=== PATIENT | female | born 1960 | race Caucasian/White ===

== ENCOUNTER 2023-06-02 21:02 | Emergency (ER) | payer MEDICARE, SELFPAY ==
[2023-06-02 21:44] VITALS: BP 144/84; PULSE 87; RESP 18; TEMP 36.6; O2SAT 96; BMI 34.8
--- NOTE | 2023-06-02 22:00 | ED_ITS ---
HPI - Extremity Injury (Upper) General Stated Complaint: Laceration Time Seen by Provider: 06/02/23 21:10 Source: patient Mode of arrival: walk-in History of Present Illness HPI narrative: patient was washing dishes by hand when she accidentally broke a glass and cut the right thumb and right index finger. This occurred about 2 hours ago. She applied pressure to the areas. The index finger has a superficial scratch but the thumb injury is deeper and her family member, who is a nurse, told her to come to the ED for treatment - it might need stitches . She is right handed. tetanus UTD. She does not take any blood thinners. Related Data Allergies Allergy/AdvReac Type Severity Reaction Status Date / Time No Known Drug Allergies Allergy Verified 06/02/23 21:51 PFSH PFS Social History Smoking status: Never smoker Exam Narrative Exam Narrative: Nurses note and vital signs reviewed and patient is not hypoxic. afebrile General: The patient appears well and in no apparent distress. Patient is resting comfortably on cart. GCS = 15. Skin: Warm, dry, no pallor noted. Cardiovascular: normal peripheral perfusion Respiratory: Patient is in no distress, no accessory muscle use Musculoskeletal: right hand: no sign of long bone fracture. the index finger has a superficial abrasion that is irregular and shape approximately 1 cm in size. The right thumb has a 1 cm laceration which is extending just slightly into the subcutaneous space but no vascular compromise is noted. no foreign material visualized within the wound. Bleeding is controlled this time. Moves all fingers of the right hand in all modalities with 5/5 strength. Neurological: A&O x4, normal equal [employer] strength, normal finger to nose, normal speech, normal coordination, normal motor, normal sensory. Psychiatric: Cooperative Constitutional Vital Signs, click to edit/add: Last Vital Signs Temp 97.9 F 06/02/23 21:44 Pulse 87 06/02/23 21:44 Resp 18 06/02/23 21:44 BP 144/84 H 06/02/23 21:44 Pulse Ox 96 06/02/23 21:44 O2 Del Method Room Air 06/02/23 21:44 Course Vital Signs Vital signs: Vital Signs Temperature 97.9 F 06/02/23 21:44 Pulse Rate 87 06/02/23 21:44 Respiratory Rate 18 06/02/23 21:44 Blood Pressure 144/84 H 06/02/23 21:44 Pulse Oximetry 96 06/02/23 21:44 Oxygen Delivery Method Room Air 06/02/23 21:44 Temperature 97.9 F 06/02/23 21:44 Pulse Rate 87 06/02/23 21:44 Respiratory Rate 18 06/02/23 21:44 Blood Pressure 144/84 H 06/02/23 21:44 Pulse Oximetry 96 06/02/23 21:44 Oxygen Delivery Method Room Air 06/02/23 21:44 MDM - Extremity Injury (Upper) MDM Narrative Medical decision making narrative: this laceration will not require sutures at this time. patient is able to move the right thumb through full range of motion without any gaping of the laceration. I applied wound adhesive to the laceration of the right thumb in order to help secure wound closure. The right index finger does not require any wound adhesive and I applied a bandage to the right index finger. I also applied a bandaid to the right thumb once the glue was dry. Discharge Plan Discharge Clinical Impression: Abrasion, Laceration of right thumb Patient Disposition: Home, Self-Care Time of Disposition Decision: 22:06 Instructions: Finger Laceration (ED), Abrasion (ED) Stand Alone Forms: Portal Instructions Referrals: [facility] [Primary Care Provider] - 1 week
== END 2023-06-02 22:15 | disposition home or self-care (01) ==
PROVIDERS: Emergency Provider Emergency Medicine
DX: S61.011A Laceration without foreign body of right thumb without damage to nail, initial encounter (principal); S60.410A Abrasion of right index finger, initial encounter; W25.XXXA Contact with sharp glass, initial encounter
CPT/HCPCS: 12001; 99282

== ENCOUNTER 2023-10-28 16:12 | Emergency (ER) | payer MEDICARE, SELFPAY ==
[2023-10-28 16:17] VITALS: BP 170/98; PULSE 87; RESP 20; TEMP 36.9; O2SAT 98; BMI 34.8
--- NOTE | 2023-10-28 16:23 | XR_ITS ---
The [address] [address] Patient Name: MARINE MARR MRN: [id number] date: 1960 Sex: F Assigned Patient Location: ER Current Patient Location: ER Accession/Order Number: [id number] Exam Date: 10/28/2023 16:30 Report Date: 10/28/2023 16:53 At the request of: NASIM HERNANDEZ Procedure: XR foot RT min 3V EXAM: XR foot RT min 3V HISTORY: Atraumatic pain, on dorsum COMPARISON: None. TECHNIQUE: 3 views of the right foot FINDINGS: There is no acute fracture or dislocation. No aggressive bone lesion. There is no cortical erosion. There is mild hallux valgus. 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 There is soft tissue swelling of the foot. XR/XR foot RT min 3V IMPRESSION: No acute fracture. Electronically authenticated by: APOLONIA DAVID Date: 10/28/2023 16:53
--- NOTE | 2023-10-28 16:23 | ED.EXTPRO1 ---
HPI - Extremity Problem General Chief complaint: Extremity Problem, Nontraumatic Stated complaint: rt foot swollen and painfull Time Seen by Provider: 10/28/23 16:18 Source: patient Mode of arrival: walk-in Limitations: no limitations History of Present Illness HPI Narrative: 63-year-old female presents for pain on the dorsum of her right foot. No injury. She saw her family doctor a few days ago and she says he could not find anything wrong. No radiographs were taken. She has not had any unusual activity recently and has had no injury. Contralateral foot does not hurt and neither does her right ankle. It is mild to moderate. Related Data Home Medications Medication Instructions Recorded Confirmed atorvastatin 40 mg tablet 40 mg PO DAILY 10/28/23 10/28/23 celecoxib 200 mg capsule 200 mg PO Q24H 10/28/23 10/28/23 esomeprazole magnesium 40 mg 40 mg PO Q24H 10/28/23 10/28/23 capsule,delayed release fluticasone propionate 44 2 inh inhalation Q12H PRN wheeze 10/28/23 10/28/23 mcg/actuation HFA aerosol inhaler losartan 25 mg tablet 25 mg PO DAILY 10/28/23 10/28/23 triamterene 37.5 1 tab PO DAILY 10/28/23 10/28/23 mg-hydrochlorothiazide 25 mg tablet Previous Rx's Medication Instructions Recorded ibuprofen 800 mg tablet 800 mg PO Q8H PRN pain #20 tabs 10/28/23 Allergies Allergy/AdvReac Type Severity Reaction Status Date / Time No Known Drug Allergies Allergy Verified 06/02/23 21:51 Review of Systems ROS Narrative A ten point review of systems is negative except as noted above. PFSH PFSH Social History Smoking status: Former smoker Exam Narrative Exam Narrative: Nurses note and vital signs reviewed and patient is not hypoxic. General: The patient appears well and in no apparent distress. Patient is resting comfortably on cart. Skin: Warm, dry, no pallor noted. There is no rash noted. Head: Normocephalic, atraumatic Eye: Normal conjunctiva, no drainage Ears, Nose, Mouth, and Throat: oral mucosa is moist. Nares patent. Cardiovascular: Regular Rate and Rhythm Respiratory: Patient is in no distress, no accessory muscle use, lungs are clear to auscultation, no wheezing, rales or rhonchi Back: non-tender GI: Soft and nontender Musculoskeletal: No visible swelling present on the right foot. There is no erythema or bruising or rash. She does have a tattoo of a jose on the dorsum of that foot. Dorsalis pedis pulse 2+. No tenderness to the plantar aspect of the foot and her toes have good range of motion which does not cause discomfort. The ankle is nontender and nonswollen. Neurological: A&O, normal speech Psychiatric: Cooperative Constitutional Vital Signs, click to edit/add: Last Vital Signs Temp 98.5 F 10/28/23 16:17 Pulse 87 10/28/23 16:17 Resp 20 10/28/23 16:17 BP 170/98 H 10/28/23 16:17 Pulse Ox 98 10/28/23 16:17 O2 Del Method Room Air 10/28/23 16:17 Course Vital Signs Vital signs: Vital Signs Temperature 98.5 F 10/28/23 16:17 Pulse Rate 87 10/28/23 16:17 Respiratory Rate 20 10/28/23 16:17 Blood Pressure 170/98 H 10/28/23 16:17 Pulse Oximetry 98 10/28/23 16:17 Oxygen Delivery Method Room Air 10/28/23 16:17 Temperature 98.5 F 10/28/23 16:17 Pulse Rate 87 10/28/23 16:17 Respiratory Rate 20 10/28/23 16:17 Blood Pressure 170/98 H 10/28/23 16:17 Pulse Oximetry 98 10/28/23 16:17 Oxygen Delivery Method Room Air 10/28/23 16:17 MDM - Extremity (Nontraumatic) MDM Narrative Medical decision making narrative: X-ray is negative. Cause of her discomfort is uncertain but she is prescribed anti-inflammatory and referred to podiatry. Treatment diagnosis and follow-up were discussed with the patient. Differential Diagnosis Differential diagnosis: Likely other (Fracture, strain, stress fracture) Imaging Data Foot x-ray: Radiologist's impression: ITS Impressions Foot X-Ray 10/28/23 16:23 IMPRESSION: No acute fracture. Electronically authenticated by: APOLONIA DAVID Date: 10/28/2023 16:53 Discharge Plan Discharge Stand Alone Forms: Portal Instructions Chief Complaint: Extremity Problem, Nontraumatic Clinical Impression: Acute pain of right foot Patient Disposition: Home, Self-Care Time of Disposition Decision: 17:00 Condition: Good Mode of Transportation: Private Vehicle Prescriptions / Home Meds: New ibuprofen 800 mg tablet 800 mg PO Q8H PRN (Reason: pain) Qty: 20 0RF No Action atorvastatin 40 mg tablet 40 mg PO DAILY esomeprazole magnesium 40 mg capsule,delayed release(DR/EC) 40 mg PO Q24H fluticasone propionate 44 mcg/actuation HFA aerosol inhaler 2 inh inhalation Q12H PRN (Reason: wheeze) Rx Instructions: administer with spacer losartan 25 mg tablet 25 mg PO DAILY triamterene-hydrochlorothiazid 37.5-25 mg tablet 1 tab PO DAILY celecoxib 200 mg capsule 200 mg PO Q24H Instructions: Metatarsalgia (DC) Additional Instructions: Follow-up with Dr. Dela Cruz Referrals: [facility] [Primary Care Provider] - 1 week
--- OUTSIDE RECORDS SUMMARY | 2023-10-28 16:24 | XMS_ITS | CCD ---
Author Name Unknown Address [address] [place] [address] Organization [facility] Care Team Providers Care Liner Worker Name Role Phone Joel Anand Unavailable [facility] Primary Care Unavaila DR AVERY Ellis Consulting Unavailable DR AVERY BONILLA Admitting Unavailable DR AVERY BONILLA Attending Unavailable [facility], Services Primary Care Provider DO Jayden Quevedo Attending Provider DO Josiah aFrmer Referring Provider [facility], Services Primary Care Provider DO Pablo Crowley Attending Provider [phone] MD Orly Fontaine Other Provider [phone] MD Orly Fontaine Other Provider [phone] DO Jayden Quevedo Attending Provider DO Harrison Sánchez Referring Provider [phone] Apolinar Zarate Unavailable [facility], Services Primary Care Provider DO Jayden Quevedo Attending Provider [phone] DO Harrison Sánchez Referring Provider [phone] MD Apolinar Zarate Attending Provider [phone] [facility], Services Primary Care Provider Apolinar Zarate Admitting Unavailable Apolinar Zarate Attending Unavailable [facility], Services Primary Care Unavaila ble Harrison Sánchez Admitting Unavailable Harrison Sánchez Attending Unavailable [facility], Services Primary Care Unavaila ble [facility], Pablo Attending Unavailable [facility] Services Primary Care Unavaila ble Orly Fontaine Consulting Unavailable [facility] Pablo Admitting Unavailable Apolinar Zarate Admitting Unavailable Apolinar Zarate Attending Unavailable [facility], Services Primary Care Unavaila ble Apolinar Zarate Attending Unavailable Apolinar Zarate Admitting Unavailable [facility], Services Primary Care Unavaila Harrison Bullock Referring Unavailable [facility], Services Primary Care Unavaila Jayden Pradhan Admitting Unavailable Jayden Quevedo Attending Unavailable Jayden Quevedo Attending Unavailable Harrison Sánchez Referring Unavailable [facility], Services Primary Care UnavailJayden Salguero Admitting Unavailable Apolinar Zarate Admitting Unavailable Apolinar Zarate Attending Unavailable [facility] Primary Care Unavaila [facility] Medications Current Medications Medication Drug Class(es) Dates Sig (Normalized) Sig (Original) atorvastatin 40 mg oral tablet (13 sources) HMG-CoA Reductase Inhibitor Start: 07-16-2017 take 40 mg by mouth once daily in the morning Atorvastatin Active 40 MG PO Every morning July 16, 2017 12:00am celecoxib 200 mg oral capsule (4 sources) Nonsteroidal Anti-inflammatory Drug Start: 10-05-2023 take 1 capsule by mouth once daily at mealtime Celecoxib Active 200 MG PO Daily October 05, 2023 12:00am [employer] capsule with food Orally Once a day; Note: Source Status: Taking; Provider: Tessa Jiang ( ) esomeprazole 40 mg delayed release oral capsule (10 sources) Proton Pump Inhibitor Start: 07-16-2017 take 40 mg by mouth twice daily Esomeprazole Magnesium Active 40 MG PO Twice daily July 16, 2017 12:00am hydroCHLOROthiazide 25 mg / triamterene 37.5 mg oral capsule (20 sources) Potassium-sparing Diuretic, Thiazide Diuretic Start: 07-16-2017 End: 12-29-2018 take 1 tablet by mouth once daily in the morning Triamterene-[place] chlorothiazid Active 1 TAB PO Every morning December 28, 2018 11:00pm Lisinopril (3 sources) Angiotensin Converting Enzyme Inhibitor Lisinopril Active losartan potassium 25 mg oral tablet (13 sources) Angiotensin 2 Receptor Donnell Start: 07-16-2017 take 25 mg by mouth once daily in the morning Losartan Active 25 MG PO Every morning July 16, 2017 12:00am Completed/Discontinued Medications Medication Drug Class(es) Dates Sig (Normalized) Sig (Original) acetaminophen 325 mg / HYDROcodone bitartrate 5 mg oral tablet (8 sources) Opioid Agonist Start: 01-13-2019 End: 08-24-2019 take 1 tablet by mouth every six hours Hydrocodone-Acetam inophen ([place]) 5-325 mg tablet Discontinued 1 TAB PO Q6H 20 January 13, 2019 August 24, 2019 6:25pm albuterol 0.83 mg/ml inhalation solution (20 sources) beta2-Adrenergic Agonist Start: 10-30-2017 End: 12-29-2018 take 2.5 mg by inhalation every four hours Albuterol Sulfate Discontinued 2.5 MG INHALATION Q4H 90 October 29, 2017 11:00pm November 02, 2017 11:04am Start: 07-16-2017 End: 10-30-2017 take 1 puff(s) by inhalation every four hours Albuterol Sulfate (Ventolin Hfa) 108 HFA aerosol inhaler Discontinued 2 PUFF INHALATION Q4H July 16, 2017 12:00am October 30, 2017 11:28am Start: 07-16-2017 End: 10-30-2017 Albuterol Sulfate Discontinu ed 2 INH INHALATION Every 4 hours 18 July 16, 2017 12:00am October 30, 2017 11:29am administer with spacer azithromycin 250 mg oral tablet (8 sources) Macrolide Antimicrobial Start: 07-16-2017 End: 10-30-2017 take 1 tablet by mouth once daily Azithromycin (Zithromax) 250 mg tablet Discontinued 250 MG PO Daily July 16, 2017 12:00am October 30, 2017 11:28am Take 500mg on day one, 250mg daily for four more days. cephalexin 500 mg oral capsule (8 sources) Cephalosporin Antibacterial Start: 08-24-2019 End: 10-14-2021 take 1 capsule by mouth three times daily Cephalexin (Keflex) 500 mg Capsule Discontinued 500 MG PO Three times daily August 24, 2019 12:00am October 14, 2021 7:28am codeine phosphate 2 mg/ml / promethazine hydrochloride 1.25 mg/ml oral solution (8 sources) Opioid Agonist, Phenothiazine Start: 07-16-2017 End: 11-02-2017 take 1 mL by mouth every six hours Promethazine-Code ine Discontinued 5 ML PO Q6H 60 July 16, 2017 12:00am November 02, 2017 11:06am fluticasone propionate 0.05 mg/actuat metered dose nasal spray (8 sources) Corticosteroid Start: 07-16-2017 End: 12-29-2018 Fluticasone Propionate Discontinued 2 SPRAY INTRANASAL Daily July 16, 2017 12:00am December 29, 2018 9:41am ibuprofen 600 mg oral tablet (8 sources) Nonsteroidal Anti-inflammatory Drug Start: 01-13-2019 End: 08-24-2019 Ibuprofen Discontinued 600 MG PO Every 6 hours January 12, 2019 11:00pm August 24, 2019 6:25pm do not exceed 4 doses in a 24 hour period ipratropium bromide 0.2 mg/ml inhalation solution (20 sources) Anticholinergic Start: 10-30-2017 End: 12-29-2018 take 0.5 mg by inhalation every eight hours Ipratropium [place] Discontinued 0.5 MG INHALATION Q8H October 29, 2017 11:00pm December 29, 2018 9:42am levoFLOXacin 750 mg oral tablet (8 sources) Quinolone Antimicrobial Start: 10-30-2017 End: 11-09-2017 take 1 tablet by mouth every twenty-four hours Levofloxacin (Levaquin) 750 mg tablet Discontinued 750 MG PO Q24H 10 October 29, 2017 11:00pm November 08, 2017 11:03pm meloxicam 7.5 mg oral tablet (18 sources) Nonsteroidal Anti-inflammatory Drug Start: 12-29-2018 End: 01-13-2019 take 7.5 mg by mouth once daily in the morning Meloxicam Discontinued 7.5 MG PO Every morning December 28, 2018 11:00pm January 13, 2019 6:54am Start: 07-16-2017 End: 12-29-2018 take 15 mg by mouth once daily Meloxicam Discontinued 15 MG PO Daily July 16, 2017 12:00am December 29, 2018 9:38am metroNIDAZOLE 500 mg oral tablet (8 sources) Nitroimidazole Antimicrobial Start: 04-04-2018 End: 12-29-2018 take 1 tablet by mouth twice daily Metronidazole (Flagyl) 500 mg tablet Discontinued 500 MG PO Twice daily 14 April 03, 2018 11:00pm December 29, 2018 9:42am nitrofurantoin, macrocrystals 25 mg / nitrofurantoin, monohydrate 75 mg oral capsule (16 sources) Nitrofuran Antibacterial Start: 12-29-2018 End: 08-24-2019 take 1 capsule by mouth once daily at mealtime Nitrofurantoin Monohyd/M-Cryst (Macrobid) 100 mg capsule Discontinued 1 CAP PO Daily 5 January 12, 2019 11:00pm August 24, 2019 6:25pm administer with a meal/food; swallow whole; do not open, crush, dissolve , or chew potassium chloride 20 meq powder for oral solution (8 sources) Start: 08-24-2019 End: 10-14-2021 take 20 mEq by mouth once daily Potassium Chloride Discontinued 20 MEQ PO Daily August 24, 2019 12:00am October 14, 2021 7:44am predniSONE 20 mg oral tablet (16 sources) Start: 10-30-2017 End: 11-04-2017 take 40 mg by mouth once daily at mealtime Prednisone Discontinued 40 MG PO Daily 10 October 29, 2017 11:00pm November 03, 2017 11:04pm administer with food or milk Start: 07-16-2017 End: 10-30-2017 take 20 mg by mouth once daily at mealtime Prednisone Discontinued 20 MG PO Daily July 16, 2017 12:00am October 30, 2017 11:29am administer with food or milk promethazine hydrochloride 25 mg oral tablet (8 sources) Phenothiazine Start: 08-24-2019 End: 10-14-2021 take 25 mg by mouth every six hours Promethazine Discontinued 25 MG PO Q6H August 24, 2019 12:00am October 14, 2021 7:45am sulfamethoxazole 800 mg / trimethoprim 160 mg oral tablet (8 sources) Dihydrofolate Reductase Inhibitor Antibacterial, Sulfonamide Antimicrobial Start: 08-24-2019 End: 10-14-2021 take 1 tablet by mouth twice daily Sulfamethoxazole- Trimethoprim Discontinued 1 TAB PO Twice daily August 24, 2019 12:00am October 14, 2021 7:45am Problems Active Problems Problem Classification Problem Date Documented Date Episodic/Chronic Acute bronchitis (8 sources) Acute bronchitis; Translations: [Acute bronchitis, unspecified] 10-30-2017 Episodic Anal and rectal conditions (5 sources) Anal and rectal polyp; Translations: [Rectal polyp] Episodic Chronic obstructive pulmonary disease and bronchiectasis (8 sources) Bronchitis; Translations: [Bronchitis, not specified as acute or chronic] 11-02-2017 Episodic Diverticulosis and diverticulitis (6 sources) Diverticular disease; Translations: [Diverticulosis of intestine, part unspecified, without perforation or abscess without bleeding] Onset: 11-27-2021 Resolved: 11-27-2021 Chronic Esophageal disorders (5 sources) Gastroesophageal reflux disease; Translations: [Gastro-esophageal reflux disease without esophagitis] Chronic Essential hypertension (1 source) Essential (primary) hypertension; Translations: [Essential (primary) hypertension] Onset: 02-04-2023 Chronic Fever of unknown origin (1 source) Fever, unspecified; Translations: [FEVER UNSPECIFIED] Onset: 07-19-2022 Episodic Fluid and electrolyte disorders (8 sources) Acute hypokalemia; Translations: [Hypokalemia] 08-24-2019 Episodic Genitourinary symptoms and ill-defined conditions (13 sources) Incontinence; Translations: [Stress incontinence (female) (male)] 01-13-2019 Chronic Headache; including migraine (8 sources) Headache; Translations: [Headache] 08-24-2019 Episodic Hemorrhoids (6 sources) Hemorrhoids; Translations: [Unspecified hemorrhoids] Onset: 11-27-2021 Resolved: 11-27-2021 Episodic Influenza (1 source) Influenza due to other identified influenza virus with other respiratory manifestations; Translations: [FLU D/T OTH ID FLU VIR OTH RSP MANF] Onset: 07-19-2022 Episodic Nausea and vomiting (8 sources) Vomiting; Translations: [Vomiting, unspecified] 08-24-2019 Episodic Other aftercare (1 source) Other assisted (current) drug therapy; Translations: [OTH INTERMEDIATE CURRENT DRUG THERAPY] Onset: 07-19-2022 Episodic Other and unspecified benign neoplasm (13 sources) History of polyp of colon; Translations: [Personal history of colonic polyps] 10-14-2021 Episodic Other and unspecified benign neoplasm (5 sources) Benign neoplasm of sigmoid colon; Translations: [Benign neoplasm of sigmoid colon] Episodic Other nervous system disorders (3 sources) Chronic pain; Translations: [Other chronic pain] Chronic Other nervous system disorders (1 source) Other chronic pain Chronic Other nervous system disorders (1 source) Other chronic pain; Translations: [Other chronic pain] Onset: 09-14-2023 Chronic Other upper respiratory disease (8 sources) Bleeding from nose; Translations: [Epistaxis] 11-02-2017 Episodic Prolapse of female genital organs (13 sources) Cystocele and rectocele co-occurrent with complete uterovaginal prolapse; Translations: [Complete uterovaginal prolapse] 01-13-2019 Chronic Regional enteritis and ulcerative colitis (6 sources) Pseudopolyposis of colon; Translations: [Inflammatory polyps of colon without complications] Onset: 11-27-2021 Resolved: 11-27-2021 Chronic Screening and history of mental health and substance abuse codes (1 source) Personal history of nicotine dependence; Translations: [PERSONAL HISTORY OF NICOTINE DEPEND] Onset: 07-19-2022 Episodic Spondylosis; intervertebral disc disorders; other back problems (4 sources) Lumbosacral spondylosis without myelopathy; Translations: [Spondylosis without myelopathy or radiculopathy, lumbosacral region] Chronic Thyroid disorders (1 source) Non-toxic multinodular goiter; Translations: [Nontoxic multinodular goiter] Onset: 10-22-2023 Chronic Unclassified (3 sources) COUGH, UNSPECIFIED; Translations: [COUGH, UNSPECIFIED] Onset: 07-19-2022 Unclassified (1 source) CONTACT W/AND (SUSP) EXPOS COVID-19; Translations: [CONTACT W/AND (SUSP) EXPOS COVID-19] Onset: 07-19-2022 Unclassified (1 source) Low back pain, unspecified; Translations: [Low back pain, unspecified] Onset: 08-05-2023 Unclassified (1 source) Other low back pain; Translations: [Other low back pain] Onset: 07-14-2023 Unclassified (1 source) Otalgia, right ear; Translations: [Otalgia, right ear] Onset: 06-30-2023 Unclassified (1 source) Encounter for screening mammogram for malignant neoplasm of breast; Translations: [Encounter for screening mammogram for malignant neoplasm of breast] Onset: 04-08-2023 Urinary tract infections (8 sources) Acute urinary tract infection; Translations: [Urinary tract infection, site not specified] 08-24-2019 Episodic Viral infection (1 source) Viral infection, unspecified; Translations: [VIRAL INFECTION UNSPECIFIED] Onset: 07-19-2022 Episodic Past or Other Problems Problem Classification Problem Date Documented Da te Episodic/Chronic Other and unspecified benign neoplasm (1 source) Personal history of colonic polyps Onset: 11-27-2021 Resolved: 11-27-2021 Episodic Spondylosis; intervertebral disc disorders; other back problems (1 source) Cervicalgia; Translations: [Cervicalgia] Onset: 06-30-2023 Episodic Unclassified (1 source) COUGH, UNSPECIFIED; Translations: [COUGH, UNSPECIFIED] Onset: 07-17-2022 Unclassified (2 sources) Other low back pain M54.59 Results Test Name Value Interpretation Reference Range Facility Thyroid Stim Hormone w/Rflxo n 10-22-2023 Thyroid Stim Hormone w/Rflx 1.77 u[iU]/mL Normal 0.45-5.33 [facility] Comment on above: Order Comment: Reaso n for Exam Multiple thyroid nodules Result Comment: PERF ORMED BY: [place] [address] PATHOLOGIST POWER BUILDER DEVELOPER ARACELI CHAPA M.D. Performed By: #### T SH3 wRFLX #### [address] XR lumbar spine AP/LAT/FLX/E XTon 07-14-2023 XR lumbar spine AP/LAT/FLX/EXT [facility] [place] [address] [place] [address] XRay Report Signed Patient: Aura Hassan MR#: [id number] : 1960 Acct:[id number] Age/Sex: 62 / F ADM Date: 07/14/23 Loc: XD Room: Type: [facility] Attending Dr: Apolinar Zarate MD Copies to: Apolinar Zarate MD Ordering Provider: Apolinar Zarate MD Date of Service: 07/14/23 XR/XR lumbar spine AP/LAT/FLX/EXT: Other low back pain AP with lateral neutral, flexion and extension views of the Lumbar Spine HISTORY: Low back pain for several years. COMPARISON: 12/09/2016 POSTSURGICAL CHANGES: None BONY ALIGNMENT: Adequate HYPERMOBILITY:No hypermobility. LISTHESIS:Mild degenerative listhesis. FRACTURE: None DEGENERATIVE CHANGES: Extensive multilevel facet degeneration. Mild multilevel spondylosis. SOFT TISSUES: Unremarkable BONY MINERALIZATION:[place] te XR/XR lumbar spine AP/LAT/FLX/EXT IMPRESSION: No hypermobility. Degenerative change. Impression dictated by: Rainer Sofia M.D.07/14/2023 2:59 PM Dictation Location: RADIO-PC-14 Transcribed By: SHAMAR 07/14/231458 Dictated By: Rainer Sofia DO 07/14/231455 Signed By: 07/14/231458 Normal [facility] CT soft tissue neck w danny 06-30-2023 CT soft tissue neck w [facility] [place] [address] CT Scan Report Signed Patient: Aura Hassan MR#: [id number] : 1960 Acct:[id number] Age/Sex: 62 / F ADM Date: 06/30/23 Loc: CT Room: Type: [facility] Attending Dr: Jayden Quevedo DO Copies to: Harrison Sánchez DO, CORDELIA Quevedo DO Ordering Provider: Harrison Sánchez DO, RES Date of Service: 06/30/23 CT/CT soft tissue neck w con: Neck pain on right side;Right ear pain CT SOFT TISSUE NECK WITH CONTRAST CLINICAL DATA: Right neck swelling and pain. Right earache. Small lung. COMPARISON: None Spiral images were obtained through the neck following 90 mL Isovue-300. This CT exam was performed using one or more following dose reduction techniques: Automated exposure control, adjustment of the mA and/or kV according to patient size, or use of iterative reconstruction technique. No dominant thyroid nodules are noted. The submandibular and parotid glands appear symmetric. There is no enlargement of the adenoids or tonsils. The epiglottis and vocal cords are within normal limits. The airway is patent throughout its course with normal appearance of the mucosal surfaces. There is no prevertebral soft tissue swelling. There are small shotty cervical lymph nodes, with none being pathologically enlarged or necrotic. No soft tissue masses are seen including in the area of concern on the right which is marked on the skin. Patient is edentulous. The imaged paranasal sinuses are clear. There is a right-sided renetta bullosa. The mastoid air cells are also clear and there is no evidence of middle ear effusion. There is cervicothoracic scoliotic curvature and mild degenerative changes at the spine, greatest at the facets. Limited imaging of the upper lungs shows minimal apical scarring. CT/CT soft tissue neck w con IMPRESSION: NO SIGNIFICANT CT ABNORMALITIES INVOLVING THE NECK. Impression dictated by: Millie Zhang M.D.06/30/2023 4:22 PM Dictation Location: [place] [address] Transcribed By: [facility] 06/30/23 1622 Dictated By: Millie Zhang MD 06/30/23 1617 Signed By: 06/30/23 1622 [facility] US thyroidon 06-30-[address] [facility] [place] [address] Ultrasound Report Signed Patient: Aura Hassan MR#: [id number] : 1960 Acct:[id number] Age/Sex: 62 / F ADM Date: 06/30/23 Loc: CT Room: Type: [facility] Attending Dr: Jayden Quevedo DO Ordering Provider: Harrison Sánchez DO, RES Date of Service: 06/30/23 US/US thyroid: Neck pain on right side;Right ear pain Copies to: Harrison Sánchez DO, CORDELIA Quevedo DO THYROID ULTRASOUND CLINICAL DATA: Right-sided neck pain and fullness. Right ear pain. COMPARISON: CT 06/30/2023 The right thyroid lobe measures 4.0 x 1.6 x 1.7 cm. The left lobe measures 3.8 x 0.9 x 1.9 cm. The isthmus measures 4 - 5 mm. There is normal echogenicity. At the mid pole on the right, there is a mixed echogenicity cystic and solid nodule measuring 5 x 6 x 6 mm. There are some cystic lesions with mural nodularity compatible with colloid cysts at the mid to lower pole measuring up to 6 x 7 x 4 mm in size. On the left, there is a hypoechoic nodule at the superior pole measuring 6 x 4 x 6 mm. At the mid to lower pole superficially, there is another mixed echogenicity, predominantly solid nodule with some tiny cystic components measuring 18 x 7 x 12 mm. US/US thyroid IMPRESSION: THYROID NODULARITY, DESCRIBED. ULTRASOUND-GUIDED BIOPSY OF THE INFERIOR THYROID NODULE ON THE LEFT COULD BE CONSIDERED (TI-RADS 4) Impression dictated by: Millie Zhang M.D.06/30/2023 4:17 PM Dictation Location: [place] [address] Tech: Ruth Martinez Transcribed By: SHAMAR 06/30/23 1617 Dictated By: Millie Zhang MD 06/30/23 1604 Signed By: 06/30/23 1617 [facility] MM screening mammo BI w/CADo n 04-08-2023 MM screening mammo BI w/CAD [facility] [place] [address] Mammography Report Signed Patient: Aura Hassan MR#: [id number] : 1960 Acct:[id number] Age/Sex: 62 / F ADM Date: 04/08/23 Loc: [place] Room: Type: [facility] Attending Dr: Jayden Quevedo DO Copies to: Harrison Sánchez DO, CORDELIA [facility] Jayden Quevedo DO Ordering Provider: Harrison Sánchez DO, RES Date of Service: 04/08/23 MM/MM screening mammo BI w/CAD: Screening mammogram for breast cancer CLINICAL DATA: Screening for malignancy. SCREENING MAMMOGRAM - FULL FIELD DIGITAL WITH TOMOSYNTHESIS AND CAD COMPARISON:Mammograms dating back to 2017 Tomosynthesis craniocaudal and mediolateral oblique views of both breasts were obtained using low- dose digital technique. This examination was reviewed with the aid of CAD. The breast tissue is composed of scattered fibroglandular densities. There are no dominant masses, typically malignant calcifications or architectural distortion. There has been no significant interval change. MM/MM screening mammo BI w/CAD IMPRESSION: NO MAMMOGRAPHIC EVIDENCE OF MALIGNANCY. ROUTINE FOLLOW-UP IS RECOMMENDED IN ONE YEAR. RESULT CODE: 1 Negative DENSITY CODE: 2 (approximately 25-50% glandular) FOLLOW UP: 1YR The false-negative rate of mammography is approximately 10-percent. Management of a palpable abnormality must be based on clinical grounds. Patient was entered into a reminder system with a target due date for the next mammogram. Impression dictated by: Josiah Holt Jr., D.OJb04/08/2023 2:46 PM Dictation Location: [facility] Transcribed By: SHAMAR 04/08/23 1446 Dictated By: Josiah Holt Jr, DO 04/08/23 1445 Signed By: 04/08/23 1446 Normal [facility] Alanine aminotransferase [En zymatic activity/volume] in Serum or PlasmaOrdered By: Orly Fontaine on 02-04-2023 ALT [Catalytic activity/Vol] 22 U/L 7-52 [facility] Albumin [Mass/volume] in Ser um or Plasma by Bromocresol green (BCG) dye binding methoOrdered By: Orly Fontaine on 02-04-2023 Albumin BCG dye [Mass/Vol] 4.3 g/dL 3.5-5.7 [facility] Alkaline phosphatase [Enzyma tic activity/volume] in Serum or PlasmaOrdered By: Orly Cespedesser on 02-04-2023 ALP [Catalytic activity/Vol] 79 U/L 34-104 [facility] Aspartate aminotransferase [ Enzymatic activity/volume] in Serum or PlasmaOrdered By: Orly Cespedesser on 02-04-2023 AST [Catalytic activity/Vol] 18 U/L 13-39 [facility] Basophils Auto (Bld) [#/Vol] Ordered By: Orly Waverly on 02-04-2023 Basophils (Bld) [#/Vol] 0.0 10*3/uL 0.0-0.2 [facility] Basophils/100 WBC Auto (Bld) Ordered By: Orly Minal on 02-04-2023 Basophils/100 WBC (Bld) 0.4 % . F [facility] Bilirubin.total [Mass/volume ] in Serum or PlasmaOrdered By: Orly Cespedesser on 02-04-2023 Bilirubin [Mass/Vol] 0.7 mg/dL 0.3-1.0 [facility] Calcium [Mass/volume] in Ser um or PlasmaOrdered By: Orly Cespedesser on 02-04-2023 Calcium [Mass/Vol] 9.2 mg/dL 8.6-10.3 [facility] Carbon dioxide, total [Moles /volume] in Serum or PlasmaOrdered By: Orly Cespedesser on 02-04-2023 CO2 [Moles/Vol] 27.2 mmol/L 21.0-31.0 [facility] Chloride [Moles/volume] in S rashawn or PlasmaOrdered By: Orly Fontaine on 02-04-2023 Chloride [Moles/Vol] 107 mmol/L 98-107 [facility] Cholesterol [Mass/volume] in Serum or PlasmaOrdered By: Orly Fontaine on 02-04-2023 Cholesterol [Mass/Vol] 166 mg/dL 140-200 [facility] Comment on above: Chol less than 200 m g/dl low riskChol 201-239 mg/dl borderline riskChol 240 mg/dl and greater high risk Cholesterol in LDL Calc [Mas s/Vol]Ordered By: Orly Fontaine on 02-04-2023 Cholesterol in LDL [Mass/Vol] 55 mg/dL 0-100 [facility] Comment on above: LDL ATP III CLASSIFI CATIONLDL less than 100 mg/dL OptimalLDL 100-129 mg/dL Near or above optimalLDL 130-159 mg/dL Borderline highLDL 160-189 mg/dL HighLDL greater than 189 mg/dL Very high Cholesterol in VLDL Calc [Ma ss/Vol]Ordered By: Orly Fontaine on 02-04-2023 Cholesterol in VLDL [Mass/Vol] 69 mg/dL [facility] Complete Blood Count Auto Di ffon 02-04-2023 Basophils (Bld) [#/Vol] 0.0 10*3/uL Normal 0.0-0.2 [facility] Comment on above: Result Comment: PERF ORMED BY: [place] [address] PATHOLOGIST POWER BUILDER DEVELOPER ARACELI CHAPA M.D. Performed By: #### C BC, CMP, LIPID #### [facility] [address] [place] [address] [place] Basophils/100 WBC (Bld) 0.4 % Normal . [facility] Comment on above: Performed By: #### C BC, CMP, LIPID #### [facility] [address] [place] [address] [place] Eosinophils (Bld) [#/Vol] 0.1 10*3/uL Normal 0.0-0.45 [facility] Comment on above: Performed By: #### C BC, CMP, LIPID #### [facility] [address] [place] [address] [place] Eosinophils/100 WBC (Bld) 2.4 % Normal . [facility] Comment on above: Performed By: #### C BC, CMP, LIPID #### [facility] [address] Erythrocyte distribution width (RBC) [Ratio] 13.7 % Normal 11.9-15.3 [facility] Comment on above: Performed By: #### C BC, CMP, LIPID #### [facility] [address] Hematocrit (Bld) [Volume fraction] 38.9 % Normal 34.0-46.4 [facility] Comment on above: Performed By: #### C BC, CMP, LIPID #### [facility] [address] Hemoglobin (Bld) [Mass/Vol] 13.6 g/dL Normal 11.8-15.4 [facility] Comment on above: Performed By: #### C BC, CMP, LIPID #### [facility] [address] Lymphocytes (Bld) [#/Vol] 1.9 10*3/uL Normal 1.00-4.8 [facility] Comment on above: Performed By: #### C BC, CMP, LIPID #### [facility] [address] [place] [address] [place] Lymphocytes/100 WBC (Bld) 35.1 % Normal . [facility] Comment on above: Performed By: #### C BC, CMP, LIPID #### [facility] [address] MCH (RBC) [Entitic mass] 30.0 pg Normal 24.7-34.3 [facility] Comment on above: Performed By: #### C BC, CMP, LIPID #### [facility] [address] MCV (RBC) [Entitic vol] 85.9 fL Normal 80-100 [facility] Comment on above: Performed By: #### C BC, CMP, LIPID #### [facility] [address] Mean Corpuscular HGB Conc 35.0 g/dL Normal 32.0-35.0 [facility] Comment on above: Performed By: #### C BC, CMP, LIPID #### [facility] [address] Monocytes (Bld) [#/Vol] 0.3 10*3/uL Normal 0.0-0.8 [facility] Comment on above: Performed By: #### C BC, CMP, LIPID #### [facility] [address] [place] [address] [place] Monocytes/100 WBC (Bld) 6.3 % Normal . [facility] Comment on above: Performed By: #### C BC, CMP, LIPID #### [facility] [address] [place] [address] [place] Neutrophils (Bld) [#/Vol] 3.0 10*3/uL Normal 1.8-7.7 [facility] Comment on above: Performed By: #### C BC, CMP, LIPID #### [facility] [address] [place] [address] [place] Neutrophils/100 WBC (Bld) 55.8 % Normal . [facility] Comment on above: Performed By: #### C BC, CMP, LIPID #### [facility] [address] [place] [address] [place] NRBC% 0.1 /100{WBC} Normal 0-0.5 [facility] Comment on above: Performed By: #### C BC, CMP, LIPID #### [facility] [address] [place] [address] [place] Platelet mean volume (Bld) [Entitic vol] 7.4 fL Normal 6.3-10.7 [facility] Comment on above: Performed By: #### C BC, CMP, LIPID #### [facility] [address] [place] [address] [place] Platelets (Bld) [#/Vol] 208 10*3/uL Normal 150-450 [facility] Comment on above: Performed By: #### C BC, CMP, LIPID #### [facility] [address] RBC (Bld) [#/Vol] 4.54 10*6/uL Normal 3.60-5.00 [facility] Comment on above: Performed By: #### C BC, CMP, LIPID #### [facility] [address] WBC (Bld) [#/Vol] 5.4 10*3/uL Normal 3.8-11.6 [facility] Comment on above: Performed By: #### C BC, CMP, LIPID #### [address] Comprehensive Metabolic Pane baudilio 02-04-2023 Albumin [Mass/Vol] 4.3 g/dL Normal 3.5-5.7 [facility] Comment on above: Performed By: #### C BC, CMP, LIPID #### [address] Albumin/Globulin [Mass ratio] 2.3 {ratio} Normal [facility] Comment on above: Performed By: #### C BC, CMP, LIPID #### [address] ALP [Catalytic activity/Vol] 79 U/L Normal 34-104 [facility] Comment on above: Performed By: #### C BC, CMP, LIPID #### [address] ALT [Catalytic activity/Vol] 22 U/L Normal 7-52 [facility] Comment on above: Performed By: #### C BC, CMP, LIPID #### [address] Anion gap [Moles/Vol] 12.0 mmol/L Normal 6.0-15.0 [facility] Comment on above: Performed By: #### C BC, CMP, LIPID #### [address] AST [Catalytic activity/Vol] 18 U/L Normal 13-39 [facility] Comment on above: Performed By: #### C BC, CMP, LIPID #### [facility] [address] Bilirubin [Mass/Vol] 0.7 mg/dL Normal 0.3-1.0 [facility] Comment on above: Performed By: #### C BC, CMP, LIPID #### [facility] [address] Calcium [Mass/Vol] 9.2 mg/dL Normal 8.6-10.3 [facility] Comment on above: Performed By: #### C BC, CMP, LIPID #### [facility] [address] Chloride [Moles/Vol] 107 mmol/L Normal 98-107 [facility] Comment on above: Performed By: #### C BC, CMP, LIPID #### [facility] [address] CO2 [Moles/Vol] 27.2 mmol/L Normal 21.0-31.0 [facility] Comment on above: Performed By: #### C BC, CMP, LIPID #### [facility] [address] Creatinine [Mass/Vol] 0.86 mg/dL Normal 0.60-1.20 [facility] Comment on above: Performed By: #### C BC, CMP, LIPID #### [facility] [address] GFR/1.73 sq M.predicted MDRD (S/P/Bld) [Vol rate/Area] mL/min/{1.73_m2} Normal [facility] Comment on above: Performed By: #### C BC, CMP, LIPID #### [facility] [address] Globulin (S) [Mass/Vol] 1.9 g/dL Normal [facility] Comment on above: Performed By: #### C BC, CMP, LIPID #### [facility] [address] Glucose [Mass/Vol] 111 mg/dL High 70-100 [facility] Comment on above: Result Comment: [facility] Glucose Reference Range is dependent on time and content of last meal. Glucose of more than 200 mg/dL in a nonstressed, ambulatory subject supports the diagnosis of Diabetes Mellitus. ADA recommended reference range Performed By: #### C BC, CMP, LIPID #### [facility] [address] [place] [address] [place] Potassium [Moles/Vol] 4.2 mmol/L Normal 3.5-5.1 [facility] Comment on above: Performed By: #### C BC, CMP, LIPID #### [facility] [address] Protein [Mass/Vol] 6.2 g/dL Low 6.4-8.9 [facility] Comment on above: Performed By: #### C BC, CMP, LIPID #### [facility] [address] Sodium [Moles/Vol] 142 mmol/L Normal 136-145 [facility] Comment on above: Performed By: #### C BC, CMP, LIPID #### [facility] [address] [place] [address] [place] Urea nitrogen [Mass/Vol] 10 mg/dL Normal 7-25 [facility] Comment on above: Performed By: #### C BC, CMP, LIPID #### [facility] [address] Creatinine [Mass/volume] in Serum or PlasmaOrdered By: Orly Fontaine on 02-04-2023 Creatinine [Mass/Vol] 0.86 mg/dL 0.60-1.20 [facility] Creatinine [Mass/volume] in UrineOrdered By: Orly Fontaine on 02-04-2023 Creatinine (U) [Mass/Vol] 87.0 mg/dL 11.0-20.0 [facility] Eosinophils Auto (Bld) [#/Vo l]Ordered By: Orly Fontaine on 02-04-2023 Eosinophils (Bld) [#/Vol] 0.1 10*3/uL 0.0-0.45 [facility] Eosinophils/100 WBC Auto (Bl d)Ordered By: Orly Fontaine on 02-04-2023 Eosinophils/100 WBC (Bld) 2.4 % . [facility] Erythrocyte distribution wid th Auto (RBC) [Ratio]Ordered By: Orly Fontaine on 02-04-2023 Erythrocyte distribution width (RBC) [Ratio] 13.7 % 11.9-15.3 [facility] Globulin Calc (S) [Mass/Vol] Ordered By: Orly Fontaine on 02-04-2023 Globulin (S) [Mass/Vol] 1.9 g/dL [facility] Glucose [Mass/volume] in Ser um or PlasmaOrdered By: Orly Fontaine on 02-04-2023 Glucose [Mass/Vol] 111 mg/dL 70-100 [facility] Comment on above: ADA recommended refe rence rangeRandom Glucose Reference Range is dependent on time and content of last meal. Glucose of more than 200 mg/dL in a nonstressed, ambulatory subject supports the diagnosis of Diabetes Mellitus. Hematocrit Auto (Bld) [Volum e fraction]Ordered By: Orly Fontaine on 02-04-2023 Hematocrit (Bld) [Volume fraction] 38.9 % 34.0-46.4 [facility] Hemoglobin [Mass/volume] in BloodOrdered By: Orly Fontaine on 02-04-2023 Hemoglobin (Bld) [Mass/Vol] 13.6 g/dL 11.8-15.4 [facility] Leukocytes [#/volume] correc marina for nucleated erythrocytes in Blood by Automated counOrdered By: Orly Fontaine on 02-04-2023 WBC corrected for nucl RBC Auto (Bld) [#/Vol] 5.4 10*3/uL 3.8-11.6 [facility] Lipid Panelon 02-04-2023 Cholesterol [Mass/Vol] 166 mg/dL Normal 140-200 [facility] Comment on above: Result Comment: Chol less than 200 mg/dl low risk Chol 201-239 mg/dl borderline risk Chol 240 mg/dl and greater high risk Performed By: #### C BC, CMP, LIPID #### [facility] [address] Cholesterol in HDL [Mass/Vol] 42 mg/dL Normal 23-92 [facility] Comment on above: Result Comment: HDL CHOL ATP-III CLASSIFICATION Cardiovascular Risk HDL > or equal to 60 mg/dL LOW HDL < 40 mg/dL HIGH Performed By: #### C BC, CMP, LIPID #### [facility] [address] Cholesterol.total/Choles terol in HDL [Mass ratio] 4.0 {ratio} Normal <5.0 [facility] Comment on above: Result Comment: PERF ORMED BY: [place] [address] PATHOLOGIST POWER BUILDER DEVELOPER ARACELI CHAPA M.D. Performed By: #### C BC, CMP, LIPID #### [address] LDL Cholesterol,Calculated 55 mg/dL Normal 0-100 [facility] Comment on above: Result Comment: LDL ATP III CLASSIFICATION LDL less than 100 mg/dL Optimal LDL 100-129 mg/dL Near or above optimal LDL 130-159 mg/dL Borderline high LDL 160-189 mg/dL High LDL greater than 189 mg/dL Very high Performed By: #### C BC, CMP, LIPID #### [address] Triglyceride w/Reflex 345 mg/dL High 0-149 [facility] Comment on above: Result Comment: TRIG ATP III CLASSIFICATION TRIG less than 150 mg/dL Normal TRIG 150-199 mg/dL Borderline high TRIG 200-500 mg/dL High TRIG greater than 500 mg/dL Very high Standard traceable to the Center for Disease Conrtrol and Prevention (CDC) test method. Performed By: #### C BC, CMP, LIPID #### [facility] [address] VLDL CHOLESTEROL 69 mg/dL Normal [facility] Comment on above: Performed By: #### C BC, CMP, LIPID #### [facility] [address] [place] [address] [place] Lymphocytes Auto (Bld) [#/Vo l]Ordered By: Orly Fontaine on 02-04-2023 Lymphocytes (Bld) [#/Vol] 1.9 10*3/uL 1.00-4.8 [facility] Lymphocytes/100 WBC Auto (Bl d)Ordered By: Orly Fontaine on 02-04-2023 Lymphocytes/100 WBC (Bld) 35.1 % . [facility] MCH Auto (RBC) [Entitic mass ]Ordered By: Orly Fontaine on 02-04-2023 MCH (RBC) [Entitic mass] 30.0 pg 24.7-34.3 [facility] MCHC Auto (RBC) [Mass/Vol]Or dered By: Orly Fontaine on 02-04-2023 MCHC (RBC) [Mass/Vol] 35.0 g/dL 32.0-35.0 [facility] MCV Auto (RBC) [Entitic vol] Ordered By: Orly Fontaine on 02-04-2023 MCV (RBC) [Entitic vol] 85.9 fL 80-100 [facility] MicroAlb Creat Ratio,Uon Albumin DL <= 20 mg/L (U) [Mass/Vol] mg/dL Normal 0.0-1.8 [facility] Comment on above: Performed By: #### U RMACRERAT #### [facility] [address] [place] [address] Creatinine, Urine (Random) 87.0 mg/dL High 11.0-20.0 [facility] Comment on above: Performed By: #### U RMACRERAT #### [facility] [address] [place] [address] [place] Microalbumin/Creatinine Ratio Not performed Normal 0.0-30.0 [facility] Comment on above: Result Comment: PERF ORMED BY: [place] [address] PATHOLOGIST POWER BUILDER DEVELOPER ARACELI CHAPA M.D. Performed By: #### U RMACRERAT #### [facility] [address] [place] [address] [place] Microalbumin [Mass/volume] i n UrineOrdered By: Orly Fontaine on 02-04-2023 Albumin DL <= 20 mg/L (U) [Mass/Vol] mg/dL 0.0-1.8 [facility] Monocytes Auto (Bld) [#/Vol] Ordered By: Orly Cespedesser on 02-04-2023 Monocytes (Bld) [#/Vol] 0.3 10*3/uL 0.0-0.8 [facility] Monocytes/100 WBC Auto (Bld) Ordered By: Orly Cespedesser on 02-04-2023 Monocytes/100 WBC (Bld) 6.3 % . [facility] Neutrophils Auto (Bld) [#/Vo l]Ordered By: Orly Cespedesser on 02-04-2023 Neutrophils (Bld) [#/Vol] 3.0 10*3/uL 1.8-7.7 [facility] Neutrophils/100 WBC Auto (Bl d)Ordered By: Orly Fontaine on 02-04-2023 Neutrophils/100 WBC (Bld) 55.8 % . [facility] No Panel InformationOrdered By: Orly Fontaine on 02-04-2023 Estimated GFR (CKD-EPI) > 60.0 mL/Min [facility] Creatinine Clearance (Chem N/A [facility] Nucleated erythrocytes [Pres ence] in Blood by Automated countOrdered By: Orly Fontaine on 02-04-2023 Nucleated RBC Auto Ql (Bld) 0.1 /100{WBC} 0-0.5 [facility] Platelet mean volume Auto (B ld) [Entitic vol]Ordered By: Orly Cespedesser on 02-04-2023 Platelet mean volume (Bld) [Entitic vol] 7.4 fL 6.3-10.7 [facility] Platelets Auto (Bld) [#/Vol] Ordered By: Orly Cespedesser on 02-04-2023 Platelets (Bld) [#/Vol] 208 10*3/uL 150-450 [facility] Potassium [Moles/volume] in Serum or PlasmaOrdered By: Orly Fontaine on 02-04-2023 Potassium [Moles/Vol] 4.2 mmol/L 3.5-5.1 [facility] Protein [Mass/volume] in Ser um or PlasmaOrdered By: Orly Fontaine on 02-04-2023 Protein [Mass/Vol] 6.2 g/dL 6.4-8.9 [facility] RBC Auto (Bld) [#/Vol]Ordere d By: Orly Fontaine on 02-04-2023 RBC (Bld) [#/Vol] 4.54 10*6/uL 3.60-5.00 [facility] Serum or plasma albumin/glob ulin mass ratioOrdered By: Orly Fontaine on 02-04-2023 Albumin/Globulin [Mass ratio] 2.3 {ratio} [facility] Serum or plasma anion gap de terminationOrdered By: Orly Fontaine on 02-04-2023 Anion gap [Moles/Vol] 12.0 mmol/L 6.0-15.0 [facility] Serum or plasma high density lipoprotein (HDL) cholesterol measurementOrdered By: Orly Fontaine on 02-04-2023 Cholesterol in HDL [Mass/Vol] 42 mg/dL 23-92 [facility] Comment on above: HDL CHOL ATP-III CLA SSIFICATION Cardiovascular RiskHDL > or equal to 60 mg/dL LOWHDL < 40 mg/dL HIGH Serum or plasma total choles terol/high density lipoprotein (HDL) cholesterol mass ratOrdered By: Orly Fontaine on 02-04-2023 Cholesterol.total/Choles terol in HDL [Mass ratio] 4.0 {ratio} <5.0 [facility] Sodium [Moles/volume] in Ser um or PlasmaOrdered By: Orly Fontaine on 02-04-2023 Sodium [Moles/Vol] 142 mmol/L 136-145 [facility] Triglyceride [Mass/volume] i n Serum or PlasmaOrdered By: Orly Fontaine on 02-04-2023 Triglyceride [Mass/Vol] 345 mg/dL 0-149 [facility] Comment on above: TRIG ATP III CLASSIF ICATIONTRIG less than 150 mg/dL NormalTRIG 150-199 mg/dL Borderline highTRIG 200-500 mg/dL High TRIG greater than 500 mg/dL Very highStandard traceable to the Center for Disease Conrtrol and Prevention (CDC) test method. Urea nitrogen [Mass/volume] in Serum or PlasmaOrdered By: Orly Fontaine on 02-04-2023 Urea nitrogen [Mass/Vol] 10 mg/dL 03-09 [facility] Urine microalbumin/creatinin e mass ratioOrdered By: Orly Fontaine on 02-04-2023 Albumin/Creatinine DL <= 20 mg/L (U) [Mass ratio] [facility] Comment on above: Test not performed WBC Auto (Bld) [#/Vol]Ordere d By: Orly Fontaine on 02-04-2023 WBC (Bld) [#/Vol] 5.4 10*3/uL 3.8-11.6 [facility] Covid-19 PCR (CVDTB)on SARS-CoV-2 (COVID-19) RNA [place]TON+probe Ql (Unsp spec) Not detected Normal NOT DETECTED [facility] Comment on above: Result Comment: When diagnostic testing is negative, the possibility of a false negative should be considered in the context of a patient's recent exposures and the presence of clinical signs and symptoms consistent with SARS-CoV-2. This test is not yet approved or cleared by the [place] FDA. When there are no FDA-approved or cleared tests available, and other criteria are met, FDA can make tests available under an emergency access mechanism called an Emergency Use Authorization (EUA). The EUA for this test is supported by the Phone Technician of Health and Human Service's declaration that circumstances exist to justify the emergency use of in vitro diagnostics for the detection and/or diagnosis of the virus that causes COVID-19. This EUA will remain in effect for the duration of the COVID-19 declaration justifying emergency of IVDs, unless it is terminated or revoked by the FDA (after which the test may no longer be used). Performed By: #### C VDTB #### [facility] [address] [place] [address] Dr. Bebo Muniz INFLUENZA A AND B AGon 07-17 INFLUBNEGH SEE BELOW Normal [facility] Comment on above: Result Comment: Nega tive for Flu B protein antigen. Infection due to Flu B cannot be ruled out. Flu B antigen in the sample may be below the detection limit of the test. Performed By: #### I NFLUAB #### [facility] [address] [address] [address] Bebo Muniz INFLUENZA A AG Positive Abnormal NEGATIVE SEE COMMENT [facility] Comment on above: Performed By: #### I NFLUAB #### [facility] [address] [address] [address] Bebo Muniz INFLUENZA B AG Negative Normal NEGATIVE SEE COMMENT [facility] Comment on above: Performed By: #### I NFLUAB #### [facility] [address] [address] [address] Bebo Muniz INFLUPOSH SEE BELOW Normal [facility] Comment on above: Result Comment: NOTE : Live attenuated influenzae vaccine viruses can cause a positive result for a rapid influenza diagnostic test if administered up to 7 days prior to rapid testing. Performed By: #### I NFLUAB #### [facility] [address] [address] [address] Bebo Muniz INTERNAL CONTROLS Within Normal Limits Normal Wi thin Normal Limits [facility] Comment on above: Performed By: #### I NFLUAB #### [facility] [address] [place] [address] Dr. Bebo Muniz SCREENING MAMMOGRAM W/PRATEEK, BILATERAL*on 01-05-2022 SCREENING MAMMOGRAM W/PRATEEK, BILATERAL* CLINICAL HISTORY: Screening Mammogram COMPARISON: [facility] from 2020, 2019, 2018, 2018 TECHNIQUE: 2D and 3D mammogram imaging of both breasts was performed. RESULT: DENSITY: There are scattered areas of fibroglandular density. There is no suspicious mass, asymmetry, architectural distortion, or calcification. No significant change since the prior mammograms. Biopsy clip right breast, unchanged. IMPRESSION: BIRADS 1 : NEGATIVE, NORMAL INTERVAL FOLLOW UP FOLLOW-UP: 12 months DENSITY: Scattered MAMMOGRAPHY IS VERY IMPORTANT TO YOUR HEALTH. THE CURRENT [employer] GUIDELINES RECOMMENDS ANNUAL MAMMOGRAPHY BEGINNING AT AGE 39 THIS FACILITY USES A REMINDER SYSTEM TO ENSURE ALL PATIENTS RECEIVE REMINDER NOTIFICATIONS AT THE APPROPRIATE TIME BASED ON THE RECOMMENDATIONS OF THIS EXAM. 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 Accredited by the ACR and FDA. 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 Vital Signs Date Time Vital Sign Value Performing Clinician Facility 10-05-2023 09:17-0500 Diastolic blood pressure 80 mm[Hg] [facility] Work Phone: [facility] 10-05-2023 09:17-0500 Heart rate 72 /min [facility] Work Phone: [facility] 10-05-2023 09:17-0500 Respiratory rate 18 /min [facility] Work Phone: [facility] 10-05-2023 09:17-0500 SaO2% (BldA) [Mass fraction] 95 % [facility] Work Phone: [facility] 10-05-2023 09:17-0500 Systolic blood pressure 127 mm[Hg] [facility] Work Phone: [facility] 10-05-2023 08:37-0500 Inhaled oxygen flow rate 2 L/min [facility] Work Phone: [facility] 10-05-2023 07:54-0500 Body height 157.48 cm [facility] Work Phone: [facility] 10-05-2023 07:54-0500 Body weight 86.18 kg [facility] Work Phone: [facility] 09-14-2023 10:20-0500 Diastolic blood pressure 74 mm[Hg] [facility] Work Phone: [facility] 09-14-2023 10:20-0500 Heart rate 76 /min [facility] Work Phone: [facility] 09-14-2023 10:20-0500 Respiratory rate 16 /min [facility] Work Phone: [facility] 09-14-2023 10:20-0500 SaO2% (BldA) [Mass fraction] 98 % [facility] Work Phone: [facility] 09-14-2023 10:20-0500 Systolic blood pressure 134 mm[Hg] [facility] Work Phone: [facility] 09-14-2023 09:42-0500 Inhaled oxygen flow rate 3 L/min [facility] Work Phone: [facility] 09-14-2023 08:39-0500 Body height 157.48 cm Services [facility] Work Phone: [facility] 09-14-2023 08:39-0500 Body weight 86.18 kg Services [facility] Work Phone: [facility] 11-27-2021 16:30-0400 Body height 157.48 cm Joel Anand Other [email or web address] Other 11-27-2021 16:30-0400 Body mass index (BMI) [Ratio] 31.09 kg/m2 Joel Anand Other [email or web address] Other 11-27-2021 16:30-0400 Body weight 77.11 kg Joel Anand Other [email or web address] Other Encounters Encounter Date Encounter Type Care Provider Facility Start: 10-22-2023 End: 10-22-2023 ambulatory Harrison Sánchez Facility:[facility] Start: 10-05-2023 (Procedure) Ro Zarate [facility] Start: 10-05-2023 End: 10-05-2023 ambulatory Apolinar Zarate Facility:[facility] Start: 10-05-2023 End: 10-05-2023 Admission to same day surgery [facility] Work Phone: [facility] Work Phone: Start: 10-05-2023 End: 10-05-2023 ambulatory [facility] Work Phone: [facility] Work Phone: Start: 09-14-2023 (Procedure) Ro Zarate [facility] Start: 09-14-2023 End: 09-14-2023 ambulatory Apolinar Zarate Facility:[facility] Start: 09-14-2023 End: 09-14-2023 Admission to same day surgery center [facility] Work Phone: [facility] Work Phone: Start: 09-14-2023 End: 09-14-2023 ambulatory [facility] Work Phone: [facility] Work Phone: Start: 08-30-2023 End: 08-30-2023 ambulatory Apolinar Zarate Other [email or web address] Other Start: 08-30-2023 Office outpatient visit 25 minutes Apolinar Hunterronit [facility] [place] Start: 08-30-2023 End: 08-30-2023 Patient encounter procedure [facility] Work Phone: [facility] Work Phone: Start: 08-05-2023 End: 08-05-2023 ambulatory [facility] Work Phone: [facility] Work Phone: Start: 08-05-2023 End: 08-05-2023 Discharged Recurring [facility] Work Phone: [facility] [place] Work Phone: Start: 07-14-2023 End: 07-14-2023 ambulatory [facility] Work Phone: [facility] Work Phone: Start: 07-14-2023 End: 07-14-2023 Patient encounter procedure [facility] Work Phone: [facility] [place] Work Phone: Start: 07-02-2023 End: 07-02-2023 ambulatory Apolinar Zarate Other [email or web address] Other Start: 07-02-2023 Telephone encounter Apolinar JOHNSON [facility] [place] Start: 06-30-2023 End: 06-30-2023 ambulatory [facility] Work Phone: [facility] Work Phone: Start: 06-30-2023 End: 06-30-2023 Patient encounter procedure [facility] Work Phone: [facility] [place] Work Phone: Start: 04-08-2023 End: 04-08-2023 ambulatory Harrison Sánchez Facility:[facility] Start: 04-08-2023 End: 04-08-2023 ambulatory [facility] Work Phone: [facility] Work Phone: Start: 04-08-2023 End: 04-08-2023 Patient encounter procedure [facility] Work Phone: [facility] Work Phone: Start: 02-04-2023 End: 02-04-2023 ambulatory Pablo Mast - [facility] Facility:[facility] Start: 02-04-2023 End: 02-04-2023 ambulatory [facility] Work Phone: [facility] Work Phone: Start: 02-04-2023 End: 02-04-2023 Patient encounter procedure [facility] Work Phone: [facility] [place] Work Phone: Start: 10-21-2022 End: 10-21-2022 ambulatory [facility] Work Phone: [facility] Work Phone: Start: 10-21-2022 End: 10-21-2022 Patient encounter procedure [facility] Work Phone: [facility] [place] Work Phone: Start: 07-17-2022 End: 07-17-2022 ambulatory [facility] Facility: Start: 11-27-2021 End: 11-27-2021 ambulatory Joel Anand Other [facility] Other Start: 11-27-2021 Office outpatient visit 15 minutes Joel Anand [facility] Gastroenterology Procedures Date Procedure Procedure Detail Performing Clinician Start: 10-05-2023 Local anesthetic lum bar facet joint nerve block [facility] [employer] Phone: Start: 09-14-2023 Local anesthetic lum bar facet joint nerve block [facility] [employer] [facility] Phone: Start: 07-14-2023 X-ray of lumbar spin e, four views [facility] [employer] [facility] Phone: Start: 06-30-2023 CT of soft tissues o f neck with contrast [facility] [employer] [facility] Phone: Start: 06-30-2023 US scan of thyroid Serv ices [employer] Phone: Start: 04-08-2023 Screening mammograph y of bilateral breasts [facility] [employer] Phone: Start: 10-21-2022 Plain chest X-ray Servi candy [employer] Phone: Plan of Treatment Date Care Activity Detail Author Start: 10-05-2023 [facility] Start: 09-14-2023 [facility] Patient Education Felter Diagnostic Block [facility] Work Phone: Patient referral [facility] Work Phone: Payers Date Payer Category Payer Unknown [id number] 2023 Unknown [id number] 2023 Private Health Insurance [id number] 2023 Self-pay [id number] 1960 Unknown [id number] 1960 Medicare [id number] Medicaid Medicaid [id number] Medicare [id number] Medicare [id number] Medicare [id number] Medicare [employer] Dual Adv [id number] Unknown [id number] Unknown [id number] 31 Unknown [id number] 31 Unknown [id number] 31 Unknown [id number] 31 Unknown [id number] 31 Unknown [id number] 31 Unknown [id number] 31 Unknown [id number] 31 Social History Date Type Detail Facility Unknown if ever smoked [email or web address] Other Sex Assigned At Sex Assigned At Bir th [email or web address] Other Start: 10-14-2021 End: 10-14-2021 Tobacco smoking status NHIS Ex-smoker (finding) [facility] Start: 1960 Sex Assigned At Female F [facility] Start: 08-30-2023 Tobacco smoking status MTIS Never smoked tobacco (finding) [facility] Medical Equipment Procedure Code Equipment Code Equipment Origin al Text Equipment Identifier Dates Colporrhaphy, anteroposterior, for repair of cystocele, rectocele or enterocele ADVANTAGE FIT TRANSVAGINAL FDA Start: 01-12-2019 Colporrhaphy, anteroposterior, for repair of cystocele, rectocele or enterocele ADVANTAGE FIT TRANSVAGINAL FDA Start: 01-12-2019 Colporrhaphy, anteroposterior, for repair of cystocele, rectocele or enterocele ADVANTAGE FIT TRANSVAGINAL FDA Start: 01-12-2019 Colporrhaphy, anteroposterior, for repair of cystocele, rectocele or enterocele ADVANTAGE FIT TRANSVAGINAL FDA Start: 01-12-2019 Colporrhaphy, anteroposterior, for repair of cystocele, rectocele or enterocele ADVANTAGE FIT TRANSVAGINAL FDA Start: 01-12-2019 Colporrhaphy, anteroposterior, for repair of cystocele, rectocele or enterocele ADVANTAGE FIT TRANSVAGINAL FDA Start: 01-12-2019 Colporrhaphy, anteroposterior, for repair of cystocele, rectocele or enterocele ADVANTAGE FIT TRANSVAGINAL FDA Start: 01-12-2019 Colporrhaphy, anteroposterior, for repair of cystocele, rectocele or enterocele ADVANTAGE FIT TRANSVAGINAL FDA Start: 01-12-2019 Goals Date Patient Goal Desired Activity /State Procedure note 09-14-2023 Note Date & Type Note Facility 09-14-2023 Procedure note [facility] Evaluation note 08-30-2023 Note Date & Type Note Facility 08-30-2023 Evaluation note Encounter Date Diagnosis Assessment Notes Aug, Osteoarthritis of lumbosacral 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 She shows notable pain consistent with degenerative changes of the lumbar spine. We discussed the possible benefit of treatment of the facet region for axial back pain. Based on location of pain and exam findings, patient is a candidate for bilateral lumbar facet medial branch blocks which we will proceed with. Risks and benefits of procedure explained to patient; patient verbalizes understanding. It was further explained should this provide significant short term relief we will proceed with a repeat block and radiofrequency ablation. Anatomy of spine discussed in detail with patient in regards to patients condition. Aug, Other low back pain (ICD-10 - M54.59) Aug, Other chronic pain (ICD-10 - G89.29) Aug, Other Above note written by Shane Ferguson MA, [employer] Operations Specialist. Edited and approved by Dr. Apolinar Zarate MD. [email or web address] Other Evaluation note 07-02-2023 Note Date & Type Note Facility 07-02-2023 Evaluation note Encounter Date Diagnosis Assessment Notes Jun, Other low back pain (ICD-10 - M54.59) [email or web address] Other Evaluation note 11-27-2021 Note Date & Type Note Facility 11-27-2021 Evaluation note Encounter Date Diagnosis Assessment Notes 14 Nov, 2021 History of colon polyps (ICD-10 - Z86.010) 14 Nov, 2021 Inflammatory polyps of colon (ICD-10 - K51.40) PATIENT ADVISED WE WILL REPEAT THIS IN 10 YEARS 14 Nov, 2021 Diverticulosis (ICD-10 - K57.90) 14 Nov, 2021 Hemorrhoids (ICD-10 - K64.9) [email or web address] Other History general Narrative - Reported 12-13-2015 Note Date & Type Note Facility 12-13-2015 History general N arrative - Reported Type Medical History 12/13/15 Colonsocopy- hyperplastic polyps sigmoid and rectum repeat in 5 years Medical History High Cholesterol Medical History arthritis in spine Surgical History gallbladder Surgical History appendix Surgical History tubes tied Surgical History hysterectomey 1999 Surgical History tonsil Surgical History RT SHOULDER ROTOR CUFF Surgical History BLADDER LIFT Hospitalization History see above [email or web address] Other Evaluation note Note Date & Type Note Facility Evaluation note No assessment information availa [facility] Work Phone: Evaluation note Note Date & Type Note Facility Evaluation note No Information [employer] Other Summary Purpose Family History No Family History Records Found Relationship Condition Age at Onset Recorded Date/T leno father Diabetes mellitus Unknown Myocardial infarction Unknown Not Specified Malignant neoplasm of ovary Unknown brother Hypertension Unknown sister Hypertension Unknown Diabetes mellitus Unknown Arthritis Unknown Osteoporosis Unknown sister Malignant neoplasm of skin Unknown Hypertension Unknown brother Diabetes mellitus Unknown Coronary artery disease Unknown History of heart shilpi ve replacement with porcine valve Unknown brother Myocardial infarction Unknown Relationship Condition Age at Onset Recorded Date/T leno father Diabetes mellitus Unknown Myocardial infarction Unknown Not Specified Malignant neoplasm of ovary Unknown brother Hypertension Unknown sister Hypertension Unknown Diabetes mellitus Unknown Arthritis Unknown Osteoporosis Unknown sister Malignant neoplasm of skin Unknown Hypertension Unknown brother Diabetes mellitus Unknown Coronary artery disease Unknown History of heart shilpi ve replacement with porcine valve Unknown brother Myocardial infarction Unknown Heart disease Unknown Unknown Not Specified Unknown Malignant neoplasm Unknown sister Diabetes mellitus Unknown Advance Directives No Advanced Directives Records Found Advance Directive Response Recorded Date/ Time Advance Directives No July 16, 2017 2:08pm Advance Directive Response Recorded Date/ Time Advance Directives No July 16, 2017 3:08pm Chief Complaint and Reason for Visit Chief Complaint R05.2 Chief Complaint I10 E78.5 Chief Complaint I10 E78.5 Z12.31 Chief Complaint M54.2 Chief Complaint M54.2 M54.59 Chief Complaint M54.2 M54.59 LBP Chief Complaint M54.2 M54.59 LBP 6 Weeks Back Pain Chief Complaint M54.59 LBP 6 Weeks Back Pain Back Pain Additional Source Comments INFORMATION SOURCE (unrecogn ized section and content) DATE CREATED AUTHOR 01/08/2022 [facility] dical Specialist DATE CREATED AUTHOR AUTHOR'S ORGANIZ ATION 07/19/2022 [facility] DATE CREATED AUTHOR AUTHOR'S ORGANIZ ATION 10/27/2023 [facility] REASON FOR VISIT (unrecogniz ed section and content) PATIENT HERE FOR FOLLOW UP T O COLONOSCOPY ON 10/14/2021 FOR HISTORY OF COLON POLYPS.No Information6 WEEKSJEEVAN LUMBAR FACET MBB L3 L4 /VWJEEVAN LUMB MBB L3 L4/CJ Care Teams (unrecognized sec tion and content) Team Status: Active Member Role Status Dates Services [facility] Primary Care Provider Active Team Status: Inactive Member Role Status Dates Services [facility] Primary Care Provider Active Jayden Quevedo DO Attending Provider Active Josiah Farmer DO RES Referring Provider Active Team Status: Inactive Member Role Status Dates Services [facility] Primary Care Provider Active Pablo Crowley DO Attending Provider Active Orly Fontaine MD RES Other Provider Active Team Status: Inactive Member Role Status Dates Services [facility] Primary Care Provider Active Pablo Keo , DO Attending Provider Active Orly Fontaine MD Other Provider Active Team Status: Inactive Member Role Status Dates Services [facility] Primary Care Provider Active Jayden Quevedo DO Attending Provider Active Harrison Sánchez DO RES Referring Provider Active Team Status: Inactive Member Role Status Dates [facility] Primary Care Provider Active Apolinar Zarate MD Attending Provider Active Team Status: Inactive Member Role Status Dates [facility] Primary Care Provider Active Start: June 30, 2023 End: June 30, 2023 Jayden Quevedo DO Attending Provider Active Start : June 30, 2023 End: June 30, 2023 Harrison Sánchez DO RES Referring Provider Active Start: June 30, 2023 End: June 30, 2023 Team Status: Inactive Member Role Status Dates [facility] Primary Care Provider Active Start: July 14, 2023 End: July 14, 2023 Apolinar Zarate MD Attending Provider Active Sta rt: July 14, 2023 End: July 14, 2023 Team Status: Inactive Member Role Status Dates [facility] Primary Care Provider Active Start: August 05, 2023 End: August 05, 2023 Apolinar Zarate MD Attending Provider Active Sta rt: August 05, 2023 End: August 05, 2023 Team Status: Inactive Member Role Status Dates Apolinar Zarate MD Attending Provider Active Sta rt: August 30, 2023 End: August 30, 2023 Team Status: Inactive Member Role Status Dates [facility] Primary Care Provider Active Start: September 14, 2023 End: September 14, 2023 Apolinar Zarate MD Attending Provider Active Sta rt: September 14, 2023 End: September 14, 2023 Team Status: Inactive Member Role Status Dates [facility] Primary Care Provider Active Start: October 05, 2023 End: October 05, 2023 Apolinar Zarate MD Attending Provider Active Sta rt: October 05, 2023 End: October 05, 2023 Goals (unrecognized section and content) Goals may be documented in a n alternate section FOR RECORDS PERTAINING TO PATIENTS WHO ARE OR HAVE BEEN ENROLLED IN A CHEMICAL DEPENDENCY/SUBSTANCEABUSE PROGRAM, SOME INFORMATION MAY BE OMITTED. This clinical summary was aggregated from multiple sources. Caution should be exercised in using it in the provision of clinical care. This summary normalizes information from multiple sources, and as a consequence, information in this document may materially change the coding, format and clinical context of patient data. In addition, data may be omitted in some cases. CLINICAL DECISIONS SHOULD BE BASED ON THE PRIMARY CLINICAL RECORDS. [facility] [employer] [facility]. provides no warranty or guarantee of the accuracy or completeness of information in this document.
--- NOTE | 2023-10-28 17:04 | PC.NURSE ---
Patient reports pain to top of right foot and at base of toes. Denies injury, no redness, bruising or swelling present, skin pink and warm and pulses present.
== END 2023-10-28 17:25 | disposition home or self-care (01) ==
PROVIDERS: Emergency Provider Emergency Medicine
DX: M79.671 Pain in right foot (principal); Z79.899 Other long term (current) drug therapy; Z87.891 Personal history of nicotine dependence
CPT/HCPCS: 73630; 99283

== ENCOUNTER 2024-01-18 20:59 | Emergency (ER) | payer MEDICARE, SELFPAY ==
[2024-01-18 21:02] VITALS: BP 145/91; PULSE 83; TEMP 36.8; O2SAT 95; BMI 34.7
--- OUTSIDE RECORDS SUMMARY | 2024-01-18 21:13 | XMS_ITS | CCD ---
Author Organization [facility] Care Team Providers Care Lead Project Engineer Name Role Phone Joel Anand Unavailable [phone] [facility] Primary Care Unavaila DR AVERY Ellis Consulting Unavailable DR AVERY BONILLA Admitting Unavailable DR AVERY BONILLA Attending Unavailable [facility] Primary Care Provider DO Jayden Quevedo Attending Provider [phone] DO Josiah Farmer Referring Provider [facility] Primary Care Provider [phone] DO Suleiman Crowleyic Attending Provider [phone] MD Orly Fontaine Other Provider [phone] MD Orly Fontaine Other Provider DO Jayden Quevedo Attending Provider [phone] DO Harrison Sánchez Referring Provider Apolinar Zarate Unavailable [facility] Primary Care Provider [phone] DO Jayden Quevedo Attending Provider [phone] DO Harrison Sánchez Referring Provider MD Apolinar Zarate Attending Provider [phone] [facility] Primary Care Provider [facility] Primary Care Provider MD Apolinar Zarate Attending Provider DO Harrison Sánchez Attending Provider DO Ivan Edmonds Attending Provider IVAN EDMONDS Attending Unavailable IVAN EDMONDS Attending Unavailable MAST, ZACHARIAH E Referring Unavailable IVAN EDMONDS Attending Unavailable MAST, ZACHARIAH E Referring Unavailable [facility] Primary Care Provider MD Apolinar Zarate Attending Provider [phone] MD Vito Ferguson Emergency Provider Harrison Sánchez Referring [facility]available [facility] Primary Care Unavaila ble Jayden Quevedo Admitting Unavailable Jayden Quevedo Attending Unavailable Apolinar Zarate Admitting Unavailable [facility] Primary Care Unavaila kristofer Zarate, Apolinar Attending Unavailable Tessa, Apolinar Admitting Unavailable [facility] Primary Care Unavaila kristofer Zarate, Apolinar Attending Unavailable [facility] Primary Care Unavaila Apolinar Barron Attending Unavailable Tessa, Apolinar Admitting Unavailable Vito Ferguson Attending Unavailable [facility] Primary Care Unavaila Vito Appiah Admitting Unavailable Murcek, Ivan Admitting Unavailable Murdarrick, Ivan Attending Unavailable Harrison Sánchez Referring Unavailable [facility] Primary Care Unavaila ble Emy, Jayden Admitting Unavailable Emy, Jayden Attending Unavailable [facility] Primary Care Unavaila Apolinar Barron Admitting Unavailable Tessa, Apolinar Attending Unavailable [facility] Primary Care Unavaila ble Apolinar Zarate Admitting Unavailable Tessa, Apolinar Attending Unavailable [facility] Primary Care Unavaila ble Harrison Sánchez Admitting Unavailable Gonzalo, Harrison Attending Unavailable [facility] Primary Care Unavaila ble Orly Fontaine Consulting Unavailable [facility] - [facility], Zachariah Admitting Unavailable Mast - [facility], Zachariah Attending Unavailable Medications Current Medications Medication Drug Class(es) Dates Sig (Normalized) Sig (Original) atorvastatin 40 mg oral tablet (17 sources) HMG-CoA Reductase Inhibitor Start: 07-16-2017 take 40 mg by mouth once daily in the morning Atorvastatin Active 40 MG PO Every morning July 16, 2017 1:00am celecoxib 200 mg oral capsule (8 sources) Nonsteroidal Anti-inflammatory Drug Start: 10-05-2023 take 1 capsule by mouth once daily at mealtime Celecoxib Active 200 MG PO Daily October 05, 2023 1:00am Free[employer] capsule with food Orally Once a day; Note: Source Status: Taking; Provider: Tessa Jiang ( ) cetirizine hydrochloride 10 mg oral tablet (1 source) Histamine-1 Receptor Antagonist Start: 01-11-2024 take 1 tablet by mouth once daily Cetirizine (24hour Allergy) 10 mg tablet Active 10 MG PO Daily January 11, 2024 12:00am esomeprazole 40 mg delayed release oral capsule (14 sources) Proton Pump Inhibitor Start: 07-16-2017 take 40 mg by mouth twice daily Esomeprazole Magnesium Active 40 MG PO Twice daily July 16, 2017 1:00am fluticasone propionate 0.05 mg/actuat metered dose nasal spray (13 sources) Corticosteroid Start: 01-11-2024 Fluticasone Propionate Active 1 SPRAY INTRANASAL Daily January 11, 2024 12:00am Start: 07-16-2017 End: 12-29-2018 Fluticasone Propionate Disco ntinued 2 SPRAY INTRANASAL Daily July 16, 2017 1:00am December 29, 2018 10:41am hydroCHLOROthiazide 25 mg / triamterene 37.5 mg oral capsule (20 sources) Potassium-sparing Diuretic, Thiazide Diuretic Start: 07-16-2017 End: 12-29-2018 take 1 tablet by mouth once daily in the morning Triamterene-Hydrochlorothiazid Active 1 TAB PO Every morning December 29, 2018 12:00am Lisinopril (3 sources) Angiotensin Converting Enzyme Inhibitor Lisinopril Active losartan potassium 25 mg oral tablet (17 sources) Angiotensin 2 Receptor Donnell Start: 07-16-2017 take 25 mg by mouth once daily in the morning Losartan Active 25 MG PO Every morning July 16, 2017 1:00am Completed/Discontinued Medications Medication Drug Class(es) Dates Sig (Normalized) Sig (Original) acetaminophen 325 mg / HYDROcodone bitartrate 5 mg oral tablet (12 sources) Opioid Agonist Start: 01-13-2019 End: 08-24-2019 take 1 tablet by mouth every six hours Hydrocodone-Acetam inophen ([place]) 5-325 mg tablet Discontinued 1 TAB PO Q6H 20 January 13, 2019 August 24, 2019 7:25pm albuterol 0.83 mg/ml inhalation solution (20 sources) beta2-Adrenergic Agonist Start: 10-30-2017 End: 12-29-2018 take 2.5 mg by inhalation every four hours Albuterol Sulfate Discontinued 2.5 MG INHALATION Q4H 90 October 30, 2017 12:00am November 02, 2017 12:04pm Start: 07-16-2017 End: 10-30-2017 take 1 puff(s) by inhalation every four hours Albuterol Sulfate (Ventolin Hfa) 108 HFA aerosol inhaler Discontinued 2 PUFF INHALATION Q4H July 16, 2017 1:00am October 30, 2017 12:28pm Start: 07-16-2017 End: 10-30-2017 Albuterol Sulfate Discontinu ed 2 INH INHALATION Every 4 hours 18 July 16, 2017 1:00am October 30, 2017 12:29pm administer with spacer azithromycin 250 mg oral tablet (12 sources) Macrolide Antimicrobial Start: 07-16-2017 End: 10-30-2017 take 1 tablet by mouth once daily Azithromycin (Zithromax) 250 mg tablet Discontinued 250 MG PO Daily July 16, 2017 1:00am October 30, 2017 12:28pm Take 500mg on day one, 250mg daily for four more days. cephalexin 500 mg oral capsule (12 sources) Cephalosporin Antibacterial Start: 08-24-2019 End: 10-14-2021 take 1 capsule by mouth three times daily Cephalexin (Keflex) 500 mg Capsule Discontinued 500 MG PO Three times daily August 24, 2019 1:00am October 14, 2021 8:28am codeine phosphate 2 mg/ml / promethazine hydrochloride 1.25 mg/ml oral solution (12 sources) Opioid Agonist, Phenothiazine Start: 07-16-2017 End: 11-02-2017 take 1 mL by mouth every six hours Promethazine-Code ine Discontinued 5 ML PO Q6H 60 July 16, 2017 1:00am November 02, 2017 12:06pm ibuprofen 600 mg oral tablet (12 sources) Nonsteroidal Anti-inflammatory Drug Start: 01-13-2019 End: 08-24-2019 Ibuprofen Discontinued 600 MG PO Every 6 hours January 13, 2019 12:00am August 24, 2019 7:25pm do not exceed 4 doses in a 24 hour period ipratropium bromide 0.2 mg/ml inhalation solution (20 sources) Anticholinergic Start: 10-30-2017 End: 12-29-2018 take 0.5 mg by inhalation every eight hours Ipratropium [place] Discontinued 0.5 MG INHALATION Q8H 75 October 30, 2017 12:00am December 29, 2018 10:42am levoFLOXacin 750 mg oral tablet (12 sources) Quinolone Antimicrobial Start: 10-30-2017 End: 11-09-2017 take 1 tablet by mouth every twenty-four hours Levofloxacin (Levaquin) 750 mg tablet Discontinued 750 MG PO Q24H 10 October 30, 2017 12:00am November 09, 2017 12:03am meloxicam 7.5 mg oral tablet (20 sources) Nonsteroidal Anti-inflammatory Drug Start: 12-29-2018 End: 01-13-2019 take 7.5 mg by mouth once daily in the morning Meloxicam Discontinued 7.5 MG PO Every morning December 29, 2018 12:00January 13, 2019 7:54am Start: 07-16-2017 End: 12-29-2018 take 15 mg by mouth once daily Meloxicam Discontinued 15 MG PO Daily July 16, 2017 1:00am December 29, 2018 10:38am metroNIDAZOLE 500 mg oral tablet (12 sources) Nitroimidazole Antimicrobial Start: 04-04-2018 End: 12-29-2018 take 1 tablet by mouth twice daily Metronidazole (Flagyl) 500 mg tablet Discontinued 500 MG PO Twice daily 14 April 04, 2018 12:00am December 29, 2018 10:42am nitrofurantoin, macrocrystals 25 mg / nitrofurantoin, monohydrate 75 mg oral capsule (20 sources) Nitrofuran Antibacterial Start: 12-29-2018 End: 08-24-2019 take 1 capsule by mouth once daily at mealtime Nitrofurantoin Monohyd/M-Cryst (Macrobid) 100 mg capsule Discontinued 1 CAP PO Daily 12 18January 13, 2019 12:00am August 24, 2019 7:25pm administer with a meal/food; swallow whole; do not open, crush, dissolve , or chew potassium chloride 20 meq powder for oral solution (12 sources) Start: 08-24-2019 End: 10-14-2021 take 20 mEq by mouth once daily Potassium Chloride Discontinued 20 MEQ PO Daily August 24, 2019 1:00am October 14, 2021 8:44am predniSONE 20 mg oral tablet (20 sources) Start: 10-30-2017 End: 11-04-2017 take 40 mg by mouth once daily at mealtime Prednisone Discontinued 40 MG PO Daily 10 October 30, 2017 12:00am November 04, 2017 12:04am administer with food or milk Start: 07-16-2017 End: 10-30-2017 take 20 mg by mouth once daily at mealtime Prednisone Discontinued 20 MG PO Daily July 16, 2017 1:00am October 30, 2017 12:29pm administer with food or milk promethazine hydrochloride 25 mg oral tablet (12 sources) Phenothiazine Start: 08-24-2019 End: 10-14-2021 take 25 mg by mouth every six hours Promethazine Discontinued 25 MG PO Q6H 10 August 24, 2019 1:00am October 14, 2021 8:45am sulfamethoxazole 800 mg / trimethoprim 160 mg oral tablet (12 sources) Dihydrofolate Reductase Inhibitor Antibacterial, Sulfonamide Antimicrobial Start: 08-24-2019 End: 10-14-2021 take 1 tablet by mouth twice daily Sulfamethoxazole- Trimethoprim Discontinued 1 TAB PO Twice daily August 24, 2019 1:00am October 14, 2021 8:45am Problems Active Problems Problem Classification Problem Date Documented Date Episodic/Chronic Acute bronchitis (12 sources) Acute bronchitis; Translations: [Acute bronchitis, unspecified] 10-30-2017 Episodic Anal and rectal conditions (5 sources) Anal and rectal polyp; Translations: [Rectal polyp] Episodic Chronic obstructive pulmonary disease and bronchiectasis (12 sources) Bronchitis; Translations: [Bronchitis, not specified as [...] Onset: 07-19-2022 Episodic Fluid and electrolyte disorders (12 sources) Acute hypokalemia; Translations: [Hypokalemia] 08-24-2019 Episodic Genitourinary symptoms and ill-defined conditions (17 sources) Incontinence; Translations: [Stress incontinence (female) (male)] 01-13-2019 Chronic Headache; including migraine (12 sources) Headache; Translations: [Headache] 08-24-2019 Episodic Hemorrhoids (6 sources) Hemorrhoids; Translations: [Unspecified hemorrhoids] Onset: 11-27-2021 Resolved: 04-14-2022 Episodic Influenza (1 source) Influenza due to other identified influenza virus with other respiratory manifestations; Translations: [FLU D/T OTH ID FLU VIR OTH RSP MANF] Onset: 07-19-2022 Episodic Nausea and vomiting (12 sources) Vomiting; Translations: [Vomiting, unspecified] 08-24-2019 Episodic Other aftercare (1 source) Other superintendent container terminal (current) drug therapy; Translations: [OTH USP CURRENT DRUG THERAPY] Onset: 07-19-2022 Episodic Other and unspecified benign neoplasm (17 sources) History of polyp of colon; Translations: [Personal history of colonic polyps] 10-14-2021 Episodic Other and unspecified benign neoplasm (5 sources) Benign neoplasm of sigmoid colon; Translations: [Benign neoplasm of sigmoid colon] Episodic Other nervous system disorders (7 sources) Chronic pain; Translations: [Other chronic pain] 10-15-2023 Chronic Other nervous system disorders (9 sources) Other chronic pain; Translations: [Other chronic pain] Onset: 11-02-2023 Chronic Other nervous system disorders (1 source) Other chronic pain; Translations: [Other chronic pain] Onset: 09-14-2023 Chronic Other upper respiratory disease (12 sources) Bleeding from nose; Translations: [Epistaxis] 11-02-2017 Episodic Prolapse of female genital organs (17 sources) Cystocele and rectocele co-occurrent with complete uterovaginal prolapse; Translations: [Complete uterovaginal prolapse] 01-13-2019 Chronic Regional enteritis and ulcerative colitis (6 sources) Pseudopolyposis of colon; Translations: [Inflammatory polyps of colon without complications] Onset: 11-27-2021 Resolved: 11-27-2021 Chronic Residual codes; unclassified (1 source) Edema; Translations: [Edema, unspecified] 01-11-2024 Episodic Screening and history of mental health and substance abuse codes (1 source) Personal history of nicotine dependence; Translations: [PERSONAL HISTORY OF NICOTINE DEPEND] Onset: 07-19-2022 Episodic Spondylosis; intervertebral disc disorders; other back problems (15 sources) Lumbosacral spondylosis without myelopathy; Translations: [Spondylosis without myelopathy or radiculopathy, lumbosacral region] Chronic Thyroid disorders (2 sources) Nontoxic single thyroid nodule; Translations: [Non-toxic multinodular goiter] Onset: 10-22-2023 Chronic Unclassified (3 [...] of breast] Onset: 04-08-2023 Urinary tract infections (12 sources) Acute urinary tract infection; Translations: [Urinary [...] Spondylosis; intervertebral disc disorders; other back problems (12 sources) Low back pain; Translations: [Other low back pain] Onset: 06-30-2023 10-15-2023 Episodic Unclassified (1 source) COUGH, UNSPECIFIED; Translations: [COUGH, UNSPECIFIED] Onset: 07-17-2022 Unclassified (2 sources) Other low back pain M54.59 Results Test Name Value Interpretation Reference Range Facility Alanine aminotransferase [En zymatic activity/volume] in Serum or PlasmaOrdered By: Vito Ferguson on 01-11-2024 ALT [Catalytic activity/Vol] 29 U/L 7 [facility] Albumin [Mass/volume] in Ser um or Plasma by Bromocresol green (BCG) dye binding methoOrdered By: Vito Ferguson on 01-11-2024 Albumin BCG dye [Mass/Vol] 4.1 g/dL 3.5-5.7 [facility] Alkaline phosphatase [Enzyma tic activity/volume] in Serum or PlasmaOrdered By: Vito Ferguson on 01-11-2024 ALP [Catalytic activity/Vol] 82 U/L 34-104 [facility] Aspartate aminotransferase [ Enzymatic activity/volume] in Serum or PlasmaOrdered By: Vito Ferguson on 01-11-2024 AST [Catalytic activity/Vol] 23 U/L 13-39 [facility] B-Type Natriuretic Peptideon 01-11-2024 Natriuretic peptide B (Bld) [Mass/Vol] 43.0 pg/mL Normal 5-100 [facility] Comment on above: Result Comment: PERF ORMED BY: [place] [address] PATHOLOGIST STAMPER BLOCKER ARACELI CHAPA M.D. Performed By: #### C K, CMP, BNP, HS TROP, CBC #### [address] Basophils Auto (Bld) [#/Vol] Ordered By: Vito Ferguson on 01-11-2024 Basophils (Bld) [#/Vol] 0.1 10*3/uL 0.0-0.2 [facility] Basophils/100 WBC Auto (Bld) Ordered By: Vito Ferguson on 01-11-2024 Basophils/100 WBC (Bld) 0.8 % . F [facility] Bilirubin.total [Mass/volume ] in Serum or PlasmaOrdered By: Vito Ferguson on 01-11-2024 Bilirubin [Mass/Vol] 0.6 mg/dL 0.3-1.0 [facility] Calcium [Mass/volume] in Ser um or PlasmaOrdered By: Vito Ferguson on 01-11-2024 Calcium [Mass/Vol] 9.2 mg/dL 8.6-10.3 [facility] Carbon dioxide, total [Moles /volume] in Serum or PlasmaOrdered By: Vito Ferguson on 01-11-2024 CO2 [Moles/Vol] 26.6 mmol/L 21.0-31.0 [facility] Chloride [Moles/volume] in S rashawn or PlasmaOrdered By: Vito Ferguson on 01-11-2024 Chloride [Moles/Vol] 107 mmol/L 98-107 [facility] Complete Blood Count Auto Di ffon 01-11-2024 Basophils (Bld) [#/Vol] 0.1 10*3/uL Normal 0.0-0.2 [facility] Comment on above: Result Comment: PERF ORMED BY: [place] [address] PATHOLOGIST STAMPER BLOCKER ARACELI CHAPA M.D. Performed By: #### C K, CMP, BNP, HS TROP, CBC #### [address] Basophils/100 WBC (Bld) 0.8 % Normal . T [facility] Comment on above: Performed By: #### C K, CMP, BNP, HS TROP, CBC #### [address] Eosinophils (Bld) [#/Vol] 0.1 10*3/uL Normal 0.0-0.45 [facility] Comment on above: Performed By: #### C K, CMP, BNP, HS TROP, CBC #### [address] Eosinophils/100 WBC (Bld) 2.0 % Normal . [facility] Comment on above: Performed By: #### C K, CMP, BNP, HS TROP, CBC #### [address] Erythrocyte distribution width (RBC) [Ratio] 13.9 % Normal 11.9-15.3 [facility] Comment on above: Performed By: #### C K, CMP, BNP, HS TROP, CBC #### [address] Hematocrit (Bld) [Volume fraction] 39.3 % Normal 34.0-46.4 [facility] Comment on above: Performed By: #### C K, CMP, BNP, HS TROP, CBC #### [place] [address] [place] Hemoglobin (Bld) [Mass/Vol] 13.2 g/dL Normal 11.8-15.4 [facility] Comment on above: Performed By: #### C K, CMP, BNP, HS TROP, CBC #### [address] Lymphocytes (Bld) [#/Vol] 2.3 10*3/uL Normal 1.00-4.8 [facility] Comment on above: Performed By: #### C K, CMP, BNP, HS TROP, CBC #### [address] Lymphocytes/100 WBC (Bld) 33.7 % Normal . [facility] Comment on above: Performed By: #### C K, CMP, BNP, HS TROP, CBC #### [address] MCH (RBC) [Entitic mass] 29.6 pg Normal 24.7-34.3 [facility] Comment on above: Performed By: #### C K, CMP, BNP, HS TROP, CBC #### [address] MCV (RBC) [Entitic vol] 88.1 fL Normal 80-100 T [facility] Comment on above: Performed By: #### C K, CMP, BNP, HS TROP, CBC #### [address] Mean Corpuscular HGB Conc 33.6 g/dL Normal 32.0-35.0 [facility] Comment on above: Performed By: #### C K, CMP, BNP, HS TROP, CBC #### [address] Monocytes (Bld) [#/Vol] 0.4 10*3/uL Normal 0.0-0.8 [facility] Comment on above: Performed By: #### C K, CMP, BNP, HS TROP, CBC #### [address] Monocytes/100 WBC (Bld) 18.28 % Normal 0.00-20.00 T he [facility] Comment on above: Performed By: #### C K, CMP, BNP, HS TROP, CBC #### [address] Monocytes/100 WBC (Bld) 6.3 % Normal . T [facility] Comment on above: Performed By: #### C K, CMP, BNP, HS TROP, CBC #### [address] Neutrophils (Bld) [#/Vol] 3.9 10*3/uL Normal 1.8-7.7 [facility] Comment on above: Performed By: #### C K, CMP, BNP, HS TROP, CBC #### [address] Neutrophils/100 WBC (Bld) 57.2 % Normal . [facility] Comment on above: Performed By: #### C K, CMP, BNP, HS TROP, CBC #### [address] NRBC% 0.0 /100{WBC} Normal 0-0.5 [facility] Comment on above: Performed By: #### C K, CMP, BNP, HS TROP, CBC #### [address] Platelet mean volume (Bld) [Entitic vol] 7.3 fL Normal 6.3-10.7 [facility] Comment on above: Performed By: #### C K, CMP, BNP, HS TROP, CBC #### [place] [address] [place] Platelets (Bld) [#/Vol] 234 10*3/uL Normal 150-450 [facility] Comment on above: Performed By: #### C K, CMP, BNP, HS TROP, CBC #### [address] RBC (Bld) [#/Vol] 4.46 10*6/uL Normal 3.60-5.00 [facility] Comment on above: Performed By: #### C K, CMP, BNP, HS TROP, CBC #### [address] WBC (Bld) [#/Vol] 6.9 10*3/uL Normal 3.8-11.6 [facility] Comment on above: Performed By: #### C K, CMP, BNP, HS TROP, CBC #### [address] Comprehensive Metabolic Pane trav 01-11-2024 Albumin [Mass/Vol] 4.1 g/dL Normal 3.5-5.7 [facility] Comment on above: Performed By: #### C K, CMP, BNP, HS TROP, CBC #### [address] Albumin/Globulin [Mass ratio] 1.6 {ratio} Normal [facility] Comment on above: Performed By: #### C K, CMP, BNP, HS TROP, CBC #### [address] ALP [Catalytic activity/Vol] 82 U/L Normal 34-104 [facility] Comment on above: Performed By: #### C K, CMP, BNP, HS TROP, CBC #### [address] ALT [Catalytic activity/Vol] 29 U/L Normal 7-52 [facility] Comment on above: Performed By: #### C K, CMP, BNP, HS TROP, CBC #### [address] Anion gap [Moles/Vol] 11.7 mmol/L Normal 6.0-15.0 Th e [facility] Comment on above: Performed By: #### C K, CMP, BNP, HS TROP, CBC #### [address] AST [Catalytic activity/Vol] 23 U/L Normal 13-39 [facility] Comment on above: Performed By: #### C K, CMP, BNP, HS TROP, CBC #### [address] [place] [address] [place] Bilirubin [Mass/Vol] 0.6 mg/dL Normal 0.3-1.0 [facility] Comment on above: Performed By: #### C K, CMP, BNP, HS TROP, CBC #### [address] Calcium [Mass/Vol] 9.2 mg/dL Normal 8.6-10.3 [facility] Comment on above: Performed By: #### C K, CMP, BNP, HS TROP, CBC #### [address] Chloride [Moles/Vol] 107 mmol/L Normal 98-107 [facility] Comment on above: Performed By: #### C K, CMP, BNP, HS TROP, CBC #### [address] CO2 [Moles/Vol] 26.6 mmol/L Normal 21.0-31.0 [facility] Comment on above: Performed By: #### C K, CMP, BNP, HS TROP, CBC #### [address] Creatinine [Mass/Vol] 0.90 mg/dL Normal 0.60-1.20 [facility] Comment on above: Performed By: #### C K, CMP, BNP, HS TROP, CBC #### [place] [address] [place] Creatinine Clr Calc Pharmacy 65.20 Normal [facility] Comment on above: Result Comment: PERF ORMED BY: [place] [address] PATHOLOGIST STAMPER BLOCKER ARACELI CHAPA M.D. Performed By: #### C K, CMP, BNP, HS TROP, CBC #### [place] [address] [place] GFR/1.73 sq M.predicted MDRD (S/P/Bld) [Vol rate/Area] mL/min/{1.73_m2} Normal [facility] Comment on above: Performed By: #### C K, CMP, BNP, HS TROP, CBC #### [facility] [address] [place] [address] [place] Globulin (S) [Mass/Vol] 2.6 g/dL Normal T he [facility] Comment on above: Performed By: #### C K, CMP, BNP, HS TROP, CBC #### [facility] [address] [place] [address] [place] Glucose [Mass/Vol] 95 mg/dL Normal 70-100 [facility] Comment on above: Result Comment: [facility] [place] Glucose Reference Range is dependent on time and content of last meal. Glucose of more than 200 mg/dL in a nonstressed, ambulatory subject supports the diagnosis of Diabetes Mellitus. ADA recommended reference range Performed By: #### C K, CMP, BNP, HS TROP, CBC #### [facility] [address] Potassium [Moles/Vol] 3.3 mmol/L Low 3.5-5.1 [facility] Comment on above: Performed By: #### C K, CMP, BNP, HS TROP, CBC #### [facility] [address] [place] [id number] [place] Protein [Mass/Vol] 6.7 g/dL Normal 6.4-8.9 [facility] Comment on above: Performed By: #### C K, CMP, BNP, HS TROP, CBC #### [facility] [address] [place] [address] [place] Sodium [Moles/Vol] 142 mmol/L Normal 136-145 The [facility] [facility] Comment on above: Performed By: #### C K, CMP, BNP, HS TROP, CBC #### [facility] [address] [id number] [place] Urea nitrogen [Mass/Vol] 9 mg/dL Normal 7-25 [facility] Comment on above: Performed By: #### C K, CMP, BNP, HS TROP, CBC #### [facility] [address] [id number] [place] Creatine Kinaseon 01-11-2024 CK [Catalytic activity/Vol] 227 U/L High 30-223 [facility] Comment on above: Performed By: #### C K, CMP, BNP, HS TROP, CBC #### [facility] [address] [id number] [facility] Creatine kinase [Enzymatic a ctivity/volume] in Serum or PlasmaOrdered By: Vito Ferguson on 01-11-2024 CK [Catalytic activity/Vol] 227 U/L [facility] Creatinine [Mass/volume] in Serum or PlasmaOrdered By: Vito Ferguson on 01-11-2024 Creatinine [Mass/Vol] 0.90 mg/dL 0.60-1.20 [facility] ECG 12 lead ECGon 01-11-2024 ECG 12 lead ECG [facility] [address] [place] [address] [place] [address] Electrocardiograph Report Signed Patient: Aura Hassan MR#: [id number] 883 : 1960 Acct:[id number] Age/Sex: 63 / F ADM Date: 01/11/24 Loc: ER Room: Type: [facility] ER Attending Dr: Ordering Provider: Vito Ferguson MD Date of Service: 01/11/24 ECG/ECG 12 lead ECG: Extremity Injury, Lower Copies to: Test Reason : Blood Pressure : 172/082 mmHG Vent. Rate : 076 BPM Atrial Rate : 076 BPM P-R Int : 142 ms QRS Dur : 090 ms QT Int : 412 ms P-R-T Axes : 044 002 -04 degrees QTc Int : 463 ms Normal sinus rhythm Lateral infarct , age undetermined Abnormal ECG When compared with ECG of 29-DEC-2018 10:12, Lateral infarct is now present Inverted T waves have replaced nonspecific T wave abnormality in Inferior leads Confirmed by VITO FERGUSON MD ([id number]) on 01/11/2024 7:17:02 PM Referred By: Electronically Signed By:VITO FERGUSON MD Transcribed By: MUS Signed By Vito Ferguson MD 01/11/241916 Normal [facility] Eosinophils Auto (Bld) [#/Vo l]Ordered By: Vito Ferguson on 01-11-2024 Eosinophils (Bld) [#/Vol] 0.1 10*3/uL 0.0-0.45 [facility] Eosinophils/100 WBC Auto (Bl d)Ordered By: Vito Ferguson on 01-11-2024 Eosinophils/100 WBC (Bld) 2.0 % . [facility] Erythrocyte distribution wid th Auto (RBC) [Ratio]Ordered By: Vito Ferguson on 01-11-2024 Erythrocyte distribution width (RBC) [Ratio] 13.9 % 11.9-15.3 [facility] Globulin Calc (S) [Mass/Vol] Ordered By: Vito Ferguson on 01-11-2024 Globulin (S) [Mass/Vol] 2.6 g/dL F [facility] Glucose [Mass/volume] in Ser um or PlasmaOrdered By: Vito Ferguson on 01-11-2024 Glucose [Mass/Vol] 95 mg/dL 70-100 [facility] Comment on above: ADA recommended refe rence rangeRandom Glucose Reference Range is dependent on time and content of last meal. Glucose of more than 200 mg/dL in a nonstressed, ambulatory subject supports the diagnosis of Diabetes Mellitus. Hematocrit Auto (Bld) [Volum e fraction]Ordered By: Vito Ferguson on 01-11-2024 Hematocrit (Bld) [Volume fraction] 39.3 % 34.0-46.4 [facility] Hemoglobin [Mass/volume] in BloodOrdered By: Vito Ferguson on 01-11-2024 Hemoglobin (Bld) [Mass/Vol] 13.2 g/dL 11.8-15.4 [facility] Leukocytes [#/volume] correc marina for nucleated erythrocytes in Blood by Automated counOrdered By: Vito Ferguson on 01-11-2024 WBC corrected for nucl RBC Auto (Bld) [#/Vol] 6.9 10*3/uL 3.8-11.6 [facility] Lymphocytes Auto (Bld) [#/Vo l]Ordered By: Vtio Ferguson on 01-11-2024 Lymphocytes (Bld) [#/Vol] 2.3 10*3/uL 1.00-4.8 [facility] Lymphocytes/100 WBC Auto (Bl d)Ordered By: Vito Ferguson on 01-11-2024 Lymphocytes/100 WBC (Bld) 33.7 % . [facility] MCH Auto (RBC) [Entitic mass ]Ordered By: Vito Ferguson on 01-11-2024 MCH (RBC) [Entitic mass] 29.6 pg 24.7-34.3 [facility] MCHC Auto (RBC) [Mass/Vol]Or dered By: Vito Ferguson on 01-11-2024 MCHC (RBC) [Mass/Vol] 33.6 g/dL 32.0-35.0 [facility] MCV Auto (RBC) [Entitic vol] Ordered By: Vito Ferguson on 01-11-2024 MCV (RBC) [Entitic vol] 88.1 fL 80-100 F [facility] Monocyte distribution width [Entitic volume] in Blood by AutomatedOrdered By: Vito Ferguson on 01-11-2024 Monocyte distribution width Auto (Bld) [Entitic vol] 18.28 % 0.00-20.00 [facility] Monocytes Auto (Bld) [#/Vol] Ordered By: Vito Ferguson on 01-11-2024 Monocytes (Bld) [#/Vol] 0.4 10*3/uL 0.0-0.8 [facility] Monocytes/100 WBC Auto (Bld) Ordered By: Vito Ferguson on 01-11-2024 Monocytes/100 WBC (Bld) 6.3 % . [facility] Natriuretic peptide B [Mass/ Vol]Ordered By: Vito Ferguson on 01-11-2024 Natriuretic peptide B (Bld) [Mass/Vol] 43.0 pg/mL 5-100 [facility] Neutrophils Auto (Bld) [#/Vo l]Ordered By: Vito Ferguson on 01-11-2024 Neutrophils (Bld) [#/Vol] 3.9 10*3/uL 1.8-7.7 [facility] Neutrophils/100 WBC Auto (Bl d)Ordered By: Vito Ferguson on 01-11-2024 Neutrophils/100 WBC (Bld) 57.2 % . [facility] No Panel InformationOrdered By: Vito Ferguson on 01-11-2024 Estimated GFR (CKD-EPI) > 60.0 mL/Min [facility] Creatinine Clearance (Chem 65.20 [facility] Nucleated erythrocytes [Pres ence] in Blood by Automated countOrdered By: Vito Ferguson on 01-11-2024 Nucleated RBC Auto Ql (Bld) 0.0 /100{WBC} 0-0.5 [facility] Platelet mean volume Auto (B ld) [Entitic vol]Ordered By: Vito Ferguson on 01-11-2024 Platelet mean volume (Bld) [Entitic vol] 7.3 fL 6.3-10.7 [facility] Platelets Auto (Bld) [#/Vol] Ordered By: Vito Ferguson on 01-11-2024 Platelets (Bld) [#/Vol] 234 10*3/uL 150-450 [facility] Potassium [Moles/volume] in Serum or PlasmaOrdered By: Vito Ferguson on 01-11-2024 Potassium [Moles/Vol] 3.3 mmol/L 3.5-5.1 [facility] Protein [Mass/volume] in Ser um or PlasmaOrdered By: Vito Ferguson on 01-11-2024 Protein [Mass/Vol] 6.7 g/dL 6.4-8.9 [facility] RBC Auto (Bld) [#/Vol]Ordere d By: Vito Ferguson on 01-11-2024 RBC (Bld) [#/Vol] 4.46 10*6/uL 3.60-5.00 [facility] Serum or plasma albumin/glob ulin mass ratioOrdered By: Vito Ferguson on 01-11-2024 Albumin/Globulin [Mass ratio] 1.6 {ratio} [facility] Serum or plasma anion gap de terminationOrdered By: Vito Ferguson on 01-11-2024 Anion gap [Moles/Vol] 11.7 mmol/L 6.0-15.0 [facility] Sodium [Moles/volume] in Ser um or PlasmaOrdered By: Vito Ferguson on 01-11-2024 Sodium [Moles/Vol] 142 mmol/L 136-145 [facility] Troponin I High Sensitivityo n 01-11-2024 Troponin I High Sensitivity 6.4 pg/mL Normal 0.0-15.0 [facility] Comment on above: Result Comment: PERF ORMED BY: [facility] [address] [place] [address] PATHOLOGIST [employer] ARACELI CHAPA M.D. Performed By: #### C K, CMP, BNP, HS TROP, CBC #### [facility] [address] [id number] [facility] Troponin I.cardiac [Mass/vol ume] in Serum or Plasma by Detection limit <= 0.01 ng/Ordered By: Vito Ferguson on 01-11-2024 Troponin I.cardiac DL <= 0.01 ng/mL [Mass/Vol] 6.4 pg/mL 0.0-15.0 [facility] Urea nitrogen [Mass/volume] in Serum or PlasmaOrdered By: Vito Ferguson on 01-11-2024 Urea nitrogen [Mass/Vol] 9 mg/dL 03-09 [facility] WBC Auto (Bld) [#/Vol]Ordere d By: Vito Ferguson on 01-11-2024 WBC (Bld) [#/Vol] 6.9 10*3/uL 3.8-11.6 [facility] XR chest 1V portableon 01-10 XR chest 1V portable [facility] Main [place] [address] [place] [address] XRay Report Signed Patient: Aura Hassan MR#: [id number] 883 : 1960 Acct:[id number] Age/Sex: 63 / F ADM Date: 01/11/24 Loc: ER Room: Type: [facility] ER Attending Dr: Copies to: Vito Ferguson MD Ordering Provider: Vito Ferguson MD Date of Service: 01/11/24 XR/XR chest 1V portable: Extremity Injury, Lower PORTABLE AP ERECT CHEST 1021 hours CLINICAL HISTORY: Right lower extremity swelling for the past few days. COMPARISON: 10/21/2022 The heart is top normal in size. There is no vascular congestion. The lungs, as visualized, are clear. There is no effusion or pneumothorax. The osseous structures are intact. There are small endplate spurs. XR/XR chest 1V portable IMPRESSION: NO ACUTE FINDINGS Impression dictated by: Millie Zhang M.D.01/11/2024 7:02 PM Dictation Location: [place] [address] Transcribed By: [facility] 01/11/241901 Dictated By: Millie Zhang MD 01/11/241900 Signed By: 01/11/241901 Normal [facility] Trav 11-23-2023 L Specimen: [id number] Received: 11/23/23 Status: AQUILINO Jimenez Num: [id number] Spec Type: Cytology Subm Dr: Ivan Edmonds DO Tissues: A FNA SLIDES NOPATH (LT THYROID) Procedures: Cyto Int and Re, PAPSTN/15 Age/ Patient Sex Location Account Attending Physician SonyaAura Roberto Carlos 63/F [place] [id number] Ivan Edmonds DO SPEC NUM: [id number] RECD: 11/23/23 STATUS: AQUILINO JIMENEZ NUM: [id number] SHEELA: 11/23/[address]: Ivan Edmonds DO ENTERED: 11/23/23 [facility] DR: SPEC TYPE: Cytology DEPT: CNG ENTERED BY: [id number] RECV BY: [id number] ORDERED: Cyto Int and Re, PAPSTN/15 ORDERED: Cyto Int and Re, PAPSTN/15 Pathological Diagnosis Left thyroid nodule, FNA cytology: -Appropriate for assessment -Benign: The [place] system is category 2 -Adequate number of follicular cells in small loosely or slightly disrupted groups are present in both ThinPrep smear and a few aspirate smears -The cytomorphology of the follicular cells are bland looking -Quite a few histiocytes are also present in several smears Clinical Information Thyroid Nodule Gross Description Received in Cytolyt labeled with the patient's name, date of and left thyroid per requisition is <1 ml red hazy fixed fluid. 1 Thin Prep slides are prepared. 14 slides and a Veracyte vial stored at 20- are additionally received.(AL/la) CPT Codes 69965 -------- -------- Specimen: [id number] Received: 11/23/23 Status: AQUILINO Jimenez Num: [id number] Spec Type: Cytology Subm Dr: Ivan Edmonds DO Tissues: A FNA SLIDES NOPATH (LT THYROID) Procedures: Cyto Int and Re, PAPSTN/15 -------- Patient: Aura Hassan [id number] (Continued) -------- Signed (signature on file) Mayra Muniz MD 11/25/23 1157 Normal [facility] Thyroid Stim Hormone w/Rflxo n 10-22-2023 Thyroid Stim Hormone w/Rflx 1.77 u[iU]/mL Normal 0.45-5.33 [facility] Comment on above: Order Comment: Reaso n for Exam Multiple thyroid nodules Result Comment: PERF ORMED BY: [facility] [address] [place] [place] [address] PATHOLOGIST [employer] ARACELI CHAPA M.D. Performed By: #### T SH3 wRFLX ####[facility] [address] [place] [address] Thyrotropin [Units/volume] i n Serum or PlasmaOrdered By: Harrison Sánchez on 10-22-2023 TSH Qn 1.77 m[IU]/L 0.45-5.33 [facility] XR lumbar spine AP/LAT/FLX/E XTon 07-14-2023 XR lumbar spine AP/LAT/FLX/EXT [facility] Main [place] [id number] XRay Report Signed Patient: Aura Hassan MR#: [id number] 883 : 1960 Acct:[id number] Age/Sex: 62 / F ADM Date: 07/14/23 Loc: XD Room: Type: [facility] Attending Dr: Apolinar Zarate MD Copies to: [...] Rainer Sofia M.D.07/14/2023 2:59 PM Dictation Location: [place] [address] Transcribed By: [facility] 07/14/23 1459 Dictated By: Rainer Sofia DO 07/14/23 1456 Signed By: 07/14/23 1459 Normal [facility] CT soft tissue neck w conon 06-30-2023 CT soft tissue neck w con [facility] Main [address] [address] [address] Scan Report Signed Patient: Aura Hassan MR#: [id number] 883 : 1960 Acct:[id number] Age/Sex: 62 / F ADM Date: 06/30/23 Loc: CT Room: Type: [facility] Attending Dr: Jayden Quevedo DO Copies to: [...] Millie Zhang M.D.06/30/2023 4:22 PM Dictation Location: [place] [address] Transcribed By: [facility] 06/30/231621 Dictated By: Millie Zhang MD 06/30/231616 Signed By: 06/30/23 162 Normal [facility] US thyroidon 06-30-2023 thyroid [facility] [place] [address] Ultrasound Report Signed Patient: Aura Hassan MR#: [id number] 883 : 1960 Acct:[id number] Age/Sex: 62 / F ADM Date: 06/30/23 Loc: CT Room: Type: [facility] Attending Dr: Jayden Quevedo DO Ordering Provider: Harrison Sánchez DO, RES Date of Service: 06/30/23 US/US thyroid: Neck pain on right side;Right ear pain Copies to: Harrison Sánchez DO, RES Jayden Quevedo DO THYROID ULTRASOUND CLINICAL DATA: Right-sided [...] Millie Zhang M.D.06/30/2023 4:17 PM Dictation Location: [place] [address] Tech: Ruth Martinez Transcribed By: SHAMAR 06/30/23 161 Dictated By: Millie Zhang MD 06/30/23 1604 Signed By: 06/30/23 161 Normal [facility] MM screening mammo BI w/CADo n 04-08-2023 MM screening mammo BI w/CAD [facility] [place] [address] Mammography Report Signed Patient: Aura Hassan MR#: [id number] 883 : 1960 Acct:[id number] Age/Sex: 62 / F ADM Date: 04/08/23 Loc: [place] Room: Type: [facility] Attending Dr: Jayden Quevedo DO Copies to: Harrison Sánchez DO, [facility] Jayden Quevedo DO Ordering Provider: Harrison Sánchez DO, RES Date of Service: 04/08/23 MM/MM screening mammo BI w/CAD: Screening mammogram for breast cancer CLINICAL DATA: Screening for malignancy. SCREENING MAMMOGRAM - FULL FIELD DIGITAL WITH TOMOSYNTHESIS AND CAD COMPARISON:Mammograms dating back to 2016 Tomosynthesis craniocaudal and mediolateral oblique views of [...] mammogram. Impression dictated by: Josiah Holt Jr., D.O.04/08/2023 2:46 PM Dictation Location: [facility] Transcribed By: SHAMAR 04/08/23 1446 Dictated By: Josiah Holt Jr, DO 04/08/23 1445 Signed By: 04/08/23 1446 Normal [facility] Alanine aminotransferase [En zymatic activity/volume] in Serum or PlasmaOrdered By: Orly Fontaine on 02-04-2023 ALT [Catalytic activity/Vol] 22 U/L 7-52 [facility] Albumin [Mass/volume] in Ser um or Plasma by Bromocresol green (BCG) dye binding methoOrdered By: Orly Fontaine on 02-04-2023 Albumin BCG dye [Mass/Vol] 4.3 g/dL 3.5-5.7 [facility] Alkaline phosphatase [Enzyma tic activity/volume] in Serum or PlasmaOrdered By: Orly Cespedesser on 02-04-2023 ALP [Catalytic activity/Vol] 79 U/L 34-104 [facility] Aspartate aminotransferase [ Enzymatic activity/volume] in Serum or PlasmaOrdered By: Orly Minal on 02-04-2023 AST [Catalytic activity/Vol] 18 U/L 13-39 [facility] Basophils Auto (Bld) [#/Vol] Ordered By: Orly Minal on 02-04-2023 Basophils (Bld) [#/Vol] 0.0 10*3/uL 0.0-0.2 [facility] Basophils/100 WBC Auto (Bld) Ordered By: Orly Minal on 02-04-2023 Basophils/100 WBC (Bld) 0.4 % . F [facility] Bilirubin.total [Mass/volume ] in Serum or PlasmaOrdered By: Orly Cespedesser on 02-04-2023 Bilirubin [Mass/Vol] 0.7 mg/dL 0.3-1.0 [facility] Calcium [Mass/volume] in Ser um or PlasmaOrdered By: Orly [place] on 02-04-2023 Calcium [Mass/Vol] 9.2 mg/dL 8.6-10.3 [facility] Carbon dioxide, total [Moles /volume] in Serum or PlasmaOrdered By: Orly [place] on 02-04-2023 CO2 [Moles/Vol] 27.2 mmol/L 21.0-31.0 [facility] Chloride [Moles/volume] in S rashawn or PlasmaOrdered By: Orly Minal on 02-04-2023 Chloride [Moles/Vol] 107 mmol/L 98-107 [facility] Cholesterol [Mass/volume] in Serum or PlasmaOrdered By: Orly Minal on 02-04-2023 Cholesterol [Mass/Vol] 166 mg/dL 140-200 [facility] Comment on above: Chol less than 200 m g/dl low riskChol 201-239 mg/dl borderline riskChol 240 mg/dl and greater high risk Cholesterol in LDL Calc [Mas s/Vol]Ordered By: Orly Fontaine on 02-04-2023 Cholesterol in LDL [Mass/Vol] 55 mg/dL 0-100 [facility] Comment on above: LDL ATP III CLASSIFI CATIONLDL less than 100 mg/dL OptimalLDL 100-129 mg/dL Near or above optimalLDL 130-159 mg/dL Borderline highLDL 160-189 mg/dL HighLDL greater than 189 mg/dL Very high Cholesterol in VLDL Calc [Ma ss/Vol]Ordered By: Orly Fontaine on 02-04-2023 Cholesterol in VLDL [Mass/Vol] 69 mg/dL [facility] Complete Blood Count Auto Di ffon 02-04-2023 Basophils (Bld) [#/Vol] 0.0 10*3/uL Normal 0.0-0.2 [facility] Comment on above: Result Comment: PERF ORMED BY: [facility] [address] [facility] [address] PATHOLOGIST [employer] ARACELI CHAPA M.D. Performed By: #### C BC, CMP, LIPID ####[address] Basophils/100 WBC (Bld) 0.4 % Normal . T yeyo [facility] Comment on above: Performed By: #### C BC, CMP, LIPID ####[address] Eosinophils (Bld) [#/Vol] 0.1 10*3/uL Normal 0.0-0.45 [facility] Comment on above: Performed By: #### C BC, CMP, LIPID ####[address] Eosinophils/100 WBC (Bld) 2.4 % Normal . [facility] Comment on above: Performed By: #### C BC, CMP, LIPID ####[address] Erythrocyte distribution width (RBC) [Ratio] 13.7 % Normal 11.9-15.3 [facility] Comment on above: Performed By: #### C BC, CMP, LIPID ####[address] Hematocrit (Bld) [Volume fraction] 38.9 % Normal 34.0-46.4 [facility] Comment on above: Performed By: #### C BC, CMP, LIPID ####[address] Hemoglobin (Bld) [Mass/Vol] 13.6 g/dL Normal 11.8-15.4 [facility] Comment on above: Performed By: #### C BC, CMP, LIPID ####[address] Lymphocytes (Bld) [#/Vol] 1.9 10*3/uL Normal 1.00-4.8 [facility] Comment on above: Performed By: #### C BC, CMP, LIPID ####[address] Lymphocytes/100 WBC (Bld) 35.1 % Normal . [facility] Comment on above: Performed By: #### C BC, CMP, LIPID ####[address] MCH (RBC) [Entitic mass] 30.0 pg Normal 24.7-34.3 [facility] Comment on above: Performed By: #### C BC, CMP, LIPID ####[address] MCV (RBC) [Entitic vol] 85.9 fL Normal 80-100 T he [facility] Comment on above: Performed By: #### C BC, CMP, LIPID ####[address] Mean Corpuscular HGB Conc 35.0 g/dL Normal 32.0-35.0 [facility] Comment on above: Performed By: #### C BC, CMP, LIPID ####[address] Monocytes (Bld) [#/Vol] 0.3 10*3/uL Normal 0.0-0.8 [facility] Comment on above: Performed By: #### C BC, CMP, LIPID ####[address] [address] [facility] Monocytes/100 WBC (Bld) 6.3 % Normal . T [facility] Comment on above: Performed By: #### C BC, CMP, LIPID ####[address] [address] [facility] Neutrophils (Bld) [#/Vol] 3.0 10*3/uL Normal 1.8-7.7 [facility] Comment on above: Performed By: #### C BC, CMP, LIPID ####[address] [address] [facility] Neutrophils/100 WBC (Bld) 55.8 % Normal . [facility] Comment on above: Performed By: #### C BC, CMP, LIPID ####[place] [id number] [facility] NRBC% 0.1 /100{WBC} Normal 0-0.5 [facility] Comment on above: Performed By: #### C BC, CMP, LIPID ####[address] [address] [facility] Platelet mean volume (Bld) [Entitic vol] 7.4 fL Normal 6.3-10.7 [facility] Comment on above: Performed By: #### C BC, CMP, LIPID ####[address] [address] [place] Platelets (Bld) [#/Vol] 208 10*3/uL Normal 150-450 [facility] Comment on above: Performed By: #### C BC, CMP, LIPID ####[address] [address] [place] RBC (Bld) [#/Vol] 4.54 10*6/uL Normal 3.60-5.00 The [facility] Comment on above: Performed By: #### C BC, CMP, LIPID ####[address] [address] [place] WBC (Bld) [#/Vol] 5.4 10*3/uL Normal 3.8-11.6 [facility] Comment on above: Performed By: #### C BC, CMP, LIPID ####[address] Comprehensive Metabolic Pane trav 02-04-2023 Albumin [Mass/Vol] 4.3 g/dL Normal 3.5-5.7 [facility] Comment on above: Performed By: #### C BC, CMP, LIPID ####[address] Albumin/Globulin [Mass ratio] 2.3 {ratio} Normal [facility] Comment on above: Performed By: #### C BC, CMP, LIPID ####[address] ALP [Catalytic activity/Vol] 79 U/L Normal 34-104 [facility] Comment on above: Performed By: #### C BC, CMP, LIPID ####[address] ALT [Catalytic activity/Vol] 22 U/L Normal 7-52 [facility] Comment on above: Performed By: #### C BC, CMP, LIPID ####[address] Anion gap [Moles/Vol] 12.0 mmol/L Normal 6.0-15.0 Th [facility] Comment on above: Performed By: #### C BC, CMP, LIPID ####[address] AST [Catalytic activity/Vol] 18 U/L Normal 13-39 [facility] Comment on above: Performed By: #### C BC, CMP, LIPID ####[address] Bilirubin [Mass/Vol] 0.7 mg/dL Normal 0.3-1.0 [facility] Comment on above: Performed By: #### C BC, CMP, LIPID ####[address] Calcium [Mass/Vol] 9.2 mg/dL Normal 8.6-10.3 [facility] Comment on above: Performed By: #### C BC, CMP, LIPID ####[address] Chloride [Moles/Vol] 107 mmol/L Normal 98-107 [facility] Comment on above: Performed By: #### C BC, CMP, LIPID ####[address] CO2 [Moles/Vol] 27.2 mmol/L Normal 21.0-31.0 The [facility] Comment on above: Performed By: #### C BC, CMP, LIPID ####[address] Creatinine [Mass/Vol] 0.86 mg/dL Normal 0.60-1.20 [facility] Comment on above: Performed By: #### C BC, CMP, LIPID ####[address] GFR/1.73 sq M.predicted MDRD (S/P/Bld) [Vol rate/Area] mL/min/{1.73_m2} Normal [facility] Comment on above: Performed By: #### C BC, CMP, LIPID ####[address] Globulin (S) [Mass/Vol] 1.9 g/dL Normal T he [facility] Comment on above: Performed By: #### C BC, CMP, LIPID ####[address] Glucose [Mass/Vol] 111 mg/dL High 70-100 [facility] Comment on above: Result Comment: [place] Glucose Reference Range is dependent on time and content of last meal. Glucose of more than 200 mg/dL in a nonstressed, ambulatory subject supports the diagnosis of Diabetes Mellitus. ADA recommended reference range Performed By: #### C BC, CMP, LIPID ####[address] Potassium [Moles/Vol] 4.2 mmol/L Normal 3.5-5.1 [facility] Comment on above: Performed By: #### C BC, CMP, LIPID ####[facility] Protein [Mass/Vol] 6.2 g/dL Low 6.4-8.9 [facility] Comment on above: Performed By: #### C BC, CMP, LIPID ####[place] [id number] [address] Sodium [Moles/Vol] 142 mmol/L Normal 136-145 [facility] Comment on above: Performed By: #### C BC, CMP, LIPID ####[place] [place] [id number] [address] Urea nitrogen [Mass/Vol] 10 mg/dL Normal 7-25 [facility] Comment on above: Performed By: #### C BC, CMP, LIPID ####[place] [id number] Creatinine [Mass/volume] in Serum or PlasmaOrdered By: Orly Fontaine on 02-04-2023 Creatinine [Mass/Vol] 0.86 mg/dL 0.60-1.20 [facility] Creatinine [Mass/volume] in UrineOrdered By: Orly Fontaine on 02-04-2023 Creatinine (U) [Mass/Vol] 87.0 mg/dL 11.0-20.0 [facility] Eosinophils Auto (Bld) [#/Vo l]Ordered By: Orly Fontaine on 02-04-2023 Eosinophils (Bld) [#/Vol] 0.1 10*3/uL 0.0-0.45 [facility] Eosinophils/100 WBC Auto (Bl d)Ordered By: Orly Fontaine on 02-04-2023 Eosinophils/100 WBC (Bld) 2.4 % . [facility] Erythrocyte distribution wid th Auto (RBC) [Ratio]Ordered By: Orly Fontaine on 02-04-2023 Erythrocyte distribution width (RBC) [Ratio] 13.7 % 11.9-15.3 [facility] Globulin Calc (S) [Mass/Vol] Ordered By: Orly Fontaine on 02-04-2023 Globulin (S) [Mass/Vol] 1.9 g/dL F [facility] Glucose [Mass/volume] in Ser um or PlasmaOrdered By: Orly Fontaine on 02-04-2023 Glucose [Mass/Vol] 111 mg/dL 70-100 [facility] Comment on above: ADA recommended refe rence rangeRandom Glucose Reference Range is dependent on time and content of last meal. Glucose of more than 200 mg/dL in a nonstressed, ambulatory subject supports the diagnosis of Diabetes Mellitus. Hematocrit Auto (Bld) [Volum e fraction]Ordered By: Orly Fontaine on 02-04-2023 Hematocrit (Bld) [Volume fraction] 38.9 % 34.0-46.4 [facility] Hemoglobin [Mass/volume] in BloodOrdered By: Orly Fontaine on 02-04-2023 Hemoglobin (Bld) [Mass/Vol] 13.6 g/dL 11.8-15.4 [facility] Leukocytes [#/volume] correc marina for nucleated erythrocytes in Blood by Automated counOrdered By: Orly Fontaine on 02-04-2023 WBC corrected for nucl RBC Auto (Bld) [#/Vol] 5.4 10*3/uL 3.8-11.6 [facility] Lipid Panelon 02-04-2023 Cholesterol [Mass/Vol] 166 mg/dL Normal 140-200 Th [facility] Comment on above: Result Comment: Chol less than 200 mg/dl low risk Chol 201-239 mg/dl borderline risk Chol 240 mg/dl and greater high risk Performed By: #### C BC, CMP, LIPID ####[facility] [id number] Cholesterol in HDL [Mass/Vol] 42 mg/dL Normal 23-92 [facility] Comment on above: Result Comment: HDL CHOL ATP-III CLASSIFICATION Cardiovascular Risk HDL > or equal to 60 mg/dL LOW HDL < 40 mg/dL HIGH Performed By: #### C BC, CMP, LIPID ####[facility] [id number] [place] [id number] [facility] Cholesterol.total/Choles terol in HDL [Mass ratio] 4.0 {ratio} Normal <5.0 [facility] Comment on above: Result Comment: PERF ORMED BY: [facility] [address] [place] [address] PATHOLOGIST STAMPER BLOCKER ARACELI CHAPA M.D. Performed By: #### C BC, CMP, LIPID ####[place] [id number] [address] LDL Cholesterol,Calculated 55 mg/dL Normal 0-100 [facility] Comment on above: Result Comment: LDL ATP III CLASSIFICATION LDL less than 100 mg/dL Optimal LDL 100-129 mg/dL Near or above optimal LDL 130-159 mg/dL Borderline high LDL 160-189 mg/dL High LDL greater than 189 mg/dL Very high Performed By: #### C BC, CMP, LIPID ####[place] [id number] [address] Triglyceride w/Reflex 345 mg/dL High 0-149 [facility] Comment on above: Result Comment: TRIG ATP III CLASSIFICATION TRIG less than 150 mg/dL Normal TRIG 150-199 mg/dL Borderline high TRIG 200-500 mg/dL High TRIG greater than 500 mg/dL Very high Standard traceable to the Center for Disease Conrtrol and Prevention (CDC) test method. Performed By: #### C BC, CMP, LIPID ####[place] [id number] VLDL CHOLESTEROL 69 mg/dL Normal [facility] Comment on above: Performed By: #### C BC, CMP, LIPID ####[place] [id number] [address] Lymphocytes Auto (Bld) [#/Vo l]Ordered By: Orly Fontaine on 02-04-2023 Lymphocytes (Bld) [#/Vol] 1.9 10*3/uL 1.00-4.8 [facility] Lymphocytes/100 WBC Auto (Bl d)Ordered By: Orly Fontaine on 02-04-2023 Lymphocytes/100 WBC (Bld) 35.1 % . [facility] MCH Auto (RBC) [Entitic mass ]Ordered By: Orly Cespedesser on 02-04-2023 MCH (RBC) [Entitic mass] 30.0 pg 24.7-34.3 [facility] MCHC Auto (RBC) [Mass/Vol]Or dered By: Orly Minal on 02-04-2023 MCHC (RBC) [Mass/Vol] 35.0 g/dL 32.0-35.0 [facility] MCV Auto (RBC) [Entitic vol] Ordered By: Orly Minal on 02-04-2023 MCV (RBC) [Entitic vol] 85.9 fL 80-100 [facility] MicroAlb Creat Ratio,Uon Albumin DL <= 20 mg/L (U) [Mass/Vol] mg/dL Normal 0.0-1.8 [facility] Comment on above: Performed By: #### U RMACRERAT #### [facility] [address] Creatinine, Urine (Random) 87.0 mg/dL High 11.0-20.0 [facility] Comment on above: Performed By: #### U RMACRERAT #### [facility] [address] Microalbumin/Creatinine Ratio Not performed Normal 0.0-30.0 [facility] Comment on above: Result Comment: PERF ORMED BY: [place] [address] PATHOLOGIST STAMPER BLOCKER ARACELI CHAPA M.D. Performed By: #### U RMACRERAT #### [facility] [address] Microalbumin [Mass/volume] i n UrineOrdered By: Orly Fontaine on 02-04-2023 Albumin DL <= 20 mg/L (U) [Mass/Vol] mg/dL 0.0-1.8 [facility] Monocytes Auto (Bld) [#/Vol] Ordered By: Orly Cespedesser on 02-04-2023 Monocytes (Bld) [#/Vol] 0.3 10*3/uL 0.0-0.8 [facility] Monocytes/100 WBC Auto (Bld) Ordered By: Orly Cespedesser on 02-04-2023 Monocytes/100 WBC (Bld) 6.3 % . [facility] Neutrophils Auto (Bld) [#/Vo l]Ordered By: Orly [place] on 02-04-2023 Neutrophils (Bld) [#/Vol] 3.0 10*3/uL 1.8-7.7 [facility] Neutrophils/100 WBC Auto (Bl d)Ordered By: Orly Minal on 02-04-2023 Neutrophils/100 WBC (Bld) 55.8 % . [facility] No Panel InformationOrdered By: Orly Fontaine on 02-04-2023 Estimated GFR (CKD-EPI) > 60.0 mL/Min [facility] Creatinine Clearance (Chem N/A [facility] Nucleated erythrocytes [Pres ence] in Blood by Automated countOrdered By: Orly Fontaine on 02-04-2023 Nucleated RBC Auto Ql (Bld) 0.1 /100{WBC} 0-0.5 [facility] Platelet mean volume Auto (B ld) [Entitic vol]Ordered By: Orly Cespedesser on 02-04-2023 Platelet mean volume (Bld) [Entitic vol] 7.4 fL 6.3-10.7 [facility] Platelets Auto (Bld) [#/Vol] Ordered By: Orly Cespedesser on 02-04-2023 Platelets (Bld) [#/Vol] 208 10*3/uL 150-450 [facility] Potassium [Moles/volume] in Serum or PlasmaOrdered By: Orly Portland on 02-04-2023 Potassium [Moles/Vol] 4.2 mmol/L 3.5-5.1 [facility] Protein [Mass/volume] in Ser um or PlasmaOrdered By: Orly [place] on 02-04-2023 Protein [Mass/Vol] 6.2 g/dL 6.4-8.9 [facility] RBC Auto (Bld) [#/Vol]Ordere d By: Orly [place] on 02-04-2023 RBC (Bld) [#/Vol] 4.54 10*6/uL 3.60-5.00 [facility] Serum or plasma albumin/glob ulin mass ratioOrdered By: Orly Fontaine on 02-04-2023 Albumin/Globulin [Mass ratio] 2.3 {ratio} [facility] Serum or plasma anion gap de terminationOrdered By: Orly Fontaine on 02-04-2023 Anion gap [Moles/Vol] 12.0 mmol/L 6.0-15.0 [facility] Serum or plasma high density lipoprotein (HDL) cholesterol measurementOrdered By: Orly Fontaine on 02-04-2023 Cholesterol in HDL [Mass/Vol] 42 mg/dL [facility] Comment on above: HDL CHOL ATP-III CLA SSIFICATION Cardiovascular RiskHDL > or equal to 60 mg/dL LOWHDL < 40 mg/dL HIGH Serum or plasma total choles terol/high density lipoprotein (HDL) cholesterol mass ratOrdered By: Orly Fontaine on 02-04-2023 Cholesterol.total/Choles terol in HDL [Mass ratio] 4.0 {ratio} <5.0 [facility] Sodium [Moles/volume] in Ser um or PlasmaOrdered By: Orly Fontaine on 02-04-2023 Sodium [Moles/Vol] 142 mmol/L 136-145 [facility] Triglyceride [Mass/volume] i n Serum or PlasmaOrdered By: Orly Fontaine on 02-04-2023 Triglyceride [Mass/Vol] 345 mg/dL 0-149 [facility] Comment on above: TRIG ATP III CLASSIF ICATIONTRIG less than 150 mg/dL NormalTRIG 150-199 mg/dL Borderline highTRIG 200-500 mg/dL High TRIG greater than 500 mg/dL Very highStandard traceable to the Center for Disease Conrtrol and Prevention (CDC) test method. Urea nitrogen [Mass/volume] in Serum or PlasmaOrdered By: Orly Fontaine on 02-04-2023 Urea nitrogen [Mass/Vol] 10 mg/dL 03-09 [facility] Urine microalbumin/creatinin e mass ratioOrdered By: Orly Fontaine on 02-04-2023 Albumin/Creatinine DL <= 20 mg/L (U) [Mass ratio] [facility] Comment on above: Test not performed WBC Auto (Bld) [#/Vol]Ordere d By: Orly Fontaine on 02-04-2023 WBC (Bld) [#/Vol] 5.4 10*3/uL 3.8-11.6 [facility] SARS-CoV-2 (COVID-19) RNA [place]+probe Ql (Unsp spec) Not detected Normal NOT DETECTED [facility] Comment on above: Result Comment: When diagnostic [...] for this test is supported by the Store Keeper of Health and Human Service's declaration that [...] longer be used). Performed By: #### C VDTBH #### [facility] [address] [place] [address] Dr. Bebo Muniz INFLUENZA A AND B AGon 07-17 INFLUBNEG SEE BELOW Normal [facility] Comment on above: Result Comment: Nega tive for Flu B protein antigen. Infection due to Flu B cannot be ruled out. Flu B antigen in the sample may be below the detection limit of the test. Performed By: #### I NFLUAB #### [facility] [address] [place] [address] Dr. Bebo Muniz INFLUENZA A AG Positive Abnormal NEGATIVE SEE COMMENT [facility] Comment on above: Performed By: #### I NFLUAB #### [facility] [address] [place], [place] [address] Dr. Bebo Muniz INFLUENZA B AG Negative Normal NEGATIVE SEE COMMENT The [facility] Comment on above: Performed By: #### I NFLUAB #### [facility] [address] [place], [place] [address] Dr. Bebo Muniz INFLUPOSH SEE BELOW Normal [facility] Comment on above: Result Comment: NOTE : Live attenuated influenzae vaccine viruses can cause a positive result for a rapid influenza diagnostic test if administered up to 7 days prior to rapid testing. Performed By: #### I NFLUAB #### [facility] [address] [place], [place] [address] Dr. Bebo Muniz INTERNAL CONTROLS Within Normal Limits Normal Wi thin Normal Limits The [facility] Comment on above: Performed By: #### I NFLUAB #### [facility] [address] [place] [address] [address] Bebo Muniz SCREENING MAMMOGRAM W/PRATEEK, BILATERAL*on 01-05-2022 SCREENING MAMMOGRAM W/PRATEEK, BILATERAL* CLINICAL HISTORY: Screening Mammogram COMPARISON: Priors from 2020, 2019, 2018, 2017 TECHNIQUE: 2D and 3D mammogram imaging of [...] VERY IMPORTANT TO YOUR HEALTH. THE CURRENT [employer] GUIDELINES RECOMMENDS ANNUAL MAMMOGRAPHY BEGINNING AT AGE 40 THIS FACILITY USES A REMINDER SYSTEM TO ENSURE ALL PATIENTS RECEIVE REMINDER NOTIFICATIONS AT THE APPROPRIATE TIME BASED ON THE RECOMMENDATIONS OF THIS EXAM. 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 Accredited by the ACR and FDA. Report reported and signed by Darryl Milner on 01/07/2022 0959 Normal [facility] Call Center Recruiter Vital Signs Date Time Vital Sign Value Performing Clinician Facility 01-11-2024 18:36-0400 Heart rate 83 /min Services [facility] Work Phone: [facility] 01-11-2024 18:36-0400 Respiratory rate 18 /min Services [facility] Work Phone: [facility] 01-11-2024 18:36-0400 SaO2% (BldA) [Mass fraction] 97 % [facility] Work Phone: [facility] 01-11-2024 18:35-0400 Diastolic blood pressure 84 mm[Hg] [facility] Work Phone: [facility] 01-11-2024 18:35-0400 Systolic blood pressure 176 mm[Hg] [facility] Work Phone: [facility] 01-11-2024 16:36-0400 Body height 157.48 cm [facility] Work Phone: [facility] 01-11-2024 16:36-0400 Body temperature 98.3 [degF] [facility] Work Phone: [facility] 01-11-2024 16:36-0400 Body weight 88.35 kg [facility] Work Phone: [facility] 11-02-2023 09:25-0400 Diastolic blood pressure 91 mm[Hg] [facility] Work Phone: [facility] 11-02-2023 09:25-0400 Heart rate 74 /min [facility] Work Phone: [facility] 11-02-2023 09:25-0400 Respiratory rate 16 /min [facility] Work Phone: [facility] 11-02-2023 09:25-0400 SaO2% (BldA) [Mass fraction] 92 % [facility] Work Phone: [facility] 11-02-2023 09:25-0400 Systolic blood pressure 152 mm[Hg] [facility] Work Phone: [facility] 11-02-2023 08:38-0400 Inhaled oxygen flow rate 3 L/min [facility] Work Phone: [facility] 11-02-2023 07:40-0400 Body height 157.48 cm [facility] Work Phone: [facility] 11-02-2023 07:40-0400 Body temperature 98.3 [degF] [facility] Work Phone: [facility] 11-02-2023 07:40-0400 Body weight 86.18 kg [facility] Work Phone: [facility] 10-05-2023 09:17-0500 Diastolic blood pressure 80 mm[Hg] [facility] Work Phone: [facility] 10-05-2023 09:17-0500 Heart rate 72 /min [facility] Work Phone: [facility] 10-05-2023 09:17-0500 Respiratory rate 18 /min [facility] Work Phone: [facility] 10-05-2023 09:17-0500 SaO2% (BldA) [Mass fraction] 95 % [facility] Work Phone: [facility] 10-05-2023 09:17-0500 Systolic blood pressure 127 mm[Hg] [facility] Work Phone: [facility] 10-05-2023 08:37-0500 Inhaled oxygen flow rate 2 L/min [facility] Work Phone: [facility] 10-05-2023 07:54-0500 Body height 157.48 cm [facility] Work Phone: [facility] 10-05-2023 07:54-0500 Body weight 86.18 kg [facility] Work Phone: [facility] 09-14-2023 10:20-0500 Diastolic blood pressure 74 mm[Hg] [facility] Work Phone: [facility] 09-14-2023 10:20-0500 Heart rate 76 /min [facility] Work Phone: [facility] 09-14-2023 10:20-0500 Respiratory rate 16 /min [facility] Work Phone: [facility] 09-14-2023 10:20-0500 SaO2% (BldA) [Mass fraction] 98 % [facility] Work Phone: [facility] 09-14-2023 10:20-0500 Systolic blood pressure 134 mm[Hg] [facility] Work Phone: [facility] 09-14-2023 09:42-0500 Inhaled oxygen flow rate 3 L/min [facility] Work Phone: [facility] 09-14-2023 08:39-0500 Body height 157.48 cm Services [facility] Work Phone: [facility] 09-14-2023 08:39-0500 Body weight 86.18 kg Services [employer] Work Phone: [facility] 11-27-2021 16:30-0400 Body height 157.48 cm Joel Anand Other [employer] Other 11-27-2021 16:30-0400 Body mass index (BMI) [Ratio] 31.09 kg/m2 Joel Anand Other [employer] Other 11-27-2021 16:30-0400 Body weight 77.11 kg Joel Anand Other [employer] Other Encounters Encounter Date Encounter Type Care Provider Facility Start: 01-11-2024 End: 01-11-2024 Emergency department patient visit Vito Ferguson Facility:[facility] Start: 01-11-2024 End: 01-11-2024 Emergency department patient visit [facility] Work Phone: [facility] Work Phone: Start: 12-08-2023 End: 12-08-2023 ambulatory IVAN EDMONDS Not Available Start: 11-23-2023 End: 11-23-2023 ambulatory [facility] Work Phone: [facility] Work Phone: Start: 11-23-2023 End: 11-23-2023 Patient encounter procedure [facility] Work Phone: [facility] Work Phone: Start: 11-23-2023 End: 11-23-2023 ambulatory IVAN TAYMary Ann Not Available Start: 11-23-2023 End: 11-23-2023 ambulatory [facility] Work Phone: [facility] Work Phone: Start: 11-23-2023 End: 11-23-2023 Departed Referred Services [facility] Work Phone: [facility] [place] Work Phone: Start: 11-23-2023 Registered Referred Services [facility] Work Phone: [facility] [place] Work Phone: Start: 11-10-2023 End: 11-10-2023 ambulatory IVAN TAYMary Ann Not Available Start: 11-02-2023 End: 11-02-2023 ambulatory Services [facility] Facility:[facility] Start: 11-02-2023 Non-patient / Non-visit [facility] Work Phone: [facility] Work Phone: Start: 11-02-2023 End: 11-02-2023 Admission to same day surgery center Services [facility] Work Phone: [facility] Work Phone: Start: 11-02-2023 End: 11-02-2023 ambulatory [facility] Work Phone: [facility] Work Phone: Start: 10-22-2023 End: 10-22-2023 ambulatory Services [facility] Facility:[facility] Start: 10-22-2023 End: 10-22-2023 Patient encounter procedure [facility] Work Phone: [facility] [place] Work Phone: Start: 10-18-2023 End: 10-18-2023 Patient encounter procedure [facility] Work Phone: [facility] Work Phone: Start: 10-05-2023 (Procedure) Ro Zarate [facility] Start: 10-05-2023 End: 10-05-2023 ambulatory Apolinar Zarate Facility:[facility] Start: 10-05-2023 Non-patient / Non-visit [facility] Work Phone: [facility] Work Phone: Start: 10-05-2023 End: 10-05-2023 Admission to same day surgery center [facility] Work Phone: [facility] Work Phone: Start: 10-05-2023 End: 10-05-2023 ambulatory [facility] Work Phone: [facility] Work Phone: Start: 09-14-2023 (Procedure) Ro Zarate [facility] Start: 09-14-2023 End: 09-14-2023 ambulatory Apolinar Zarate Facility:[facility] Start: 09-14-2023 End: 09-14-2023 Admission to same day surgery center [facility] Work Phone: [facility] Work Phone: Start: 09-14-2023 End: 09-14-2023 ambulatory [facility] Work Phone: [facility] Work Phone: Start: 08-30-2023 End: 08-30-2023 ambulatory Apolinar Zarate Other [employer] Other Start: 08-30-2023 Office outpatient visit 25 minutes Apolinar Zarate [facility] [place] Start: 08-30-2023 End: 08-30-2023 Patient encounter procedure [facility] Work Phone: [facility] Work Phone: Start: 08-05-2023 End: 08-05-2023 ambulatory [facility] Work Phone: [facility] Work Phone: Start: 08-05-2023 End: 08-05-2023 Discharged Recurring Services [facility] Work Phone: [facility] [place] Work Phone: Start: 07-14-2023 End: 07-14-2023 ambulatory [facility] Work Phone: [facility] Work Phone: Start: 07-14-2023 End: 07-14-2023 Patient encounter procedure [facility] Work Phone: [facility] [place] Work Phone: Start: 07-02-2023 End: 07-02-2023 ambulatory Apolinar Zarate Other [employer] Other Start: 07-02-2023 Telephone encounter Apolinar Zarate [facility] [place] Start: 06-30-2023 End: 06-30-2023 ambulatory [facility] Work Phone: [facility] Work Phone: Start: 06-30-2023 End: 06-30-2023 Patient encounter procedure [facility] Work Phone: [facility] [place] Work Phone: Start: 04-08-2023 End: 04-08-2023 ambulatory Harrison Sánchez Facility:[facility] Start: 04-08-2023 End: 04-08-2023 ambulatory [facility] Work Phone: [facility] Work Phone: Start: 04-08-2023 End: 04-08-2023 Patient encounter procedure Services [facility] Work Phone: [facility] Work Phone: Start: 02-04-2023 End: 02-04-2023 ambulatory Services [facility] Facility:[facility] Start: 02-04-2023 End: 02-04-2023 ambulatory [facility] Work Phone: [facility] Work Phone: Start: 02-04-2023 End: 02-04-2023 Patient encounter procedure Services [facility] Work Phone: [facility] [place] Work Phone: Start: 10-21-2022 End: 10-21-2022 ambulatory Services [facility] Work Phone: [facility] Work Phone: Start: 10-21-2022 End: 10-21-2022 Patient encounter procedure Services [facility] Work Phone: [facility] [place] Work Phone: Start: 07-17-2022 End: 07-17-2022 ambulatory [facility] Facility: Start: 11-27-2021 End: 11-27-2021 ambulatory Joel Anand Other [employer] Other Start: 11-27-2021 Office outpatient visit 15 minutes Joel Anand [facility] Gastroenterology Procedures Date Procedure Procedure Detail Performing Clinician Start: 11-02-2023 DH Nerve Radio Frequ ency (Bilateral) Services [employer] Work Phone: Start: 10-05-2023 Local anesthetic lum bar facet joint nerve block Services [employer] Work Phone: Start: 09-14-2023 Local anesthetic lum bar facet joint nerve block Services [employer] Work Phone: Start: 07-14-2023 X-ray of lumbar spin e, four views Services [employer] Work Phone: Start: 06-30-2023 CT of soft tissues o f neck with contrast Services [employer] Work Phone: Start: 06-30-2023 US scan of thyroid Serv ices [employer] Work Phone: Start: 04-08-2023 Screening mammograph y of bilateral breasts Services [employer] Work Phone: Start: 10-21-2022 Plain chest X-ray Servi candy [employer] Work Phone: Plan of Treatment Date Care Activity Detail Author Start: 01-11-2024 Plain chest X-ray XR chest 1V portab le [facility] Start: 01-11-2024 XR Chest Single view [facility] Start: 11-02-2023 [facility] Start: 10-05-2023 [facility] Start: 09-14-2023 [facility] Patient Education [facility] Work Phone: Patient referral [facility] Work Phone: Payers Date Payer Category Payer Unknown [id number] 2023 Unknown [id number] 2023 Self-pay [id number] 2022 Private Health Insurance [id number] 1959 Unknown [id number] 1959 Unknown [id number] 1959 Unknown [id number] 1959 Unknown [id number] 259 1960 Medicare [id number] Medicaid Medicaid [id number] Medicare [id number] Medicare [id number] Medicare [id number] Medicare [place] [employer] Dual Adv [id number] Unknown [id number] Unknown [id number] 31 Unknown [id number] 2.16.840.1.565775.3.579.2.5 31 Unknown [id number] 2.16.840.1.665995.3.579.2.5 31 Unknown [id number] 2.16.840.1.169753.3.579.2.5 31 Unknown [id number] 2.16.840.1.017410.3.579.2.5 31 Unknown [id number] 2.16.840.1.937093.3.579.2.5 31 Unknown [id number] 2.16.840.1.698238.3.579.2.5 31 Unknown [id number] 2.16.840.1.152317.3.579.2.5 31 Unknown [id number] 2.16.840.1.727973.3.579.2.5 31 Unknown [id number] 2.16.840.1.216058.3.579.2.5 31 Unknown [id number] 2.16.840.1.315826.3.579.2.5 31 Social History Date Type Detail Facility Unknown if ever smoked [facility] Other Sex Assigned At Sex Assigned At Bir th [facility] Other Start: 10-14-2021 End: 01-11-2024 Tobacco smoking status NHIS Ex-smoker (finding) [facility] Start: 1960 Sex Assigned At Female F [facility] Start: 08-30-2023 End: 08-30-2023 Tobacco smoking status NHIS Never smoked tobacco (finding) [facility] Medical Equipment Procedure Code Equipment Code Equipment [...] Goals Date Patient Goal Desired Activity /State Clinical Notes 12-13-2015 to 11-02-2023 Note Date & Type Note Facility 11-02-2023 Procedure note [facility] 09-14-2023 Procedure note [facility] 08-30-2023 Evaluation note Encounter Date Diagnosis Assessment [...] Above note written by Shane Ferguson MA, Balance Sheet Analyst. Edited and approved by Dr. Apolinar Zarate MD. [facility] Other 11-17-2023 Evaluation note* Encounter Date Diagnosis Assessment Notes Treatment Notes Treatment Clinical Notes Jun, Other low back pain (ICD-10 - M54.59) [facility] Other 04-14-2022 Evaluation note* Encounter Date Diagnosis Assessment Notes Treatment Notes Treatment Clinical Notes Nov, History of colon polyps (ICD-10 - Z86.010) Nov, Inflammatory polyps of colon (ICD-10 - K51.40) PATIENT ADVISED WE WILL REPEAT THIS IN 10 YEARS Nov, Diverticulosis (ICD-10 - K57.90) Nov, Hemorrhoids (ICD-10 - K64.9) [facility] Other 04-29-2016 History general Narrative - Reported* Type Description Date Medical History 12/13/15 Colonsocopy- hyperplastic polyps sigmoid and rectum repeat in 5 years Medical History High Cholesterol Medical History arthritis in spine Surgical History gallbladder Surgical History appendix Surgical History tubes tied Surgical History hysterectomey 1999 Surgical History tonsil Surgical History RT SHOULDER ROTOR CUFF Surgical History BLADDER LIFT Hospitalization History see above [facility] Other Evaluation noteNo assessment information available [facility] Work Phone: [facility] Other [facility]* Diagnosis Onset Date Resolution Status Lumbosacral spondylosis without myelopathy acute Other chronic pain acute Other low back pain acute [facility] Work Phone: Evaluation note* Diagnosis Onset Date Resolution Status Lumbosacral spondylosis without myelopathy acute Other chronic pain acute Other low back pain acute Lumbosacral spondylosis without myelopathy acute Other chronic pain acute Other low back pain acute [facility] Work Phone: Hospital Discharge instructions Additional Instructions Continue current meds Follow-up [facility] Work Phone: Summary Purpose Family History No Family History [...] Malignant neoplasm Unknown sister Diabetes mellitus Unknown Relationship Condition Age at Onset Recorded Date/T leno father Diabetes mellitus Unknown Myocardial infarction Unknown Heart disease Unknown Not Specified Malignant neoplasm of ovary Unknown brother Hypertension Unknown History of heart shilpi ve replacement with porcine valve Unknown sister Diabetes mellitus Unknown Osteoporosis Unknown Arthritis Unknown Hypertension Unknown sister Malignant neoplasm of skin Unknown brother Diabetes mellitus Unknown Coronary artery disease Unknown brother Myocardial infarction Unknown Unknown Not Specified Unknown Advance Directives No Advanced Directives Records [...] LBP 6 Weeks Back Pain Back Pain Chief Complaint 6 Weeks Back Pain Back Pain Back Pain FOLLOW UP AFTER 2ND MBB E04.2 LUMBAR PAIN LUMBAR PAIN Reason for Visit Lumbosacral spondylo sis without myelopathy Other chronic pain Other low back pain Chief Complaint 6 Weeks Back Pain Back Pain Back Pain FOLLOW UP AFTER 2ND MBB E04.2 LUMBAR PAIN LUMBAR PAIN F/U JEEVAN LUMBAR FACET RFA Reason for Visit Lumbosacral spondylo sis without myelopathy Other chronic pain Other low back pain Lumbosacral spondylosis without myelopathy Other chronic pain Other low back pain Chief Complaint 6 Weeks Back Pain Back Pain Back Pain FOLLOW UP AFTER 2ND MBB E04.2 LUMBAR PAIN LUMBAR PAIN e04.1 F/U JEEVAN LUMBAR FACET RFA Reason for Visit Lumbosacral spondylo sis without myelopathy Other chronic pain Other low back pain Lumbosacral spondylosis without myelopathy Other chronic pain Other low back pain Chief Complaint FOLLOW UP AFTER 2ND MBB E04.2 LUMBAR PAIN LUMBAR PAIN e04.1 F/U JEEVAN LUMBAR FACET RFA feet and leg swelling Reason for Visit Lumbosacral spondylo sis without myelopathy Other chronic pain Other low back pain Lumbosacral spondylosis without myelopathy Other chronic pain Other low back pain Additional Source Comments INFORMATION SOURCE (unrecogn ized section and content) DATE CREATED AUTHOR 01/08/2022 [facility] dical Specialist DATE CREATED AUTHOR AUTHOR'S ORGANIZ ATION 07/19/2022 [facility] DATE CREATED AUTHOR AUTHOR'S ORGANIZ ATION 12/10/2023 [facility] dical Specialists EPIC DATE CREATED AUTHOR AUTHOR'S ORGANIZ ATION 01/12/2024 [facility] REASON FOR VISIT (unrecogniz ed section and [...] Inactive Member Role Status Dates Services [facility] Primary Care Provider Active Jayden Quevedo DO Attending Provider Active Josiah Farmer DO RES Referring Provider Active Team Status: Inactive Member Role Status Dates Services [facility] Primary Care Provider Active Zachariah Mast , DO Attending Provider Active Orly Fontaine MD RES Other Provider Active Team Status: Inactive Member Role Status Dates Services [facility] Primary Care Provider Active Zachariah Mast , Attending Provider Active Orly Fontaine MD Other Provider Active Team Status: Inactive Member Role Status Dates Services [facility] Primary Care Provider Active Jayden Quevedo DO Attending Provider Active Harrison Sánchez DO RES Referring Provider Active Team Status: Inactive Member Role Status Dates Services [facility] Primary Care Provider Active Apolinar Zarate MD Attending Provider Active Team Status: Inactive Member Role Status Dates Services [facility] Primary Care Provider Active Start: June 30, 2023 End: June 30, 2023 Jayden Quevedo DO Attending Provider Active Start : June 30, 2023 End: June 30, 2023 Harrison Sánchez DO RES Referring Provider Active Start: June 30, 2023 End: June 30, 2023 Team Status: Inactive Member Role Status Dates Services [facility] Primary Care Provider Active Start: July 14, 2023 End: July 14, 2023 Apolinar Zarate MD Attending Provider Active Sta rt: July 14, 2023 End: July 14, 2023 Team Status: Inactive Member Role Status Dates Services [facility] Primary Care Provider Active Start: August 05, 2023 End: August 05, 2023 Apolinar Zaraet MD Attending Provider Active Sta rt: August 05, 2023 End: August 05, 2023 Team Status: Inactive Member Role Status Dates Apolinar Zarate MD Attending Provider Active Sta rt: August 30, 2023 End: August 30, 2023 Team Status: Inactive Member Role Status Dates Services [facility] Primary Care Provider Active Start: September 14, 2023 End: September 14, 2023 Apolinar Zarate MD Attending Provider Active Sta rt: September 14, 2023 End: September 14, 2023 Team Status: Inactive Member Role Status Dates Services [facility] Primary Care Provider Active Start: October 05, 2023 End: October 05, 2023 Apolinar Zarate MD Attending Provider Active Sta rt: October 05, 2023 End: October 05, 2023 Team Status: Active Member Role Status Dates Services [facility] Primary Care Provider Active Start: October 05, 2023 Apolinar Zarate MD Attending Provider, Other Provider Active Start: October 05, 2023 Team Status: Inactive Member Role Status Dates Services [facility] Primary Care Provider Active Start: October 18, 2023 End: October 18, 2023 Apolinar Zarate MD Attending Provider Active Sta rt: October 18, 2023 End: October 18, 2023 Team Status: Inactive Member Role Status Dates Services [facility] Primary Care Provider Active Start: October 22, 2023 End: October 22, 2023 Harrison Sánchez DO RES Attending Provider Active Start: October 22, 2023 End: October 22, 2023 Team Status: Inactive Member Role Status Dates Services [facility] Primary Care Provider Active Start: November 02, 2023 End: November 02, 2023 Apolinar Zarate MD Attending Provider Active Sta rt: November 02, 2023 End: November 02, 2023 Team Status: Active Member Role Status Dates Services [facility] Primary Care Provider Active Start: November 02, 2023 Apolinar Zarate MD Attending Provider, Other Provider Active Start: November 02, 2023 Team Status: Active Member Role Status Dates Ivan Edmonds DO Attending Provider Active S tart: November 23, 2023 Team Status: Inactive Member Role Status Dates Apolinar Zarate MD Attending Provider Active Sta rt: November 23, 2023 End: November 23, 2023 Services [facility] Primary Care Provider Active Start: November 23, 2023 End: November 23, 2023 Team Status: Inactive Member Role Status Dates Ivan Edmonds DO Attending Provider Active S tart: November 23, 2023 End: November 23, 2023 Team Status: Inactive Member Role Status Dates Services [facility] Primary Care Provider Active Start: January 11, 2024 End: January 11, 2024 Vito Ferguson MD Emergency Provider Active Star t: January 11, 2024 End: January 11, 2024 Goals (unrecognized section and content) Goals may [...] BE BASED ON THE PRIMARY CLINICAL RECORDS. [facility] [employer] [facility]. provides no warranty or guarantee of the accuracy or completeness of information in this document.
--- NOTE | 2024-01-18 21:32 | ED_ITS ---
HPI - Eye Problem General Chief complaint: Eye Problems Stated complaint: Eye Pain Time Seen by Provider: 01/18/24 21:17 Source: patient Mode of arrival: walk-in History of Present Illness HPI Narrative: 63-year-old female presented to the emergency department for left eye redness. It was matted shut when she woke up today. No symptoms in the right eye. No trauma or foreign body. No known ill contacts. Related Data Home Medications ?Medication ?Instructions ?Recorded ?Confirmed atorvastatin 40 mg tablet 40 mg PO DAILY 10/28/23 10/28/23 celecoxib 200 mg capsule 200 mg PO Q24H 10/28/23 10/28/23 esomeprazole magnesium 40 mg 40 mg PO Q24H 10/28/23 10/28/23 capsule,delayed release fluticasone propionate 44 2 inh inhalation Q12H PRN wheeze 10/28/23 10/28/23 mcg/actuation HFA aerosol inhaler losartan 25 mg tablet 25 mg PO DAILY 10/28/23 10/28/23 triamterene 37.5 1 tab PO DAILY 10/28/23 10/28/23 mg-hydrochlorothiazide 25 mg tablet Previous Rx's ?Medication ?Instructions ?Recorded ibuprofen 800 mg tablet 800 mg PO Q8H PRN pain #20 tabs 10/28/23 Allergies Allergy/AdvReac Type Severity Reaction Status Date / Time No Known Drug Allergies Allergy Verified 06/02/23 21:51 Review of Systems ROS Narrative A ten point review of systems is negative except as noted above. PFSH PFSH Social History Smoking status: Former smoker Exam Narrative Exam Narrative: Nurses note and vital signs reviewed and patient is not hypoxic. General: The patient appears well and in no apparent distress. Patient is resting comfortably on cart. Skin: Warm, dry, no pallor noted. There is no rash noted. Head: Normocephalic, atraumatic Eye: Right conjunctiva is normal. Left conjunctiva is injected. No foreign bodies are noted. She has a small amount of drainage on her eyelashes. Ears, Nose, Mouth, and Throat: oral mucosa is moist. Nares patent. Cardiovascular: Regular Rate and Rhythm Respiratory: Patient is in no distress, no accessory muscle use Back: non-tender GI: Soft and nontender Musculoskeletal: No joint Neurological: Awake and alert Psychiatric: Cooperative Constitutional Vital Signs, click to edit/add: Last Vital Signs Temp 98.3 F 01/18/24 21:02 Pulse 83 01/18/24 21:02 Resp 16 01/18/24 21:02 BP 145/91 H 01/18/24 21:02 Pulse Ox 95 01/18/24 21:02 O2 Del Method Room Air 01/18/24 21:02 Course Vital Signs Vital signs: Vital Signs Temperature 98.3 F 01/18/24 21:02 Pulse Rate 83 01/18/24 21:02 Respiratory Rate 16 01/18/24 21:02 Blood Pressure 145/91 H 01/18/24 21:02 Pulse Oximetry 95 01/18/24 21:02 Oxygen Delivery Method Room Air 01/18/24 21:02 Temperature 98.3 F 01/18/24 21:02 Pulse Rate 83 01/18/24 21:02 Respiratory Rate 16 01/18/24 21:02 Blood Pressure 145/91 H 01/18/24 21:02 Pulse Oximetry 95 01/18/24 21:02 Oxygen Delivery Method Room Air 01/18/24 21:02 MDM - Eye Problem MDM Narrative Medical decision making narrative: My clinical impression is that she has conjunctivitis. She was dispensed Bleph- 10. Treatment diagnosis and follow-up were discussed with the patient. Differential Diagnosis Differential diagnosis: Likely corneal abrasion, conjunctivitis and subconjunctival hemorrhage Discharge Plan Discharge Stand Alone Forms: Portal Instructions Chief Complaint: Eye Problems Clinical Impression: Bacterial conjunctivitis Patient Disposition: Home, Self-Care Time of Disposition Decision: 21:31 Condition: Good Mode of Transportation: Private Vehicle Prescriptions / Home Meds: No Action atorvastatin 40 mg tablet 40 mg PO DAILY esomeprazole magnesium 40 mg capsule,delayed release(DR/EC) 40 mg PO Q24H fluticasone propionate 44 mcg/actuation HFA aerosol inhaler 2 inh inhalation Q12H PRN (Reason: wheeze) Rx Instructions: administer with spacer losartan 25 mg tablet 25 mg PO DAILY triamterene-hydrochlorothiazid 37.5-25 mg tablet 1 tab PO DAILY celecoxib 200 mg capsule 200 mg PO Q24H ibuprofen 800 mg tablet 800 mg PO Q8H PRN (Reason: pain) Qty: 20 0RF Print Language: Citizen Of [place] Instructions: Conjunctivitis (ED) Referrals: [facility] [Primary Care Provider] - 1 week
[2024-01-18] MEDS: SULFACETAMIDE SODIUM 10% OP 300 DROP/15 ML BOTTLE OP (21:42)
[2024-01-18 21:45] VITALS: PULSE 67; O2SAT 98
== END 2024-01-18 21:45 | disposition home or self-care (01) ==
PROVIDERS: Emergency Provider Emergency Medicine
DX: H10.9 Unspecified conjunctivitis (principal); Z87.891 Personal history of nicotine dependence
CPT/HCPCS: 99284

== ENCOUNTER 2024-02-03 21:13 | Emergency (ER) | payer MEDICARE, SELFPAY ==
[2024-02-03 21:16] VITALS: BP 167/99; PULSE 88; TEMP 36.6; O2SAT 96; BMI 33.7
--- OUTSIDE RECORDS SUMMARY | 2024-02-03 21:26 | XMS_ITS ---
Patient Summarization (C-CDA 2.1 CCD) Created on: February 03, 2024 Aura Hassan : 1960 Sex: Female Author Organization Sample organization Care Team Providers Care Reinspector Name Role Phone Joel Anand Unavailable [facility] SERVICES Primary Care Unavaila ble DR AVERY BONILLA Consulting Unavailable IRENE, DR VARELA Admitting Unavailable DR AVERY BONILLA Attending Unavailable [facility], Services Primary Care Provider DO Jayden Quevedo Attending Provider [phone] DO Josiah Farmer Referring Provider [facility] Primary Care Provider DO Suleiman Crowleyic Attending Provider [phone] MD Orly Fontaine Other Provider [phone] MD Orly Fontaine Other Provider DO Jayden Quevedo Attending Provider DO Harrison Sánchez Referring Provider [phone] Apolinar Zarate Unavailable [facility] Services Primary Care Provider DO Jayden Quevedo Attending Provider DO Harrison Sánchez Referring Provider [phone] MD Apolinar Zarate Attending Provider [facility], Services Primary Care Provider [facility] Services Primary Care Provider [phone] MD Apolinar Zarate Attending Provider [phone] DO Harrison Sánchez Attending Provider DO Ivan Edmonds Attending Provider IVAN EDMONDS Attending Unavailable IVAN EDMONDS Attending Unavailable MAST, ZACHARIAH E Referring Unavailable IVAN EDMONDS Attending Unavailable MAST, ZACHARIAH E Referring Unavailable [facility] Services Primary Care Provider [phone] MD Apolinar Zarate Attending Provider MD Vito Ferguson Emergency Provider Jayedn Quevedo Admitting Unavailable [facility] Primary Care Unavaila ble Jayden Quevedo Attending Unavailable Harrison Sánchez Referring Unavailable Tessa, Apolinar Attending Unavailable Tessa, Apolinar Admitting Unavailable [facility] Primary Care Unavaila kristofer Zarate, Apolinar Attending Unavailable Tessa, Apolinar Admitting Unavailable [facility] Primary Care Unavaila ble Tessa, Apolinar Attending Unavailable Tessa, Apolinar Admitting Unavailable [facility] Primary Care Unavaila Vito Appiah Admitting Unavailable [facility] Primary Care Unavaila ble Marty, Vito Akins Attending Unavailable Kendal, Ivan Attending Unavailable Kendal, Ivan Admitting Unavailable Emy, Jayden Attending Unavailable Emy, Jayden Admitting Unavailable Harrison Sánchez Referring Unavailable [facility] Primary Care Unavaila ble Tessa, Apolinar Attending Unavailable Tessa, Apolinar Admitting Unavailable [facility] Primary Care Unavaila ble Tessa, Apolinar Attending Unavailable Tessa, Apolinar Admitting Unavailable [facility] Primary Care Unavaila ble Harrison Sánchez Admitting Unavailable Harrison Sánchez Attending Unavailable [facility] Primary Care Unavaila ble Mast - [facility], Zachariah Attending Unavailable [facility] Primary Care Unavaila ble Mast - [facility], Zachariah Admitting Unavailable Orly Fontaine Consulting Unavailable Encounters Encounter Date Encounter Type Care Provider Facility Start: 01-11-2024 End: 01-11-2024 Emergency department patient visit Services [facility] Work Phone: [facility]Emer[facility] Work Phone: Start: 12-08-2023 End: 12-08-2023 ambulatory IVAN W PRUDENCIOCEK Not Available Start: 11-23-2023 End: 11-23-2023 ambulatory Services [facility] Work Phone: [facility] Work Phone: Start: 11-23-2023 End: 11-23-2023 Patient encounter procedure Services [facility] Work Phone: [facility] Work Phone: Start: 11-23-2023 End: 11-23-2023 ambulatory IVAN W MURCEK Not Available Start: 11-23-2023 End: 11-23-2023 ambulatory Services [facility] Work Phone: [facility] Work Phone: Start: 11-23-2023 End: 11-23-2023 Departed Referred Services [facility] Work Phone: [facility] [place] Work Phone: Start: 11-23-2023 Registered Referred Services [facility] Work Phone: [facility] [place] Work Phone: Start: 11-10-2023 End: 11-10-2023 ambulatory IVAN EDMONDS Not Available Start: 11-02-2023 Non-patient / Non-visit Services [facility] Work Phone: [facility] Work Phone: Start: 11-02-2023 End: 11-02-2023 Admission to same day surgery center Services [facility] Work Phone: [facility] Work Phone: Start: 11-02-2023 End: 11-02-2023 ambulatory Services [facility] Work Phone: [facility] Work Phone: Start: 10-22-2023 End: 10-22-2023 Patient encounter procedure Services [facility] Work Phone: [facility] [place] Work Phone: Start: 10-22-2023 End: 10-22-2023 ambulatory Harrison Arizakins Facility:[facility] Start: 10-18-2023 End: 10-18-2023 Patient encounter procedure Services [facility] Work Phone: [facility] Work Phone: Start: 10-05-2023 (Procedure) Ro Zarate [facility] Start: 10-05-2023 Non-patient / Non-visit Services [facility] Work Phone: [facility] Work Phone: Start: 10-05-2023 End: 10-05-2023 Admission to same day surgery center Services [facility] Work Phone: [facility] Work Phone: Start: 10-05-2023 End: 10-05-2023 ambulatory Services [facility] Work Phone: [facility] Work Phone: Start: 09-14-2023 (Procedure) Short Apolinar Huntersuleiman [facility] Start: 09-14-2023 End: 09-14-2023 Admission to same day surgery center Services [facility] Work Phone: [facility] Work Phone: Start: 09-14-2023 End: 09-14-2023 ambulatory Services [facility] Work Phone: [facility] Work Phone: Start: 08-30-2023 End: 08-30-2023 ambulatory Apolinar Zarate Other [employer] Other Start: 08-30-2023 Office outpatient visit 25 minutes Apolinar Huntersuleiman [facility] [place] Start: 08-30-2023 End: 08-30-2023 Patient encounter procedure Services [facility] Work Phone: [facility] Work Phone: Start: 08-05-2023 End: 08-05-2023 ambulatory Services [facility] Work Phone: [facility] Work Phone: Start: 08-05-2023 End: 08-05-2023 Discharged Recurring Services [facility] Work Phone: [facility] [place] Work Phone: Start: 07-14-2023 End: 07-14-2023 Patient encounter procedure Services [facility] Work Phone: [facility] [place] Work Phone: Start: 07-14-2023 End: 07-14-2023 ambulatory Services [facility] Work Phone: [facility] Work Phone: Start: 07-02-2023 End: 07-02-2023 ambulatory Apolinar Zarate Other [facility] [employer] Other Start: 07-02-2023 Telephone encounter Apolinar Zarate [facility] [place] Start: 06-30-2023 End: 06-30-2023 Patient encounter procedure Services [facility] Work Phone: [facility]CT Scan [facility] [place] Work Phone: Start: 06-30-2023 End: 06-30-2023 ambulatory Services [facility] Work Phone: [facility] Work Phone: Start: 04-08-2023 End: 04-08-2023 Patient encounter procedure Services [facility] Work Phone: [facility] Work Phone: Start: 04-08-2023 End: 04-08-2023 ambulatory Services [facility] Work Phone: [facility] Work Phone: Start: 02-04-2023 End: 02-04-2023 Patient encounter procedure Services [facility] Work Phone: [facility] [place] Work Phone: Start: 02-04-2023 End: 02-04-2023 ambulatory Services [facility] Work Phone: [facility] Work Phone: Start: 10-21-2022 End: 10-21-2022 ambulatory Services [facility] Work Phone: [facility] Work Phone: Start: 10-21-2022 End: 10-21-2022 Patient encounter procedure Services [facility] Work Phone: [facility] [place] Work Phone: Start: 07-17-2022 End: 07-17-2022 ambulatory [facility] Facility: Start: 11-27-2021 End: 11-27-2021 ambulatory Joel Anand Other [place] [employer] Other Start: 11-27-2021 Office outpatient visit 15 minutes Joel Anand [facility] Gastroenterology Medical Equipment Procedure Code Equipment Code Equipment [...] Goals Date Patient Goal Desired Activity /State Medications Current Medications Medication Drug Class(es) Dates [...] by mouth every six hours Hydrocodone-Acetam inophen ([place]) 5-325 mg tablet Discontinued 1 TAB PO Q6H 02 01January 13, 2019 August 24, 2019 7:25pm albuterol [...] ed 2 INH INHALATION Every 4 hours July 16, 2017 1:00am October 30, 2017 [...] mg by inhalation every eight hours Ipratropium [place] Discontinued 0.5 MG INHALATION Q8H 75 October [...] MG PO Every morning December 29, 2018 12:00am January 13, 2019 7:54am Start: 07-16-2017 End: 12-29-2018 [...] Discontinued 1 CAP PO Daily 5 January 13, 2019 12:00am August 24, 2019 [...] 25 MG PO Q6H August 24, 2019 1:00am October 14, 2021 8:45am sulfamethoxazole 800 mg / trimethoprim 160 mg oral tablet (12 sources) Dihydrofolate Reductase Inhibitor Antibacterial, Sulfonamide Antimicrobial Start: 08-24-2019 End: 10-14-2021 take 1 tablet by mouth twice daily Sulfamethoxazole- Trimethoprim Discontinued 1 TAB PO Twice daily August 24, 2019 1:00am October 14, 2021 8:45am Payers Date Payer Category Payer Unknown [id number] 2023 Unknown [id number] 2023 Self-pay [id number] 2022 Private Health Insurance [id number] 1960 Unknown [id number] 93 1960 Unknown [id number] 259 1960 Unknown [id number] 259 1960 Unknown [id number] 259 1960 Medicare [id number] Medicaid Medicaid [id number] Medicare [id number] Medicare [id number] Medicare [id number] Medicare [place] [employer] Dual Adv [id number] Unknown [id number] Unknown [id number] 31 Unknown [id number] [id number] 31 Unknown [id number] 31 Unknown [id number] [id number] 31 Unknown [id number] [id number] 31 Unknown [id number] 31 Unknown [id number] 31 Unknown [id number] [id number] 31 Unknown [id number] [id number] 31 Unknown [id number] [id number] 31 Unknown [id number] 31 Plan of Treatment Date Care Activity Detail Author Start: 01-11-2024 Plain chest X-ray XR chest 1V portab le [facility] Start: 01-11-2024 XR Chest Single view [facility] Start: 11-02-2023 [facility] Start: 10-05-2023 [facility] Start: 09-14-2023 [facility] Patient Education [facility] Work Phone: Patient referral [facility] Work Phone: Problems Active Problems Problem Classification Problem Date [...] 08-24-2019 Episodic Other aftercare (1 source) Other long term care phlebotomist (current) drug therapy; Translations: [OTH [facility] CURRENT DRUG THERAPY] Onset: 07-19-2022 Episodic Other and unspecified benign neoplasm (17 sources) History of polyp of colon; Translations: [Personal history of colonic polyps] 10-14-2021 Episodic Other and unspecified benign neoplasm (5 sources) Benign neoplasm of sigmoid colon; Translations: [Benign neoplasm of sigmoid colon] Episodic Other connective tissue disease (1 source) Other specified soft tissue disorders; Translations: [Other specified soft tissue disorders] Onset: 01-11-2024 Episodic Other nervous system disorders (7 sources) [...] (2 sources) Other low back pain M54.59 Procedures Date Procedure Procedure Detail Performing Clinician Start: 11-02-2023 DH Nerve Radio Frequ ency (Bilateral) Services [facility] Phone: Start: 10-05-2023 Local anesthetic lum bar facet joint nerve block [facility] Phone: Start: 09-14-2023 Local anesthetic lum bar facet joint nerve block [facility] Phone: Start: 07-14-2023 X-ray of lumbar spin e, four views [facility] Phone: Start: 06-30-2023 CT of soft tissues o f neck with contrast [facility] Phone: Start: 06-30-2023 US scan of thyroid Serv ices [facility] Phone: Start: 04-08-2023 Screening mammograph y of bilateral breasts [facility] Phone: Start: 10-21-2022 Plain chest X-ray Servi candy [facility] Phone: Results Test Name Value Interpretation Reference Range Facility Alanine aminotransferase [En zymatic activity/volume] in Serum or PlasmaOrdered By: Vito Ferguson on 01-11-2024 ALT [Catalytic activity/Vol] 29 U/L Normal 7-52 [facility] Comment on above: Performed By: #### C K, CMP, BNP, HS TROP, CBC #### [facility] [address] Albumin [Mass/volume] in Ser um or Plasma by Bromocresol green (BCG) dye binding methoOrdered By: Vito Ferguson on 01-11-2024 Albumin BCG dye [Mass/Vol] 4.1 g/dL 3.5-5.7 [facility] Alkaline phosphatase [Enzyma tic activity/volume] in Serum or PlasmaOrdered By: Vito Ferguson on 01-11-2024 ALP [Catalytic activity/Vol] 82 U/L Normal 34-104 [facility] Comment on above: Performed By: #### C K, CMP, BNP, HS TROP, CBC #### [address] Aspartate aminotransferase [ Enzymatic activity/volume] in Serum or PlasmaOrdered By: Vito Ferguson on 01-11-2024 AST [Catalytic activity/Vol] 23 U/L Normal 13-39 [facility] Comment on above: Performed By: #### C K, CMP, BNP, HS TROP, CBC #### [address] Automated basophil %Ordered By: Vito Ferguson on 01-11-2024 Basophils/100 WBC (Bld) 0.8 % Normal . [facility] Comment on above: Performed By: #### C K, CMP, BNP, HS TROP, CBC #### [address] Automated basophil countOrde red By: Vito Ferguson on 01-11-2024 Basophils (Bld) [#/Vol] 0.1 10*3/uL Normal 0.0-0.2 [facility] Comment on above: Result Comment: PERF ORMED BY: [place] [address] PATHOLOGIST MEDIA TECHNICIAN ARACELI CHAPA M.D. Performed By: #### C K, CMP, BNP, HS TROP, CBC #### [address] Automated blood monocyte cou ntOrdered By: Vito Ferguson on 01-11-2024 Monocytes (Bld) [#/Vol] 0.4 10*3/uL Normal 0.0-0.8 [facility] Comment on above: Performed By: #### C K, CMP, BNP, HS TROP, CBC #### [address] Automated eosinophil %Ordere d By: Vito Ferguson on 01-11-2024 Eosinophils/100 WBC (Bld) 2.0 % Normal . [facility] Comment on above: Performed By: #### C K, CMP, BNP, HS TROP, CBC #### [address] Automated eosinophil countOr dered By: Vito Ferguson on 01-11-2024 Eosinophils (Bld) [#/Vol] 0.1 10*3/uL Normal 0.0-0.45 [facility] Comment on above: Performed By: #### C K, CMP, BNP, HS TROP, CBC #### [address] Automated monocyte %Ordered By: Vito Ferguson on 01-11-2024 Monocytes/100 WBC (Bld) 6.3 % Normal . [facility] Comment on above: Performed By: #### C K, CMP, BNP, HS TROP, CBC #### [address] Automated neutrophil %Ordere d By: Vito Ferguson on 01-11-2024 Neutrophils/100 WBC (Bld) 57.2 % Normal . [facility] Comment on above: Performed By: #### C K, CMP, BNP, HS TROP, CBC #### [address] BNP ser/plasOrdered By: Vito Ferguson on 01-11-2024 Natriuretic peptide B (Bld) [Mass/Vol] 43.0 pg/mL Normal 5-100 [facility] Comment on above: Result Comment: PERF ORMED BY: [place] [address] PATHOLOGIST MEDIA TECHNICIAN ARACELI CHAPA M.D. Performed By: #### C K, CMP, BNP, HS TROP, CBC #### [address] Bilirubin.total [Mass/volume ] in Serum or PlasmaOrdered By: Vito Ferguson on 01-11-2024 Bilirubin [Mass/Vol] 0.6 mg/dL Normal 0.3-1.0 [facility] Comment on above: Performed By: #### C K, CMP, BNP, HS TROP, CBC #### [address] Calcium [Mass/volume] in Ser um or PlasmaOrdered By: Vito Ferguson on 05-28-2024 Calcium [Mass/Vol] 9.2 mg/dL Normal 8.6-10.3 [facility] Comment on above: Performed By: #### C K, CMP, BNP, HS TROP, CBC #### [address] Carbon dioxide, total [Moles /volume] in Serum or PlasmaOrdered By: Vito Ferguson on 01-11-2024 CO2 [Moles/Vol] 26.6 mmol/L Normal 21.0-31.0 [facility] Comment on above: Performed By: #### C K, CMP, BNP, HS TROP, CBC #### [address] Chloride [Moles/volume] in S rashawn or PlasmaOrdered By: Vito Ferguson on 01-11-2024 Chloride [Moles/Vol] 107 mmol/L Normal 98-107 [facility] Comment on above: Performed By: #### C K, CMP, BNP, HS TROP, CBC #### [address] Complete Blood Count Auto Di ffon 01-11-2024 Mean Corpuscular HGB Conc 33.6 g/dL Normal 32.0-35.0 [facility] Comment on above: Performed By: #### C K, CMP, BNP, HS TROP, CBC #### [address] Monocytes/100 WBC (Bld) 18.28 % Normal 0.00-20.00 [facility] Comment on above: Performed By: #### C K, CMP, BNP, HS TROP, CBC #### [address] NRBC% 0.0 /100{WBC} Normal 0-0.5 [facility] Comment on above: Performed By: #### C K, CMP, BNP, HS TROP, CBC #### [address] Comprehensive Metabolic Pane trav 01-11-2024 Albumin [Mass/Vol] 4.1 g/dL Normal 3.5-5.7 [facility] Comment on above: Performed By: #### C K, CMP, BNP, HS TROP, CBC #### [place] [address] [place] Creatinine Clr Calc Pharmacy 65.20 Normal [facility] Comment on above: Result Comment: PERF ORMED BY: [place] [address] PATHOLOGIST MEDIA TECHNICIAN ARACELI CHAPA M.D. Performed By: #### C K, CMP, BNP, HS TROP, CBC #### [place] [address] [place] GFR/1.73 sq M.predicted MDRD (S/P/Bld) [Vol rate/Area] mL/min/{1.73_m2} Normal [facility] Comment on above: Performed By: #### C K, CMP, BNP, HS TROP, CBC #### [place] [address] [place] Creatine kinase [Enzymatic a ctivity/volume] in Serum or PlasmaOrdered By: Vito Ferguson on 01-11-2024 CK [Catalytic activity/Vol] 227 U/L High 30-223 [facility] Comment on above: Performed By: #### C K, CMP, BNP, HS TROP, CBC #### [place] [address] [place] Creatinine [Mass/volume] in Serum or PlasmaOrdered By: Vito Ferguson on 01-11-2024 Creatinine [Mass/Vol] 0.90 mg/dL Normal 0.60-1.20 [facility] Comment on above: Performed By: #### C K, CMP, BNP, HS TROP, CBC #### [place] [address] [place] ECG 12 lead ECGon 01-11-2024 ECG 12 lead ECG [facility] [place] [address] [place] [address] Electrocardiograph Report Signed Patient: Aura Hassan MR#: [id number] : 1960 Acct:[id number] Age/Sex: 63 / F ADM Date: 01/11/24 Loc: ER Room: Type: [facility] ER Attending Dr: Ordering Provider: Vito Ferguson [...] By: MUS Signed By Vito Ferguson MD 01/11/24 191 Normal [facility] Erythrocyte distribution wid th [Ratio] by Automated countOrdered By: Vito Ferguson on 01-11-2024 Erythrocyte distribution width (RBC) [Ratio] 13.9 % Normal 11.9-15.3 [facility] Comment on above: Performed By: #### C K, CMP, BNP, HS TROP, CBC #### [facility] [address] Erythrocytes [#/volume] in B lood by Automated countOrdered By: Vito Ferguson on 01-11-2024 RBC (Bld) [#/Vol] 4.46 10*6/uL Normal 3.60-5.00 [facility] Comment on above: Performed By: #### C K, CMP, BNP, HS TROP, CBC #### [facility] [address] [place] [address] [place] Glucose [Mass/volume] in Ser um or PlasmaOrdered By: Vito Ferguson on 01-11-2024 Glucose [Mass/Vol] 95 mg/dL Normal 70-100 [facility] Comment on above: ADA recommended refe rence rangeRandom Glucose Reference Range is dependent on time and content of last meal. Glucose of more than 200 mg/dL in a nonstressed, ambulatory subject supports the diagnosis of Diabetes Mellitus. Result Comment: [place] Glucose Reference Range is dependent on time and content of last meal. Glucose of more than 200 mg/dL in a nonstressed, ambulatory subject supports the diagnosis of Diabetes Mellitus. ADA recommended reference range Performed By: #### C K, CMP, BNP, HS TROP, CBC #### [address] Hematocrit [Volume Fraction] of Blood by Automated countOrdered By: Vito Ferguson on 01-11-2024 Hematocrit (Bld) [Volume fraction] 39.3 % Normal 34.0-46.4 [facility] Comment on above: Performed By: #### C K, CMP, BNP, HS TROP, CBC #### [address] Hemoglobin [Mass/volume] in BloodOrdered By: Vito Ferguson on 01-11-2024 Hemoglobin (Bld) [Mass/Vol] 13.2 g/dL Normal 11.8-15.4 [facility] Comment on above: Performed By: #### C K, CMP, BNP, HS TROP, CBC #### [address] Leukocytes [#/volume] correc marina for nucleated erythrocytes in Blood by Automated counOrdered By: Vito Ferguson on 01-11-2024 WBC corrected for nucl RBC Auto (Bld) [#/Vol] 6.9 10*3/uL 3.8-11.6 [facility] Leukocytes [#/volume] in Blo od by Automated countOrdered By: Vito Ferguson on 01-11-2024 WBC (Bld) [#/Vol] 6.9 10*3/uL Normal 3.8-11.6 [facility] Comment on above: Performed By: #### C K, CMP, BNP, HS TROP, CBC #### [place] [address] [place] Lymphocytes [#/volume] in Bl ood by Automated countOrdered By: Vito Ferguson on 01-11-2024 Lymphocytes (Bld) [#/Vol] 2.3 10*3/uL Normal 1.00-4.8 [facility] Comment on above: Performed By: #### C K, CMP, BNP, HS TROP, CBC #### [address] Lymphocytes/100 leukocytes i n Blood by Automated countOrdered By: Vito Ferguson on 01-11-2024 Lymphocytes/100 WBC (Bld) 33.7 % Normal . [facility] Comment on above: Performed By: #### C K, CMP, BNP, HS TROP, CBC #### [address] MCH [Entitic mass] by Automa marina countOrdered By: Vito Ferguson on 01-11-2024 MCH (RBC) [Entitic mass] 29.6 pg Normal 24.7-34.3 [facility] Comment on above: Performed By: #### C K, CMP, BNP, HS TROP, CBC #### [address] MCHC Auto (RBC) [Mass/Vol]Or dered By: Vito Ferguson on 01-11-2024 MCHC (RBC) [Mass/Vol] 33.6 g/dL 32.0-35.0 [facility] MCV [Entitic volume] by Auto mated countOrdered By: Vito Ferguson on 01-11-2024 MCV (RBC) [Entitic vol] 88.1 fL Normal 80-100 [facility] Comment on above: Performed By: #### C K, CMP, BNP, HS TROP, CBC #### [address] Monocyte distribution width [Entitic volume] in Blood by AutomatedOrdered By: Vito Ferguson on 01-11-2024 Monocyte distribution width Auto (Bld) [Entitic vol] 18.28 % 0.00-20.00 [facility] Neutrophils [#/volume] in Bl ood by Automated countOrdered By: Vito Ferguson on 01-11-2024 Neutrophils (Bld) [#/Vol] 3.9 10*3/uL Normal 1.8-7.7 [facility] Comment on above: Performed By: #### C K, CMP, BNP, HS TROP, CBC #### [facility] [address] No Panel InformationOrdered By: Vito Ferguson on 01-11-2024 Estimated GFR (CKD-EPI) > 60.0 mL/Min [facility] Creatinine Clearance (Chem 65.20 [facility] Nucleated erythrocytes [Pres ence] in Blood by Automated countOrdered By: Vito Ferguson on 01-11-2024 Nucleated RBC Auto Ql (Bld) 0.0 /100{WBC} 0-0.5 [facility] Platelet mean volume [Entiti c volume] in Blood by Automated countOrdered By: Vito Ferguson on 01-11-2024 Platelet mean volume (Bld) [Entitic vol] 7.3 fL Normal 6.3-10.7 [facility] Comment on above: Performed By: #### C K, CMP, BNP, HS TROP, CBC #### [address] Platelets [#/volume] in Bloo d by Automated countOrdered By: Vito Ferguson on 01-11-2024 Platelets (Bld) [#/Vol] 234 10*3/uL Normal 150-450 [facility] Comment on above: Performed By: #### C K, CMP, BNP, HS TROP, CBC #### [address] Potassium [Moles/volume] in Serum or PlasmaOrdered By: Vito Ferguson on 01-11-2024 Potassium [Moles/Vol] 3.3 mmol/L Low 3.5-5.1 [facility] Comment on above: Performed By: #### C K, CMP, BNP, HS TROP, CBC #### [address] Protein [Mass/volume] in Ser um or PlasmaOrdered By: Vito Ferguson on 01-11-2024 Protein [Mass/Vol] 6.7 g/dL Normal 6.4-8.9 [facility] Comment on above: Performed By: #### C K, CMP, BNP, HS TROP, CBC #### [address] Serum globulin measurement b y calculation (mass/volume)Ordered By: Vito Ferguson on 01-11-2024 Globulin (S) [Mass/Vol] 2.6 g/dL Normal [facility] Comment on above: Performed By: #### C K, CMP, BNP, HS TROP, CBC #### [address] Serum or plasma albumin/glob ulin mass ratioOrdered By: Vito Ferguson on 01-11-2024 Albumin/Globulin [Mass ratio] 1.6 {ratio} Normal [facility] Comment on above: Performed By: #### C K, CMP, BNP, HS TROP, CBC #### [address] Serum or plasma anion gap de terminationOrdered By: Vito Ferguson on 01-11-2024 Anion gap [Moles/Vol] 11.7 mmol/L Normal 6.0-15.0 [facility] Comment on above: Performed By: #### C K, CMP, BNP, HS TROP, CBC #### [address] Sodium [Moles/volume] in Ser um or PlasmaOrdered By: Vito Ferguson on 01-11-2024 Sodium [Moles/Vol] 142 mmol/L Normal 136-145 [facility] Comment on above: Performed By: #### C K, CMP, BNP, HS TROP, CBC #### [address] Troponin I High Sensitivityo n 01-11-2024 Troponin I High Sensitivity 6.4 pg/mL Normal 0.0-15.0 [facility] Comment on above: Result Comment: PERF ORMED BY: [place] [address] PATHOLOGIST MEDIA TECHNICIAN ARACELI CHAPA M.D. Performed By: #### C K, CMP, BNP, HS TROP, CBC #### [address] Troponin I.cardiac [Mass/vol ume] in Serum or Plasma by Detection limit <= 0.01 ng/Ordered By: Vito Ferguson on 01-11-2024 Troponin I.cardiac DL <= 0.01 ng/mL [Mass/Vol] 6.4 pg/mL 0.0-15.0 [facility] Urea nitrogen [Mass/volume] in Serum or PlasmaOrdered By: Vito Ferguson on 01-11-2024 Urea nitrogen [Mass/Vol] 9 mg/dL Normal 7-25 [facility] Comment on above: Performed By: #### C K, CMP, BNP, HS TROP, CBC #### [facility] [address] XR chest 1V portableon 01-10 XR chest 1V portable [facility] Main [place] [address] [place] [address] XRay Report Signed Patient: Aura Hassan MR#: [id number] 883 : 1960 Acct:[id number] Age/Sex: 63 / F ADM Date: 01/11/24 Loc: ER Room: Type: [facility] ER Attending Dr: Copies to: Vito Ferguson [...] Millie Zhang M.D.01/11/2024 7:02 PM Dictation Location: [place] [address] Transcribed By: [facility] 01/11/241901 Dictated By: Millie Zhang MD 01/11/241900 Signed By: 01/11/241901 Normal [facility] Trav 11-23-2023 L Specimen: [id number] Received: 11/23/23 Status: SOUT Req Num: [id number] Spec Type: Cytology Subm Dr: Ivan Edmonds DO Tissues: A FNA SLIDES NOPATH (LT THYROID) Procedures: Cyto Int and Re, PAPSTN/15 Age/ Patient Sex Location Account Attending Physician HassanAura cottrell 63/F TERESA [id number] Ivan Edmonds DO SPEC NUM: [id number] RECD: 11/23/23 STATUS: AQUILINO JIMENEZ NUM: [id number] SHEELA: 11/23/[address]: Ivan Edmonds DO ENTERED: 11/23/[address]: SPEC TYPE: Cytology DEPT: CNG ENTERED BY: [id number] RECV BY: [id number] ORDERED: Cyto Int and Re, PAPSTN/15 ORDERED: Cyto Int and Re, PAPSTN/15 Pathological Diagnosis Left thyroid nodule, FNA cytology: -Appropriate for assessment -Benign: The [place] system is category 2 -Adequate number of [...] Veracyte vial stored at 20- are additionally received.(WI/ny) CPT Codes 74091 -------- -------- Specimen: [id number] Received: 11/23/23 Status: AQUILINO Jimenez Num: [id number] Spec Type: Cytology Subm Dr: Ivan Edmonds DO Tissues: A FNA SLIDES NOPATH (LT THYROID) Procedures: Cyto Int and Re, PAPSTN/15 -------- Patient: Aura Hassan [id number] (Continued) -------- Signed (signature on file) Mayra Muniz MD 11/25/23 1157 Normal [facility] Thyroid Stim Hormone w/Rflxo n 10-22-2023 Thyroid Stim Hormone w/Rflx 1.77 u[iU]/mL Normal 0.45-5.33 [facility] Comment on above: Order Comment: Reaso n for Exam Multiple thyroid nodules Result Comment: PERF ORMED BY: [facility] [address] [place] [address] PATHOLOGIST MEDIA TECHNICIAN ARACELI CHAPA M.D. Performed By: #### T SH3 wRFLX ####[facility] [id number] [place] [id number] [facility] Thyrotropin [Units/volume] i n Serum or PlasmaOrdered By: Harrison Sánchez on 10-22-2023 TSH Qn 1.77 m[IU]/L 0.45-5.33 [facility] XR lumbar spine AP/LAT/FLX/E XTon 07-14-2023 XR lumbar spine AP/LAT/FLX/EXT [facility] [place] [address] XRay Report Signed Patient: Aura Hassan MR#: [id number] 883 : 1960 Acct:[id number] Age/Sex: 62 / F ADM Date: 07/14/23 Loc: XD Room: Type: REG CLI Attending Dr: Apolinar Zarate MD Copies to: [...] Rainer Sofia M.D.07/14/2023 2:59 PM Dictation Location: [place] [address] Transcribed By: [facility] 07/14/23 1459 Dictated By: Rainer Sofia DO 07/14/23 1456 Signed By: 07/14/23 1459 Normal [facility] CT soft tissue neck w [facility] 06-30-2023 CT soft tissue neck w [facility] Main [place] [id number] CT Scan Report Signed Patient: Aura Hassan MR#: [id number] 883 : 1960 Acct:[id number] Age/Sex: 62 / F ADM Date: 06/30/23 Loc: CT Room: Type: [facility] CLI Attending Dr: Jayden Quevedo DO Copies to: [...] Millie Zhang M.D.06/30/2023 4:22 PM Dictation Location: [place] [address] Transcribed By: [facility] 06/30/23 1622 Dictated By: Millie Zhang MD 06/30/23 1617 Signed By: 06/30/23 1622 Normal [facility] thyroidon 06-30-2023 thyroid [facility] [place] [address] Ultrasound Report Signed Patient: Aura Hassan MR#: [id number] 883 : 1960 Acct:[id number] Age/Sex: 62 / F ADM Date: 06/30/23 Loc: CT Room: Type: [facility] Attending Dr: Jayden Quevedo DO Ordering [...] Millie Zhang M.D.06/30/2023 4:17 PM Dictation Location: [place] [address] Tech: Ruth Martinez Transcribed By: SHAMAR 06/30/23 1617 Dictated By: Millie Zhang MD 06/30/23 1604 Signed By: 06/30/23 1617 Normal [facility] MM screening mammo BI w/CADo n 04-08-2023 MM screening mammo BI w/CAD [facility] [place] [address] Mammography Report Signed Patient: Aura Hassan MR#: [id number] 883 : 1960 Acct:[id number] Age/Sex: 62 / F ADM Date: 04/08/23 Loc: [place] Room: Type: [facility] Attending Dr: Jayden Quevedo DO Copies to: Harrison Sánchez DO, [facility] Jayden Quevedo DO Ordering Provider: Harrison Sánchez [...] mammogram. Impression dictated by: Josiah Holt Jr., Rowena04/08/2023 2:46 PM Dictation Location: [facility] Transcribed By: SHAMAR 04/08/23 1446 Dictated By: Josiah Holt Jr, DO 04/08/23 1445 Signed By: 04/08/23 1446 Normal [facility] Alanine aminotransferase [En zymatic activity/volume] in Serum or PlasmaOrdered By: Orly Fontaine on 02-04-2023 ALT [Catalytic activity/Vol] 22 U/L Normal 7-52 [facility] Comment on above: Performed By: #### C BC, CMP, LIPID ####[facility] [id number] [place] [id number] [facility] Albumin [Mass/volume] in Ser um or Plasma by Bromocresol green (BCG) dye binding methoOrdered By: Orly Fontaine on 02-04-2023 Albumin BCG dye [Mass/Vol] 4.3 g/dL 3.5-5.7 [facility] Alkaline phosphatase [Enzyma tic activity/volume] in Serum or PlasmaOrdered By: Orly Fontaine on 02-04-2023 ALP [Catalytic activity/Vol] 79 U/L Normal 34-104 [facility] Comment on above: Performed By: #### C BC, CMP, LIPID ####[place] [id number] [address] Aspartate aminotransferase [ Enzymatic activity/volume] in Serum or PlasmaOrdered By: Orly Shelburne on 02-04-2023 AST [Catalytic activity/Vol] 18 U/L Normal 13-39 [facility] Comment on above: Performed By: #### C BC, CMP, LIPID ####[address] Automated basophil %Ordered By: Orly Shelburne on 02-04-2023 Basophils/100 WBC (Bld) 0.4 % Normal . [facility] Comment on above: Performed By: #### C BC, CMP, LIPID ####[address] Automated basophil countOrde red By: Orly Shelburne on 02-04-2023 Basophils (Bld) [#/Vol] 0.0 10*3/uL Normal 0.0-0.2 [facility] Comment on above: Result Comment: PERF ORMED BY: [facility] [address] [place] [address] PATHOLOGIST MEDIA TECHNICIAN ARACELI CHAPA M.D. Performed By: #### C BC, CMP, LIPID ####[address] Automated blood monocyte cou ntOrdered By: Orly Minal on 02-04-2023 Monocytes (Bld) [#/Vol] 0.3 10*3/uL Normal 0.0-0.8 [facility] Comment on above: Performed By: #### C BC, CMP, LIPID ####[address] Automated eosinophil %Ordere d By: Orly Shelburne on 02-04-2023 Eosinophils/100 WBC (Bld) 2.4 % Normal . [facility] Comment on above: Performed By: #### C BC, CMP, LIPID ####[address] Automated eosinophil countOr dered By: Orly Shelburne on 02-04-2023 Eosinophils (Bld) [#/Vol] 0.1 10*3/uL Normal 0.0-0.45 [facility] Comment on above: Performed By: #### C BC, CMP, LIPID ####[address] Automated monocyte %Ordered By: Orly Shelburne on 02-04-2023 Monocytes/100 WBC (Bld) 6.3 % Normal . [facility] Comment on above: Performed By: #### C BC, CMP, LIPID ####[address] Automated neutrophil %Ordere d By: Orly Shelburne on 02-04-2023 Neutrophils/100 WBC (Bld) 55.8 % Normal . [facility] Comment on above: Performed By: #### C BC, CMP, LIPID ####[address] Bilirubin.total [Mass/volume ] in Serum or PlasmaOrdered By: Orly Shelburne on 02-04-2023 Bilirubin [Mass/Vol] 0.7 mg/dL Normal 0.3-1.0 [facility] Comment on above: Performed By: #### C BC, CMP, LIPID ####[address] Calcium [Mass/volume] in Ser um or PlasmaOrdered By: Orly Shelburne on 02-04-2023 Calcium [Mass/Vol] 9.2 mg/dL Normal 8.6-10.3 [facility] Comment on above: Performed By: #### C BC, CMP, LIPID ####[place] [id number] [facility] Carbon dioxide, total [Moles /volume] in Serum or PlasmaOrdered By: Orly Shelburne on 02-04-2023 CO2 [Moles/Vol] 27.2 mmol/L Normal 21.0-31.0 [facility] Comment on above: Performed By: #### C BC, CMP, LIPID ####[facility] [id number] [place] [id number] [facility] Chloride [Moles/volume] in S rashawn or PlasmaOrdered By: Orly Fontaine on 02-04-2023 Chloride [Moles/Vol] 107 mmol/L Normal 98-107 [facility] Comment on above: Performed By: #### C BC, CMP, LIPID ####[facility] [id number] [place] [id number] [facility] Cholesterol [Mass/volume] in Serum or PlasmaOrdered By: Orly Fontaine on 02-04-2023 Cholesterol [Mass/Vol] 166 mg/dL Normal 140-200 [facility] Comment on above: Chol less than 200 m g/dl low riskChol 201-239 mg/dl borderline riskChol 240 mg/dl and greater high risk Result Comment: Chol less than 200 mg/dl low risk Chol 201-239 mg/dl borderline risk Chol 240 mg/dl and greater high risk Performed By: #### C BC, CMP, LIPID ####[facility] [address] [place] [id number] [facility] Cholesterol in LDL Calc [Mas s/Vol]Ordered By: Orly Fontaine on 02-04-2023 Cholesterol in LDL [Mass/Vol] 55 mg/dL 0-100 [facility] Comment on above: LDL ATP III CLASSIFI CATIONLDL less than 100 mg/dL OptimalLDL 100-129 mg/dL Near or above optimalLDL 130-159 mg/dL Borderline highLDL 160-189 mg/dL HighLDL greater than 189 mg/dL Very high Cholesterol in VLDL Calc [Ma ss/Vol]Ordered By: Orly Fontaine on 02-04-2023 Cholesterol in VLDL [Mass/Vol] 69 mg/dL [facility] Complete Blood Count Auto Di ffon 02-04-2023 Mean Corpuscular HGB Conc 35.0 g/dL Normal 32.0-35.0 [facility] Comment on above: Performed By: #### C BC, CMP, LIPID ####[place] [id number] [place] [id number] [facility] NRBC% 0.1 /100{WBC} Normal 0-0.5 [facility] Comment on above: Performed By: #### C BC, CMP, LIPID ####[place] [id number] [place] [address] [facility] Comprehensive Metabolic Pane trav 02-04-2023 Albumin [Mass/Vol] 4.3 g/dL Normal 3.5-5.7 [facility] Comment on above: Performed By: #### C BC, CMP, LIPID ####[place] [id number] [facility] GFR/1.73 sq M.predicted MDRD (S/P/Bld) [Vol rate/Area] mL/min/{1.73_m2} Normal [facility] Comment on above: Performed By: #### C BC, CMP, LIPID ####[address] Creatinine [Mass/volume] in Serum or PlasmaOrdered By: Orly Shelburne on 02-04-2023 Creatinine [Mass/Vol] 0.86 mg/dL Normal 0.60-1.20 [facility] Comment on above: Performed By: #### C BC, CMP, LIPID ####[place] [id number] [facility] Creatinine [Mass/volume] in UrineOrdered By: Orly Shelburne on 02-04-2023 Creatinine (U) [Mass/Vol] 87.0 mg/dL 11.0-20.0 [facility] Erythrocyte distribution wid th [Ratio] by Automated countOrdered By: Orly Minal on 02-04-2023 Erythrocyte distribution width (RBC) [Ratio] 13.7 % Normal 11.9-15.3 [facility] Comment on above: Performed By: #### C BC, CMP, LIPID ####[place] [id number] [facility] Erythrocytes [#/volume] in B lood by Automated countOrdered By: Orly Shelburne on 02-04-2023 RBC (Bld) [#/Vol] 4.54 10*6/uL Normal 3.60-5.00 [facility] Comment on above: Performed By: #### C PILAR CORREA, LIPID ####[place] [id number] [address] Glucose [Mass/volume] in Ser um or PlasmaOrdered By: Orly Fontaine on 02-04-2023 Glucose [Mass/Vol] 111 mg/dL High 70-100 [facility] Comment on above: ADA recommended refe rence rangeRandom Glucose Reference Range is dependent on time and content of last meal. Glucose of more than 200 mg/dL in a nonstressed, ambulatory subject supports the diagnosis of Diabetes Mellitus. Result Comment: [place] om Glucose Reference Range is dependent on time and content of last meal. Glucose of more than 200 mg/dL in a nonstressed, ambulatory subject supports the diagnosis of Diabetes Mellitus. ADA recommended reference range Performed By: #### C PILAR CORREA, LIPID ####[address] Hematocrit [Volume Fraction] of Blood by Automated countOrdered By: Orly Fontaine on 02-04-2023 Hematocrit (Bld) [Volume fraction] 38.9 % Normal 34.0-46.4 [facility] Comment on above: Performed By: #### C PILAR CORREA, LIPID ####[place] [id number] [facility] Hemoglobin [Mass/volume] in BloodOrdered By: Orly Fontaine on 02-04-2023 Hemoglobin (Bld) [Mass/Vol] 13.6 g/dL Normal 11.8-15.4 [facility] Comment on above: Performed By: #### C PILAR CORREA, LIPID ####[place] [phone] [facility] Leukocytes [#/volume] correc marina for nucleated erythrocytes in Blood by Automated counOrdered By: Orly Fontaine on 02-04-2023 WBC corrected for nucl RBC Auto (Bld) [#/Vol] 5.4 10*3/uL 3.8-11.6 [facility] Leukocytes [#/volume] in Blo od by Automated countOrdered By: Orly Fontaine on 02-04-2023 WBC (Bld) [#/Vol] 5.4 10*3/uL Normal 3.8-11.6 [facility] Comment on above: Performed By: #### C BC, CMP, LIPID ####[place] [id number] [place] [phone] [facility] Lipid Panelon 02-04-2023 LDL Cholesterol,Calculated 55 mg/dL Normal 0-100 [facility] Comment on above: Result Comment: LDL ATP III CLASSIFICATION LDL less than 100 mg/dL Optimal LDL 100-129 mg/dL Near or above optimal LDL 130-159 mg/dL Borderline high LDL 160-189 mg/dL High LDL greater than 189 mg/dL Very high Performed By: #### C BC, CMP, LIPID ####[place] [id number] [place] [phone] [facility] Triglyceride w/Reflex 345 mg/dL High 0-149 [facility] Comment on above: Result Comment: TRIG ATP III CLASSIFICATION TRIG less than 150 mg/dL Normal TRIG 150-199 mg/dL Borderline high TRIG 200-500 mg/dL High TRIG greater than 500 mg/dL Very high Standard traceable to the Center for Disease Conrtrol and Prevention (CDC) test method. Performed By: #### C BC, CMP, LIPID ####[place] [id number] [facility] VLDL CHOLESTEROL 69 mg/dL Normal [facility] Comment on above: Performed By: #### C BC, CMP, LIPID ####[place] [id number] [facility] Lymphocytes [#/volume] in Bl ood by Automated countOrdered By: Orly Fontaine on 02-04-2023 Lymphocytes (Bld) [#/Vol] 1.9 10*3/uL Normal 1.00-4.8 [facility] Comment on above: Performed By: #### C BC, CMP, LIPID ####[place] [id number] [facility] Lymphocytes/100 leukocytes i n Blood by Automated countOrdered By: Orly Fontaine on 02-04-2023 Lymphocytes/100 WBC (Bld) 35.1 % Normal . [facility] Comment on above: Performed By: #### C BC, CMP, LIPID ####[address] MCH [Entitic mass] by Automa marina countOrdered By: Orly Fontaine on 02-04-2023 MCH (RBC) [Entitic mass] 30.0 pg Normal 24.7-34.3 [facility] Comment on above: Performed By: #### C BC, CMP, LIPID ####[address] MCHC Auto (RBC) [Mass/Vol]Or dered By: Orly Fontaine on 02-04-2023 MCHC (RBC) [Mass/Vol] 35.0 g/dL 32.0-35.[address] [facility] MCV [Entitic volume] by Auto mated countOrdered By: Orly Fontaine on 02-04-2023 MCV (RBC) [Entitic vol] 85.9 fL Normal 80-100 [facility] Comment on above: Performed By: #### C BC, CMP, LIPID ####[address] MicroAlb Creat Ratio,Uon Creatinine, Urine (Random) 87.0 mg/dL High 11.0-20.0 [facility] Comment on above: Performed By: #### U RMACRERAT #### [address] Microalbumin/Creatinine Ratio Not performed Normal 0.0-30.0 [facility] Comment on above: Result Comment: PERF ORMED BY: [place] [address] PATHOLOGIST MEDIA TECHNICIAN ARACELI CHAPA M.D. Performed By: #### U RMACRERAT #### [address] Microalbumin [Mass/volume] i n UrineOrdered By: Orly Fontaine on 02-04-2023 Albumin DL <= 20 mg/L (U) [Mass/Vol] mg/dL Normal 0.0-1.8 [facility] Comment on above: Performed By: #### U RMACRERAT #### [facility] [address] Neutrophils [#/volume] in Bl ood by Automated countOrdered By: Orly Fontaine on 02-04-2023 Neutrophils (Bld) [#/Vol] 3.0 10*3/uL Normal 1.8-7.7 [facility] Comment on above: Performed By: #### C BC, CMP, LIPID ####[facility] No Panel InformationOrdered By: Orly Fontaine on 02-04-2023 Estimated GFR (CKD-EPI) > 60.0 mL/Min [facility] Creatinine Clearance (Chem N/A [facility] Nucleated erythrocytes [Pres ence] in Blood by Automated countOrdered By: Orly Fontaine on 02-04-2023 Nucleated RBC Auto Ql (Bld) 0.1 /100{WBC} 0-0.5 [facility] Platelet mean volume [Entiti c volume] in Blood by Automated countOrdered By: Orly Fontanie on 02-04-2023 Platelet mean volume (Bld) [Entitic vol] 7.4 fL Normal 6.3-10.7 [facility] Comment on above: Performed By: #### C BC, CMP, LIPID ####[facility] [address] Platelets [#/volume] in Bloo d by Automated countOrdered By: Orly Fontaine on 02-04-2023 Platelets (Bld) [#/Vol] 208 10*3/uL Normal 150-450 [facility] Comment on above: Performed By: #### C BC, CMP, LIPID ####[facility] Potassium [Moles/volume] in Serum or PlasmaOrdered By: Orly Fontaine on 02-04-2023 Potassium [Moles/Vol] 4.2 mmol/L Normal 3.5-5.1 [facility] Comment on above: Performed By: #### C BC, CMP, LIPID ####[place] [id number] [address] Protein [Mass/volume] in Ser um or PlasmaOrdered By: Orly Fontaine on 02-04-2023 Protein [Mass/Vol] 6.2 g/dL Low 6.4-8.9 [facility] Comment on above: Performed By: #### C BC, CMP, LIPID ####[place] [id number] [address] Serum globulin measurement b y calculation (mass/volume)Ordered By: Orly Fontaine on 02-04-2023 Globulin (S) [Mass/Vol] 1.9 g/dL Normal [facility] Comment on above: Performed By: #### C BC, CMP, LIPID ####[place] [id number] [address] Serum or plasma albumin/glob ulin mass ratioOrdered By: Orly Fontaine on 02-04-2023 Albumin/Globulin [Mass ratio] 2.3 {ratio} Normal [facility] Comment on above: Performed By: #### C BC, CMP, LIPID ####[address] Serum or plasma anion gap de terminationOrdered By: Orly Fontaine on 02-04-2023 Anion gap [Moles/Vol] 12.0 mmol/L Normal 6.0-15.0 [facility] Comment on above: Performed By: #### C BC, CMP, LIPID ####[address] Serum or plasma high density lipoprotein (HDL) cholesterol measurementOrdered By: Orly Fontaine on 02-04-2023 Cholesterol in HDL [Mass/Vol] 42 mg/dL Normal 23-92 [facility] Comment on above: HDL CHOL ATP-III CLA SSIFICATION Cardiovascular RiskHDL > or equal to 60 mg/dL LOWHDL < 40 mg/dL HIGH Result Comment: HDL CHOL ATP-III CLASSIFICATION Cardiovascular Risk HDL > or equal to 60 mg/dL LOW HDL < 40 mg/dL HIGH Performed By: #### C BC, CMP, LIPID ####[place] [id number] [address] Serum or plasma total choles terol/high density lipoprotein (HDL) cholesterol mass ratOrdered By: Orly Fontaine on 02-04-2023 Cholesterol.total/Choles terol in HDL [Mass ratio] 4.0 {ratio} Normal <5.0 [facility] Comment on above: Result Comment: PERF ORMED BY: [facility] [address] [place] [address] PATHOLOGIST MEDIA TECHNICIAN ARACELI CHAPA M.D. Performed By: #### C BC, CMP, LIPID ####[address] Sodium [Moles/volume] in Ser um or PlasmaOrdered By: Orly Fontaine on 02-04-2023 Sodium [Moles/Vol] 142 mmol/L Normal 136-145 [facility] Comment on above: Performed By: #### C BC, CMP, LIPID ####[address] Triglyceride [Mass/volume] i n Serum or PlasmaOrdered By: Orly Fontaine on 02-04-2023 Triglyceride [Mass/Vol] 345 mg/dL 0-149 [facility] Comment on above: TRIG ATP III CLASSIF ICATIONTRIG less than 150 mg/dL NormalTRIG 150-199 mg/dL Borderline highTRIG 200-500 mg/dL High TRIG greater than 500 mg/dL Very highStandard traceable to the Center for Disease Conrtrol and Prevention (CDC) test method. Urea nitrogen [Mass/volume] in Serum or PlasmaOrdered By: Orly Fontaine on 02-04-2023 Urea nitrogen [Mass/Vol] 10 mg/dL Normal 7-25 [facility] Comment on above: Performed By: #### C BC, CMP, LIPID ####[address] Urine microalbumin/creatinin e mass ratioOrdered By: Orly Shelburne on 02-04-2023 Albumin/Creatinine DL <= 20 mg/L (U) [Mass ratio] [facility] Comment on above: Test not performed Covid-19 PCR ([facility])on SARS-CoV-2 (COVID-19) RNA [place]+probe Ql (Unsp spec) Not detected Normal NOT DETECTED The Comment on above: Result Comment: When diagnostic [...] for this test is supported by the Director Of Special Events of Health and Human Service's declaration that [...] used). Performed By: #### C VDTB #### Laboratory [address] [place] [address] Dr. Bebo Muniz INFLUENZA A AND B AGon 07-17 [facility] SEE BELOW Normal [facility] Comment on above: Result Comment: N[place] tive for Flu B protein antigen. Infection due to Flu B cannot be ruled out. Flu B antigen in the sample may be below the detection limit of the test. Performed By: #### I NFLUAB #### Laboratory [address] [place] [address] Dr. Bebo Muniz INFLUENZA A AG Positive Abnormal NEGATIVE SEE COMMENT The Comment on above: Performed By: #### I NFLUAB #### Laboratory [address] [place] [address] Dr. Bebo Muniz INFLUENZA B AG Negative Normal NEGATIVE SEE COMMENT The Comment on above: Performed By: #### I NFLUAB #### Laboratory [address] [address] [address] Bebo Muniz INFLUPOSH SEE BELOW Normal The Comment on above: Result Comment: NOTE : Live attenuated influenzae vaccine viruses can cause a positive result for a rapid influenza diagnostic test if administered up to 7 days prior to rapid testing. Performed By: #### I NFLUAB #### Laboratory [address] [address] [address] Bebo Muniz INTERNAL CONTROLS Within Normal Limits Normal Wi thin Normal Limits The Comment on above: Performed By: #### I NFLUAB #### Laboratory [address] [address] [address] Bebo Muniz SCREENING MAMMOGRAM W/PRATEEK, BILATERAL*on [...] VERY IMPORTANT TO YOUR HEALTH. THE CURRENT [employer] GUIDELINES RECOMMENDS ANNUAL MAMMOGRAPHY BEGINNING AT AGE 39 THIS FACILITY USES A REMINDER SYSTEM TO ENSURE ALL PATIENTS RECEIVE REMINDER NOTIFICATIONS AT THE APPROPRIATE TIME BASED ON THE RECOMMENDATIONS OF THIS EXAM. 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 Accredited by the ACR and FDA. 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 Social History Date Type Detail Facility Start: 08-30-2023 End: 08-30-2023 Tobacco smoking status UTIS Never smoked tobacco (finding) [facility] Start: 10-14-2021 End: 01-11-2024 Tobacco smoking status UTIS Ex-smoker (finding) [facility] Start: 1960 Sex Assigned At Female F [facility] Unknown if ever smoked [employer] Other Sex Assigned At Sex Assigned At Bir th [facility] Other Vital Signs Date Time Vital Sign Value Performing Clinician Facility 01-11-2024 18:36-0400 Heart rate 83 /min [facility] Work Phone: [facility] 01-11-2024 18:36-0400 Respiratory rate 18 /min [facility] Work Phone: [facility] 01-11-2024 18:36-0400 SaO2% (BldA) [Mass fraction] 97 % [facility] Work Phone: [facility] 01-11-2024 18:35-0400 Diastolic blood pressure 84 mm[Hg] [facility] Work Phone: [facility] 01-11-2024 18:35-0400 Systolic blood pressure 176 mm[Hg] [facility] Work Phone: [facility] 01-11-2024 16:36-0400 Body height 157.48 cm [facility] Work Phone: [facility] 01-11-2024 16:36-0400 Body temperature 98.3 [degF] [facility] Work Phone: [facility] 01-11-2024 16:36-0400 Body weight 88.35 kg [facility] Work Phone: [facility] 11-02-2023 09:25-0400 Diastolic blood pressure 91 mm[Hg] [facility] Work Phone: [facility] 11-02-2023 09:25-0400 Heart rate 74 /min [facility] Work Phone: [facility] 11-02-2023 09:25-0400 Respiratory rate 16 /min [facility] Work Phone: [facility] 11-02-2023 09:25-0400 SaO2% (BldA) [Mass fraction] 92 % [facility] Work Phone: [facility] 11-02-2023 09:25-0400 Systolic blood pressure 152 mm[Hg] [facility] Work Phone: [facility] 11-02-2023 08:38-0400 Inhaled oxygen flow rate 3 L/min [facility] Work Phone: [facility] 11-02-2023 07:40-0400 Body height 157.48 cm [facility] Work Phone: [facility] 11-02-2023 07:40-0400 Body temperature 98.3 [degF] [facility] Work Phone: [facility] 11-02-2023 07:40-0400 Body weight 86.18 kg [facility] Work Phone: [facility] 10-05-2023 09:17-0500 Diastolic blood pressure 80 mm[Hg] [facility] Work Phone: [facility] 10-05-2023 09:17-0500 Heart rate 72 /min [facility] Work Phone: [facility] 10-05-2023 09:17-0500 Respiratory rate 18 /min [facility] Work Phone: [facility] 10-05-2023 09:17-0500 SaO2% (BldA) [Mass fraction] 95 % [facility] Work Phone: [facility] 10-05-2023 09:17-0500 Systolic blood pressure 127 mm[Hg] [facility] Work Phone: [facility] 10-05-2023 08:37-0500 Inhaled oxygen flow rate 2 L/min [facility] Work Phone: [facility] 10-05-2023 07:54-0500 Body height 157.48 cm [facility] Work Phone: [facility] 10-05-2023 07:54-0500 Body weight 86.18 kg [facility] Work Phone: [facility] 09-14-2023 10:20-0500 Diastolic blood pressure 74 mm[Hg] [facility] [employer] [facility] Work Phone: [facility] 09-14-2023 10:20-0500 Heart rate 76 /min Services [employer] Work Phone: [facility] 09-14-2023 10:20-0500 Respiratory rate 16 /min Services [employer] Work Phone: [facility] 09-14-2023 10:20-0500 SaO2% (BldA) [Mass fraction] 98 % Services [employer] Work Phone: [facility] 09-14-2023 10:20-0500 Systolic blood pressure 134 mm[Hg] Services [employer] Work Phone: [facility] 09-14-2023 09:42-0500 Inhaled oxygen flow rate 3 L/min Services [employer] Work Phone: [facility] 09-14-2023 08:39-0500 Body height 157.48 cm Services [employer] Work Phone: [facility] 09-14-2023 08:39-0500 Body weight 86.18 kg Services [employer] Work Phone: [facility] 11-27-2021 16:30-0400 Body height 157.48 cm Joel Anand Other [employer] Other 11-27-2021 16:30-0400 Body mass index (BMI) [Ratio] 31.09 kg/m2 Joel Anand Other [employer] Other 11-27-2021 16:30-0400 Body weight 77.11 kg Joel Anand Other [employer] [facility] Other Clinical Notes 12-13-2015 to 11-02-2023 Note Date & Type Note Facility 11-02-2023 Procedure note [facility] 09-14-2023 Procedure note [facility] 08-30-2023 Evaluation note Encounter Date Diagnosis Assessment [...] Above note written by Shane Ferguson MA, [place]. Edited and approved by Dr. Apolinar Zarate MD. [employer] Other 11-17-2023 Evaluation note* Encounter Date Diagnosis Assessment Notes Treatment Notes Treatment Clinical Notes Jun, Other low back pain (ICD-10 - M54.59) [facility] Other 04-14-2022 Evaluation note* Encounter Date Diagnosis Assessment Notes Treatment Notes Treatment Clinical Notes Nov, History of colon polyps (ICD-10 - Z86.010) Nov, Inflammatory polyps of colon (ICD-10 - K51.40) PATIENT ADVISED WE WILL REPEAT THIS IN 10 YEARS Nov, Diverticulosis (ICD-10 - K57.90) Nov, Hemorrhoids (ICD-10 - K64.9) [facility] Other 04-29-2016 History general Narrative - Reported* Type Description Date Medical History 12/13/15 Colonsocopy- hyperplastic polyps sigmoid and rectum repeat in 5 years Medical History High Cholesterol Medical History arthritis in spine Surgical History gallbladder Surgical History appendix Surgical History tubes tied Surgical History hysterectomey 1999 Surgical History tonsil Surgical History RT SHOULDER ROTOR CUFF Surgical History BLADDER LIFT Hospitalization History see above [employer] Other Evaluation noteNo assessment information available [facility] Work Phone: [facility] Other Evaluation note* Diagnosis Onset Date Resolution Status Lumbosacral spondylosis without myelopathy acute Other chronic pain acute Other low back pain acute [facility] Work Phone: Evaluation note* Diagnosis Onset Date Resolution Status Lumbosacral spondylosis without myelopathy acute Other chronic pain acute Other low back pain acute Lumbosacral spondylosis without myelopathy acute Other chronic pain acute Other low back pain acute [facility] Work Phone: Hospital Discharge instructions Additional Instructions Continue current meds [facility] Summary Purpose Family [...] section and content) DATE CREATED AUTHOR 01/08/[address] [facility] dical Specialist DATE CREATED AUTHOR AUTHOR'S ORGANIZ ATION 07/19/2022 [facility] pital DATE CREATED AUTHOR AUTHOR'S ORGANIZ ATION 12/10/[address] [facility] dical Specialists EPIC DATE CREATED AUTHOR AUTHOR'S ORGANIZ ATION 01/25/2024 [facility] REASON FOR VISIT (unrecogniz ed [...] [facility] Primary Care Provider Active Apolinar Zarate MD Attending Provider Active Team Status: Inactive Member Role Status Dates [facility] Primary Care Provider Active Start: June 30, 2023 End: June 30, 2023 Jayden Quevedo DO Attending Provider Active Start : June 30, 2023 End: June 30, 2023 Harrison Sánchez DO RES Referring Provider Active Start: June 30, 2023 End: June 30, 2023 Team Status: Inactive Member Role Status Dates [facility] Primary Care Provider Active Start: July 14, 2023 End: July 14, 2023 Apolinar Zarate MD Attending Provider Active Sta rt: July 14, 2023 End: July 14, 2023 Team Status: Inactive Member Role Status Dates [facility] Primary Care Provider Active Start: August 05, [...] [facility] Primary Care Provider Active Start: September 14, [...] Status: Active Member Role Status Dates Services [facility] Primary Care Provider Active Start: October 05, 2023 Apolinar Zarate MD Attending Provider, Other Provider Active Start: October 05, 2023 Team Status: Inactive Member Role Status Dates [facility] Primary Care Provider Active Start: October 18, 2023 End: October 18, 2023 Apolinar Zarate MD Attending Provider Active Sta rt: October 18, 2023 End: October 18, 2023 Team Status: Inactive Member Role Status Dates Services [facility] Primary Care Provider Active Start: October 22, 2023 End: October 22, 2023 Harrison Sánchez DO RES Attending Provider Active Start: October 22, 2023 End: October 22, 2023 Team Status: Inactive Member Role Status Dates [facility] Primary Care Provider Active Start: November 02, 2023 End: November 02, 2023 Apolinar Zarate MD Attending Provider Active Sta rt: November 02, 2023 End: November 02, 2023 Team Status: Active Member Role Status Dates [facility] Primary Care Provider Active Start: November 02, 2023 Apolinar Zarate MD Attending Provider, Other Provider Active Start: November 02, 2023 Team Status: Active Member Role Status Dates Ivan Edmonds DO Attending Provider Active S tart: November 23, 2023 Team Status: Inactive Member Role Status Dates Apolinar Zarate MD Attending Provider Active Sta rt: November 23, 2023 End: November 23, 2023 [facility] Primary Care Provider Active Start: November 23, 2023 End: November 23, 2023 Team Status: Inactive Member Role Status Mekhi Edmonds DO Attending Provider Active S tart: November 23, 2023 End: November 23, 2023 Team Status: Inactive Member Role Status Dates [facility] Primary Care Provider Active Start: [...] BE BASED ON THE PRIMARY CLINICAL RECORDS. [facility]. provides no warranty or guarantee of the accuracy or completeness of information in this document.
--- NOTE | 2024-02-03 21:27 | PC.NURSE ---
Pain to left shoulder, denies injury, able to move left arm.
--- NOTE | 2024-02-03 21:31 | XR_ITS ---
The [address] [address] Patient Name: MARINE MARR MRN: [id number] date: 1960 Sex: F Assigned Patient Location: ER Current Patient Location: ED.MAIN Accession/Order Number: [id number] Exam Date: 02/03/2024 21:38 Report Date: 02/03/2024 22:08 At the request of: MALATHI CARRANZA Procedure: XR shoulder LT min 2V EXAM: XR shoulder LT min 2V HISTORY: Left shoulder pain COMPARISON: None. TECHNIQUE: 3 views of the left shoulder are performed. FINDINGS: There is no acute fracture or dislocation. Degenerative changes are seen at the acromioclavicular joint. Unremarkable soft tissues. The visualized left lung is clear. XR/XR shoulder LT min 2V IMPRESSION: Degenerative changes within the acromioclavicular joint. No acute bony abnormality. Electronically authenticated by: LOUISA RICARDO Date: 02/03/2024 22:08
--- NOTE | 2024-02-03 21:36 | XR_ITS ---
The [address] [address] Patient Name: MARINE MARR MRN: [id number] date: 1960 Sex: F Assigned Patient Location: ER Current Patient Location: ER Accession/Order Number: [id number] Exam Date: 02/03/2024 21:38 Report Date: 02/03/2024 22:19 At the request of: MALATHI CARRANZA Procedure: XR cervical spine 2-3V EXAM TYPE: XR cervical spine 2-3V INDICATION: Neck pain COMPARISON: None. TECHNIQUE: 4 views of the cervical spine. FINDINGS: Cervical vertebral bodies demonstrate normal alignment. The C7/T1 level is obscured due to overlap from the patient's shoulders. There is moderate degenerative disc disease throughout the lumbar spine. Prevertebral soft tissues are within normal limits. There is severe multilevel facet arthropathy, right greater than left. Lateral masses of C1-C2 are symmetric. The visualized lung apices are clear. XR/XR cervical spine 2-3V IMPRESSION: Moderate multilevel degenerative disc disease. Severe multilevel facet arthropathy, right greater than left. Electronically authenticated by: MEGHNA RUVALCABA Date: 02/03/2024 22:19
--- NOTE | 2024-02-03 21:37 | ED_ITS ---
HPI HPI - General Adult General Chief complaint: Extremity Injury, Upper Stated complaint: l shoulder pain, into neck Time Seen by Provider: 02/03/24 21:31 Source: patient Mode of arrival: walk-in Limitations: no limitations History of Present Illness HPI narrative: Patient is a 63-year-old female who presents to the emergency department for left-sided neck pain into the left posterior shoulder that began last night. She denies any mechanism of injury or trauma. Her pain is significantly worse with lifting the left arm at the shoulder. She has no pain radiation into the low back. She reports occasional pain going into the left arm. She has not had any fevers, chills, upper respiratory symptoms. She denies any significant pain into the glenohumeral joint of the left shoulder. Related Data Home Medications ?Medication ?Instructions ?Recorded ?Confirmed atorvastatin 40 mg tablet 40 mg PO DAILY 10/28/23 02/03/24 celecoxib 200 mg capsule 200 mg PO Q24H 10/28/23 02/03/24 esomeprazole magnesium 40 mg 40 mg PO Q24H 10/28/23 02/03/24 capsule,delayed release fluticasone propionate 44 2 inh inhalation Q12H PRN wheeze 10/28/23 10/28/23 mcg/actuation HFA aerosol inhaler losartan 25 mg tablet 25 mg PO DAILY 10/28/23 02/03/24 Previous Rx's ?Medication ?Instructions ?Recorded ibuprofen 800 mg tablet 800 mg PO Q8H PRN pain #20 tabs 10/28/23 hydrocodone 5 mg-acetaminophen 325 1 tab PO Q6H PRN pain 2 days #6 02/03/24 mg tablet tabs methocarbamol 750 mg tablet 750 mg PO TID PRN pain #20 tabs 02/03/24 methylprednisolone 4 mg tablets in See Rx Instructions .Route 02/03/24 a dose pack (Medrol (Jonathan)) .COMPLEX #21 ea Allergies Allergy/AdvReac Type Severity Reaction Status Date / Time No Known Drug Allergies Allergy Verified 02/03/24 21:21 Opioid HPI Opioid Management Most Recent Opioid Data: Last Pain Scale 10 02/03/24 21:59 Review of Systems ROS Constitutional Denies: fever or chills Ears, nose, mouth, and throat Denies: throat pain or nasal congestion Respiratory Denies: shortness of breath Gastrointestinal Denies: nausea or vomiting Musculoskeletal Denies: back pain Neurological Denies: headache Hematologic/Lymphatic Denies: easy bruising or easy bleeding PFSH PFSH Social History Smoking status: Former smoker Exam Narrative Exam Narrative: Gen.: Awake, alert, in no distress Head: Normocephalic, atraumatic ENT: Moist mucous membranes Respiratory: No respiratory distress Extremities: Significant pain with abduction of the left arm at the shoulder. Diffusely tender to palpation of the left side of the neck, left trapezius. No bony point tenderness of the glenohumeral joint. No obvious deformity or sulcus sign. No bony point tenderness of the T-spine or L-spine Psych: Normal mood and affect Neuro: No focal neuro deficit Skin: Warm, dry, intact Constitutional Vital Signs, click to edit/add: Last Vital Signs Temp 97.9 F 02/03/24 21:16 Pulse 88 02/03/24 21:16 Resp 18 02/03/24 21:16 BP 167/99 H 02/03/24 21:16 Pulse Ox 96 02/03/24 21:16 Course Vital Signs Vital signs: Vital Signs Temperature 97.9 F 02/03/24 21:16 Pulse Rate 88 02/03/24 21:16 Respiratory Rate 18 02/03/24 21:16 Blood Pressure 167/99 H 02/03/24 21:16 Pulse Oximetry 96 02/03/24 21:16 Temperature 97.9 F 02/03/24 21:16 Pulse Rate 88 02/03/24 21:16 Respiratory Rate 18 02/03/24 21:16 Blood Pressure 167/99 H 02/03/24 21:16 Pulse Oximetry 96 02/03/24 21:16 Medical Decision Making MDM Narrative Medical decision making narrative: X-rays of the cervical spine show significant degenerative changes with no acute fracture or dislocation. No evidence of acute process on the left shoulder x- rays. Patient treated for symptoms in the ER and will be discharged home with a short course of analgesics, muscle relaxants and steroid taper. Follow-up PCP and return to the ER if symptoms change or worsen. Medical Records Medical records reviewed: Yes I reviewed the patient's medical records Imaging Data XR cervical spine: Attestation: I have reviewed the pertinent imaging results. Radiologist's impression: ITS Impressions Shoulder X-Ray 02/03/24 21:31 IMPRESSION: Degenerative changes within the acromioclavicular joint. No acute bony abnormality. Electronically authenticated by: LOUISA RICARDO Date: 02/03/2024 22:08 Cervical Spine X-Ray 02/03/24 21:36 IMPRESSION: Moderate multilevel degenerative disc disease. Severe multilevel facet arthropathy, right greater than left. Electronically authenticated by: MEGHNA RUVALCABA Date: 02/03/2024 22:19 XR shoulder : Attestation: I have reviewed the pertinent imaging results. Radiologist's impression: ITS Impressions Shoulder X-Ray 02/03/24 21:31 IMPRESSION: Degenerative changes within the acromioclavicular joint. No acute bony abnormality. Electronically authenticated by: LOUISA RICARDO Date: 02/03/2024 22:08 Cervical Spine X-Ray 02/03/24 21:36 IMPRESSION: Moderate multilevel degenerative disc disease. Severe multilevel facet arthropathy, right greater than left. Electronically authenticated by: MEGHNA RUVALCABA Date: 02/03/2024 22:19 Discharge Plan Discharge Stand Alone Forms: Portal Instructions Chief Complaint: Extremity Injury, Upper Clinical Impression: Neck pain on left side, Acute pain of left shoulder Patient Disposition: Home, Self-Care Time of Disposition Decision: 22:02 Condition: Good Prescriptions / Home Meds: New hydrocodone-acetaminophen 5-325 mg tablet 1 tab PO Q6H PRN (Reason: pain) 2 Days Qty: 6 0RF Rx Instructions: DX: M54.2 methocarbamol 750 mg tablet 750 mg PO TID PRN (Reason: pain) Qty: 20 0RF methylprednisolone [Medrol (Jonathan)] 4 mg tablets,dose pack See Rx Instructions .ROUTE .COMPLEX Qty: 21 0RF Rx Instructions: Taper as directed No Action atorvastatin 40 mg tablet 40 mg PO DAILY esomeprazole magnesium 40 mg capsule,delayed release(DR/EC) 40 mg PO Q24H fluticasone propionate 44 mcg/actuation HFA aerosol inhaler 2 inh inhalation Q12H PRN (Reason: wheeze) Rx Instructions: administer with spacer losartan 25 mg tablet 25 mg PO DAILY celecoxib 200 mg capsule 200 mg PO Q24H ibuprofen 800 mg tablet 800 mg PO Q8H PRN (Reason: pain) Qty: 20 0RF Print Language: Guatemalan Instructions: Shoulder Pain (ED), Neck Pain (ED) Additional Instructions: Rest, ice and gentle stretching. Follow up with your doctor Referrals: [facility] [Primary Care Provider] - 1 week
[2024-02-03] MEDS: HYDROCODONE/ACET 5-325 MG TABLET 1 TAB PO (21:59)
[2024-02-03] MEDS: METHYLPREDNISOLONE SOD SUCC PF 125 MG/2 ML VIAL IM (21:59)
[2024-02-03] MEDS: ORPHENADRINE 60 MG/ 2 ML VIAL IM (21:59)
== END 2024-02-03 22:45 | disposition home or self-care (01) ==
PROVIDERS: Emergency Provider Emergency Medicine
DX: M54.2 Cervicalgia (principal); M25.512 Pain in left shoulder; Z87.891 Personal history of nicotine dependence
CPT/HCPCS: 72040; 73030; 96372; 99285; J2360; J2919

== ENCOUNTER 2024-05-02 19:09 | Emergency (ER) | payer MEDICARE, SELFPAY ==
[2024-05-02 19:16] VITALS: BP 161/72; PULSE 88; TEMP 36.8; O2SAT 98; BMI 34.8
--- OUTSIDE RECORDS SUMMARY | 2024-05-02 19:18 | XMS_ITS | CCD ---
Author Organization [facility] Care Team Providers Care Preboarder Name Role Phone Joel Anand Unavailable [facility] Primary Care Unavaila DR AVERY Ellis Consulting Unavailable IRENE, DR VARELA Admitting Unavailable DR AVERY BONILLA Attending Unavailable [facility], [facility] Primary Care Provider [phone] DO Jayden Quevedo Attending Provider DO Josiah Farmer Referring Provider [facility] Primary Care Provider [phone] DO Zachariah Crowley Attending Provider [phone] MD Orly Fontaine Other Provider [phone] MD Orly Fontaine Other Provider [phone] DO Jayden Quevedo Attending Provider DO Harrison Sánchez Referring Provider Apolinar Zarate Unavailable [facility] Primary Care Provider DO Jayden Quevedo Attending Provider DO Harrison Sánchez Referring Provider MD Apolinar Zarate Attending Provider [facility] Primary Care Provider [facility] Primary Care Provider [phone] MD Apolinar Zarate Attending Provider [phone] DO Harrison Sánchez Attending Provider DO Ivan Edmonds Attending Provider [facility] Primary Care Provider [phone] MD Apolinar Zarate Attending Provider MD Vito Ferguson Emergency Provider [facility] Primary Care Provider [phone] MD Nehal West Attending Provider MD Rico Choi Other Provider IVAN EDMONDS Attending Unavailable IVAN EDMONDS Attending Unavailable MAST, ZACHARIAH E Referring Unavailable MURCEIVAN Reese Attending Unavailable MAST, ZACHARIAH E Referring Unavailable VISCI, DAVIDSON Akins Attending Unavailable Self, Referral Attending Provider Unavailable DO Davidson Martinez Referring Provider [phone] [facility] Primary Care Unavaila ble Nehal West Admitting Unavailable Nehal West Attending Unavailable Rioc Choi Consulting Unavailable Apolinar Zarate Admitting Unavailable [facility] Primary Care Unavaila ble Tessa, Apolinar Attending Unavailable Tessa, Apolinar Admitting Unavailable [facility] Primary Care Unavaila ble Tessa, Apolinar Attending Unavailable Tessa, Apolinar Admitting Unavailable [facility] Primary Care Unavaila ble Apolinar Zarate Attending Unavailable Marty, Vito Akins Admitting Unavailable Vito Ferguson Attending Unavailable [facility] Primary Care Unavaila ble Visci, Davidson Referring Unavailable [facility] Primary Care Unavaila ble Self, Referral Attending Unavailable Self, Referral Admitting Unavailable Sánchez, Harrison Referring Unavailable [facility] Primary Care Unavaila ble Jayden Quevedo Admitting Unavailable Emy, Jayden Attending Unavailable [facility] Primary Care Unavaila ble Apolinar Zarate Admitting Unavailable Felter, Apolinar Attending Unavailable Daleer, Apolinar Admitting Unavailable [facility] Primary Care Unavaila ble Tessa, Apolinar Attending Unavailable Harrison Sánchez Admitting Unavailable Gonzalo, Harrison Attending Unavailable [facility] Primary Care Unavaila ble Ivan Edmonds Admitting Unavailable Ivan Edmonds Attending Unavailable Medications Current Medications Medication Drug Class(es) Dates Sig (Normalized) Sig (Original) atorvastatin 40 mg oral tablet (19 sources) HMG-CoA Reductase Inhibitor Start: 07-16-2017 take 40 mg by mouth once daily in the morning Atorvastatin Active 40 MG PO Every morning July 16, 2017 1:00am celecoxib 200 mg oral capsule (10 sources) Nonsteroidal Anti-inflammatory Drug Start: 10-05-2023 take 1 capsule by mouth once daily at mealtime Celecoxib Active 200 MG PO Daily October 05, 2023 1:00am FreeTextSi capsule with food Orally Once a day; Note: Source Status: Taking; Provider: Tessa Jiang ( ) cetirizine hydrochloride 10 mg oral tablet (3 sources) Histamine-1 Receptor Antagonist Start: 01-11-2024 take 1 tablet by mouth once daily Cetirizine (24hour Allergy) 10 mg tablet Active 10 MG PO Daily January 11, 2024 12:00am esomeprazole 40 mg delayed release oral capsule (16 sources) Proton Pump Inhibitor Start: 07-16-2017 take 40 mg by mouth twice daily Esomeprazole Magnesium Active 40 MG PO Twice daily July 16, 2017 1:00am fluticasone propionate 0.05 mg/actuat metered dose nasal spray (17 sources) Corticosteroid Start: 01-11-2024 Fluticasone Propionate Active [...] Active losartan potassium 25 mg oral tablet (19 sources) Angiotensin 2 Receptor Donnell Start: 07-16-2017 take 25 mg by mouth once daily in the morning Losartan Active 25 MG PO Every morning July 16, 2017 1:00am Completed/Discontinued Medications Medication Drug Class(es) Dates Sig (Normalized) Sig (Original) acetaminophen 325 mg / HYDROcodone bitartrate 5 mg oral tablet (14 sources) Opioid Agonist Start: 01-13-2019 End: 08-24-2019 take 1 tablet by mouth every six hours Hydrocodone-Acetam inophen (Delancey) 5-325 mg tablet Discontinued 1 TAB PO Q6H 20 5 January 13, 2019 August 24, 2019 7:25pm [...] with spacer azithromycin 250 mg oral tablet (14 sources) Macrolide Antimicrobial Start: 07-16-2017 End: 10-30-2017 take 1 tablet by mouth once daily Azithromycin (Zithromax) 250 mg tablet Discontinued 250 MG PO Daily July 16, 2017 1:00am October 30, 2017 12:28pm Take 500mg on day one, 250mg daily for four more days. cephalexin 500 mg oral capsule (14 sources) Cephalosporin Antibacterial Start: 08-24-2019 End: 10-14-2021 take 1 capsule by mouth three times daily Cephalexin (Keflex) 500 mg Capsule Discontinued 500 MG PO Three times daily August 24, 2019 1:00am October 14, 2021 8:28am codeine phosphate 2 mg/ml / promethazine hydrochloride 1.25 mg/ml oral solution (14 sources) Opioid Agonist, Phenothiazine Start: 07-16-2017 End: 11-02-2017 take 1 mL by mouth every six hours Promethazine-Code ine Discontinued 5 ML PO Q6H 60 July 16, 2017 1:00am November 02, 2017 12:06pm ibuprofen 600 mg oral tablet (14 sources) Nonsteroidal Anti-inflammatory Drug Start: 01-13-2019 End: 08-24-2019 Ibuprofen Discontinued 600 MG PO Every 6 hours January 13, 2019 12:00am August 24, 2019 7:25pm do not exceed 4 doses in a 24 hour period ipratropium bromide 0.2 mg/ml inhalation solution (20 sources) Anticholinergic Start: 10-30-2017 End: 12-29-2018 take 0.5 mg by inhalation every eight hours Ipratropium [place] Discontinued 0.5 MG INHALATION Q8H 75 October 30, 2017 12:00am December 29, 2018 10:42am levoFLOXacin 750 mg oral tablet (14 sources) Quinolone Antimicrobial Start: 10-30-2017 End: 11-09-2017 [...] 2018 10:38am metroNIDAZOLE 500 mg oral tablet (14 sources) Nitroimidazole Antimicrobial Start: 04-04-2018 End: 12-29-2018 [...] chloride 20 meq powder for oral solution (14 sources) Start: 08-24-2019 End: 10-14-2021 take 20 [...] milk promethazine hydrochloride 25 mg oral tablet (14 sources) Phenothiazine Start: 08-24-2019 End: 10-14-2021 take 25 mg by mouth every six hours Promethazine Discontinued 25 MG PO Q6H August 24, 2019 1:00am October 14, 2021 8:45am sulfamethoxazole 800 mg / trimethoprim 160 mg oral tablet (14 sources) Dihydrofolate Reductase Inhibitor Antibacterial, Sulfonamide Antimicrobial Start: 08-24-2019 End: 10-14-2021 take 1 tablet by mouth twice daily Sulfamethoxazole- Trimethoprim Discontinued 1 TAB PO Twice daily August 24, 2019 1:00am October 14, 2021 8:45am Problems Active Problems Problem Classification Problem Date Documented Date Episodic/Chronic Acute bronchitis (14 sources) Acute bronchitis; Translations: [Acute bronchitis, unspecified] 10-30-2017 Episodic Anal and rectal conditions (5 sources) Anal and rectal polyp; Translations: [Rectal polyp] Episodic Chronic obstructive pulmonary disease and bronchiectasis (14 sources) Bronchitis; Translations: [Bronchitis, not specified as acute or chronic] 11-02-2017 Episodic Disorders of lipid metabolism (1 source) Hyperlipidemia, unspecified; Translations: [Hyperlipidemia, unspecified] Onset: 02-08-2024 Chronic Diverticulosis and diverticulitis (6 sources) Diverticular disease; Translations: [Diverticulosis of intestine, part unspecified, without perforation or abscess without bleeding] Onset: 11-27-2021 Resolved: 11-27-2021 Chronic Esophageal disorders (5 sources) Gastroesophageal reflux disease; Translations: [Gastro-esophageal reflux disease without esophagitis] Chronic Fever of unknown origin (1 source) Fever, unspecified; Translations: [FEVER UNSPECIFIED] Onset: 07-19-2022 Episodic Fluid and electrolyte disorders (14 sources) Acute hypokalemia; Translations: [Hypokalemia] 08-24-2019 Episodic Genitourinary symptoms and ill-defined conditions (19 sources) Incontinence; Translations: [Stress incontinence (female) (male)] 01-13-2019 Chronic Headache; including migraine (14 sources) Headache; Translations: [Headache] 08-24-2019 Episodic Hemorrhoids (6 sources) Hemorrhoids; Translations: [Unspecified hemorrhoids] Onset: 11-27-2021 Resolved: 11-27-2021 Episodic Influenza (1 source) Influenza due to other identified influenza virus with other respiratory manifestations; Translations: [FLU D/T OTH ID FLU VIR OTH RSP MANF] Onset: 07-19-2022 Episodic Nausea and vomiting (14 sources) Vomiting; Translations: [Vomiting, unspecified] 08-24-2019 Episodic Other aftercare (1 source) Other halfway (current) drug therapy; Translations: [OTH RETIREMENT CURRENT DRUG THERAPY] Onset: 07-19-2022 Episodic Other and unspecified benign neoplasm (19 sources) History of polyp of colon; Translations: [Personal history of colonic polyps] 10-14-2021 Episodic Other and unspecified benign neoplasm (5 sources) Benign neoplasm of sigmoid colon; Translations: [Benign neoplasm of sigmoid colon] Episodic Other connective tissue disease (1 source) Other specified soft tissue disorders; Translations: [Other specified soft tissue disorders] Onset: 01-11-2024 Episodic Other nervous system disorders (9 sources) Chronic pain; Translations: [Other chronic pain] 10-15-2023 Chronic Other nervous system disorders (10 sources) Other chronic pain; Translations: [Other chronic pain] Onset: 09-14-2023 Chronic Other screening for suspected conditions (not mental disorders or infectious disease) (1 source) Encounter for screening mammogram for malignant neoplasm of breast; Translations: [Encounter for screening mammogram for malignant neoplasm of breast] Onset: 04-06-2024 Episodic Other upper respiratory disease (14 sources) Bleeding from nose; Translations: [Epistaxis] 11-02-2017 Episodic Prolapse of female genital organs (19 sources) Cystocele and rectocele co-occurrent with complete uterovaginal prolapse; Translations: [Complete uterovaginal prolapse] 01-13-2019 Chronic Regional enteritis and ulcerative colitis (6 sources) Pseudopolyposis of colon; Translations: [Inflammatory polyps of colon without complications] Onset: 11-27-2021 Resolved: 11-27-2021 Chronic Residual codes; unclassified (3 sources) Edema; Translations: [Edema, unspecified] 01-11-2024 Episodic Screening and history of mental health and substance abuse codes (1 source) Personal history of nicotine dependence; Translations: [PERSONAL HISTORY OF NICOTINE DEPEND] Onset: 07-19-2022 Episodic Spondylosis; intervertebral disc disorders; other back problems (18 sources) Lumbosacral spondylosis without myelopathy; Translations: [Spondylosis [...] ear; Translations: [Otalgia, right ear] Onset: 06-30-2023 Urinary tract infections (14 sources) Acute urinary tract infection; Translations: [Urinary [...] disc disorders; other back problems (15 sources) Low back pain; Translations: [Other low back pain] Onset: 06-30-2023 10-15-2023 Episodic Unclassified (1 source) COUGH, UNSPECIFIED; Translations: [COUGH, UNSPECIFIED] Onset: 07-17-2022 Unclassified (2 sources) Other low back pain M54.59 Results Test Name Value Interpretation Reference Range Facility MM screening mammo BI w/CADo n 04-06-2024 MM screening mammo BI w/CAD [facility] [place] [address] [place] [address] Mammography Report Signed Patient: Aura Hassan MR#: [id number] : 1960 Acct:[id number] Age/Sex: 63 / F ADM Date: 04/06/24 Loc: [place] Room: Type: REG CLI Attending Dr: Referral Self Copies to: [facility] Davidson Martinez, SELF,REFERRAL Ordering Provider: SELF,REFERRAL Date of Service: 04/06/24 MM/MM screening mammo BI w/CAD: SCREENING CLINICAL DATA: Screening for malignancy. BILATERAL SCREENING MAMMOGRAMS - FULL FIELD DIGITAL WITH TOMOSYNTHESIS AND CAD Tomosynthesis craniocaudal and mediolateral oblique views of both breasts were obtained using low- dose digital technique. Comparison is made to prior studies from 04/08/2023, 01/05/2022, and 12/30/2020. This examination was reviewed with the aid of CAD. There are scattered fibroglandular densities. Benign-appearing lymph nodes are noted along the chest wall. Benign-appearing calcifications are present. A biopsy clip is redemonstrated on the right. Similar focal asymmetries are noted. There are no dominant masses, typically malignant calcifications or architectural distortion. There has been no significant interval change. MM/MM screening mammo BI w/CAD IMPRESSION: NO MAMMOGRAPHIC EVIDENCE OF MALIGNANCY. ROUTINE FOLLOW-UP IS RECOMMENDED IN ONE YEAR. RESULT CODE: 2 Benign Findings(s) DENSITY CODE: 2 (approximately 25-50% glandular) FOLLOW UP: 1YR The false-negative rate of mammography is approximately 10-percent. Management of a palpable abnormality must be based on clinical grounds. Patient was entered into a reminder system with a target due date for the next mammogram. Impression dictated by: Gt Aguilar M.D.04/06/2024 3:02 PM Dictation Location: [facility] Transcribed By: [facility] 04/06/24 1500 Dictated By: Gt Aguilar II, MD 04/06/24 1450 Signed By: 04/06/24 1502 Normal [facility] A1C with Estimated Average G luon 02-08-2024 Glucose [Mass/Vol] 140 mg/dL Normal [facility] Comment on above: Order Comment: Reaso n for Exam Hyperlipidemia Result Comment: PERF ORMED BY: [facility] [address] [place] [id number] PATHOLOGIST INVISIBLE BRACES ORTHODONTIST ARACELI CHAPA M.D. Performed By: #### C MP, A1C WT eA, LIPID, CBC ####[place] [address] [place] [id number] [place] Alanine aminotransferase [En zymatic activity/volume] in Serum or PlasmaOrdered By: Rico Choi on 02-08-2024 ALT [Catalytic activity/Vol] 22 U/L Normal 7-52 [facility] Comment on above: Order Comment: Reaso n for Exam Hyperlipidemia Performed By: #### C MP, A1C WT eA, LIPID, CBC ####[place] [address] [place] [id number] [place] Albumin [Mass/volume] in Ser um or Plasma by Bromocresol green (BCG) dye binding methoOrdered By: Rico Choi on 02-08-2024 Albumin BCG dye [Mass/Vol] 3.8 g/dL 3.5-5.7 [facility] Alkaline phosphatase [Enzyma tic activity/volume] in Serum or PlasmaOrdered By: Rico Choi on 02-08-2024 ALP [Catalytic activity/Vol] 81 U/L Normal 34-104 [facility] Comment on above: Order Comment: Reaso n for Exam Hyperlipidemia Performed By: #### C MP, A1C WTH eA, LIPID, CBC ####[place] [address] [place] [address] [place] Aspartate aminotransferase [ Enzymatic activity/volume] in Serum or PlasmaOrdered By: Rico Choi on 02-08-2024 AST [Catalytic activity/Vol] 13 U/L Normal 13-39 [facility] Comment on above: Order Comment: Reaso n for Exam Hyperlipidemia Performed By: #### C MP, A1C WTH eA, LIPID, CBC ####[place] [address] [place] [address] [place] Automated basophil %Ordered By: Rico Choi on 02-08-2024 Basophils/100 WBC (Bld) 1.0 % Normal . [facility] Comment on above: Order Comment: Reaso n for Exam Hyperlipidemia Performed By: #### C MP, A1C WTH eA, LIPID, CBC ####[facility] Automated basophil countOrde red By: Rico Choi on 02-08-2024 Basophils (Bld) [#/Vol] 0.1 10*3/uL Normal 0.0-0.2 [facility] Comment on above: Order Comment: Reaso n for Exam Hyperlipidemia Result Comment: PERF ORMED BY: [facility] [address] [place] [address] PATHOLOGIST INVISIBLE BRACES ORTHODONTIST ARACELI CHAPA M.D. Performed By: #### C MP, A1C WTH eA, LIPID, CBC ####[place] [address] Automated blood monocyte cou ntOrdered By: Rico Choi on 02-08-2024 Monocytes (Bld) [#/Vol] 0.5 10*3/uL Normal 0.0-0.8 [facility] Comment on above: Order Comment: Reaso n for Exam Hyperlipidemia Performed By: #### C MP, A1C WT eA, LIPID, CBC ####[facility] Automated eosinophil %Ordere d By: Rico Choi on 02-08-2024 Eosinophils/100 WBC (Bld) 1.2 % Normal . [facility] Comment on above: Order Comment: Reaso n for Exam Hyperlipidemia Performed By: #### C MP, A1C WTH eA, LIPID, CBC ####[facility] Automated eosinophil countOr dered By: Rico Choi on 02-08-2024 Eosinophils (Bld) [#/Vol] 0.1 10*3/uL Normal 0.0-0.45 [facility] Comment on above: Order Comment: Reaso n for Exam Hyperlipidemia Performed By: #### C MP, A1C WTH eA, LIPID, CBC ####[facility] [id number] [place] [id number] [facility] Automated monocyte %Ordered By: Rico Choi on 02-08-2024 Monocytes/100 WBC (Bld) 5.2 % Normal . [facility] Comment on above: Order Comment: Reaso n for Exam Hyperlipidemia Performed By: #### C MP, A1C WTH eA, LIPID, CBC ####[place] [id number] [facility] Automated neutrophil %Ordere d By: Rico Choi on 02-08-2024 Neutrophils/100 WBC (Bld) 52.8 % Normal . [facility] Comment on above: Order Comment: Reaso n for Exam Hyperlipidemia Performed By: #### C MP, A1C WTH eA, LIPID, CBC ####[place] [address] [place] [id number] [facility] Bilirubin.total [Mass/volume ] in Serum or PlasmaOrdered By: Rico Choi on 02-08-2024 Bilirubin [Mass/Vol] 0.5 mg/dL Normal 0.3-1.0 [facility] Comment on above: Order Comment: Reaso n for Exam Hyperlipidemia Performed By: #### C MP, A1C WTH eA, LIPID, CBC ####[place] [id number] [facility] Calcium [Mass/volume] in Ser um or PlasmaOrdered By: Rico Choi on 02-08-2024 Calcium [Mass/Vol] 8.8 mg/dL Normal 8.6-10.3 [facility] Comment on above: Order Comment: Reaso n for Exam Hyperlipidemia Performed By: #### C MP, A1C WTH eA, LIPID, CBC ####[address] [address] [place] Carbon dioxide, total [Moles /volume] in Serum or PlasmaOrdered By: Rico Choi on 02-08-2024 CO2 [Moles/Vol] 26.2 mmol/L Normal 21.0-31.0 [facility] Comment on above: Order Comment: Reaso n for Exam Hyperlipidemia Performed By: #### C MP, A1C WTH eA, LIPID, CBC ####[facility] [address] [place] [address] [place] Chloride [Moles/volume] in S rashawn or PlasmaOrdered By: Rico Choi on 02-08-2024 Chloride [Moles/Vol] 108 mmol/L High 98-107 [facility] Comment on above: Order Comment: Reaso n for Exam Hyperlipidemia Performed By: #### C MP, A1C WT eA, LIPID, CBC ####[facility] [place] [id number] [place] Cholesterol [Mass/volume] in Serum or PlasmaOrdered By: Rico Choi on 02-08-2024 Cholesterol [Mass/Vol] 171 mg/dL Normal 140-200 [facility] Comment on above: Chol less than 200 m g/dl low riskChol 201-239 mg/dl borderline riskChol 240 mg/dl and greater high risk Order Comment: Reaso n for Exam Hyperlipidemia Result Comment: Chol less than 200 mg/dl low risk Chol 201-239 mg/dl borderline risk Chol 240 mg/dl and greater high risk Performed By: #### C MP, A1C WT eA, LIPID, CBC ####[facility] [id number] [place] [id number] [facility] Cholesterol in LDL Calc [Mas s/Vol]Ordered By: Rico Choi on 02-08-2024 Cholesterol in LDL [Mass/Vol] 59 mg/dL 0-100 [facility] Comment on above: LDL ATP III CLASSIFI CATIONLDL less than 100 mg/dL OptimalLDL 100-129 mg/dL Near or above optimalLDL 130-159 mg/dL Borderline highLDL 160-189 mg/dL HighLDL greater than 189 mg/dL Very high Cholesterol in VLDL Calc [Ma ss/Vol]Ordered By: Rico Choi on 02-08-2024 Cholesterol in VLDL [Mass/Vol] 57 mg/dL [facility] Complete Blood Count Auto Di ffon 02-08-2024 Mean Corpuscular HGB Conc 34.0 g/dL Normal 32.0-35.0 [facility] Comment on above: Order Comment: Reaso n for Exam Hyperlipidemia Performed By: #### C MP, A1C WT eA, LIPID, CBC ####[place] [address] NRBC% 0.1 /100{WBC} Normal 0-0.5 [facility] Comment on above: Order Comment: Reaso n for Exam Hyperlipidemia Performed By: #### C MP, A1C WTH eA, LIPID, CBC ####[address] Comprehensive Metabolic Pane trav 02-08-2024 Albumin [Mass/Vol] 3.8 g/dL Normal 3.5-5.7 [facility] Comment on above: Order Comment: Reaso n for Exam Hyperlipidemia Performed By: #### C MP, A1C WTH eA, LIPID, CBC ####[address] GFR/1.73 sq M.predicted MDRD (S/P/Bld) [Vol rate/Area] mL/min/{1.73_m2} Normal [facility] Comment on above: Order Comment: Reaso n for Exam Hyperlipidemia Performed By: #### C MP, A1C WTH eA, LIPID, CBC ####[address] Creatinine [Mass/volume] in Serum or PlasmaOrdered By: Rico Choi on 02-08-2024 Creatinine [Mass/Vol] 0.89 mg/dL Normal 0.60-1.20 [facility] Comment on above: Order Comment: Reaso n for Exam Hyperlipidemia Performed By: #### C MP, A1C WTH eA, LIPID, CBC ####[address] Erythrocyte distribution wid th [Ratio] by Automated countOrdered By: Rico Choi on 02-08-2024 Erythrocyte distribution width (RBC) [Ratio] 13.7 % Normal 11.9-15.3 [facility] Comment on above: Order Comment: Reaso n for Exam Hyperlipidemia Performed By: #### C MP, A1C WTH eA, LIPID, CBC ####[address] Erythrocytes [#/volume] in B lood by Automated countOrdered By: Rico Chio on 02-08-2024 RBC (Bld) [#/Vol] 4.43 10*6/uL Normal 3.60-5.00 [facility] Comment on above: Order Comment: Reaso n for Exam Hyperlipidemia Performed By: #### C MP, A1C WTH eA, LIPID, CBC ####[facility] [address] [place] [address] [facility] Glucose [Mass/volume] in Ser um or PlasmaOrdered By: Rico Choi on 02-08-2024 Glucose [Mass/Vol] 100 mg/dL Normal 70-100 [facility] Comment on above: ADA recommended refe rence rangeRandom Glucose Reference Range is dependent on time and content of last meal. Glucose of more than 200 mg/dL in a nonstressed, ambulatory subject supports the diagnosis of Diabetes Mellitus. Order Comment: Reaso n for Exam Hyperlipidemia Result Comment: [place] om Glucose Reference Range is dependent on time and content of last meal. Glucose of more than 200 mg/dL in a nonstressed, ambulatory subject supports the diagnosis of Diabetes Mellitus. ADA recommended reference range Performed By: #### C MP, A1C WTH eA, LIPID, CBC ####[facility] [place] [id number] [facility] Glucose mean value [Mass/vol ume] in Blood Estimated from glycated hemoglobinOrdered By: Rico Choi on 02-08-2024 Average glucose Estimated from glycated hemoglobin (Bld) [Mass/Vol] 140 mg/dL [facility] Hematocrit [Volume Fraction] of Blood by Automated countOrdered By: Rico Choi on 02-08-2024 Hematocrit (Bld) [Volume fraction] 38.9 % Normal 34.0-46.4 [facility] Comment on above: Order Comment: Reaso n for Exam Hyperlipidemia Performed By: #### C MP, A1C WTH eA, LIPID, CBC ####[facility] [id number] [place] [id number] [facility] Hemoglobin A1c percentageOrd ered By: Rico Choi on 02-08-2024 HbA1c (Bld) [Mass fraction] 6.5 % High 4.3-5.6 [facility] Comment on above: Increased risk for d iabetes: 5.7 - 6.4diabetes: >6.4glycemic control for adults with diabetes: <7.0 Order Comment: Sherrio n for Exam Hyperlipidemia Result Comment: Incr eased risk for diabetes: 5.7 - 6.4 diabetes: >6.4 glycemic control for adults with diabetes: <7.0 Performed By: #### C MP, A1C WTH eA, LIPID, CBC ####[facility] [place] [id number] [facility] Hemoglobin [Mass/volume] in BloodOrdered By: Rico Choi on 02-08-2024 Hemoglobin (Bld) [Mass/Vol] 13.2 g/dL Normal 11.8-15.4 [facility] Comment on above: Order Comment: Reaso n for Exam Hyperlipidemia Performed By: #### C MP, A1C WTH eA, LIPID, CBC ####[place] [address] [place] [address] [facility] Leukocytes [#/volume] correc mraina for nucleated erythrocytes in Blood by Automated counOrdered By: Rico Choi on 02-08-2024 WBC corrected for nucl RBC Auto (Bld) [#/Vol] 9.5 10*3/uL 3.8-11.6 [facility] Leukocytes [#/volume] in Blo od by Automated countOrdered By: Rico Choi on 02-08-2024 WBC (Bld) [#/Vol] 9.5 10*3/uL Normal 3.8-11.6 [facility] Comment on above: Order Comment: Sherrio n for Exam Hyperlipidemia Performed By: #### C MP, A1C WTH eA, LIPID, CBC ####[facility] [place] [address] [facility] Lipid Panelon 02-08-2024 LDL Cholesterol,Calculated 59 mg/dL Normal 0-100 [facility] Comment on above: Order Comment: Sherrio n for Exam Hyperlipidemia Result Comment: LDL ATP III CLASSIFICATION LDL less than 100 mg/dL Optimal LDL 100-129 mg/dL Near or above optimal LDL 130-159 mg/dL Borderline high LDL 160-189 mg/dL High LDL greater than 189 mg/dL Very high Performed By: #### C MP, A1C WTH eA, LIPID, CBC ####[address] [address] [place] [address] [facility] Triglyceride w/Reflex 287 mg/dL High 0-149 [facility] Comment on above: Order Comment: Reaso n for Exam Hyperlipidemia Result Comment: TRIG ATP III CLASSIFICATION TRIG less than 150 mg/dL Normal TRIG 150-199 mg/dL Borderline high TRIG 200-500 mg/dL High TRIG greater than 500 mg/dL Very high Standard traceable to the Center for Disease Conrtrol and Prevention (CDC) test method. Performed By: #### C MP, A1C WTH eA, LIPID, CBC ####[place] [id number] [facility] VLDL CHOLESTEROL 57 mg/dL Normal [facility] Comment on above: Order Comment: Reaso n for Exam Hyperlipidemia Performed By: #### C MP, A1C WTH eA, LIPID, CBC ####[address] Lymphocytes [#/volume] in Bl ood by Automated countOrdered By: Rico Choi on 02-08-2024 Lymphocytes (Bld) [#/Vol] 3.8 10*3/uL Normal 1.00-4.8 [facility] Comment on above: Order Comment: Reaso n for Exam Hyperlipidemia Performed By: #### C MP, A1C WTH eA, LIPID, CBC ####[place] [id number] [facility] Lymphocytes/100 leukocytes i n Blood by Automated countOrdered By: Rico Choi on 02-08-2024 Lymphocytes/100 WBC (Bld) 39.8 % Normal . [facility] Comment on above: Order Comment: Reaso n for Exam Hyperlipidemia Performed By: #### C MP, A1C WTH eA, LIPID, CBC ####[place] [id number] [place] MCH [Entitic mass] by Automa marina countOrdered By: Rico Choi on 02-08-2024 MCH (RBC) [Entitic mass] 29.9 pg Normal 24.7-34.3 [facility] Comment on above: Order Comment: Reaso n for Exam Hyperlipidemia Performed By: #### C MP, A1C WTH eA, LIPID, CBC ####[facility] [id number] MCHC Auto (RBC) [Mass/Vol]Or dered By: Rico Choi on 02-08-2024 MCHC (RBC) [Mass/Vol] 34.0 g/dL 32.0-35.0 [facility] MCV [Entitic volume] by Auto mated countOrdered By: Rico Choi on 02-08-2024 MCV (RBC) [Entitic vol] 87.8 fL Normal 80-100 [facility] Comment on above: Order Comment: Reaso n for Exam Hyperlipidemia Performed By: #### C MP, A1C WTH eA, LIPID, CBC ####[facility] [id number] Neutrophils [#/volume] in Bl ood by Automated countOrdered By: Rico Choi on 02-08-2024 Neutrophils (Bld) [#/Vol] 5.0 10*3/uL Normal 1.8-7.7 [facility] Comment on above: Order Comment: Reaso n for Exam Hyperlipidemia Performed By: #### C MP, A1C WTH eA, LIPID, CBC ####[facility] [id number] [place] [address] No Panel InformationOrdered By: Rico Choi on 02-08-2024 Estimated GFR (CKD-EPI) > 60.0 mL/Min [facility] Creatinine Clearance (Chem N/A [facility] Nucleated erythrocytes [Pres ence] in Blood by Automated countOrdered By: Rico Choi on 02-08-2024 Nucleated RBC Auto Ql (Bld) 0.1 /100{WBC} 0-0.5 [facility] Platelet mean volume [Entiti c volume] in Blood by Automated countOrdered By: Rico Choi on 02-08-2024 Platelet mean volume (Bld) [Entitic vol] 7.6 fL Normal 6.3-10.7 [facility] Comment on above: Order Comment: Reaso n for Exam Hyperlipidemia Performed By: #### C MP, A1C WTH eA, LIPID, CBC ####[address] [place] [address] [facility] Platelets [#/volume] in Bloo d by Automated countOrdered By: Rico Choi on 02-08-2024 Platelets (Bld) [#/Vol] 277 10*3/uL Normal 150-450 [facility] Comment on above: Order Comment: Reaso n for Exam Hyperlipidemia Performed By: #### C MP, A1C [facility] eA, LIPID, CBC ####[place] [id number] [facility] Potassium [Moles/volume] in Serum or PlasmaOrdered By: Rico Choi on 02-08-2024 Potassium [Moles/Vol] 4.1 mmol/L Normal 3.5-5.1 [facility] Comment on above: Order Comment: Reaso n for Exam Hyperlipidemia Performed By: #### C MP, A1C [facility] eA, LIPID, CBC ####[place] [id number] [facility] Protein [Mass/volume] in Ser um or PlasmaOrdered By: Rico Choi on 02-08-2024 Protein [Mass/Vol] 6.2 g/dL Low 6.4-8.9 [facility] Comment on above: Order Comment: Reaso n for Exam Hyperlipidemia Performed By: #### C MP, A1C [facility] eA, LIPID, CBC ####[address] [address] [facility] Serum globulin measurement b y calculation (mass/volume)Ordered By: Rico Choi on 02-08-2024 Globulin (S) [Mass/Vol] 2.4 g/dL Normal F [facility] Comment on above: Order Comment: Reaso n for Exam Hyperlipidemia Performed By: #### C MP, A1C [facility] eA, LIPID, CBC ####[place] [id number] [facility] Serum or plasma albumin/glob ulin mass ratioOrdered By: Rico Choi on 02-08-2024 Albumin/Globulin [Mass ratio] 1.6 {ratio} Normal [facility] Comment on above: Order Comment: Reaso n for Exam Hyperlipidemia Performed By: #### C SOURAV, A1C WT eA, LIPID, CBC ####[facility] [id number] [place] [address] [facility] Serum or plasma anion gap de terminationOrdered By: Rico Choi on 02-08-2024 Anion gap [Moles/Vol] 11.9 mmol/L Normal 6.0-15.0 [facility] Comment on above: Order Comment: Reaso n for Exam Hyperlipidemia Performed By: #### C MP, A1C WT eA, LIPID, CBC ####[facility] [id number] [place] [id number] [facility] Serum or plasma high density lipoprotein (HDL) cholesterol measurementOrdered By: Rico Choi on 02-08-2024 Cholesterol in HDL [Mass/Vol] 55 mg/dL Normal 23-92 [facility] Comment on above: HDL CHOL ATP-III CLA SSIFICATION Cardiovascular RiskHDL > or equal to 60 mg/dL LOWHDL < 40 mg/dL HIGH Order Comment: Reaso n for Exam Hyperlipidemia Result Comment: HDL CHOL ATP-III CLASSIFICATION Cardiovascular Risk HDL > or equal to 60 mg/dL LOW HDL < 40 mg/dL HIGH Performed By: #### C SOURAV, A1C [facility] eA, LIPID, CBC ####[place] [address] [place] [id number] [facility] Serum or plasma total choles terol/high density lipoprotein (HDL) cholesterol mass ratOrdered By: Rico Choi on 02-08-2024 Cholesterol.total/Choles terol in HDL [Mass ratio] 3.1 {ratio} Normal <5.0 [facility] Comment on above: Order Comment: Reaso n for Exam Hyperlipidemia Result Comment: PERF ORMED BY: [facility] [address] [place] [id number] PATHOLOGIST INVISIBLE [employer]ACES ORTHODONTIST ARACELI CHAPA M.D. Performed By: #### C SOURAV, A1C WT eA, LIPID, CBC ####[facility] [id number] [place] [id number] [facility] Sodium [Moles/volume] in Ser um or PlasmaOrdered By: Rico Choi on 02-08-2024 Sodium [Moles/Vol] 142 mmol/L Normal 136-145 [facility] Comment on above: Order Comment: Reaso n for Exam Hyperlipidemia Performed By: #### C MP, A1C [facility] eA, LIPID, CBC ####[facility] Triglyceride [Mass/volume] i n Serum or PlasmaOrdered By: Rico Choi on 02-08-2024 Triglyceride [Mass/Vol] 287 mg/dL High 0-149 [facility] Comment on above: TRIG ATP III CLASSIF ICATIONTRIG less than 150 mg/dL NormalTRIG 150-199 mg/dL Borderline highTRIG 200-500 mg/dL High TRIG greater than 500 mg/dL Very highStandard traceable to the Center for Disease Conrtrol and Prevention (CDC) test method. Urea nitrogen [Mass/volume] in Serum or PlasmaOrdered By: Rico Choi on 02-08-2024 Urea nitrogen [Mass/Vol] 20 mg/dL Normal 7-25 [facility] Comment on above: Order Comment: Reaso n for Exam Hyperlipidemia Performed By: #### C MP, A1C [facility] eA, LIPID, CBC ####[facility] Alanine aminotransferase [En zymatic activity/volume] in Serum or PlasmaOrdered By: Vito Ferguson on 01-11-2024 ALT [Catalytic activity/Vol] 29 U/L Normal 7-52 [facility] Comment on above: Performed By: #### B MONOGRAM OPERATOR, HS TROP, CBC, CK, CMP #### [facility] [address] [place] [address] [place] Albumin [Mass/volume] in Ser um or Plasma by Bromocresol green (BCG) dye binding methoOrdered By: Vito Ferguson on 01-11-2024 Albumin BCG dye [Mass/Vol] 4.1 g/dL 3.5-5.7 [facility] Alkaline phosphatase [Enzyma tic activity/volume] in Serum or PlasmaOrdered By: Vito Ferguson on 01-11-2024 ALP [Catalytic activity/Vol] 82 U/L Normal 34-104 [facility] Comment on above: Performed By: #### B MONOGRAM OPERATOR, HS TROP, CBC, CK, CMP #### [address] Aspartate aminotransferase [ Enzymatic activity/volume] in Serum or PlasmaOrdered By: Vito Ferguson on 01-11-2024 AST [Catalytic activity/Vol] 23 U/L Normal 13-39 [facility] Comment on above: Performed By: #### B MONOGRAM OPERATOR, HS TROP, CBC, CK, CMP #### [address] Automated basophil %Ordered By: Vito Ferguson on 01-11-2024 Basophils/100 WBC (Bld) 0.8 % Normal . [facility] Comment on above: Performed By: #### B MONOGRAM OPERATOR, HS TROP, CBC, CK, CMP #### [address] Automated basophil countOrde red By: Vito Ferguson on 01-11-2024 Basophils (Bld) [#/Vol] 0.1 10*3/uL Normal 0.0-0.2 [facility] Comment on above: Result Comment: PERF ORMED BY: [place] [address] PATHOLOGIST INVISIBLE BRACES ORTHODONTIST ARACELI CHAPA M.D. Performed By: #### B MONOGRAM OPERATOR, HS TROP, CBC, CK, CMP #### [address] Automated blood monocyte cou ntOrdered By: Vito Ferguson on 01-11-2024 Monocytes (Bld) [#/Vol] 0.4 10*3/uL Normal 0.0-0.8 [facility] Comment on above: Performed By: #### B MONOGRAM OPERATOR, HS TROP, CBC, CK, CMP #### [address] Automated eosinophil %Ordere d By: Vito Ferguson on 01-11-2024 Eosinophils/100 WBC (Bld) 2.0 % Normal . [facility] Comment on above: Performed By: #### B MONOGRAM OPERATOR, HS TROP, CBC, CK, CMP #### [address] Automated eosinophil countOr dered By: Vito Ferguson on 01-11-2024 Eosinophils (Bld) [#/Vol] 0.1 10*3/uL Normal 0.0-0.45 [facility] Comment on above: Performed By: #### B MONOGRAM OPERATOR, HS TROP, CBC, CK, CMP #### [address] Automated monocyte %Ordered By: Vito Ferguson on 01-11-2024 Monocytes/100 WBC (Bld) 6.3 % Normal . [facility] Comment on above: Performed By: #### B MONOGRAM OPERATOR, HS TROP, CBC, CK, CMP #### [address] Automated neutrophil %Ordere d By: Vito Ferguson on 01-11-2024 Neutrophils/100 WBC (Bld) 57.2 % Normal . [facility] Comment on above: Performed By: #### B MONOGRAM OPERATOR, HS TROP, CBC, CK, CMP #### [address] BNP ser/plasOrdered By: Vito Ferguson on 01-11-2024 Natriuretic peptide B (Bld) [Mass/Vol] 43.0 pg/mL Normal 5-100 [facility] Comment on above: Result Comment: PERF ORMED BY: [place] [address] PATHOLOGIST INVISIBLE BRACES ORTHODONTIST ARACELI CHAPA M.D. Performed By: #### B MONOGRAM OPERATOR, HS TROP, CBC, CK, CMP #### [address] Bilirubin.total [Mass/volume ] in Serum or PlasmaOrdered By: Vito Ferguson on 01-11-2024 Bilirubin [Mass/Vol] 0.6 mg/dL Normal 0.3-1.0 [facility] Comment on above: Performed By: #### B MONOGRAM OPERATOR, HS TROP, CBC, CK, CMP #### [address] Calcium [Mass/volume] in Ser um or PlasmaOrdered By: Vito Ferguson on 01-11-2024 Calcium [Mass/Vol] 9.2 mg/dL Normal 8.6-10.3 [facility] Comment on above: Performed By: #### B MONOGRAM OPERATOR, HS TROP, CBC, CK, CMP #### [address] Carbon dioxide, total [Moles /volume] in Serum or PlasmaOrdered By: Vito Ferguson on 01-11-2024 CO2 [Moles/Vol] 26.6 mmol/L Normal 21.0-31.0 [facility] Comment on above: Performed By: #### B MONOGRAM OPERATOR, HS TROP, CBC, CK, CMP #### [address] Chloride [Moles/volume] in S rashawn or PlasmaOrdered By: Vito Ferguson on 01-11-2024 Chloride [Moles/Vol] 107 mmol/L Normal 98-107 [facility] Comment on above: Performed By: #### B MONOGRAM OPERATOR, HS TROP, CBC, CK, CMP #### [address] Complete Blood Count Auto Di ffon 01-11-2024 Mean Corpuscular HGB Conc 33.6 g/dL Normal 32.0-35.0 [facility] Comment on above: Performed By: #### B MONOGRAM OPERATOR, HS TROP, CBC, CK, CMP #### [address] Monocytes/100 WBC (Bld) 18.28 % Normal 0.00-20.00 [facility] Comment on above: Performed By: #### B MONOGRAM OPERATOR, HS TROP, CBC, CK, CMP #### [address] NRBC% 0.0 /100{WBC} Normal 0-0.5 [facility] Comment on above: Performed By: #### B MONOGRAM OPERATOR, HS TROP, CBC, CK, CMP #### [address] Comprehensive Metabolic Pane trav 01-11-2024 Albumin [Mass/Vol] 4.1 g/dL Normal 3.5-5.7 [facility] Comment on above: Performed By: #### B MONOGRAM OPERATOR, HS TROP, CBC, CK, CMP #### [place] [address] [place] Creatinine Clr Calc Pharmacy 65.20 Normal [facility] Comment on above: Result Comment: PERF ORMED BY: [place] [address] PATHOLOGIST INVISIBLE BRACES ORTHODONTIST ARACELI CHAPA M.D. Performed By: #### B MONOGRAM OPERATOR, HS TROP, CBC, CK, CMP #### [place] [address] [place] GFR/1.73 sq M.predicted MDRD (S/P/Bld) [Vol rate/Area] mL/min/{1.73_m2} Normal [facility] Comment on above: Performed By: #### B MONOGRAM OPERATOR, HS TROP, CBC, CK, CMP #### [address] Creatine kinase [Enzymatic a ctivity/volume] in Serum or PlasmaOrdered By: Vito Ferguson on 01-11-2024 CK [Catalytic activity/Vol] 227 U/L High 30-223 [facility] Comment on above: Performed By: #### B MONOGRAM OPERATOR, HS TROP, CBC, CK, CMP #### [address] Creatinine [Mass/volume] in Serum or PlasmaOrdered By: Vito Ferguson on 01-11-2024 Creatinine [Mass/Vol] 0.90 mg/dL Normal 0.60-1.20 [facility] Comment on above: Performed By: #### B MONOGRAM OPERATOR, HS TROP, CBC, CK, CMP #### [place] [address] [place] ECG 12 lead ECGon 01-11-2024 ECG 12 lead ECG [facility] [address] [place] [address] Electrocardiograph Report Signed Patient: Aura Hassan MR#: [id number] : 1960 Acct:[id number] Age/Sex: 63 / F ADM Date: 01/11/24 Loc: ER Room: Type: DEP ER Attending Dr: Ordering Provider: Vito Ferguson [...] By Vito Ferguson MD 01/11/241916 Normal [facility] Erythrocyte distribution wid th [Ratio] by Automated countOrdered By: Vito Fergusno on 01-11-2024 Erythrocyte distribution width (RBC) [Ratio] 13.9 % Normal 11.9-15.3 [facility] Comment on above: Performed By: #### B MONOGRAM OPERATOR, HS TROP, CBC, CK, CMP #### [facility] [address] [place] [address] [place] Erythrocytes [#/volume] in B lood by Automated countOrdered By: Vito Ferguson on 01-11-2024 RBC (Bld) [#/Vol] 4.46 10*6/uL Normal 3.60-5.00 [facility] Comment on above: Performed By: #### B MONOGRAM OPERATOR, HS TROP, CBC, CK, CMP #### [facility] [address] [place] [address] [place] Glucose [Mass/volume] in Ser um or PlasmaOrdered By: Vito Ferguson on 01-11-2024 Glucose [Mass/Vol] 95 mg/dL Normal 70-100 [facility] Comment on above: ADA recommended refe rence rangeRandom Glucose Reference Range is dependent on time and content of last meal. Glucose of more than 200 mg/dL in a nonstressed, ambulatory subject supports the diagnosis of Diabetes Mellitus. Result Comment: [place] om Glucose Reference Range is dependent on time and content of last meal. Glucose of more than 200 mg/dL in a nonstressed, ambulatory subject supports the diagnosis of Diabetes Mellitus. ADA recommended reference range Performed By: #### B MONOGRAM OPERATOR, HS TROP, CBC, CK, CMP #### [facility] [address] Hematocrit [Volume Fraction] of Blood by Automated countOrdered By: Vito Ferguson on 01-11-2024 Hematocrit (Bld) [Volume fraction] 39.3 % Normal 34.0-46.4 [facility] Comment on above: Performed By: #### B MONOGRAM OPERATOR, HS TROP, CBC, CK, CMP #### [facility] [address] Hemoglobin [Mass/volume] in BloodOrdered By: Vito Ferguson on 01-11-2024 Hemoglobin (Bld) [Mass/Vol] 13.2 g/dL Normal 11.8-15.4 [facility] Comment on above: Performed By: #### B MONOGRAM OPERATOR, HS TROP, CBC, CK, CMP #### [address] Leukocytes [#/volume] correc marina for nucleated erythrocytes in Blood by Automated counOrdered By: Vito Ferguson on 01-11-2024 WBC corrected for nucl RBC Auto (Bld) [#/Vol] 6.9 10*3/uL 3.8-11.6 [facility] Leukocytes [#/volume] in Blo od by Automated countOrdered By: Vito Ferguson on 01-11-2024 WBC (Bld) [#/Vol] 6.9 10*3/uL Normal 3.8-11.6 [facility] Comment on above: Performed By: #### B MONOGRAM OPERATOR, HS TROP, CBC, CK, CMP #### [place] [address] [place] Lymphocytes [#/volume] in Bl ood by Automated countOrdered By: Vito Ferguson on 01-11-2024 Lymphocytes (Bld) [#/Vol] 2.3 10*3/uL Normal 1.00-4.8 [facility] Comment on above: Performed By: #### B MONOGRAM OPERATOR, HS TROP, CBC, CK, CMP #### [address] Lymphocytes/100 leukocytes i n Blood by Automated countOrdered By: Vito Ferguson on 01-11-2024 Lymphocytes/100 WBC (Bld) 33.7 % Normal . [facility] Comment on above: Performed By: #### B MONOGRAM OPERATOR, HS TROP, CBC, CK, CMP #### [address] MCH [Entitic mass] by Automa marina countOrdered By: Vito Ferguson on 01-11-2024 MCH (RBC) [Entitic mass] 29.6 pg Normal 24.7-34.3 [facility] Comment on above: Performed By: #### B MONOGRAM OPERATOR, HS TROP, CBC, CK, CMP #### [address] MCHC Auto (RBC) [Mass/Vol]Or dered By: Vito Ferguson on 01-11-2024 MCHC (RBC) [Mass/Vol] 33.6 g/dL 32.0-35.0 [facility] MCV [Entitic volume] by Auto mated countOrdered By: Vito Ferguson on 01-11-2024 MCV (RBC) [Entitic vol] 88.1 fL Normal 80-100 [facility] Comment on above: Performed By: #### B MONOGRAM OPERATOR, HS TROP, CBC, CK, CMP #### [address] Monocyte distribution width [Entitic volume] in Blood by AutomatedOrdered By: Vito Ferguson on 01-11-2024 Monocyte distribution width Auto (Bld) [Entitic vol] 18.28 % 0.00-20.00 [facility] Neutrophils [#/volume] in Bl ood by Automated countOrdered By: Vito Ferguson on 01-11-2024 Neutrophils (Bld) [#/Vol] 3.9 10*3/uL Normal 1.8-7.7 [facility] Comment on above: Performed By: #### B MONOGRAM OPERATOR, HS TROP, CBC, CK, CMP #### [place] [id number] [place] No Panel InformationOrdered By: Vito Ferguson on 01-11-2024 Estimated GFR (CKD-EPI) > 60.0 mL/Min [facility] Creatinine Clearance (Chem 65.20 [facility] Nucleated erythrocytes [Pres ence] in Blood by Automated countOrdered By: Vito Ferguson on 01-11-2024 Nucleated RBC Auto Ql (Bld) 0.0 /100{WBC} 0-0.5 [facility] Platelet mean volume [Entiti c volume] in Blood by Automated countOrdered By: Vito Ferguson on 01-11-2024 Platelet mean volume (Bld) [Entitic vol] 7.3 fL Normal 6.3-10.7 [facility] Comment on above: Performed By: #### B MONOGRAM OPERATOR, HS TROP, CBC, CK, CMP #### [address] Platelets [#/volume] in Bloo d by Automated countOrdered By: Vito Ferguson on 01-11-2024 Platelets (Bld) [#/Vol] 234 10*3/uL Normal 150-450 [facility] Comment on above: Performed By: #### B MONOGRAM OPERATOR, HS TROP, CBC, CK, CMP #### [address] Potassium [Moles/volume] in Serum or PlasmaOrdered By: Vito Ferguson on 01-11-2024 Potassium [Moles/Vol] 3.3 mmol/L Low 3.5-5.1 [facility] Comment on above: Performed By: #### B MONOGRAM OPERATOR, HS TROP, CBC, CK, CMP #### [address] Protein [Mass/volume] in Ser um or PlasmaOrdered By: Vito Ferguson on 01-11-2024 Protein [Mass/Vol] 6.7 g/dL Normal 6.4-8.9 [facility] Comment on above: Performed By: #### B MONOGRAM OPERATOR, HS TROP, CBC, CK, CMP #### [address] Serum globulin measurement b y calculation (mass/volume)Ordered By: iVto Ferguson on 01-11-2024 Globulin (S) [Mass/Vol] 2.6 g/dL Normal [facility] Comment on above: Performed By: #### B MONOGRAM OPERATOR, HS TROP, CBC, CK, CMP #### [address] Serum or plasma albumin/glob ulin mass ratioOrdered By: Vito Ferguson on 01-11-2024 Albumin/Globulin [Mass ratio] 1.6 {ratio} Normal [facility] Comment on above: Performed By: #### B MONOGRAM OPERATOR, HS TROP, CBC, CK, CMP #### [address] Serum or plasma anion gap de terminationOrdered By: Vito Ferguson on 01-11-2024 Anion gap [Moles/Vol] 11.7 mmol/L Normal 6.0-15.0 [facility] Comment on above: Performed By: #### B MONOGRAM OPERATOR, HS TROP, CBC, CK, CMP #### [address] Sodium [Moles/volume] in Ser um or PlasmaOrdered By: Vito Ferguson on 01-11-2024 Sodium [Moles/Vol] 142 mmol/L Normal 136-145 [facility] Comment on above: Performed By: #### B MONOGRAM OPERATOR, HS TROP, CBC, CK, CMP #### [address] Troponin I High Sensitivityo n 01-11-2024 Troponin I High Sensitivity 6.4 pg/mL Normal 0.0-15.0 [facility] Comment on above: Result Comment: PERF ORMED BY: [place] [address] PATHOLOGIST INVISIBLE [employer]AC[employer] ORTHODONTIST ARACELI CHAPA M.D. Performed By: #### B MONOGRAM OPERATOR, HS TROP, CBC, CK, CMP #### [address] Troponin I.cardiac [Mass/vol ume] in Serum or Plasma by Detection limit <= 0.01 ng/Ordered By: Vito Ferguson on 01-11-2024 Troponin I.cardiac DL <= 0.01 ng/mL [Mass/Vol] 6.4 pg/mL 0.0-15.0 [facility] Urea nitrogen [Mass/volume] in Serum or PlasmaOrdered By: Vito Ferguson on 01-11-2024 Urea nitrogen [Mass/Vol] 9 mg/dL Normal 7-25 [facility] Comment on above: Performed By: #### B MONOGRAM OPERATOR, HS TROP, CBC, CK, CMP #### [facility] [address] XR chest 1V portableon 01-10 XR chest 1V portable [facility] [address] [place] [address] XRay Report Signed Patient: Aura Hassan MR#: [id number] : 1960 Acct:[id number] Age/Sex: 63 / F ADM Date: 01/11/24 Loc: ER Room: Type: [facility] ER Attending Dr: Copies to: Vito [...] Millie Zhang M.D.01/11/2024 7:02 PM Dictation Location: [place] [address] Transcribed By: PROTESTANT [facility] 01/11/241901 Dictated By: Millie Zhang MD 01/11/241900 Signed By: 01/11/241901 Normal [facility] Trav 11-23-2023 L Specimen: [id number] Received: 11/23/23 Status: SOUT Req Num: [id number] Spec Type: Cytology Subm Dr: Ivan Edmonds DO Tissues: A FNA SLIDES NOPATH (LT THYROID) Procedures: Cyto Int and Re, PAPSTN/15 Age/ Patient Sex Location Account Attending Physician Aura Hassan 63/F [place] [id number] Ivan Edmonds DO SPEC NUM: [id number] RECD: 11/23/23 STATUS: AQUILINO JIMENEZ NUM: [id number] SHEELA: 11/23/[address] [facility] [address]: Ivan Edmonds DO ENTERED: 11/23/[address] [facility] [address]: SPEC TYPE: Cytology DEPT: CNG ENTERED BY: [id number] RECV BY: [id number] ORDERED: Cyto Int and Re, PAPSTN/15 ORDERED: Cyto Int and Re, PAPSTN/15 Pathological Diagnosis Left thyroid nodule, FNA cytology: -Appropriate for assessment -Benign: The [place] system is category 2 -Adequate number of [...] Veracyte vial stored at 20- are additionally received.(DC/or) CPT Codes 13144 -------- -------- Specimen: [id number] Received: 11/23/23 Status: AQUILINO Jimenez Num: [id number] Spec Type: Cytology Subm Dr: Ivan Edmonds DO Tissues: A FNA SLIDES NOPATH (LT THYROID) Procedures: Cyto Int and Re, PAPSTN/15 -------- Patient: Aura Hassan [id number] (Continued) -------- Signed (signature on file) Chin-Sg Muniz MD 11/25/23 1157 Normal [facility] Thyroid Stim Hormone w/Rflxo n 10-22-2023 Thyroid Stim Hormone w/Rflx 1.77 u[iU]/mL Normal 0.45-5.33 [facility] Comment on above: Order Comment: Reaso n for Exam Multiple thyroid nodules Result Comment: PERF ORMED BY: [place] [address] PATHOLOGIST INVIS[employer]ACES ORTHODONTIST ARACELI CHAPA M.D. Performed By: #### T SH3 wRFLX #### [address] Thyrotropin [Units/volume] i n Serum or PlasmaOrdered By: Harrison Sánchez on 10-22-2023 TSH Qn 1.77 m[IU]/L 0.45-5.33 [facility] XR lumbar spine AP/LAT/FLX/E XTon 07-14-2023 XR lumbar spine AP/LAT/FLX/EXT [facility] [address] [place] [id number] XRay Report Signed Patient: Aura Hassan MR#: [id number] : 1960 Acct:[id number] Age/Sex: 62 / F ADM Date: 07/14/23 Loc: XD Room: Type[facility] CLI Attending Dr: Apolinar Zarate MD Copies [...] Rainer Sofia M.D.07/14/2023 2:59 PM Dictation Location: [place] [address] Transcribed By: [facility] 07/14/23 1459 Dictated By: Rainer Sofia DO 07/14/23 1456 Signed By: 07/14/23 1459 Normal [facility] CT soft tissue neck w [facility] 06-30-2023 CT soft tissue neck w [facility] [address] [place] [id number] CT Scan Report Signed Patient: Aura Hassan MR#: [id number] : 1960 Acct:[id number] Age/Sex: 62 / F ADM Date: 06/30/23 Loc: CT Room: Type[facility] CLI Attending Dr: Jayden Quevedo DO Copies to: Harrison Sánchez DO, RES Jayden Quevedo DO Ordering Provider: Harrison Sánchez [...] Millie Zhang M.D.06/30/2023 4:22 PM Dictation Location: [place] [address] Transcribed By: [facility] 06/30/23 1622 Dictated By: Millie Zhang MD 06/30/23 1617 Signed By: 06/30/23 1622 Normal [facility] US thyroidon 06-30-2023 thyroid [facility] [place] [address] Ultrasound Report Signed Patient: Aura Hassan MR#: [id number] : 1960 Acct:[id number] Age/Sex: 62 / F ADM Date: 06/30/23 Loc: CT Room: Type[facility] CLI Attending Dr: Jayden Quevedo DO Ordering Provider: [...] Millie Zhang M.D.06/30/2023 4:17 PM Dictation Location: [place] [address] Tech: Ruth Martinez Transcribed By: SHAMAR 06/30/23 1617 Dictated By: Millie Zhang MD 06/30/23 1604 Signed By: 06/30/23 1617 Normal [facility] Alanine aminotransferase [En zymatic activity/volume] in Serum or PlasmaOrdered By: Orly Fontaine on 02-04-2023 ALT [Catalytic activity/Vol] 22 U/L 7-52 [facility] Albumin [Mass/volume] in Ser um or Plasma by Bromocresol green (BCG) dye binding methoOrdered By: Orly Fontaine on 02-04-2023 Albumin BCG dye [Mass/Vol] 4.3 g/dL 3.5-5.7 [facility] Alkaline phosphatase [Enzyma tic activity/volume] in Serum or PlasmaOrdered By: Orly Fontaine on 02-04-2023 ALP [Catalytic activity/Vol] 79 U/L 34-104 [facility] Aspartate aminotransferase [ Enzymatic activity/volume] in Serum or PlasmaOrdered By: Orly Minal on 02-04-2023 AST [Catalytic activity/Vol] 18 U/L 13-39 [facility] Basophils Auto (Bld) [#/Vol] Ordered By: Orly Minal on 02-04-2023 Basophils (Bld) [#/Vol] 0.0 10*3/uL 0.0-0.2 [facility] Basophils/100 WBC Auto (Bld) Ordered By: Orly Minal on 02-04-2023 Basophils/100 WBC (Bld) 0.4 % . F [facility] Bilirubin.total [Mass/volume ] in Serum or PlasmaOrdered By: Orly Tuthill on 02-04-2023 Bilirubin [Mass/Vol] 0.7 mg/dL 0.3-1.0 [facility] Calcium [Mass/volume] in Ser um or PlasmaOrdered By: Orly Minal on 02-04-2023 Calcium [Mass/Vol] 9.2 mg/dL 8.6-10.3 [facility] Carbon dioxide, total [Moles /volume] in Serum or PlasmaOrdered By: Orly Minal on 02-04-2023 CO2 [Moles/Vol] 27.2 mmol/L 21.0-31.0 [facility] Chloride [Moles/volume] in S rashawn or PlasmaOrdered By: Orly Tuthill on 02-04-2023 Chloride [Moles/Vol] 107 mmol/L 98-107 [facility] Cholesterol [Mass/volume] in Serum or PlasmaOrdered By: Orly Tuthill on 02-04-2023 Cholesterol [Mass/Vol] 166 mg/dL 140-200 [facility] Comment on above: Chol less than 200 m g/dl low riskChol 201-239 mg/dl borderline riskChol 240 mg/dl and greater high risk Cholesterol in LDL Calc [Mas s/Vol]Ordered By: Orly Minal on 02-04-2023 Cholesterol in LDL [Mass/Vol] 55 mg/dL 0-100 [facility] Comment on above: LDL ATP III CLASSIFI CATIONLDL less than 100 mg/dL OptimalLDL 100-129 mg/dL Near or above optimalLDL 130-159 mg/dL Borderline highLDL 160-189 mg/dL HighLDL greater than 189 mg/dL Very high Cholesterol in VLDL Calc [Ma ss/Vol]Ordered By: Orly Fontaine on 02-04-2023 Cholesterol in VLDL [Mass/Vol] 69 mg/dL [facility] Creatinine [Mass/volume] in Serum or PlasmaOrdered By: Orly Fontaine on 02-04-2023 Creatinine [Mass/Vol] 0.86 mg/dL 0.60-1.20 [facility] Creatinine [Mass/volume] in UrineOrdered By: Orly Fontaine on 02-04-2023 Creatinine (U) [Mass/Vol] 87.0 mg/dL 11.0-20.0 [facility] Eosinophils Auto (Bld) [#/Vo l]Ordered By: Orly Fontaine on 02-04-2023 Eosinophils (Bld) [#/Vol] 0.1 10*3/uL 0.0-0.45 [facility] Eosinophils/100 WBC Auto (Bl d)Ordered By: Orly Fontaine on 02-04-2023 Eosinophils/100 WBC (Bld) 2.4 % . [facility] Erythrocyte distribution wid th Auto (RBC) [Ratio]Ordered By: Orly Fontaine on 02-04-2023 Erythrocyte distribution width (RBC) [Ratio] 13.7 % 11.9-15.3 [facility] Globulin Calc (S) [Mass/Vol] Ordered By: Orly Fontaine on 02-04-2023 Globulin (S) [Mass/Vol] 1.9 g/dL F [facility] Glucose [Mass/volume] in Ser um or PlasmaOrdered By: Orly Fontaine on 02-04-2023 Glucose [Mass/Vol] 111 mg/dL 70-100 [facility] Comment on above: ADA recommended refe rence rangeRandom Glucose Reference Range is dependent on time and content of last meal. Glucose of more than 200 mg/dL in a nonstressed, ambulatory subject supports the diagnosis of Diabetes Mellitus. Hematocrit Auto (Bld) [Volum e fraction]Ordered By: Orly Fontaine on 02-04-2023 Hematocrit (Bld) [Volume fraction] 38.9 % 34.0-46.4 [facility] Hemoglobin [Mass/volume] in BloodOrdered By: Orly Fontaine on 02-04-2023 Hemoglobin (Bld) [Mass/Vol] 13.6 g/dL 11.8-15.4 [facility] Leukocytes [#/volume] correc marina for nucleated erythrocytes in Blood by Automated counOrdered By: Orly Fontaine on 02-04-2023 WBC corrected for nucl RBC Auto (Bld) [#/Vol] 5.4 10*3/uL 3.8-11.6 [facility] Lymphocytes Auto (Bld) [#/Vo l]Ordered By: Orly Fontaine on 02-04-2023 Lymphocytes (Bld) [#/Vol] 1.9 10*3/uL 1.00-4.8 [facility] Lymphocytes/100 WBC Auto (Bl d)Ordered By: Orly Fontaine on 02-04-2023 Lymphocytes/100 WBC (Bld) 35.1 % . [facility] MCH Auto (RBC) [Entitic mass ]Ordered By: Orly Fontaine on 02-04-2023 MCH (RBC) [Entitic mass] 30.0 pg 24.7-34.3 [facility] MCHC Auto (RBC) [Mass/Vol]Or dered By: Orly Fontaine on 02-04-2023 MCHC (RBC) [Mass/Vol] 35.0 g/dL 32.0-35.0 [facility] MCV Auto (RBC) [Entitic vol] Ordered By: Orly Fontaine on 02-04-2023 MCV (RBC) [Entitic vol] 85.9 fL 80-100 [facility] Microalbumin [Mass/volume] i n UrineOrdered By: Orly Fontaine on 02-04-2023 Albumin DL <= 20 mg/L (U) [Mass/Vol] mg/dL 0.0-1.8 [facility] Monocytes Auto (Bld) [#/Vol] Ordered By: Orly Fontaine on 02-04-2023 Monocytes (Bld) [#/Vol] 0.3 10*3/uL 0.0-0.8 [facility] Monocytes/100 WBC Auto (Bld) Ordered By: Orly Cespedesser on 02-04-2023 Monocytes/100 WBC (Bld) 6.3 % . [facility] Neutrophils Auto (Bld) [#/Vo l]Ordered By: Orly Cespedesser on 02-04-2023 Neutrophils (Bld) [#/Vol] 3.0 10*3/uL 1.8-7.7 [facility] Neutrophils/100 WBC Auto (Bl d)Ordered By: Orly Cespedesser on 02-04-2023 Neutrophils/100 WBC (Bld) 55.8 % . [facility] No Panel InformationOrdered By: Orly Fontaine on 02-04-2023 Estimated GFR (CKD-EPI) > 60.0 mL/Min [facility] Creatinine Clearance (Chem N/A [facility] Nucleated erythrocytes [Pres ence] in Blood by Automated countOrdered By: Orly Fontaine on 02-04-2023 Nucleated RBC Auto Ql (Bld) 0.1 /100{WBC} 0-0.5 [facility] Platelet mean volume Auto (B ld) [Entitic vol]Ordered By: Orly Cespedesser on 02-04-2023 Platelet mean volume (Bld) [Entitic vol] 7.4 fL 6.3-10.7 [facility] Platelets Auto (Bld) [#/Vol] Ordered By: Orly Cespedesser on 02-04-2023 Platelets (Bld) [#/Vol] 208 10*3/uL 150-450 [facility] Potassium [Moles/volume] in Serum or PlasmaOrdered By: Orly Cespedesser on 02-04-2023 Potassium [Moles/Vol] 4.2 mmol/L 3.5-5.1 [facility] Protein [Mass/volume] in Ser um or PlasmaOrdered By: Orly Cespedesser on 02-04-2023 Protein [Mass/Vol] 6.2 g/dL 6.4-8.9 [facility] RBC Auto (Bld) [#/Vol]Ordere d By: Orly Fontaine on 02-04-2023 RBC (Bld) [#/Vol] 4.54 10*6/uL 3.60-5.00 [facility] Serum or plasma albumin/glob ulin mass ratioOrdered By: Orly Fontaine on 02-04-2023 Albumin/Globulin [Mass ratio] 2.3 {ratio} [facility] Serum or plasma anion gap de terminationOrdered By: Orly Fontaine on 02-04-2023 Anion gap [Moles/Vol] 12.0 mmol/L 6.0-15.0 [facility] Serum or plasma high density lipoprotein (HDL) cholesterol measurementOrdered By: Orly Fontaine on 02-04-2023 Cholesterol in HDL [Mass/Vol] 42 mg/dL [facility] Comment on above: HDL CHOL ATP-III CLA SSIFICATION Cardiovascular RiskHDL > or equal to 60 mg/dL LOWHDL < 40 mg/dL HIGH Serum or plasma total choles terol/high density lipoprotein (HDL) cholesterol mass ratOrdered By: Orly Fontaine on 02-04-2023 Cholesterol.total/Choles terol in HDL [Mass ratio] 4.0 {ratio} <5.0 [facility] Sodium [Moles/volume] in Ser um or PlasmaOrdered By: Orly Fontaine on 02-04-2023 Sodium [Moles/Vol] 142 mmol/L 136-145 [facility] Triglyceride [Mass/volume] i n Serum or PlasmaOrdered By: Orly Fontaine on 02-04-2023 Triglyceride [Mass/Vol] 345 mg/dL 0-149 [facility] Comment on above: TRIG ATP III CLASSIF ICATIONTRIG less than 150 mg/dL NormalTRIG 150-199 mg/dL Borderline highTRIG 200-500 mg/dL High TRIG greater than 500 mg/dL Very highStandard traceable to the Center for Disease Conrtrol and Prevention (CDC) test method. Urea nitrogen [Mass/volume] in Serum or PlasmaOrdered By: Orly Fontaine on 02-04-2023 Urea nitrogen [Mass/Vol] 10 mg/dL 03-09 [facility] Urine microalbumin/creatinin e mass ratioOrdered By: Orly Fontaine on 02-04-2023 Albumin/Creatinine DL <= 20 mg/L (U) [Mass ratio] [facility] Comment on above: Test not performed WBC Auto (Bld) [#/Vol]Ordere d By: Orly Fontaine on 02-04-2023 WBC (Bld) [#/Vol] 5.4 10*3/uL 3.8-11.6 [facility] Covid-19 PCR (CVDTBH)on SARS-CoV-2 (COVID-19) RNA [place]+probe Ql (Unsp spec) Not detected Normal NOT DETECTED [facility] Comment on above: Result Comment: When diagnostic [...] for this test is supported by the [employer] of Health and Human Service's declaration that [...] used). Performed By: #### C VDTBH #### [facility] [address] [place] [address] Dr. Bebo Muniz INFLUENZA A AND B AGon 07-17 INFLUBNEG SEE BELOW Normal [facility] Comment on above: Result Comment: Nega tive for Flu B protein antigen. Infection due to Flu B cannot be ruled out. Flu B antigen in the sample may be below the detection limit of the test. Performed By: #### I NFLUAB #### [facility] [address] [place] [address] [address] Bebo Muniz INFLUENZA A AG Positive Abnormal NEGATIVE SEE COMMENT [facility] Comment on above: Performed By: #### I NFLUAB #### [facility] [address] [place] [address] [address] Bebo Muniz INFLUENZA B AG Negative Normal NEGATIVE SEE COMMENT [facility] Comment on above: Performed By: #### I NFLUAB #### [facility] [address] [place] [address] [address] Bebo Muniz INFLUPOSH SEE BELOW Normal [facility] Comment on above: Result Comment: NOTE : Live attenuated influenzae vaccine viruses can cause a positive result for a rapid influenza diagnostic test if administered up to 7 days prior to rapid testing. Performed By: #### I NFLUAB #### [facility] [address] [place] [address] [address] Bebo Muniz INTERNAL CONTROLS Within Normal Limits Normal Wi thin Normal Limits [facility] Comment on above: Performed By: #### I NFLUAB #### [facility] [address] [place] [address] [address] Bebo Muniz SCREENING MAMMOGRAM W/PRATEEK, BILATERAL*on [...] VERY IMPORTANT TO YOUR HEALTH. THE CURRENT [employer] GUIDELINES RECOMMENDS ANNUAL MAMMOGRAPHY BEGINNING AT AGE 39 THIS FACILITY USES A REMINDER SYSTEM TO ENSURE ALL PATIENTS RECEIVE REMINDER NOTIFICATIONS AT THE APPROPRIATE TIME BASED ON THE RECOMMENDATIONS OF THIS EXAM. 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 Accredited by the ACR and FDA. Report reported and signed by Darryl Milner on 01/07/2022 0959 Normal [facility] [employer] Vital Signs Date Time Vital Sign Value Performing Clinician Facility 01-11-2024 18:36-0400 Heart rate 83 /min Services [employer] Work Phone: [facility] 01-11-2024 18:36-0400 Respiratory rate 18 /min [facility] Work Phone: [facility] 01-11-2024 18:36-0400 SaO2% (BldA) [Mass fraction] 97 % [facility] Work Phone: [facility] 01-11-2024 18:35-0400 Diastolic blood pressure 84 mm[Hg] [facility] Work Phone: [facility] 01-11-2024 18:35-0400 Systolic blood pressure 176 mm[Hg] [facility] Work Phone: [facility] 01-11-2024 16:36-0400 Body height 157.48 cm [facility] Work Phone: [facility] 01-11-2024 16:36-0400 Body temperature 98.3 [degF] [facility] Work Phone: [facility] 01-11-2024 16:36-0400 Body weight 88.35 kg [facility] Work Phone: [facility] 11-02-2023 09:25-0400 Diastolic blood pressure 91 mm[Hg] [facility] Work Phone: [facility] 11-02-2023 09:25-0400 Heart rate 74 /min [facility] Work Phone: [facility] 11-02-2023 09:25-0400 Respiratory rate 16 /min [facility] Work Phone: [facility] 11-02-2023 09:25-0400 SaO2% (BldA) [Mass fraction] 92 % [facility] Work Phone: [facility] 11-02-2023 09:25-0400 Systolic blood pressure 152 mm[Hg] [facility] Work Phone: [facility] 11-02-2023 08:38-0400 Inhaled oxygen flow rate 3 L/min [facility] Work Phone: [facility] 11-02-2023 07:40-0400 Body height 157.48 cm [facility] Work Phone: [facility] 11-02-2023 07:40-0400 Body temperature 98.3 [degF] [facility] Work Phone: [facility] 11-02-2023 07:40-0400 Body weight 86.18 kg [facility] Work Phone: [facility] 10-05-2023 09:17-0500 Diastolic blood pressure 80 mm[Hg] [facility] Work Phone: [facility] 10-05-2023 09:17-0500 Heart rate 72 /min [facility] Work Phone: [facility] 10-05-2023 09:17-0500 Respiratory rate 18 /min [facility] Work Phone: [facility] 10-05-2023 09:17-0500 SaO2% (BldA) [Mass fraction] 95 % [facility] Work Phone: [facility] 10-05-2023 09:17-0500 Systolic blood pressure 127 mm[Hg] [facility] Work Phone: [facility] 10-05-2023 08:37-0500 Inhaled oxygen flow rate 2 L/min [facility] Work Phone: [facility] 10-05-2023 07:54-0500 Body height 157.48 cm [facility] Work Phone: [facility] 10-05-2023 07:54-0500 Body weight 86.18 kg [facility] Work Phone: [facility] 09-14-2023 10:20-0500 Diastolic blood pressure 74 mm[Hg] [facility] Work Phone: [facility] 09-14-2023 10:20-0500 Heart rate 76 /min [facility] Work Phone: [facility] 09-14-2023 10:20-0500 Respiratory rate 16 /min [facility] Work Phone: [facility] 09-14-2023 10:20-0500 SaO2% (BldA) [Mass fraction] 98 % [facility] Work Phone: [facility] 09-14-2023 10:20-0500 Systolic blood pressure 134 mm[Hg] [facility] Work Phone: [facility] 09-14-2023 09:42-0500 Inhaled oxygen flow rate 3 L/min Services [facility] Work Phone: [facility] 09-14-2023 08:39-0500 Body height 157.48 cm Services [facility] Work Phone: [facility] 09-14-2023 08:39-0500 Body weight 86.18 kg Services [facility] [employer] Work Phone: [facility] 11-27-2021 16:30-0400 Body height 157.48 cm Joel Anand Other [employer] [employer] Other 11-27-2021 16:30-0400 Body mass index (BMI) [Ratio] 31.09 kg/m2 Joel Anand Other [facility] Other 11-27-2021 16:30-0400 Body weight 77.11 kg Joel Anand Other [employer] [employer] Other Encounters Encounter Date Encounter Type Care Provider Facility Start: 04-06-2024 End: 04-06-2024 Patient encounter procedure [facility] Work Phone: [facility] Work Phone: Start: 04-06-2024 End: 04-06-2024 ambulatory [facility] Work Phone: [facility] Work Phone: Start: 04-03-2024 End: 04-03-2024 ambulatory DAVIDSON MARTINEZ Not Available Start: 02-08-2024 End: 02-08-2024 Patient encounter procedure [facility] Work Phone: [facility] [place] Work Phone: Start: 02-08-2024 End: 02-08-2024 ambulatory [facility] Work Phone: [facility] Work Phone: Start: 01-11-2024 End: 01-11-2024 Emergency department patient visit [facility] Work Phone: [facility] Work Phone: Start: 12-08-2023 End: 12-08-2023 ambulatory IVAN EDMONDS Not Available Start: 11-23-2023 End: 11-23-2023 ambulatory [facility] Work Phone: [facility] Work Phone: Start: 11-23-2023 End: 11-23-2023 Patient encounter procedure [facility] Work Phone: [facility] Work Phone: Start: 11-23-2023 End: 11-23-2023 Departed Referred Services [facility] Work Phone: [facility] [place] Work Phone: Start: 11-23-2023 Registered Referred Services [facility] Work Phone: [facility] [place] Work Phone: Start: 11-23-2023 End: 11-23-2023 ambulatory [facility] Work Phone: [facility] Work Phone: Start: 11-10-2023 End: 11-10-2023 ambulatory IVAN EDMONDS Not Available Start: 11-02-2023 Non-patient / Non-visit [facility] Work Phone: [facility] Work Phone: Start: 11-02-2023 End: 11-02-2023 Admission to same day surgery center [facility] Work Phone: [facility] Work Phone: Start: 11-02-2023 End: 11-02-2023 ambulatory [facility] Work Phone: [facility] Work Phone: Start: 10-22-2023 End: 10-22-2023 Patient encounter procedure [facility] Work Phone: [facility] [place] Work Phone: Start: 10-22-2023 End: 10-22-2023 ambulatory [facility] Facility:[facility] Start: 10-18-2023 End: 10-18-2023 Patient encounter procedure [facility] Work Phone: [facility] Work Phone: Start: 10-05-2023 (Procedure) Ro Zarate [facility] Start: 10-05-2023 Non-patient / Non-visit [facility] Work Phone: [facility] Work Phone: Start: 10-05-2023 End: 10-05-2023 Admission to same day surgery center [facility] Work Phone: [facility] Work Phone: Start: 10-05-2023 End: 10-05-2023 ambulatory [facility] Work Phone: [facility] Work Phone: Start: 09-14-2023 (Procedure) Ro Zarate [facility] Start: 09-14-2023 End: 09-14-2023 Admission to same day surgery center [facility] Work Phone: [facility] Work Phone: Start: 09-14-2023 End: 09-14-2023 ambulatory [facility] Work Phone: [facility] Work Phone: Start: 08-30-2023 End: 08-30-2023 ambulatory Apolinar Zarate Other [facility] [employer] Other Start: 08-30-2023 Office outpatient visit 25 minutes Apolniar Zarate [facility] Start: 08-30-2023 End: 08-30-2023 Patient encounter procedure [facility] Work Phone: [facility] Work Phone: Start: 08-05-2023 End: 08-05-2023 ambulatory [facility] Work Phone: [facility] Work Phone: Start: 08-05-2023 End: 08-05-2023 Discharged Recurring [facility] Work Phone: [facility] Work Phone: Start: 07-14-2023 End: 07-14-2023 Patient encounter procedure [facility] Work Phone: [facility] [place] Work Phone: Start: 07-14-2023 End: 07-14-2023 ambulatory [facility] Work Phone: [facility] Work Phone: Start: 07-02-2023 End: 07-02-2023 ambulatory Apolinar Zarate Other [facility] [employer] Other Start: 07-02-2023 Telephone encounter Apolinar Zarate [facility] Start: 06-30-2023 End: 06-30-2023 Patient encounter procedure [facility] Work Phone: [facility] [place] Work Phone: Start: 06-30-2023 End: 06-30-2023 ambulatory [facility] Work Phone: [facility] Work Phone: Start: 04-08-2023 End: 04-08-2023 ambulatory [facility] Work Phone: [facility] Work Phone: Start: 04-08-2023 End: 04-08-2023 Patient encounter procedure [facility] Work Phone: [facility] Work Phone: Start: 02-04-2023 End: 02-04-2023 ambulatory Services [facility] Work Phone: [facility] Work Phone: Start: 02-04-2023 End: 02-04-2023 Patient encounter procedure Services [employer] [facility] Work Phone: [facility] [place] Work Phone: Start: 10-21-2022 End: 10-21-2022 ambulatory Services [facility] Work Phone: [facility] Work Phone: Start: 10-21-2022 End: 10-21-2022 Patient encounter procedure Services [facility] Work Phone: [facility] [place] Work Phone: Start: 07-17-2022 End: 07-17-2022 ambulatory HEALTH SERVICES [facility]: Start: 11-27-2021 End: 11-27-2021 ambulatory Joel Anand Other [facility] Other Start: 11-27-2021 Office outpatient visit 15 minutes Joel Anand [facility] Procedures Date Procedure Procedure Detail Performing Clinician Start: 04-06-2024 Screening mammograph y of bilateral breasts Services [employer] [facility] Work Phone: Start: 01-11-2024 Plain chest X-ray [facility] Work Phone: Start: 11-02-2023 DH Nerve Radio Frequ ency (Bilateral) Services [employer] Work Phone: Start: 10-05-2023 Local anesthetic lum bar facet joint nerve block Services [employer] Work Phone: Start: 09-14-2023 Local anesthetic lum bar facet joint nerve block Services [employer] Work Phone: Start: 07-14-2023 X-ray of lumbar spin e, four views Services [employer] Work Phone: Start: 06-30-2023 CT of soft tissues o f neck with contrast Services [employer] Phone: Start: 06-30-2023 US scan of thyroid Serv [facility] [employer] Work Phone: Start: 04-08-2023 Screening mammograph y of bilateral breasts Services [employer] Phone: Start: 10-21-2022 Plain chest X-ray Servi [facility] [employer] Work Phone: Plan of Treatment Date Care Activity Detail Author Start: 01-11-2024 Plain chest X-ray XR chest 1V [place] [facility] Start: 01-11-2024 XR Chest Single view [facility] Start: 11-02-2023 [facility] Start: 10-05-2023 [facility] Start: 09-14-2023 [facility] Patient Education [facility] Work Phone: Patient referral [facility] Work Phone: Payers Date Payer Category Payer Unknown [id number] 2023 Self-pay [id number] 2023 Unknown [id number] 2022 Private Health Insurance [id number] 1959 Unknown [id number] 93 1959 Unknown [id number] 259 1959 Unknown [id number] 2.16.840.1.171959.3.579.2.1 259 1959 Unknown [id number] 2.16.840.1.024479.3.579.2.1 259 1959 Unknown [id number] 2.16.840.1.134055.3.579.2.1 259 1960 Medicare [id number] Medicaid Medicaid [id number] Medicare [id number] Medicare [id number] Medicare [id number] Medicare [employer] Dual Adv [id number] Unknown [id number] Unknown [id number] [id number] 31 Unknown [id number] 2.16.840.1.417461.3.579.2.5 31 Unknown [id number] [id number] 31 Unknown [id number] 2.16.840.1.753917.3.579.2.5 31 Unknown [id number] 2.16.840.1.428203.3.579.2.5 31 Unknown [id number] 2.16.840.1.986736.3.579.2.5 31 Unknown [id number] 2.16.840.1.095630.3.579.2.5 31 Unknown [id number] 2.16.840.1.886517.3.579.2.5 31 Unknown [id number] 2.16.840.1.287604.3.579.2.5 31 Unknown [id number] 2.16.840.1.931188.3.579.2.5 31 Unknown [id number] 2.16.840.1.522278.3.579.2.5 31 Social History Date Type Detail Facility Unknown if ever smoked [facility] Other Sex Assigned At Sex Assigned At Bir th [facility] Other Start: 10-14-2021 End: 01-11-2024 Tobacco smoking status [facility] Ex-smoker (finding) [facility] Start: 1960 Sex Assigned At Female F [facility] Start: 08-30-2023 End: 08-30-2023 Tobacco smoking status [facility] Never smoked tobacco (finding) [facility] Medical Equipment Procedure Code Equipment Code [...] & Type Note Facility 11-02-2023 Procedure note [facility] 09-14-2023 Procedure note [facility] 08-30-2023 Evaluation note Encounter Date Diagnosis [...] Above note written by Shane Ferguson MA, Interactive Marketing Strategist. Edited and approved by Dr. Apolinar Zarate MD. [facility] Other 11-17-2023 Evaluation note* Encounter Date Diagnosis Assessment Notes Treatment Notes Treatment Clinical Notes Jun, Other low back pain (ICD-10 - M54.59) [facility] Other 04-14-2022 Evaluation note* Encounter Date Diagnosis Assessment Notes Treatment Notes Treatment Clinical Notes Nov, History of colon polyps (ICD-10 - Z86.010) Nov, Inflammatory polyps of colon (ICD-10 - K51.40) PATIENT ADVISED WE WILL REPEAT THIS IN 10 YEARS Nov, Diverticulosis (ICD-10 - K57.90) Nov, Hemorrhoids (ICD-10 - K64.9) [facility] Other 04-29-2016 History general Narrative - Reported* Type Description Date Medical History 12/13/15 Colonsocopy- hyperplastic polyps sigmoid and rectum repeat in 5 years Medical History High Cholesterol Medical History arthritis in spine Surgical History gallbladder Surgical History appendix Surgical History tubes tied Surgical History hysterectomey 1999 Surgical History tonsil Surgical History RT SHOULDER ROTOR CUFF Surgical History BLADDER LIFT Hospitalization History see above [facility] Other Evaluation noteNo assessment information available [facility] Work Phone: [facility] [employer] Other Evaluation note* Diagnosis Onset Date Resolution Status Lumbosacral spondylosis without myelopathy acute Other chronic pain acute Other low back pain acute [facility] Work Phone: Evaluation note* Diagnosis Onset Date Resolution Status Lumbosacral spondylosis without myelopathy acute Other chronic pain acute Other low back pain acute Lumbosacral spondylosis without myelopathy acute Other chronic pain acute Other low back pain acute [facility] Work Phone: Hospital Discharge instructions Additional Instructions Continue current meds Follow-up [facility] Work Phone: Summary Purpose [...] Myocardial infarction Unknown Unknown Not Specified Unknown Relationship Condition Age at Onset Recorded Date/T leno father Diabetes mellitus Unknown Myocardial infarction Unknown Heart disease Unknown mother Malignant neoplasm of ovary Unknown brother Hypertension Unknown History of heart shilpi ve replacement with porcine valve Unknown sister Diabetes mellitus Unknown Osteoporosis Unknown Arthritis Unknown Hypertension Unknown sister Malignant neoplasm of skin Unknown brother Diabetes mellitus Unknown Coronary artery disease Unknown brother Myocardial infarction Unknown Unknown mother Unknown Advance Directives No Advanced Directives Records [...] pain Other low back pain Chief Complaint e04.1 F/U JEEVAN LUMBAR FACET RFA feet and leg swelling e78.5 Reason for Visit Lumbosacral spondylo sis without myelopathy Other chronic pain Other low back pain Chief Complaint feet and leg swellin g e78.5 Screening Additional Source Comments INFORMATION SOURCE (unrecogn ized section and content) DATE CREATED AUTHOR 01/08/2022 [facility] dical Specialist DATE CREATED AUTHOR AUTHOR'S ORGANIZ ATION 07/19/2022 [facility] pital DATE CREATED AUTHOR AUTHOR'S ORGANIZ ATION 04/04/2024 [facility] EPIC DATE CREATED AUTHOR AUTHOR'S ORGANIZ ATION 04/10/2024 [facility] REASON FOR VISIT (unrecogniz ed [...] Inactive Member Role Status Dates Services [facility] Primary Care Provider Active Jayden Quevedo DO Attending Provider Active Josiah Farmer DO RES Referring Provider Active Team Status: Inactive Member Role Status Dates Services [facility] Primary Care Provider Active Zachariah Crowley DO Attending Provider Active Orly Fontaine MD RES Other Provider Active Team Status: Inactive Member Role Status Dates Services [facility] Primary Care Provider Active Zachariah Crowley , Attending Provider Active Orly Fontaine MD [...] Inactive Member Role Status Dates Services [facility] Primary Care Provider Active Start: July 14, [...] Status: Inactive Member Role Status Dates Services [facility] Primary Care Provider Active Start: November 02, 2023 End: November 02, 2023 Apolinar Zaarte MD Attending Provider Active Sta rt: November [...] 23, 2023 End: November 23, 2023 Services [facility] Primary Care Provider Active Start: November 23, 2023 End: November 23, 2023 Team Status: Inactive Member Role Status Dates Ivan Edmonds DO Attending Provider Active S tart: November 23, 2023 End: November 23, 2023 Team Status: Inactive Member Role Status Dates Services [facility] Primary Care Provider Active Start: January 11, 2024 End: January 11, 2024 Vito Ferguson MD Emergency Provider Active Star t: January 11, 2024 End: January 11, 2024 Team Status: Inactive Member Role Status Dates Services [facility] Primary Care Provider Active Start: February 08, 2024 End: February 08, 2024 Nehal West MD Attending Provider Active St art: February 08, 2024 End: February 08, 2024 Rico Choi MD RES Other Provider Active Star t: February 08, 2024 End: February 08, 2024 Team Status: Inactive Member Role Status Dates Services [facility] Primary Care Provider Active Start: April 06, 2024 End: April 06, 2024 Referral Self Attending Provider Active Start: Tashi case 2023 End: April 06, 2024 Davidson Martinez DO Referring Provider Active Sta rt: April 06, 2024 End: April 06, 2024 Goals (unrecognized section and content) Goals [...] BE BASED ON THE PRIMARY CLINICAL RECORDS. [email or web address] [facility]. provides no warranty or guarantee of the accuracy or completeness of information in this document.
--- NOTE | 2024-05-02 19:20 | PC.NURSE ---
Has had urinary frequency and burning with urination past 3 days.
--- NOTE | 2024-05-02 19:34 | ED_ITS ---
HPI - Female Genitourinary General Chief complaint: Urogenital-Female Stated complaint: UTI Time Seen by Provider: 05/02/24 19:14 Source: patient Mode of arrival: walk-in Limitations: no limitations History of Present Illness HPI Narrative: This 63-year old female presents for evaluation of urinary frequency urgency and dysuria for the past 3 to 4 days. She states having to urinate every couple of minutes to hours is keeping her up at night. She has not had a fever. She has not noticed any blood in her urine. She denies any nausea vomiting diarrhea. She denies any flank pain. She states she has called her doctor several times but they could not get her in. She states she cannot go through another night like this. She denies any chest pain shortness of breath dizziness or other symptoms. Related Data Home Medications ?Medication ?Instructions ?Recorded ?Confirmed atorvastatin 40 mg tablet 40 mg PO DAILY 10/28/23 02/03/24 celecoxib 200 mg capsule 200 mg PO Q24H 10/28/23 02/03/24 esomeprazole magnesium 40 mg 40 mg PO Q24H 10/28/23 02/03/24 capsule,delayed release fluticasone propionate 44 2 inh inhalation Q12H PRN wheeze 10/28/23 10/28/23 mcg/actuation HFA aerosol inhaler losartan 25 mg tablet 25 mg PO DAILY 10/28/23 02/03/24 Previous Rx's ?Medication ?Instructions ?Recorded ibuprofen 800 mg tablet 800 mg PO Q8H PRN pain #20 tabs 10/28/23 hydrocodone 5 mg-acetaminophen 325 1 tab PO Q6H PRN pain 2 days #6 02/03/24 mg tablet tabs methocarbamol 750 mg tablet 750 mg PO TID PRN pain #20 tabs 02/03/24 methylprednisolone 4 mg tablets in See Rx Instructions .Route 02/03/24 a dose pack (Medrol (Jonathan)) .COMPLEX #21 ea Allergies Allergy/AdvReac Type Severity Reaction Status Date / Time No Known Drug Allergies Allergy Verified 05/02/24 19:16 Review of Systems ROS Status of ROS 10 or more systems reviewed and unremark able except as noted in history and below PFSH PFSH Social History Smoking status: Former smoker Little interest or pleasure in doing things: not at all Feeling down, depressed, or hopeless: not at all Exam Narrative Exam Narrative: Vital signs and Nursing Notes reviewed: Patient is afebrile with a normal pulse, blood pressure is elevated at 161/72, she is not hypoxic with pulse ox of 98% on room air General: Awake, alert, oriented, no acute distress, ambulatory in the room without any distress HEENT: Normocephalic atraumatic, mucous membranes are moist and pink, eyes are clear, normal conjunctiva, vision is grossly intact Chest: Lungs are clear to auscultation with good air entry, there is no wheezing rhonchi or rales appreciated no accessory muscle use, patient is speaking in complete sentences-no chest wall tenderness to palpation CVS: Regular rate and rhythm S1-S2, no murmurs rubs or gallops, pulses are brisk and equal bilaterally ABD: Soft, nondistended, nontender, no rebound guarding or rigidity, bowel sounds are normal, no pulsatile masses appreciated Skin: Normal in appearance without rash,pallor, petechiae or purpura Neuro: No focal deficits Constitutional Vital Signs, click to edit/add: Last Vital Signs Temp 98.3 F 05/02/24 19:16 Pulse 88 05/02/24 19:16 Resp 20 05/02/24 19:16 BP 161/72 H 05/02/24 19:16 Pulse Ox 98 05/02/24 19:16 O2 Del Method Room Air 05/02/24 19:16 Course Vital Signs Vital signs: Vital Signs Temperature 98.3 F 05/02/24 19:16 Pulse Rate 88 05/02/24 19:16 Respiratory Rate 20 05/02/24 19:16 Blood Pressure 161/72 H 05/02/24 19:16 Pulse Oximetry 98 05/02/24 19:16 Oxygen Delivery Method Room Air 05/02/24 19:16 Temperature 98.3 F 05/02/24 19:16 Pulse Rate 88 05/02/24 19:16 Respiratory Rate 20 05/02/24 19:16 Blood Pressure 161/72 H 05/02/24 19:16 Pulse Oximetry 98 05/02/24 19:16 Oxygen Delivery Method Room Air 05/02/24 19:16 MDM - Female Genitourinary MDM Narrative Medical decision making narrative: This 63-year-old female presents for evaluation of 3 to 4 days of urinary frequency urgency and dysuria. She has not had any hematuria. She denies any abdominal pain or flank pain. She has not had a fever. She has had urinary tract infections in the past but cannot recall what antibiotic works best for her. She was medicated emergency department with a dose of Pyridium and Cipro pending urine culture results. She will be discharged home with Pyridium and Cipro. She was encouraged to follow-up closely with her family physician and return to the emergency department for any fever flank pain vomiting, inability to tolerate her medications or any concerns. Discharge Plan Discharge Chief Complaint: Urogenital-Female Clinical Impression: UTI (urinary tract infection) Patient Disposition: Home, Self-Care Time of Disposition Decision: 19:32 Condition: Good Prescriptions / Home Meds: No Action atorvastatin 40 mg tablet 40 mg PO DAILY esomeprazole magnesium 40 mg capsule,delayed release(DR/EC) 40 mg PO Q24H fluticasone propionate 44 mcg/actuation HFA aerosol inhaler 2 inh inhalation Q12H PRN (Reason: wheeze) Rx Instructions: administer with spacer losartan 25 mg tablet 25 mg PO DAILY celecoxib 200 mg capsule 200 mg PO Q24H ibuprofen 800 mg tablet 800 mg PO Q8H PRN (Reason: pain) Qty: 20 0RF hydrocodone-acetaminophen 5-325 mg tablet 1 tab PO Q6H PRN (Reason: pain) 2 Days Qty: 6 0RF Rx Instructions: DX: M54.2 methocarbamol 750 mg tablet 750 mg PO TID PRN (Reason: pain) Qty: 20 0RF methylprednisolone [Medrol (Jonathan)] 4 mg tablets,dose pack See Rx Instructions .ROUTE .COMPLEX Qty: 21 0RF Rx Instructions: Taper as directed Print Language: Chinese Instructions: Urinary Tract Infection in Women (ED) Referrals: FAMILY,HEALTH SER [Primary Care Provider] - 1 week
[2024-05-02 19:35] LABS: Bilirubin Urine NEGATIVE (NEGATIVE); Blood Urine LARGE (NEGATIVE); Clarity Urine CLEAR (CLEAR); Color Urine LT. YELLOW (YELLOW); Glucose Urine UA NEGATIVE (NEGATIVE); Ketones Urine NEGATIVE (NEGATIVE); Leukocyte Esterase Urine LARGE (NEGATIVE); Nitrite Urine POSITIVE (NEGATIVE); Protein Urine 100 mg/dL (NEG/TRACE); Specific Gravity Urine 1.015 (1.005-1.025); Urobilinogen Urine 0.2 EU/dL (0.2-1.0)
[2024-05-02] MEDS: PHENAZOPYRIDINE 100 MG TABLET 200 MG PO (19:47)
[2024-05-02] MEDS: CIPROFLOXACIN HCL 500 MG TABLET PO (19:47)
[2024-05-02 19:59] LABS: Bacteria Urine LARGE #/HPF (NONE SEEN); Cast Seen? NONE SEEN #/LPF (NONE SEEN); Crystals Seen? None Seen #/HPF (None Seen); Mucus Urine NONE SEEN (NONE SEEN); RBC Urine 0-2 #/HPF (0-2); Squamous Epithelial Cell Urine FEW #/LPF (NONE/RARE); Urine Culture Indicated YES; WBC Urine 20-50 #/HPF (NONE SEEN)
== END 2024-05-02 19:48 | disposition home or self-care (01) ==
PROVIDERS: Emergency Provider Emergency Medicine
DX: N39.0 Urinary tract infection, site not specified (principal); Z87.891 Personal history of nicotine dependence
CPT/HCPCS: 81001; 87086; 99283

== ENCOUNTER 2025-03-30 20:14 | Emergency (ER) | payer MEDICARE, MEDICAID, SELFPAY ==
[2025-03-30 20:20] VITALS: BP 140/60; PULSE 80; TEMP 37; O2SAT 94; BMI 34.9
--- OUTSIDE RECORDS SUMMARY | 2025-03-30 20:24 | XMS_ITS | CCD ---
Author Organization [facility] Inform ion Partnership [facility] Care Team Providers Care Third Mate Name Role Phone Joel Anand Unavailable [facility] Primary Care Unavaila DR AVERY Ellis Consulting Unavailable IRENE, DR VARELA Admitting Unavailable DR AVERY BONILLA Attending Unavailable [facility], Services Primary Care Provider [phone] DO Jayden Quevedo Attending Provider DO Josiah Farmer Referring Provider [facility] Primary Care Provider [phone] DO Zachariah Crowley Attending Provider [phone] MD Orly Fontaine Other Provider [phone] MD Orly Fontaine Other Provider DO Jayden Quevedo Attending Provider DO Harrison Sánchez Referring Provider [phone] Un[address] [facility] Primary Care Provider DO Jayden Quevedo Attending Provider DO Harrison Sánchez Referring Provider MD Apolinar Zarate Attending Provider [facility], Services Primary Care Provider [facility] Primary Care Provider MD Apolinar Zarate Attending Provider DO Harrison Sánchez Attending Provider DO Ivan Edmonds Attending Provider [phone] [facility] Primary Care Provider MD Apolinar Zarate Attending Provider [phone] MD Dony Ferguson Emergency Provider [facility] Primary Care Provider [phone] MD Nehal West Attending Provider [phone] MD Rico Choi Other Provider Self, Referral Attending Provider Unavailable Visci, DO Davidson Referring Provider [facility], Services Primary Care Provider [phone] MD Apolinar Zarate Attending Provider EVELIA Lewis Emergency Provider Mast , Zachariah E Primary Care Provider [phone] MurceIvan whitt DO W Unavailable [phone] MURCEK, IVAN W Attending Unavailable MURCEK, IVAN W Attending Unavailable MAST, ZACHARIAH E Referring Unavailable MURCEK, IVAN W Attending Unavailable MAST, ZACHARIAH E Referring Unavailable VISCI, DAVIDSON A Attending Unavailable MURCEK, IVAN W Attending Unavailable MAST, ZACHARIAH E Referring Unavailable [facility], Services Primary Care Provider Self, Referral Attending Provider Unavailable Visci , Davidson Referring Provider [phone] Apolinar Zarate MD Attending Provider Marlys Lewis APRN Emergency Provider [facility], Services Primary Care Provider Tari Thomason APRN Emergency Provider [phone] Jayden Quevedo DO Attending Provider [phone] Rico Choi MD Other Provider Mast [facility] Zachariah ARIAS Attending Provider [phone] [facility], Services Primary Care Provider Apolinar Zarate MD Attending Provider Rico Choi MD Other Provider Apolinar Zarate MD Other Provider Apolinar Zarate Admitting Unavailable Apolinar Zarate Attending Unavailable [facility] Primary Care Unavaila ble Apolinar Zarate Admitting Unavailable Apolinar Zarate Attending Unavailable [facility] Primary Care Unavaila ble Marlys Lewis Admitting Unavailable Marlys Lewis Attending Unavailable [facility] Primary Care Unavaila Tari Ramos Admitting Unavailable Tari Thomason Attending Unavailable [facility], Services Primary Care Unavaila ble Mast - [facility], Zachariah Admitting Unavailable [facility]ast - [facility], Zachariah Attending Unavailable [facility], Services Primary Care Unavaila Rico Fuchs Consulting Unavailable Self, Referral Admitting Unavailable Self, Referral Attending Unavailable Davidson Krishnamurthy Referring Unavailable [facility] Primary Care Unavaila Jayden Pradhan Admitting Unavailable Jayden Quevedo Attending Unavailable [facility] Primary Care Unavaila Rico Fuchs Consulting Unavailable Medications Current Medications Medication Drug Class(es) Dates Sig (Normalized) Sig (Original) atorvastatin 40 mg oral tablet (20 sources) HMG-CoA Reductase Inhibitor Start: 07-16-2017 take 1 tablet by mouth once daily in the morning Atorvastatin 40 tablet Active 40 MG PO Every morning July 16, 2017 1:00am Complies with drug therapy cyclobenzaprine hydrochloride 10 mg oral tablet (3 sources) Muscle Relaxant take 1 tablet by mouth three times daily as needed for muscle spasms cyclobenzaprine (Flexeril) 10 MG tablet Take 10 mg by mouth 3 (three) times a day as needed for muscle spasms Active esomeprazole 40 mg delayed release oral capsule (20 sources) Proton Pump Inhibitor Start: 07-16-2017 take 1 capsule by mouth twice daily Esomeprazole Magnesium 40 capsule,delayed release(DR/EC) Active 40 MG PO Twice daily July 16, 2017 1:00am Complies with drug therapy take 1 capsule by mo uth every twelve hours NexIUM [address] capsule Take 1 capsule b y mouth every 12 (twelve) hours Active estradiol 0.1 mg/ml vaginal cream (3 sources) Estrogen Start: 04-03-2024 End: 04-03-2025 estradiol (Estrace) 0.1 MG/GM vaginal cream Indications: Vulvovaginal Atrophy Insert 1 g into the vagina 2 (two) times a week 42.5 g 1 04/03/2024 04/03/2025 Active fluticasone propionate 0.05 mg/actuat metered dose nasal spray (20 sources) Corticosteroid Start: 01-11-2024 fluticasone (F lonase) 50 MCG/ACT nasal spray Administer 2 sprays into each nostril if needed 01/11/2024 Active Start: 01-11-2024 Fluticasone Pr opionate 50 mcg/actuation spray,suspension Active 1 SPRAY INTRANASAL Daily January 11, 2024 12:00am Complies with drug therapy Start: 07-16-2017 End: 12-29-2018 Fluticasone Propionate 50 sp ray,suspension Discontinued 2 SPRAY INTRANASAL Daily as needed for Cold Symptoms July 16, 2017 1:00am December 29, 2018 10:41am hydroCHLOROthiazide 25 mg / triamterene 37.5 mg oral capsule (20 sources) Potassium-sparing Diuretic, Thiazide Diuretic Start: 07-16-2017 End: 12-29-2018 take 1 tablet by mouth once daily in the morning Triamterene-Hydrochlorothiazid 37.5-25 mg capsule Active 1 TAB PO Every morning December 29, 2018 12:00am Complies with drug therapy take 1 tablet by adolfo th once daily triamterene-hydrochlorothiazide (Maxzide -25) 37.5-25 MG tablet Take 1 tablet by mouth 1 (one) time each day at the same time Active lidocaine 0.05 mg/mg medicated patch (3 sources) Antiarrhythmic, Amide Local Anesthetic Start: 02-08-2024 lidocaine (Lidoderm) 5 % patch Apply topically if needed 02/08/2024 Active Lisinopril (3 sources) Angiotensin Converting Enzyme Inhibitor Lisinopril Active losartan potassium 25 mg oral tablet (20 sources) Angiotensin 2 Receptor Donnell Start: 07-16-2017 take 1 tablet by mouth once daily in the morning Losartan 25 tablet Active 25 MG PO Every morning July 16, 2017 1:00am Complies with drug therapy melatonin 10 mg disintegrating oral tablet (3 sources) take 5 mg by mouth at bedtime Melatonin 10 MG tablet dispersible Take 5 mg by mouth at bedtime Active meloxicam 15 mg oral tablet (20 sources) Nonsteroidal Anti-inflammatory Drug Start: 02-19-2025 take 1 tablet by mouth once daily Meloxicam 15 mg tablet Active 15 MG PO Daily February 19, 2025 12:00am Complies with drug therapy Start: 12-29-2018 End: 01-13-2019 take 1 tablet by mouth once daily in the morning Meloxicam 7.5 mg tablet Discontinued 7.5 MG PO Every morning December 29, 2018 12:00am January 13, 2019 7:54am Start: 07-16-2017 End: 12-29-2018 take 1 tablet by mouth once daily Meloxicam 15 tablet Discontinued 15 MG PO Daily July 16, 2017 1:00am December 29, 2018 10:38am 24 hr mirabegron 50 mg extended release oral tablet (3 sources) beta3-Adrenergic Agonist Start: 04-03-2024 End: 04-03-2025 take 1 tablet by mouth once daily mirabegron ER (Myrbetriq) 50 MG 24 hr tablet Indications: Urinary urgency Take 1 tablet (50 mg) by mouth Daily Do not crush, chew, or split. 90 tablet 3 04/03/2024 04/03/2025 Active Completed/Discontinued Medications Medication Drug Class(es) Dates Sig (Normalized) Sig (Original) acetaminophen 325 mg / HYDROcodone bitartrate 5 mg oral tablet (20 sources) Opioid Agonist Start: 01-13-2019 End: 08-24-2019 take 1 tablet by mouth every six hours as needed for pain Hydrocodone-Acetam inophen ([place]) 5-325 mg tablet Discontinued 1 TAB PO Q6H as needed for pain 20 January 13, 2019 August 24, 2019 7:25pm albuterol 0.83 mg/ml inhalation solution (20 sources) beta2-Adrenergic Agonist Start: 10-30-2017 End: 12-29-2018 take 2.5 mg by inhalation every four hours as needed for wheezing Albuterol Sulfate 2.5 mg /3 mL (0.083 %) solution for nebulization Discontinued 2.5 MG INHALATION Q4H as needed for shortness of breath or wheezing October 30, 2017 12:00am November 02, 2017 12:04pm Start: 07-16-2017 End: 10-30-2017 take 1 puff(s) by inhalation every four hours Albuterol Sulfate (Ventolin Hfa) 108 HFA aerosol inhaler Discontinued 2 PUFF INHALATION Q4H July 16, 2017 1:00am October 30, 2017 12:28pm Start: 07-16-2017 End: 10-30-2017 Albuterol Sulfate 90 mcg/act uation HFA aerosol inhaler Discontinued 2 INH INHALATION Every 4 hours as needed for shortness of breath or wheezing 18 July 16, 2017 1:00am October 30, 2017 12:29pm administer with spacer amoxicillin 875 mg / clavulanate 125 mg oral tablet (8 sources) Penicillin-class Antibacterial Start: 06-09-2024 End: 02-19-2025 take 1 tablet by mouth twice daily Amoxicillin-Pot Clavulanate 875-125 mg tablet Discontinued 1 TAB PO Twice daily 13 June 09, 2024 12:00am February 19, 2025 9:05am azithromycin 250 mg oral tablet (20 sources) Macrolide Antimicrobial Start: 07-16-2017 End: 10-30-2017 take 1 tablet by mouth once daily Azithromycin (Zithromax) 250 mg tablet Discontinued 250 MG PO Daily July 16, 2017 1:00am October 30, 2017 12:28pm Take 500mg on day one, 250mg daily for four more days. celecoxib 200 mg oral capsule (20 sources) Nonsteroidal Anti-inflammatory Drug Start: 10-05-2023 End: 11-04-2024 take 1 capsule by mouth once daily at mealtime Celecoxib 200 mg capsule Discontinued 200 MG PO Daily October 05, 2023 1:00am November 04, 2024 6:46pm [employer] capsule with food Orally Once a day; Note: Source Status: Taking; Provider: Tessa Jiang ( ) cephalexin 500 mg oral capsule (20 sources) Cephalosporin Antibacterial Start: 08-24-2019 End: 10-14-2021 take 1 capsule by mouth three times daily Cephalexin (Keflex) 500 mg Capsule Discontinued 500 MG PO Three times daily August 24, 2019 1:00am October 14, 2021 8:28am cetirizine hydrochloride 10 mg oral tablet (16 sources) Histamine-1 Receptor Antagonist Start: 01-11-2024 End: 06-06-2024 take 1 tablet by mouth once daily as needed Cetirizine (24hour Allergy) 10 mg tablet Discontinued 10 MG PO Daily as needed for allergy symptoms January 11, 2024 12:00am June 06, 2024 9:38am codeine phosphate 2 mg/ml / promethazine hydrochloride 1.25 mg/ml oral solution (20 sources) Opioid Agonist, Phenothiazine Start: 07-16-2017 End: 11-02-2017 take 1 mL by mouth every six hours as needed for cough Promethazine-Codein e 6.25-10 mg/5 mL syrup Discontinued 5 ML PO Q6H as needed for cough 60 July 16, 2017 1:00am November 02, 2017 12:06pm fluconazole 100 mg oral tablet (8 sources) Azole Antifungal Start: 06-09-2024 End: 03-06-2025 take 1 tablet by mouth once daily Fluconazole (Diflucan) 100 mg tablet Discontinued 100 MG PO Daily June 09, 2024 12:00am March 06, 2025 8:29am ibuprofen 600 mg oral tablet (20 sources) Nonsteroidal Anti-inflammatory Drug Start: 01-13-2019 End: 08-24-2019 take 4 tablets by mouth every twenty-four hours for pain Ibuprofen 600 mg tablet Discontinued 600 MG PO Every 6 hours as needed for pain January 13, 2019 12:00am August 24, 2019 7:25pm do not exceed 4 doses in a 24 hour period ipratropium bromide 0.2 mg/ml inhalation solution (20 sources) Anticholinergic Start: 10-30-2017 End: 12-29-2018 take 0.5 mg by inhalation every eight hours Ipratropium [place] 0.02 % solution Discontinued 0.5 MG INHALATION Q8H 75 October 30, 2017 12:00am December 29, 2018 10:42am Start: 10-30-2017 End: 12-29-2018 take 0.5 mg by inhalation every eight hours Ipratropium [place] Discontinued 0.5 MG INHALATION Q8H 75 October 30, 2017 12:00am December 29, 2018 10:42am levoFLOXacin 750 mg oral tablet (20 sources) Quinolone Antimicrobial Start: 10-30-2017 End: 11-09-2017 take 1 tablet by mouth every twenty-four hours Levofloxacin (Levaquin) 750 mg tablet Discontinued 750 MG PO Q24H 10 October 30, 2017 12:00am November 08, 2017 12:00am November 09, 2017 12:03am metroNIDAZOLE 500 mg oral tablet (20 sources) Nitroimidazole Antimicrobial Start: 04-04-2018 End: 12-29-2018 take 1 tablet by mouth twice daily Metronidazole (Flagyl) 500 mg tablet Discontinued 500 MG PO Twice daily 14 April 04, 2018 12:00am December 29, 2018 10:42am nabumetone 750 mg oral tablet (6 sources) Nonsteroidal Anti-inflammatory Drug Start: 11-04-2024 End: 03-06-2025 take 1 tablet by mouth twice daily Nabumetone 750 mg tablet Discontinued 750 MG PO Twice daily November 04, 2024 12:00am March 06, 2025 8:29am nitrofurantoin, macrocrystals 25 mg / nitrofurantoin, monohydrate [...] chloride 20 meq powder for oral solution (20 sources) Start: 08-24-2019 End: 10-14-2021 take 20 mEq by mouth once daily Potassium Chloride 20 mEq packet Discontinued 20 MEQ PO Daily August 24, 2019 1:00am October 14, 2021 8:44am predniSONE 20 mg oral tablet (20 sources) Start: 10-30-2017 End: 11-04-2017 take 2 tablets by mouth once daily at mealtime Prednisone 20 mg tablet Discontinued 40 MG PO Daily 10 October 30, 2017 12:00am November 03, 2017 12:00am November 04, 2017 12:04am administer with food or milk Start: 10-30-2017 End: 11-04-2017 take 40 mg by mouth once daily at mealtime Prednisone Discontinued 40 MG PO Daily 10 October 30, 2017 12:00am November 04, 2017 12:04am administer with food or milk Start: 07-16-2017 End: 10-30-2017 take 1 tablet by mouth once daily at mealtime Prednisone 20 mg tablet Discontinued 20 MG PO Daily July 16, 2017 1:00am October 30, 2017 12:29pm administer with food or milk promethazine hydrochloride 25 mg oral tablet (20 sources) Phenothiazine Start: 08-24-2019 End: 10-14-2021 take 1 tablet by mouth every six hours as needed for nausea Promethazine 25 mg Tablet Discontinued 25 MG PO Q6H as needed for Nausea August 24, 2019 1:00am October 14, 2021 8:45am sulfamethoxazole 800 mg / trimethoprim 160 mg oral tablet (20 sources) Dihydrofolate Reductase Inhibitor Antibacterial, Sulfonamide Antimicrobial Start: 08-24-2019 End: 10-14-2021 take 1 tablet by mouth twice daily Sulfamethoxazole- Trimethoprim 800-160 mg tablet Discontinued 1 TAB PO Twice daily August 24, 2019 1:00am October 14, 2021 8:45am tiZANidine 4 mg oral tablet (6 sources) Central alpha-2 Adrenergic Agonist Start: 11-04-2024 End: 03-06-2025 take 1 tablet by mouth three times daily as needed Tizanidine (Zanaflex) 4 mg tablet Discontinued 4 MG PO Three times daily as needed for muscle spasticity November 04, 2024 12:00am March 06, 2025 8:30am Problems Active Problems Problem Classification Problem Date Documented Date Episodic/Chronic Acute bronchitis (20 sources) Acute bronchitis; Translations: [Acute bronchitis, unspecified] 10-30-2017 Episodic Anal and rectal conditions (5 sources) Anal and rectal polyp; Translations: [Rectal polyp] Episodic Chronic obstructive pulmonary disease and bronchiectasis (20 sources) Bronchitis; Translations: [Bronchitis, not specified as acute or chronic] 11-02-2017 Episodic Diverticulosis and diverticulitis (6 sources) Diverticular disease; Translations: [Diverticulosis of intestine, part unspecified, without perforation or abscess without bleeding] Onset: 11-27-2021 Resolved: 11-27-2021 Chronic Esophageal disorders (5 sources) Gastroesophageal reflux disease; Translations: [Gastro-esophageal reflux disease without esophagitis] Chronic Essential hypertension (1 source) Essential (primary) hypertension; Translations: [Essential (primary) hypertension] Onset: 01-23-2025 Chronic Fever of unknown origin (1 source) Fever, unspecified; Translations: [FEVER UNSPECIFIED] Onset: 07-19-2022 Episodic Fluid and electrolyte disorders (20 sources) Acute hypokalemia; Translations: [Hypokalemia] Onset: 12-07-2023 08-24-2019 Episodic Genitourinary symptoms and ill-defined conditions (20 sources) Incontinence; Translations: [Stress incontinence (female) (male)] Onset: 11-09-2023 01-13-2019 Chronic Headache; including migraine (20 sources) Headache; Translations: [Headache] Onset: 12-07-2023 08-24-2019 Episodic Headache; including migraine (1 source) Headache; including migraine; Translations: [Headache, unspecified] Onset: 06-09-2024 Hemorrhoids (6 sources) Hemorrhoids; Translations: [Unspecified hemorrhoids] Onset: 11-27-2021 Resolved: 11-27-2021 Episodic Influenza (1 source) Influenza due to other identified influenza virus with other respiratory manifestations; Translations: [FLU D/T OTH ID FLU VIR OTH RSP MANF] Onset: 07-19-2022 Episodic Menopausal disorders (3 sources) Atrophy of vagina; Translations: [Postmenopausal atrophic vaginitis] Onset: 11-09-2023 11-09-2023 Chronic Mood disorders (3 sources) Depressive disorder; Translations: [Depression] Onset: 11-09-2023 11-09-2023 Chronic Nausea and vomiting (20 sources) Vomiting; Translations: [Vomiting, unspecified] Onset: 12-07-2023 08-24-2019 Episodic Osteoarthritis (3 sources) Arthritis; Translations: [Unspecified osteoarthritis, unspecified site] Onset: 11-09-2023 11-09-2023 Chronic Other aftercare (1 source) Other fpc (current) drug therapy; Translations: [OTH WRAPPER HAND CURRENT DRUG THERAPY] Onset: 07-19-2022 Episodic Other and unspecified benign neoplasm (20 sources) History of polyp of colon; Translations: [Personal history of colonic polyps] Onset: 12-07-2023 10-14-2021 Episodic Other and unspecified benign neoplasm (5 sources) Benign neoplasm of sigmoid colon; Translations: [Benign neoplasm of sigmoid colon] Episodic Other female genital disorders (3 sources) Pain in female genitalia on intercourse; Translations: [Unspecified dyspareunia] Onset: 11-09-2023 11-09-2023 Chronic Other nervous system disorders (20 sources) Chronic pain; Translations: [Other chronic pain] Onset: 12-07-2023 10-15-2023 Chronic Other nervous system disorders (15 sources) Other chronic pain; Translations: [Other chronic pain] Onset: 03-06-2025 Chronic Other upper respiratory disease (20 sources) Bleeding from nose; Translations: [Epistaxis] Onset: 12-07-2023 11-02-2017 Episodic Other upper respiratory infections (11 sources) Acute sinusitis; Translations: [Acute sinusitis, unspecified] Onset: 06-13-2024 Resolved: 06-13-2024 06-09-2024 Episodic Prolapse of female genital organs (20 sources) Cystocele and rectocele co-occurrent with complete uterovaginal prolapse; Translations: [Complete uterovaginal prolapse] Onset: 11-09-2023 01-13-2019 Chronic Regional enteritis and ulcerative colitis (6 sources) Pseudopolyposis of colon; Translations: [Inflammatory polyps of colon without complications] Onset: 11-27-2021 Resolved: 11-27-2021 Chronic Residual codes; unclassified (16 sources) Edema; Translations: [Edema, unspecified] Onset: 06-13-2024 Resolved: 06-13-2024 01-11-2024 Episodic Screening and history of mental health and substance abuse codes (1 source) Personal history of nicotine dependence; Translations: [PERSONAL HISTORY OF NICOTINE DEPEND] Onset: 07-19-2022 Episodic Spondylosis; intervertebral disc disorders; other back problems (20 sources) Lumbosacral spondylosis without myelopathy; Translations: [Spondylosis without myelopathy or radiculopathy, lumbosacral region] Onset: 12-07-2023 Chronic Spondylosis; intervertebral disc disorders; other back problems (20 sources) Low back pain; Translations: [Other low back pain] Onset: 12-07-2023 10-15-2023 Episodic Thyroid disorders (2 sources) Thyroid nodule; Translations: [Nontoxic single thyroid nodule] 06-14-2024 Chronic Unclassified (3 sources) COUGH, UNSPECIFIED; Translations: [COUGH, UNSPECIFIED] Onset: 07-19-2022 Unclassified (1 source) CONTACT W/AND (SUSP) EXPOS COVID-19; Translations: [CONTACT W/AND (SUSP) EXPOS COVID-19] Onset: 07-19-2022 Unclassified (2 sources) Call Dr. De La Rosa office to schedule a follow up appointment if you do not already have one scheduled Unclassified (1 source) Cough, unspecified; Translations: [Cough, unspecified] Onset: 06-09-2024 Urinary tract infections (20 sources) Acute urinary tract infection; Translations: [Urinary tract infection, site not specified] Onset: 12-07-2023 08-24-2019 Episodic Viral infection (1 source) Viral infection, unspecified; Translations: [VIRAL INFECTION UNSPECIFIED] Onset: 07-19-2022 Episodic Past or Other Problems Problem Classification Problem Date Documented Date Episodic/Chronic Other and unspecified benign neoplasm (1 source) Personal history of colonic polyps Onset: 11-27-2021 Resolved: 11-27-2021 Episodic Other female genital disorders (3 sources) Vaginal odor; Translations: [Other specified noninflammatory disorders of vagina] Onset: 11-09-2023 11-09-2023 Episodic Other nutritional; endocrine; and metabolic disorders (3 sources) Loss of appetite; Translations: [Anorexia] Onset: 11-09-2023 11-09-2023 Episodic Other screening for suspected conditions (not mental disorders or infectious disease) (1 source) Encounter for screening mammogram for malignant neoplasm of breast; Translations: [Encounter for screening mammogram for malignant neoplasm of breast] Onset: 04-06-2024 Episodic Sprains and strains (1 source) Strain of muscle, fascia and tendon at neck level, initial encounter; Translations: [Strain of muscle, fascia and tendon at neck level, initial encounter] Onset: 11-10-2024 Episodic Unclassified (1 source) COUGH, UNSPECIFIED; Translations: [COUGH, UNSPECIFIED] Onset: 07-17-2022 Unclassified (2 sources) Other low back pain M54.59 Results Test Name Value Interpretation Reference Range Facility A1C with Estimated Average [facility] 01-23-2025 Glucose [Mass/Vol] 137 mg/dL Normal [facility] Comment on above: Order Comment: Reaso n for Exam Screening for diabetes mellitus Result Comment: PERF ORMED BY: [place] [address] PATHOLOGIST BOAT WRAPPER PACO BLAIR M.D. Performed By: #### A 1C WTH eA, CBC, CMP, LIPID #### [address] Alanine aminotransferase [En zymatic activity/volume] in Serum or PlasmaOrdered By: Rico Choi on 01-23-2025 ALT [Catalytic activity/Vol] Alanine aminotransferase [Enzymatic activity/volume] in Serum or Plasma [facility] ALT [Catalytic activity/Vol] 24 U/L [facility] Comment on above: Order Comment: Reaso n for Exam Essential hypertension;Hyperlipidemia, unspecified hyperlipi Performed By: #### A 1C WT eA, CBC, CMP, LIPID #### [facility] [address] [place] [address] [place] Albumin [Mass/volume] in Ser um or Plasma by Bromocresol green (BCG) dye binding methoOrdered By: Rico Choi on 01-23-2025 Albumin BCG dye [Mass/Vol] Albumin [Mass/volume] in Serum or Plasma by Bromocresol green (BCG) dye binding metho 3.5-5.7 [facility] Albumin BCG dye [Mass/Vol] 4.1 g/dL 3.5-5.7 [facility] Alkaline phosphatase [Enzyma tic activity/volume] in Serum or PlasmaOrdered By: Rico Choi on 01-23-2025 ALP [Catalytic activity/Vol] Alkaline phosphatase [Enzymatic activity/volume] in Serum or Plasma 34-104 [facility] ALP [Catalytic activity/Vol] 95 U/L 34-104 [facility] Comment on above: Order Comment: Reaso n for Exam Essential hypertension;Hyperlipidemia, unspecified hyperlipi Performed By: #### A 1C WT eA, CBC, CMP, LIPID #### [facility] [address] [place] [address] [place] Aspartate aminotransferase [ Enzymatic activity/volume] in Serum or PlasmaOrdered By: Rico Choi on 01-23-2025 AST [Catalytic activity/Vol] Aspartate aminotransferase [Enzymatic activity/volume] in Serum or Plasma [address] [place] [address] AST [Catalytic activity/Vol] 17 U/L [address] [place] [address] Comment on above: Order Comment: Reaso n for Exam Essential hypertension;Hyperlipidemia, unspecified hyperlipi Performed By: #### A 1C WT eA, CBC, CMP, LIPID #### [facility] [address] [id number] [place] Basophils Auto (Bld) [#/Vol] Ordered By: Rico Choi on 01-23-2025 Basophils (Bld) [#/Vol] Automated basoph il count 0.0-0.2 [facility] Basophils [#/volume] in Bloo d by Automated countOrdered By: Rico Choi on 01-23-2025 Basophils (Bld) [#/Vol] 0.0 10*3/uL 0.0-0.2 [facility] Comment on above: Order Comment: Reaso n for Exam Essential hypertension;Hyperlipidemia, unspecified hyperlipi Result Comment: PERF ORMED BY: [place] [address] PATHOLOGIST [employer]AT WR[employer]PER PACO BLAIR M.D. Performed By: #### A 1C WTH eA, CBC, CMP, LIPID #### [facility] [address] Basophils/100 WBC Auto (Bld) Ordered By: Rico Choi on 01-23-2025 Basophils/100 WBC (Bld) Automated basophil % . [facility] Basophils/100 leukocytes in Blood by Automated countOrdered By: Rico Choi on 01-23-2025 Basophils/100 WBC (Bld) 0.6 % . [facility] Comment on above: Order Comment: Reaso n for Exam Essential hypertension;Hyperlipidemia, unspecified hyperlipi Performed By: #### A 1C WTH eA, CBC, CMP, LIPID #### [facility] [address] Bilirubin.total [Mass/volume ] in Serum or PlasmaOrdered By: Rico Choi on 01-23-2025 Bilirubin [Mass/Vol] Bilirubin.total [Mass/volume] in Serum or Plasma 0.3-1.0 [facility] Bilirubin [Mass/Vol] 0.5 mg/dL 0.3-1.0 [facility] Comment on above: Order Comment: Reaso n for Exam Essential hypertension;Hyperlipidemia, unspecified hyperlipi Performed By: #### A 1C WTH eA, CBC, CMP, LIPID #### [facility] [address] Blood estimated average gluc ose determination by estimation from glycated hemoglobinOrdered By: Rico Choi on 01-23-2025 Average glucose Estimated from glycated hemoglobin (Bld) [Mass/Vol] Glucose mean value [Mass/volume] in Blood Estimated from glycated hemoglobin [facility] Average glucose Estimated from glycated hemoglobin (Bld) [Mass/Vol] 137 mg/dL [facility] Calcium [Mass/volume] in Ser um or PlasmaOrdered By: Rico Choi on 01-23-2025 Calcium [Mass/Vol] Calcium [Mass/volume ] in Serum or Plasma 8.6-10.3 [facility] Calcium [Mass/Vol] 9.1 mg/dL 8.6-10.3 [facility] Comment on above: Order Comment: Reaso n for Exam Essential hypertension;Hyperlipidemia, unspecified hyperlipi Performed By: #### A 1C WT eA, CBC, CMP, LIPID #### [facility] [address] [place] [address] [place] Carbon dioxide, total [Moles /volume] in Serum or PlasmaOrdered By: Rico Choi on 01-23-2025 CO2 [Moles/Vol] Carbon dioxide, tota l [Moles/volume] in Serum or Plasma 21.0-31.0 [facility] CO2 [Moles/Vol] 30.1 mmol/L 21.0-31.0 [facility] Comment on above: Order Comment: Reaso n for Exam Essential hypertension;Hyperlipidemia, unspecified hyperlipi Performed By: #### A 1C WT eA, CBC, CMP, LIPID #### [facility] [address] [place] [address] [place] Chloride [Moles/volume] in S rashawn or PlasmaOrdered By: Rico Choi on 01-23-2025 Chloride [Moles/Vol] Chloride [Moles/volume] in Serum or Plasma 98-107 [facility] Chloride [Moles/Vol] 105 mmol/L 98-107 [facility] Comment on above: Order Comment: Reaso n for Exam Essential hypertension;Hyperlipidemia, unspecified hyperlipi Performed By: #### A 1C WT eA, CBC, CMP, LIPID #### [facility] [address] [place] [address] [place] Cholesterol [Mass/volume] in Serum or PlasmaOrdered By: Rico Choi on 01-23-2025 Cholesterol [Mass/Vol] Cholesterol [Mass/volume] in Serum or Plasma 140-200 [facility] Comment on above: Chol less than 200 m g/dl low riskChol 201-239 mg/dl borderline riskChol 240 mg/dl and greater high risk Cholesterol [Mass/Vol] 170 mg/dL 140-200 [facility] Comment on above: Chol less than 200 m g/dl low riskChol 201-239 mg/dl borderline riskChol 240 mg/dl and greater high risk Order Comment: Sherrio n for Exam Essential hypertension;Hyperlipidemia, unspecified hyperlipi Result Comment: Chol less than 200 mg/dl low risk Chol 201-239 mg/dl borderline risk Chol 240 mg/dl and greater high risk Performed By: #### A 1C WT eA, CBC, CMP, LIPID #### [facility] [address] [id number] [facility] Cholesterol in HDL [Mass/vol ume] in Serum or PlasmaOrdered By: Rico Choi on 01-23-2025 Cholesterol in HDL [Mass/Vol] Serum or plasma high density lipoprotein (HDL) cholesterol measurement [facility] Comment on above: HDL CHOL ATP-III CLA SSIFICATION Cardiovascular RiskHDL > or equal to 60 mg/dL LOWHDL < 40 mg/dL HIGH Cholesterol in HDL [Mass/Vol] 42 mg/dL [facility] Comment on above: HDL CHOL ATP-III CLA SSIFICATION Cardiovascular RiskHDL > or equal to 60 mg/dL LOWHDL < 40 mg/dL HIGH Order Comment: Sherrio n for Exam Essential hypertension;Hyperlipidemia, unspecified hyperlipi Result Comment: HDL CHOL ATP-III CLASSIFICATION Cardiovascular Risk HDL > or equal to 60 mg/dL LOW HDL < 40 mg/dL HIGH Performed By: #### A 1C WT eA, CBC, CMP, LIPID #### [facility] [address] [id number] [place] Cholesterol in LDL Calc [Mas s/Vol]Ordered By: Rico Choi on 01-23-2025 Cholesterol in LDL [Mass/Vol] Cholesterol in LDL [Mass/volume] in Serum or Plasma by calculation [facility] Comment on above: LDL ATP III CLASSIFI CATIONLDL less than 100 mg/dL OptimalLDL 100-129 mg/dL Near or above optimalLDL 130-159 mg/dL Borderline highLDL 160-189 mg/dL HighLDL greater than 189 mg/dL Very high Cholesterol in LDL [Mass/Vol] 77 mg/dL 0 [facility] Comment on above: LDL ATP III CLASSIFI CATIONLDL less than 100 mg/dL OptimalLDL 100-129 mg/dL Near or above optimalLDL 130-159 mg/dL Borderline highLDL 160-189 mg/dL HighLDL greater than 189 mg/dL Very high Cholesterol in VLDL Calc [Ma ss/Vol]Ordered By: Rico Choi on 01-23-2025 Cholesterol in VLDL [Mass/Vol] Cholesterol in VLDL [Mass/volume] in Serum or Plasma by calculation [facility] Cholesterol in VLDL [Mass/Vol] 51 mg/dL [facility] Complete Blood Count Auto Di ffon 01-23-2025 Mean Corpuscular HGB Conc 35.0 g/dL Normal 32.0-35.0 [facility] Comment on above: Order Comment: Reaso n for Exam Essential hypertension;Hyperlipidemia, unspecified hyperlipi Performed By: #### A 1C WT eA, CBC, CMP, LIPID #### [facility] [address] NRBC% 0.1 /100{WBC} Normal 0-0.5 [facility] Comment on above: Order Comment: Reaso n for Exam Essential hypertension;Hyperlipidemia, unspecified hyperlipi Performed By: #### A 1C WTH eA, CBC, CMP, LIPID #### [facility] [address] Comprehensive Metabolic Pane baudilio 01-23-2025 Albumin [Mass/Vol] 4.1 g/dL Normal 3.5-5.7 [facility] Comment on above: Order Comment: Reaso n for Exam Essential hypertension;Hyperlipidemia, unspecified hyperlipi Performed By: #### A 1C WTH eA, CBC, CMP, LIPID #### [facility] [address] [place] [address] [place] GFR/1.73 sq M.predicted MDRD (S/P/Bld) [Vol rate/Area] mL/min/{1.73_m2} Normal [facility] Comment on above: Order Comment: Reaso n for Exam Essential hypertension;Hyperlipidemia, unspecified hyperlipi Performed By: #### A 1C WTH eA, CBC, CMP, LIPID #### [facility] [address] [place] [address] [place] Creatinine [Mass/volume] in Serum or PlasmaOrdered By: Rico Choi on 01-23-2025 Creatinine [Mass/Vol] Creatinine [Mass/volume] in Serum or Plasma 0.60-1.20 [facility] Creatinine [Mass/Vol] 0.94 mg/dL 0.60-1.20 [facility] Comment on above: Order Comment: Reaso n for Exam Essential hypertension;Hyperlipidemia, unspecified hyperlipi Performed By: #### A 1C WT eA, CBC, CMP, LIPID #### [facility] [address] [place] [address] [place] Eosinophils Auto (Bld) [#/Vo l]Ordered By: Rico Choi on 01-23-2025 Eosinophils (Bld) [#/Vol] Automated eosinophil count 0.0-0.45 [facility] Eosinophils [#/volume] in Bl ood by Automated countOrdered By: Rico Choi on 01-23-2025 Eosinophils (Bld) [#/Vol] 0.2 10*3/uL 0.0-0.45 [facility] Comment on above: Order Comment: Reaso n for Exam Essential hypertension;Hyperlipidemia, unspecified hyperlipi Performed By: #### A 1C WT eA, CBC, CMP, LIPID #### [facility] [address] [place] [address] [place] Eosinophils/100 WBC Auto (Bl d)Ordered By: Rico Choi on 01-23-2025 Eosinophils/100 WBC (Bld) Automated eosinophil % . [facility] Eosinophils/100 leukocytes i n Blood by Automated countOrdered By: Rico Choi on 01-23-2025 Eosinophils/100 WBC (Bld) 2.9 % . [facility] Comment on above: Order Comment: Reaso n for Exam Essential hypertension;Hyperlipidemia, unspecified hyperlipi Performed By: #### A 1C WT eA, CBC, CMP, LIPID #### [facility] [address] [place] [address] [place] Erythrocyte distribution wid th Auto (RBC) [Ratio]Ordered By: Rico Choi on 01-23-2025 Erythrocyte distribution width (RBC) [Ratio] Erythrocyte distribution width [Ratio] by Automated count 11.9-15.3 [facility] Erythrocyte distribution wid th [Ratio] by Automated countOrdered By: Rico Choi on 01-23-2025 Erythrocyte distribution width (RBC) [Ratio] 13.7 % 11.9-15.3 [facility] Comment on above: Order Comment: Reaso n for Exam Essential hypertension;Hyperlipidemia, unspecified hyperlipi Performed By: #### A 1C WTH eA, CBC, CMP, LIPID #### [facility] [address] Erythrocytes [#/volume] in B lood by Automated countOrdered By: Rico Choi on 01-23-2025 RBC (Bld) [#/Vol] 4.53 10*6/uL 3.60-5.00 [facility] Comment on above: Order Comment: Sherrio n for Exam Essential hypertension;Hyperlipidemia, unspecified hyperlipi Performed By: #### A 1C WTH eA, CBC, CMP, LIPID #### [facility] [address] Globulin Calc (S) [Mass/Vol] Ordered By: Rico Choi on 01-23-2025 Globulin (S) [Mass/Vol] Serum globulin measurement by calculation (mass/volume) [facility] Glucose [Mass/volume] in Ser um or PlasmaOrdered By: Rico Choi on 01-23-2025 Glucose [Mass/Vol] Glucose [Mass/volume ] in Serum or Plasma High 70-100 [facility] Comment on above: ADA recommended refe rence rangeRandom Glucose Reference Range is dependent on time and content of last meal. Glucose of more than 200 mg/dL in a nonstressed, ambulatory subject supports the diagnosis of Diabetes Mellitus. Glucose [Mass/Vol] 113 mg/dL High 70-100 [facility] Comment on above: ADA recommended refe rence rangeRandom Glucose Reference Range is dependent on time and content of last meal. Glucose of more than 200 mg/dL in a nonstressed, ambulatory subject supports the diagnosis of Diabetes Mellitus. Order Comment: Reaso n for Exam Essential hypertension;Hyperlipidemia, unspecified hyperlipi Result Comment: [place] Glucose Reference Range is dependent on time and content of last meal. Glucose of more than 200 mg/dL in a nonstressed, ambulatory subject supports the diagnosis of Diabetes Mellitus. ADA recommended reference range Performed By: #### A 1C WTH eA, CBC, CMP, LIPID #### [facility] [address] Hematocrit Auto (Bld) [Volum e fraction]Ordered By: Rico Choi on 01-23-2025 Hematocrit (Bld) [Volume fraction] Hematocrit [Volume Fraction] of Blood by Automated count 34.0-46.4 [facility] Hematocrit [Volume Fraction] of Blood by Automated countOrdered By: Rico Choi on 01-23-2025 Hematocrit (Bld) [Volume fraction] 38.9 % 34.0-46.4 [facility] Comment on above: Order Comment: Reaso n for Exam Essential hypertension;Hyperlipidemia, unspecified hyperlipi Performed By: #### A 1C WTH eA, CBC, CMP, LIPID #### [facility] [address] Hemoglobin A1c/Hemoglobin.to lilia in BloodOrdered By: Rico Choi on 01-23-2025 HbA1c (Bld) [Mass fraction] Hemoglobin A1c percentage High 4.3-5.6 [facility] Comment on above: Increased risk for d iabetes: 5.7 - 6.4diabetes: >6.4glycemic control for adults with diabetes: <7.0 HbA1c (Bld) [Mass fraction] 6.4 % High 4.3-5.6 [facility] Comment on above: Increased risk for d iabetes: 5.7 - 6.4diabetes: >6.4glycemic control for adults with diabetes: <7.0 Order Comment: Reaso n for Exam Screening for diabetes mellitus Result Comment: Incr eased risk for diabetes: 5.7 - 6.4 diabetes: >6.4 glycemic control for adults with diabetes: <7.0 Performed By: #### A 1C WTH eA, CBC, CMP, LIPID #### [facility] [address] [place] [address] [place] Hemoglobin [Mass/volume] in BloodOrdered By: Rico Choi on 01-23-2025 Hemoglobin (Bld) [Mass/Vol] Hemoglobin [Mass/volume] in Blood 11.8-15.4 [facility] Hemoglobin (Bld) [Mass/Vol] 13.6 g/dL 11.8-15.4 [facility] Comment on above: Order Comment: Reaso n for Exam Essential hypertension;Hyperlipidemia, unspecified hyperlipi Performed By: #### A 1C WT eA, CBC, CMP, LIPID #### [facility] [address] Leukocytes [#/volume] correc marina for nucleated erythrocytes in Blood by Automated counOrdered By: Rico Choi on 01-23-2025 WBC corrected for nucl RBC Auto (Bld) [#/Vol] Leukocytes [#/volume] corrected for nucleated erythrocytes in Blood by Automated coun 3.8-11.6 [facility] WBC corrected for nucl RBC Auto (Bld) [#/Vol] 5.8 10*3/uL 3.8-11.6 [facility] Leukocytes [#/volume] in Blo od by Automated countOrdered By: Rico Choi on 01-23-2025 WBC (Bld) [#/Vol] 5.8 10*3/uL 3.8-11.6 [facility] Comment on above: Order Comment: Reaso n for Exam Essential hypertension;Hyperlipidemia, unspecified hyperlipi Performed By: #### A 1C WT eA, CBC, CMP, LIPID #### [facility] [address] Lipid Panelon 01-23-2025 LDL Cholesterol,Calculated 77 mg/dL Normal 0-100 [facility] Comment on above: Order Comment: Reaso n for Exam Essential hypertension;Hyperlipidemia, unspecified hyperlipi Result Comment: LDL ATP III CLASSIFICATION LDL less than 100 mg/dL Optimal LDL 100-129 mg/dL Near or above optimal LDL 130-159 mg/dL Borderline high LDL 160-189 mg/dL High LDL greater than 189 mg/dL Very high Performed By: #### A 1C WTH eA, CBC, CMP, LIPID #### [facility] [address] [place] [address] [place] Triglyceride w/Reflex 255 mg/dL High 0-149 [facility] Comment on above: Order Comment: Reaso n for Exam Essential hypertension;Hyperlipidemia, unspecified hyperlipi Result Comment: TRIG ATP III CLASSIFICATION TRIG less than 150 mg/dL Normal TRIG 150-199 mg/dL Borderline high TRIG 200-500 mg/dL High TRIG greater than 500 mg/dL Very high Standard traceable to the Center for Disease Conrtrol and Prevention (CDC) test method. Performed By: #### A 1C WT eA, CBC, CMP, LIPID #### [facility] [address] VLDL CHOLESTEROL 51 mg/dL Normal [facility] Comment on above: Order Comment: Reaso n for Exam Essential hypertension;Hyperlipidemia, unspecified hyperlipi Performed By: #### A 1C WT eA, CBC, CMP, LIPID #### [facility] [address] Lymphocytes Auto (Bld) [#/Vo l]Ordered By: Rico Choi on 01-23-2025 Lymphocytes (Bld) [#/Vol] Lymphocytes [#/volume] in Blood by Automated count 1.00-4.8 [facility] Lymphocytes [#/volume] in Bl ood by Automated countOrdered By: Rico Choi on 01-23-2025 Lymphocytes (Bld) [#/Vol] 2.2 10*3/uL 1.00-4.8 [facility] Comment on above: Order Comment: Reaso n for Exam Essential hypertension;Hyperlipidemia, unspecified hyperlipi Performed By: #### A 1C WT eA, CBC, CMP, LIPID #### [facility] [address] [place] [id number] [place] Lymphocytes/100 WBC Auto (Bl d)Ordered By: Rico Choi on 01-23-2025 Lymphocytes/100 WBC (Bld) Lymphocytes/100 leukocytes in Blood by Automated count . [facility] Lymphocytes/100 leukocytes i n Blood by Automated countOrdered By: Rico Choi on 01-23-2025 Lymphocytes/100 WBC (Bld) 37.4 % . [facility] Comment on above: Order Comment: Reaso n for Exam Essential hypertension;Hyperlipidemia, unspecified hyperlipi Performed By: #### A 1C [facility] eA, CBC, CMP, LIPID #### [facility] [address] MCH Auto (RBC) [Entitic mass ]Ordered By: Rico Choi on 01-23-2025 MCH (RBC) [Entitic mass] MCH [Entitic ma ss] by Automated count 24.7-34.3 [facility] MCH [Entitic mass] by Automa marina countOrdered By: Rico Choi on 01-23-2025 MCH (RBC) [Entitic mass] 30.1 pg 24.7-34.3 [facility] Comment on above: Order Comment: Reaso n for Exam Essential hypertension;Hyperlipidemia, unspecified hyperlipi Performed By: #### A 1C [facility] eA, CBC, CMP, LIPID #### [facility] [address] MCHC Auto (RBC) [Mass/Vol]Or dered By: Rico Choi on 01-23-2025 MCHC (RBC) [Mass/Vol] MCHC [Mass/volume] by Automated count 32.0-35.0 [facility] MCHC (RBC) [Mass/Vol] 35.0 g/dL 32.0-35.0 [facility] MCV Auto (RBC) [Entitic vol] Ordered By: Rico Choi on 01-23-2025 MCV (RBC) [Entitic vol] MCV [Entitic vol ume] by Automated count 80-100 [facility] MCV [Entitic volume] by Auto mated countOrdered By: Rico Choi on 01-23-2025 MCV (RBC) [Entitic vol] 85.8 fL 80-100 [facility] Comment on above: Order Comment: Reaso n for Exam Essential hypertension;Hyperlipidemia, unspecified hyperlipi Performed By: #### A 1C [facility] eA, CBC, CMP, LIPID #### [facility] [address] Monocytes Auto (Bld) [#/Vol] Ordered By: Rico Choi on 01-23-2025 Monocytes (Bld) [#/Vol] Automated blood monocyte count 0.0-0.8 [facility] Monocytes [#/volume] in Bloo d by Automated countOrdered By: Rico Choi on 01-23-2025 Monocytes (Bld) [#/Vol] 0.4 10*3/uL 0.0-0.8 [facility] Comment on above: Order Comment: Reaso n for Exam Essential hypertension;Hyperlipidemia, unspecified hyperlipi Performed By: #### A 1C WT eA, CBC, CMP, LIPID #### [facility] [address] [place] [address] [place] Monocytes/100 WBC Auto (Bld) Ordered By: Rico Choi on 01-23-2025 Monocytes/100 WBC (Bld) Automated monocyte % . [facility] Monocytes/100 leukocytes in Blood by Automated countOrdered By: Rico Choi on 01-23-2025 Monocytes/100 WBC (Bld) 7.2 % . [facility] Comment on above: Order Comment: Reaso n for Exam Essential hypertension;Hyperlipidemia, unspecified hyperlipi Performed By: #### A 1C WT eA, CBC, CMP, LIPID #### [facility] [address] [place] [address] [place] Neutrophils Auto (Bld) [#/Vo l]Ordered By: Rico Choi on 01-23-2025 Neutrophils (Bld) [#/Vol] Neutrophils [#/volume] in Blood by Automated count 1.8-7.7 [facility] Neutrophils [#/volume] in Bl ood by Automated countOrdered By: Rico Choi on 01-23-2025 Neutrophils (Bld) [#/Vol] 3.0 10*3/uL 1.8-7.7 [facility] Comment on above: Order Comment: Reaso n for Exam Essential hypertension;Hyperlipidemia, unspecified hyperlipi Performed By: #### A 1C WT eA, CBC, CMP, LIPID #### [facility] [address] [place] [address] [place] Neutrophils/100 WBC Auto (Bl d)Ordered By: Rico Choi on 01-23-2025 Neutrophils/100 WBC (Bld) Automated neutrophil % . [facility] Neutrophils/100 leukocytes i n Blood by Automated countOrdered By: Rico Choi on 01-23-2025 Neutrophils/100 WBC (Bld) 51.9 % . [facility] Comment on above: Order Comment: Lorri n for Exam Essential hypertension;Hyperlipidemia, unspecified hyperlipi Performed By: #### A 1C [facility] eA, CBC, CMP, LIPID #### [facility] [address] No Panel InformationOrdered By: Rico Choi on 01-23-2025 Estimated GFR (CKD-EPI) > 60.0 mL/Min [facility] Creatinine Clearance (Chem N/A [facility] Nucleated erythrocytes [Pres ence] in Blood by Automated countOrdered By: Rico Choi on 01-23-2025 Nucleated RBC Auto Ql (Bld) Nucleated erythrocytes [Presence] in Blood by Automated count 0-0.5 [facility] Nucleated RBC Auto Ql (Bld) 0.1 /100{WBC} 0-0.5 [facility] Platelet mean volume Auto (B ld) [Entitic vol]Ordered By: Rico Choi on 01-23-2025 Platelet mean volume (Bld) [Entitic vol] Platelet mean volume [Entitic volume] in Blood by Automated count 6.3-10.7 [facility] Platelet mean volume [Entiti c volume] in Blood by Automated countOrdered By: Rico Choi on 01-23-2025 Platelet mean volume (Bld) [Entitic vol] 7.2 fL 6.3-10.7 [facility] Comment on above: Order Comment: Lorri n for Exam Essential hypertension;Hyperlipidemia, unspecified hyperlipi Performed By: #### A 1C [facility] eA, CBC, CMP, LIPID #### [facility] [address] [place] [address] [place] Platelets Auto (Bld) [#/Vol] Ordered By: Rico Choi on 01-23-2025 Platelets (Bld) [#/Vol] Platelets [#/vol ume] in Blood by Automated count 150-450 [facility] Platelets [#/volume] in Bloo d by Automated countOrdered By: Rico Choi on 01-23-2025 Platelets (Bld) [#/Vol] 230 10*3/uL 150-450 [facility] Comment on above: Order Comment: Reaso n for Exam Essential hypertension;Hyperlipidemia, unspecified hyperlipi Performed By: #### A 1C WT eA, CBC, CMP, LIPID #### [facility] [address] [place] [address] Potassium [Moles/volume] in Serum or PlasmaOrdered By: Rico Choi on 01-23-2025 Potassium [Moles/Vol] Potassium [Moles/volume] in Serum or Plasma 3.5-5.1 [facility] Potassium [Moles/Vol] 4.0 mmol/L 3.5-5.1 [facility] Comment on above: Order Comment: Reaso n for Exam Essential hypertension;Hyperlipidemia, unspecified hyperlipi Performed By: #### A 1C WT eA, CBC, CMP, LIPID #### [facility] [address] [place] [address] Protein [Mass/volume] in Ser um or PlasmaOrdered By: Rico Choi on 01-23-2025 Protein [Mass/Vol] Protein [Mass/volume ] in Serum or Plasma Low 6.4-8.9 [facility] Protein [Mass/Vol] 6.3 g/dL Low 6.4-8.9 [facility] Comment on above: Order Comment: Reaso n for Exam Essential hypertension;Hyperlipidemia, unspecified hyperlipi Performed By: #### A 1C WT eA, CBC, CMP, LIPID #### [facility] [address] [place] [address] RBC Auto (Bld) [#/Vol]Ordere d By: Rico Choi on 01-23-2025 RBC (Bld) [#/Vol] Erythrocytes [#/volume] in Blood by Automated count 3.60-5.00 [facility] Serum globulin measurement b y calculation (mass/volume)Ordered By: Rico Choi on 01-23-2025 Globulin (S) [Mass/Vol] 2.2 g/dL F [facility] Comment on above: Order Comment: Reaso n for Exam Essential hypertension;Hyperlipidemia, unspecified hyperlipi Performed By: #### A 1C WT eA, CBC, CMP, LIPID #### [facility] [address] Serum or plasma albumin/glob ulin mass ratioOrdered By: Rico Choi on 01-23-2025 Albumin/Globulin [Mass ratio] Serum or plasma albumin/globulin mass ratio [facility] Albumin/Globulin [Mass ratio] 1.9 {ratio} [facility] Comment on above: Order Comment: Reaso n for Exam Essential hypertension;Hyperlipidemia, unspecified hyperlipi Performed By: #### A 1C WTH eA, CBC, CMP, LIPID #### [facility] [address] Serum or plasma anion gap de terminationOrdered By: Rico Choi on 01-23-2025 Anion gap [Moles/Vol] Serum or plasma an ion gap determination 6.0-15.0 [facility] Anion gap [Moles/Vol] 10.9 mmol/L 6.0-15.0 [facility] Comment on above: Order Comment: Reaso n for Exam Essential hypertension;Hyperlipidemia, unspecified hyperlipi Performed By: #### A 1C WT eA, CBC, CMP, LIPID #### [facility] [address] Serum or plasma total choles terol/high density lipoprotein (HDL) cholesterol mass ratOrdered By: Rico Choi on 01-23-2025 Cholesterol.total/Choles terol in HDL [Mass ratio] Serum or plasma total cholesterol/high density lipoprotein (HDL) cholesterol mass rat <5.0 [facility] Cholesterol.total/Choles terol in HDL [Mass ratio] 4.0 {ratio} <5.0 [facility] Comment on above: Order Comment: Reaso n for Exam Essential hypertension;Hyperlipidemia, unspecified hyperlipi Result Comment: PERF ORMED BY: [place] [address] PATHOLOGIST [employer]AT WRAPPER PACO BLAIR M.D. Performed By: #### A 1C WTH eA, CBC, CMP, LIPID #### [facility] [address] Sodium [Moles/volume] in Ser um or PlasmaOrdered By: Rico Choi on 01-23-2025 Sodium [Moles/Vol] Sodium [Moles/volume ] in Serum or Plasma 136-145 [facility] Sodium [Moles/Vol] 142 mmol/L 136-145 [facility] Comment on above: Order Comment: Reaso n for Exam Essential hypertension;Hyperlipidemia, unspecified hyperlipi Performed By: #### A 1C WT eA, CBC, CMP, LIPID #### [facility] [address] Triglyceride [Mass/volume] i n Serum or PlasmaOrdered By: Rico Choi on 01-23-2025 Triglyceride [Mass/Vol] Triglyceride [Mass/volume] in Serum or Plasma High 0-149 [facility] Comment on above: TRIG ATP III CLASSIF ICATIONTRIG less than 150 mg/dL NormalTRIG 150-199 mg/dL Borderline highTRIG 200-500 mg/dL High TRIG greater than 500 mg/dL Very highStandard traceable to the Center for Disease Conrtrol and Prevention (CDC) test method. Triglyceride [Mass/Vol] 255 mg/dL High 0-149 [facility] Comment on above: TRIG ATP III CLASSIF ICATIONTRIG less than 150 mg/dL NormalTRIG 150-199 mg/dL Borderline highTRIG 200-500 mg/dL High TRIG greater than 500 mg/dL Very highStandard traceable to the Center for Disease Conrtrol and Prevention (CDC) test method. Urea nitrogen [Mass/volume] in Serum or PlasmaOrdered By: Rico Choi on 01-23-2025 Urea nitrogen [Mass/Vol] Urea nitrogen [Mass/volume] in Serum or Plasma 7 [facility] Urea nitrogen [Mass/Vol] 14 mg/dL 03-09 [facility] Comment on above: Order Comment: Reaso n for Exam Essential hypertension;Hyperlipidemia, unspecified hyperlipi Performed By: #### A 1C WT eA, CBC, CMP, LIPID #### [facility] [address] [place] [address] [place] WBC Auto (Bld) [#/Vol]Ordere d By: Rico Choi on 01-23-2025 WBC (Bld) [#/Vol] Leukocytes [#/volume ] in Blood by Automated count 3.8-11.6 [facility] X-ray reportOrdered By: Nabeel Holt on 11-10-2024 Study report [facility] Main [address] [address] XRay Report Signed Patient: Aura Hassan MR#: [id number] : 1960 Acct:[id number] Age/Sex: 64 / F ADM Date: 5 Loc: XD Room: Type: REG CLI Attending Dr: Jayden Quevedo DO Copies to: Rico Choi MD, RES Jayden Quevedo DO~ Ordering Provider: Rico Choi MD, RES Date of Service: 11/10/24 XR/XR cervical spine 2V: Strain of neck muscle, initial encounter CERVICAL SPINE 2 views: CLINICAL HISTORY: Neck strain. COMPARISON: None FINDINGS: Vertebral body heights appear maintained. Bones are grossly demineralized. Diffuse facet joint degenerative changes with what appears to be approximately 4mm of anterior subluxation of C6 on C7. No significant disc height loss. No prevertebral soft tissue swelling. XR/XR cervical spine 2V IMPRESSION: DIFFUSE FACET JOINT DEGENERATIVE CHANGES WITH WHAT APPEARS TO BE APPROXIMATELY 4MM OF ANTERIOR SUBLUXATION OF C6 ON C7. Impression dictated by: Josiah Holt Jr., D.O.11/10/2024 6:19 PM Dictation Location: [place] [address] Transcribed By: [facility] 11/10/241818 Dictated By: Josiah Holt Jr, DO 11/10/241817 Signed By: 11/10/241818 [facility] XR cervical spine 2Von 11-10 XR cervical spine 2V [facility] Main [address] [address] XRay Report Signed Patient: Aura Hassan MR#: [id number] : 1960 Acct:[id number] Age/Sex: 64 / F ADM Date: 11/10/24 Loc: XD Room: Type: REG CLI Attending Dr: Jayden Quevedo DO Copies to: Rico Choi MD, RES Jayden Quevedo DO Ordering Provider: Rico Choi MD, RES Date of Service: 11/10/24 XR/XR cervical spine 2V: Strain of neck muscle, initial encounter CERVICAL SPINE 2 views: CLINICAL HISTORY: Neck strain. COMPARISON: None FINDINGS: Vertebral body heights appear maintained. Bones are grossly demineralized. Diffuse facet joint degenerative changes with what appears to be approximately 4 mm of anterior subluxation of C6 on C7. No significant disc height loss. No prevertebral soft tissue swelling. XR/XR cervical spine 2V IMPRESSION: DIFFUSE FACET JOINT DEGENERATIVE CHANGES WITH WHAT APPEARS TO BE APPROXIMATELY 4 MM OF ANTERIOR SUBLUXATION OF C6 ON C7. Impression dictated by: Josiah Holt Jr., D.OJb11/10/2024 6:19 PM Dictation Location: [place] [address] Transcribed By: [facility] 11/10/241818 Dictated By: Josiah Holt Jr, DO 11/10/241817 Signed By: 11/10/241818 Normal [facility] MM screening mammo BI w/CADo n 04-06-2024 MM screening mammo BI w/CAD [facility] Main [place] [address] [place] [address] Mammography Report Signed Patient: Aura Hassan MR#: [id number] : 1960 Acct:[id number] Age/Sex: 63 / F ADM Date: 04/06/24 Loc: [place] Room: Type: [facility] Attending Dr: Referral Self Copies to: [facility] Davidson Krishnamurthy DO SELF,REFERRAL Ordering Provider: SELF,REFERRAL Date of Service: [...] Gt Aguilar M.D.04/06/2024 3:02 PM Dictation Location: [facility] Transcribed By: SHAMAR 04/06/24 1502 Dictated By: Gt Aguilar II, MD 04/06/24 1459 Signed By: 04/06/24 1502 Normal [facility] Alanine aminotransferase [En zymatic activity/volume] in Serum or PlasmaOrdered By: Rico Choi on 02-08-2024 ALT [Catalytic activity/Vol] 22 U/L 7-52 [facility] Albumin [Mass/volume] in Ser um or Plasma by Bromocresol green (BCG) dye binding methoOrdered By: Rico Choi on 02-08-2024 Albumin BCG dye [Mass/Vol] 3.8 g/dL 3.5-5.7 [facility] Alkaline phosphatase [Enzyma tic activity/volume] in Serum or PlasmaOrdered By: Rico Choi on 02-08-2024 ALP [Catalytic activity/Vol] 81 U/L 34-104 [facility] Aspartate aminotransferase [ Enzymatic activity/volume] in Serum or PlasmaOrdered By: Rico Choi on 02-08-2024 AST [Catalytic activity/Vol] 13 U/L 13-39 [facility] Basophils Auto (Bld) [#/Vol] Ordered By: Rico Choi on 02-08-2024 Basophils (Bld) [#/Vol] 0.1 10*3/uL 0.0-0.2 [facility] Basophils/100 WBC Auto (Bld) Ordered By: Rico Choi on 02-08-2024 Basophils/100 WBC (Bld) 1.0 % . F [facility] Bilirubin.total [Mass/volume ] in Serum or PlasmaOrdered By: Rico Choi on 02-08-2024 Bilirubin [Mass/Vol] 0.5 mg/dL 0.3-1.0 [facility] Calcium [Mass/volume] in Ser um or PlasmaOrdered By: Rico Choi on 02-08-2024 Calcium [Mass/Vol] 8.8 mg/dL 8.6-10.3 [facility] Carbon dioxide, total [Moles /volume] in Serum or PlasmaOrdered By: Rico Choi on 02-08-2024 CO2 [Moles/Vol] 26.2 mmol/L 21.0-31.0 [facility] Chloride [Moles/volume] in S rashawn or PlasmaOrdered By: Rico Choi on 02-08-2024 Chloride [Moles/Vol] 108 mmol/L High 98-107 [facility] Cholesterol [Mass/volume] in Serum or PlasmaOrdered By: Rico Choi on 02-08-2024 Cholesterol [Mass/Vol] 171 mg/dL 140-200 [facility] Comment on above: Chol less than 200 m g/dl low riskChol 201-239 mg/dl borderline riskChol 240 mg/dl and greater high risk Cholesterol in LDL Calc [Mas s/Vol]Ordered By: Rico Choi on 02-08-2024 Cholesterol in LDL [Mass/Vol] 59 mg/dL 0-100 [facility] Comment on above: LDL ATP III CLASSIFI CATIONLDL less than 100 mg/dL OptimalLDL 100-129 mg/dL Near or above optimalLDL 130-159 mg/dL Borderline highLDL 160-189 mg/dL HighLDL greater than 189 mg/dL Very high Cholesterol in VLDL Calc [Ma ss/Vol]Ordered By: Rico Choi on 02-08-2024 Cholesterol in VLDL [Mass/Vol] 57 mg/dL [facility] Creatinine [Mass/volume] in Serum or PlasmaOrdered By: Rico Choi on 02-08-2024 Creatinine [Mass/Vol] 0.89 mg/dL 0.60-1.20 [facility] Eosinophils Auto (Bld) [#/Vo l]Ordered By: Rico Choi on 02-08-2024 Eosinophils (Bld) [#/Vol] 0.1 10*3/uL 0.0-0.45 [facility] Eosinophils/100 WBC Auto (Bl d)Ordered By: Rico Choi on 02-08-2024 Eosinophils/100 WBC (Bld) 1.2 % . [facility] Erythrocyte distribution wid th Auto (RBC) [Ratio]Ordered By: Rico Choi on 02-08-2024 Erythrocyte distribution width (RBC) [Ratio] 13.7 % 11.9-15.3 [facility] Globulin Calc (S) [Mass/Vol] Ordered By: Rico Choi on 02-08-2024 Globulin (S) [Mass/Vol] 2.4 g/dL [facility] Glucose [Mass/volume] in Ser um or PlasmaOrdered By: Rico Chio on 02-08-2024 Glucose [Mass/Vol] 100 mg/dL 70-100 [facility] Comment on above: ADA recommended refe rence rangeRandom Glucose Reference Range is dependent on time and content of last meal. Glucose of more than 200 mg/dL in a nonstressed, ambulatory subject supports the diagnosis of Diabetes Mellitus. Glucose mean value [Mass/vol ume] in Blood Estimated from glycated hemoglobinOrdered By: Rico Choi on 02-08-2024 Average glucose Estimated from glycated hemoglobin (Bld) [Mass/Vol] 140 mg/dL [facility] Hematocrit Auto (Bld) [Volum e fraction]Ordered By: Rico Choi on 02-08-2024 Hematocrit (Bld) [Volume fraction] 38.9 % 34.0-46.4 [facility] Hemoglobin A1c percentageOrd ered By: Rico Choi on 02-08-2024 HbA1c (Bld) [Mass fraction] 6.5 % High 4.3-5.6 [facility] Comment on above: Increased risk for d iabetes: 5.7 - 6.4diabetes: >6.4glycemic control for adults with diabetes: <7.0 Hemoglobin [Mass/volume] in BloodOrdered By: Rico Choi on 02-08-2024 Hemoglobin (Bld) [Mass/Vol] 13.2 g/dL 11.8-15.4 [facility] Leukocytes [#/volume] correc marina for nucleated erythrocytes in Blood by Automated counOrdered By: Rico Choi on 02-08-2024 WBC corrected for nucl RBC Auto (Bld) [#/Vol] 9.5 10*3/uL 3.8-11.6 [facility] Lymphocytes Auto (Bld) [#/Vo l]Ordered By: Rico Choi on 02-08-2024 Lymphocytes (Bld) [#/Vol] 3.8 10*3/uL 1.00-4.8 [facility] Lymphocytes/100 WBC Auto (Bl d)Ordered By: Rico Choi on 02-08-2024 Lymphocytes/100 WBC (Bld) 39.8 % . [facility] MCH Auto (RBC) [Entitic mass ]Ordered By: Rico Choi on 02-08-2024 MCH (RBC) [Entitic mass] 29.9 pg 24.7-34.3 [facility] MCHC Auto (RBC) [Mass/Vol]Or dered By: Rico Choi on 02-08-2024 MCHC (RBC) [Mass/Vol] 34.0 g/dL 32.0-35.0 [facility] MCV Auto (RBC) [Entitic vol] Ordered By: Rico Choi on 02-08-2024 MCV (RBC) [Entitic vol] 87.8 fL 80-100 [facility] Monocytes Auto (Bld) [#/Vol] Ordered By: Rico Choi on 02-08-2024 Monocytes (Bld) [#/Vol] 0.5 10*3/uL 0.0-0.8 [facility] Monocytes/100 WBC Auto (Bld) Ordered By: Rico Choi on 02-08-2024 Monocytes/100 WBC (Bld) 5.2 % . [facility] Neutrophils Auto (Bld) [#/Vo l]Ordered By: Rico Choi on 02-08-2024 Neutrophils (Bld) [#/Vol] 5.0 10*3/uL 1.8-7.7 [facility] Neutrophils/100 WBC Auto (Bl d)Ordered By: Rico Choi on 02-08-2024 Neutrophils/100 WBC (Bld) 52.8 % . [facility] No Panel InformationOrdered By: Rico Choi on 02-08-2024 Estimated GFR (CKD-EPI) > 60.0 mL/Min [facility] Creatinine Clearance (Chem N/A [facility] Nucleated erythrocytes [Pres ence] in Blood by Automated countOrdered By: Rico Choi on 02-08-2024 Nucleated RBC Auto Ql (Bld) 0.1 /100{WBC} 0-0.5 [facility] Platelet mean volume Auto (B ld) [Entitic vol]Ordered By: Rico Choi on 02-08-2024 Platelet mean volume (Bld) [Entitic vol] 7.6 fL 6.3-10.7 [facility] Platelets Auto (Bld) [#/Vol] Ordered By: Rico Choi on 02-08-2024 Platelets (Bld) [#/Vol] 277 10*3/uL 150-450 [facility] Potassium [Moles/volume] in Serum or PlasmaOrdered By: Rico Choi on 02-08-2024 Potassium [Moles/Vol] 4.1 mmol/L 3.5-5.1 [facility] Protein [Mass/volume] in Ser um or PlasmaOrdered By: Rico Choi on 02-08-2024 Protein [Mass/Vol] 6.2 g/dL Low 6.4-8.9 [facility] RBC Auto (Bld) [#/Vol]Ordere d By: Rico Choi on 02-08-2024 RBC (Bld) [#/Vol] 4.43 10*6/uL 3.60-5.00 [facility] Serum or plasma albumin/glob ulin mass ratioOrdered By: Rico Choi on 02-08-2024 Albumin/Globulin [Mass ratio] 1.6 {ratio} [facility] Serum or plasma anion gap de terminationOrdered By: Rico Choi on 02-08-2024 Anion gap [Moles/Vol] 11.9 mmol/L 6.0-15.0 [facility] Serum or plasma high density lipoprotein (HDL) cholesterol measurementOrdered By: Rico Choi on 02-08-2024 Cholesterol in HDL [Mass/Vol] 55 mg/dL [facility] Comment on above: HDL CHOL ATP-III CLA SSIFICATION Cardiovascular RiskHDL > or equal to 60 mg/dL LOWHDL < 40 mg/dL HIGH Serum or plasma total choles terol/high density lipoprotein (HDL) cholesterol mass ratOrdered By: Rico Choi on 02-08-2024 Cholesterol.total/Choles terol in HDL [Mass ratio] 3.1 {ratio} <5.0 [facility] Sodium [Moles/volume] in Ser um or PlasmaOrdered By: Rico Choi on 02-08-2024 Sodium [Moles/Vol] 142 mmol/L 136-145 [facility] Triglyceride [Mass/volume] i n Serum or PlasmaOrdered By: Rico Choi on 02-08-2024 Triglyceride [Mass/Vol] 287 mg/dL High 0-149 [facility] Comment on above: TRIG ATP III CLASSIF ICATIONTRIG less than 150 mg/dL NormalTRIG 150-199 mg/dL Borderline highTRIG 200-500 mg/dL High TRIG greater than 500 mg/dL Very highStandard traceable to the Center for Disease Conrtrol and Prevention (CDC) test method. Urea nitrogen [Mass/volume] in Serum or PlasmaOrdered By: Rico Choi on 02-08-2024 Urea nitrogen [Mass/Vol] 20 mg/dL 03-09 [facility] WBC Auto (Bld) [#/Vol]Ordere d By: Rico Choi on 02-08-2024 WBC (Bld) [#/Vol] 9.5 10*3/uL 3.8-11.6 [facility] Alanine aminotransferase [En zymatic activity/volume] in Serum or PlasmaOrdered By: Dony Ferguson on 01-11-2024 ALT [Catalytic activity/Vol] 29 U/L [facility] Albumin [Mass/volume] in Ser um or Plasma by Bromocresol green (BCG) dye binding methoOrdered By: Dony Ferguson on 01-11-2024 Albumin BCG dye [Mass/Vol] 4.1 g/dL 3.5-5.7 [facility] Alkaline phosphatase [Enzyma tic activity/volume] in Serum or PlasmaOrdered By: Dony Ferguson on 01-11-2024 ALP [Catalytic activity/Vol] 82 U/L 34-104 [facility] Aspartate aminotransferase [ Enzymatic activity/volume] in Serum or PlasmaOrdered By: Dony Ferguson on 01-11-2024 AST [Catalytic activity/Vol] 23 U/L 13-39 [facility] Basophils Auto (Bld) [#/Vol] Ordered By: Dony Ferguson on 01-11-2024 Basophils (Bld) [#/Vol] 0.1 10*3/uL 0.0-0.2 [facility] Basophils/100 WBC Auto (Bld) Ordered By: Dony Ferguson on 01-11-2024 Basophils/100 WBC (Bld) 0.8 % . F [facility] Bilirubin.total [Mass/volume ] in Serum or PlasmaOrdered By: Dony Ferguson on 01-11-2024 Bilirubin [Mass/Vol] 0.6 mg/dL 0.3-1.0 [facility] Calcium [Mass/volume] in Ser um or PlasmaOrdered By: Dony Ferguson on 01-11-2024 Calcium [Mass/Vol] 9.2 mg/dL 8.6-10.3 [facility] Carbon dioxide, total [Moles /volume] in Serum or PlasmaOrdered By: Dony Ferguson on 01-11-2024 CO2 [Moles/Vol] 26.6 mmol/L 21.0-31.0 [facility] Chloride [Moles/volume] in S rashawn or PlasmaOrdered By: Dony Ferguson on 01-11-2024 Chloride [Moles/Vol] 107 mmol/L 98-107 [facility] Creatine kinase [Enzymatic a ctivity/volume] in Serum or PlasmaOrdered By: Dony Ferguson on 01-11-2024 CK [Catalytic activity/Vol] 227 U/L High 30-223 [facility] Creatinine [Mass/volume] in Serum or PlasmaOrdered By: Dony Ferguson on 01-11-2024 Creatinine [Mass/Vol] 0.90 mg/dL 0.60-1.20 [facility] Eosinophils Auto (Bld) [#/Vo l]Ordered By: Dony Ferguson on 01-11-2024 Eosinophils (Bld) [#/Vol] 0.1 10*3/uL 0.0-0.45 [facility] Eosinophils/100 WBC Auto (Bl d)Ordered By: Dony Ferguson on 01-11-2024 Eosinophils/100 WBC (Bld) 2.0 % . [facility] Erythrocyte distribution wid th Auto (RBC) [Ratio]Ordered By: Dony Ferguson on 01-11-2024 Erythrocyte distribution width (RBC) [Ratio] 13.9 % 11.9-15.3 [facility] Globulin Calc (S) [Mass/Vol] Ordered By: Dony Ferguson on 01-11-2024 Globulin (S) [Mass/Vol] 2.6 g/dL [facility] Glucose [Mass/volume] in Ser um or PlasmaOrdered By: Dony Ferguson on 01-11-2024 Glucose [Mass/Vol] 95 mg/dL 70-100 [facility] Comment on above: ADA recommended refe rence rangeRandom Glucose Reference Range is dependent on time and content of last meal. Glucose of more than 200 mg/dL in a nonstressed, ambulatory subject supports the diagnosis of Diabetes Mellitus. Hematocrit Auto (Bld) [Volum e fraction]Ordered By: Dony Ferguson on 01-11-2024 Hematocrit (Bld) [Volume fraction] 39.3 % 34.0-46.4 [facility] Hemoglobin [Mass/volume] in BloodOrdered By: Dony Ferguson on 01-11-2024 Hemoglobin (Bld) [Mass/Vol] 13.2 g/dL 11.8-15.4 [facility] Leukocytes [#/volume] correc marina for nucleated erythrocytes in Blood by Automated counOrdered By: Dony Ferguson on 01-11-2024 WBC corrected for nucl RBC Auto (Bld) [#/Vol] 6.9 10*3/uL 3.8-11.6 [facility] Lymphocytes Auto (Bld) [#/Vo l]Ordered By: Dony Ferguson on 01-11-2024 Lymphocytes (Bld) [#/Vol] 2.3 10*3/uL 1.00-4.8 [facility] Lymphocytes/100 WBC Auto (Bl d)Ordered By: Dony Ferguson on 01-11-2024 Lymphocytes/100 WBC (Bld) 33.7 % . [facility] MCH Auto (RBC) [Entitic mass ]Ordered By: Dony Ferguson on 01-11-2024 MCH (RBC) [Entitic mass] 29.6 pg 24.7-34.3 [facility] MCHC Auto (RBC) [Mass/Vol]Or dered By: Dony Ferguson on 01-11-2024 MCHC (RBC) [Mass/Vol] 33.6 g/dL 32.0-35.0 [facility] MCV Auto (RBC) [Entitic vol] Ordered By: Dony Ferguson on 01-11-2024 MCV (RBC) [Entitic vol] 88.1 fL 80-100 [facility] Monocyte distribution width [Entitic volume] in Blood by AutomatedOrdered By: Dony Ferguson on 01-11-2024 Monocyte distribution width Auto (Bld) [Entitic vol] 18.28 % 0.00-20.00 [facility] Monocytes Auto (Bld) [#/Vol] Ordered By: Dony Ferguson on 01-11-2024 Monocytes (Bld) [#/Vol] 0.4 10*3/uL 0.0-0.8 [facility] Monocytes/100 WBC Auto (Bld) Ordered By: Dony Ferguson on 01-11-2024 Monocytes/100 WBC (Bld) 6.3 % . [facility] Natriuretic peptide B [Mass/ Vol]Ordered By: Dony Ferguson on 01-11-2024 Natriuretic peptide B (Bld) [Mass/Vol] 43.0 pg/mL 5-100 [facility] Neutrophils Auto (Bld) [#/Vo l]Ordered By: Dony Ferguson on 01-11-2024 Neutrophils (Bld) [#/Vol] 3.9 10*3/uL 1.8-7.7 [facility] Neutrophils/100 WBC Auto (Bl d)Ordered By: Dony Ferguson on 01-11-2024 Neutrophils/100 WBC (Bld) 57.2 % . [facility] No Panel InformationOrdered By: Dony Ferguson on 01-11-2024 Estimated GFR (CKD-EPI) > 60.0 mL/Min [facility] Creatinine Clearance (Chem 65.20 [facility] Nucleated erythrocytes [Pres ence] in Blood by Automated countOrdered By: Dony Ferguson on 01-11-2024 Nucleated RBC Auto Ql (Bld) 0.0 /100{WBC} 0-0.5 [facility] Platelet mean volume Auto (B ld) [Entitic vol]Ordered By: Dony Ferguson on 01-11-2024 Platelet mean volume (Bld) [Entitic vol] 7.3 fL 6.3-10.7 [facility] Platelets Auto (Bld) [#/Vol] Ordered By: Dony Ferguson on 01-11-2024 Platelets (Bld) [#/Vol] 234 10*3/uL 150-450 [facility] Potassium [Moles/volume] in Serum or PlasmaOrdered By: Dony Ferguson on 01-11-2024 Potassium [Moles/Vol] 3.3 mmol/L Low 3.5-5.1 [facility] Protein [Mass/volume] in Ser um or PlasmaOrdered By: Dony Ferguson on 01-11-2024 Protein [Mass/Vol] 6.7 g/dL 6.4-8.9 [facility] RBC Auto (Bld) [#/Vol]Ordere d By: Dony Ferguson on 01-11-2024 RBC (Bld) [#/Vol] 4.46 10*6/uL 3.60-5.00 [facility] Serum or plasma albumin/glob ulin mass ratioOrdered By: Dony Ferguson on 01-11-2024 Albumin/Globulin [Mass ratio] 1.6 {ratio} [facility] Serum or plasma anion gap de terminationOrdered By: Dony Ferguson on 01-11-2024 Anion gap [Moles/Vol] 11.7 mmol/L 6.0-15.0 [facility] Sodium [Moles/volume] in Ser um or PlasmaOrdered By: Dony Ferguson on 01-11-2024 Sodium [Moles/Vol] 142 mmol/L 136-145 [facility] Troponin I.cardiac [Mass/vol ume] in Serum or Plasma by Detection limit <= 0.01 ng/Ordered By: Dony Ferguson on 01-11-2024 Troponin I.cardiac DL <= 0.01 ng/mL [Mass/Vol] 6.4 pg/mL 0.0-15.0 [facility] Urea nitrogen [Mass/volume] in Serum or PlasmaOrdered By: Dony Ferguson on 01-11-2024 Urea nitrogen [Mass/Vol] 9 mg/dL 7 [facility] WBC Auto (Bld) [#/Vol]Ordere d By: Dony Ferguson on 01-11-2024 WBC (Bld) [#/Vol] 6.9 10*3/uL 3.8-11.6 [facility] Thyrotropin [Units/volume] i n Serum or PlasmaOrdered By: Harrison Sánchez on 10-22-2023 TSH Qn 1.77 m[IU]/L 0.45-5.33 [facility] Alanine aminotransferase [En zymatic activity/volume] in Serum or PlasmaOrdered By: Orly Cespedesser on 02-04-2023 ALT [Catalytic activity/Vol] 22 U/L 7 [facility] Albumin [Mass/volume] in Ser um or Plasma by Bromocresol green (BCG) dye binding methoOrdered By: Orly Cespedesser on 02-04-2023 Albumin BCG dye [Mass/Vol] 4.3 g/dL 3.5-5.7 [facility] Alkaline phosphatase [Enzyma tic activity/volume] in Serum or PlasmaOrdered By: Orly Acton on 02-04-2023 ALP [Catalytic activity/Vol] 79 U/L 34-104 [facility] Aspartate aminotransferase [ Enzymatic activity/volume] in Serum or PlasmaOrdered By: Orly Acton on 02-04-2023 AST [Catalytic activity/Vol] 18 U/L 13-39 [facility] Basophils Auto (Bld) [#/Vol] Ordered By: Orly Acton on 02-04-2023 Basophils (Bld) [#/Vol] 0.0 10*3/uL 0.0-0.2 [facility] Basophils/100 WBC Auto (Bld) Ordered By: Orly Acton on 02-04-2023 Basophils/100 WBC (Bld) 0.4 % . [facility] Bilirubin.total [Mass/volume ] in Serum or PlasmaOrdered By: Orly Fontaine on 02-04-2023 Bilirubin [Mass/Vol] 0.7 mg/dL 0.3-1.0 [facility] Calcium [Mass/volume] in Ser um or PlasmaOrdered By: Orly Fontaine on 02-04-2023 Calcium [Mass/Vol] 9.2 mg/dL 8.6-10.3 [facility] Carbon dioxide, total [Moles /volume] in Serum or PlasmaOrdered By: Orly Fontaine on 02-04-2023 CO2 [Moles/Vol] 27.2 mmol/L 21.0-31.0 [facility] Chloride [Moles/volume] in S rashawn or PlasmaOrdered By: Orly Fontaine on 02-04-2023 Chloride [Moles/Vol] 107 mmol/L 98-107 [facility] Cholesterol [Mass/volume] in Serum or PlasmaOrdered By: Orly Fontaine on 02-04-2023 Cholesterol [Mass/Vol] 166 mg/dL 140-200 [facility] Comment on above: Chol less than 200 m g/dl low riskChol 201-239 mg/dl borderline riskChol 240 mg/dl and greater high risk Cholesterol in LDL Calc [Mas s/Vol]Ordered By: Orly Fontaine on 02-04-2023 Cholesterol in LDL [Mass/Vol] 55 mg/dL 0-100 [facility] Comment on above: LDL ATP III CLASSIFI CATIONLDL less than 100 mg/dL OptimalLDL 100-129 mg/dL Near or above optimalLDL 130-159 mg/dL Borderline highLDL 160-189 mg/dL HighLDL greater than 189 mg/dL Very high Cholesterol in VLDL Calc [Ma ss/Vol]Ordered By: Orly Fontaine on 02-04-2023 Cholesterol in VLDL [Mass/Vol] 69 mg/dL [facility] Creatinine [Mass/volume] in Serum or PlasmaOrdered By: Orly Fontaine on 02-04-2023 Creatinine [Mass/Vol] 0.86 mg/dL 0.60-1.20 [facility] Creatinine [Mass/volume] in UrineOrdered By: Orly Fontaine on 02-04-2023 Creatinine (U) [Mass/Vol] 87.0 mg/dL 11.0-20.0 [facility] Eosinophils Auto (Bld) [#/Vo l]Ordered By: Orly Fontaine on 02-04-2023 Eosinophils (Bld) [#/Vol] 0.1 10*3/uL 0.0-0.45 [facility] Eosinophils/100 WBC Auto (Bl d)Ordered By: Orly Fontaine on 02-04-2023 Eosinophils/100 WBC (Bld) 2.4 % . [facility] Erythrocyte distribution wid th Auto (RBC) [Ratio]Ordered By: Orly Fontaine on 02-04-2023 Erythrocyte distribution width (RBC) [Ratio] 13.7 % 11.9-15.3 [facility] Globulin Calc (S) [Mass/Vol] Ordered By: Orly Fontaine on 02-04-2023 Globulin (S) [Mass/Vol] 1.9 g/dL [facility] Glucose [Mass/volume] in Ser um or PlasmaOrdered By: Orly Fontaine on 02-04-2023 Glucose [Mass/Vol] 111 mg/dL 70-100 [facility] Comment on above: ADA recommended refe rence rangeRandom Glucose Reference Range is dependent on time and content of last meal. Glucose of more than 200 mg/dL in a nonstressed, ambulatory subject supports the diagnosis of Diabetes Mellitus. Hematocrit Auto (Bld) [Volum e fraction]Ordered By: Orly Fontaine on 02-04-2023 Hematocrit (Bld) [Volume fraction] 38.9 % 34.0-46.4 [facility] Hemoglobin [Mass/volume] in BloodOrdered By: Orly Fontaine on 02-04-2023 Hemoglobin (Bld) [Mass/Vol] 13.6 g/dL 11.8-15.4 [facility] Leukocytes [#/volume] correc marina for nucleated erythrocytes in Blood by Automated counOrdered By: Orly Fontaine on 02-04-2023 WBC corrected for nucl RBC Auto (Bld) [#/Vol] 5.4 10*3/uL 3.8-11.6 [facility] Lymphocytes Auto (Bld) [#/Vo l]Ordered By: Orly Fontaine on 02-04-2023 Lymphocytes (Bld) [#/Vol] 1.9 10*3/uL 1.00-4.8 [facility] Lymphocytes/100 WBC Auto (Bl d)Ordered By: Orly Acton on 02-04-2023 Lymphocytes/100 WBC (Bld) 35.1 % . [facility] MCH Auto (RBC) [Entitic mass ]Ordered By: Orly Acton on 02-04-2023 MCH (RBC) [Entitic mass] 30.0 pg 24.7-34.3 [facility] MCHC Auto (RBC) [Mass/Vol]Or dered By: Orly Acton on 02-04-2023 MCHC (RBC) [Mass/Vol] 35.0 g/dL 32.0-35.0 [facility] MCV Auto (RBC) [Entitic vol] Ordered By: Orly Acton on 02-04-2023 MCV (RBC) [Entitic vol] 85.9 fL 80-100 F [facility] Microalbumin [Mass/volume] i n UrineOrdered By: Orly Minal on 02-04-2023 Albumin DL <= 20 mg/L (U) [Mass/Vol] mg/dL 0.0-1.8 [facility] Monocytes Auto (Bld) [#/Vol] Ordered By: Orly Acton on 02-04-2023 Monocytes (Bld) [#/Vol] 0.3 10*3/uL 0.0-0.8 [facility] Monocytes/100 WBC Auto (Bld) Ordered By: Orly Minal on 02-04-2023 Monocytes/100 WBC (Bld) 6.3 % . F [facility] Neutrophils Auto (Bld) [#/Vo l]Ordered By: Orly Acton on 02-04-2023 Neutrophils (Bld) [#/Vol] 3.0 10*3/uL 1.8-7.7 [facility] Neutrophils/100 WBC Auto (Bl d)Ordered By: Orly Minal on 02-04-2023 Neutrophils/100 WBC (Bld) 55.8 % . [facility] No Panel InformationOrdered By: Orly Minal on 02-04-2023 Estimated GFR (CKD-EPI) > 60.0 mL/Min [facility] Creatinine Clearance (Chem N/A [facility] Nucleated erythrocytes [Pres ence] in Blood by Automated countOrdered By: Orly Fontaine on 02-04-2023 Nucleated RBC Auto Ql (Bld) 0.1 /100{WBC} 0-0.5 [facility] Platelet mean volume Auto (B ld) [Entitic vol]Ordered By: Orly Fontaine on 02-04-2023 Platelet mean volume (Bld) [Entitic vol] 7.4 fL 6.3-10.7 [facility] Platelets Auto (Bld) [#/Vol] Ordered By: Orly Fontaine on 02-04-2023 Platelets (Bld) [#/Vol] 208 10*3/uL 150-450 [facility] Potassium [Moles/volume] in Serum or PlasmaOrdered By: Orly Fontaine on 02-04-2023 Potassium [Moles/Vol] 4.2 mmol/L 3.5-5.1 [facility] Protein [Mass/volume] in Ser um or PlasmaOrdered By: Orly Fontaine on 02-04-2023 Protein [Mass/Vol] 6.2 g/dL 6.4-8.9 [facility] RBC Auto (Bld) [#/Vol]Ordere d By: Orly Fontaine on 02-04-2023 RBC (Bld) [#/Vol] 4.54 10*6/uL 3.60-5.00 [facility] Serum or plasma albumin/glob ulin mass ratioOrdered By: Orly Fontaine on 02-04-2023 Albumin/Globulin [Mass ratio] 2.3 {ratio} [facility] Serum or plasma anion gap de terminationOrdered By: Orly Cespedesser on 02-04-2023 Anion gap [Moles/Vol] 12.0 mmol/L 6.0-15.0 [facility] Serum or plasma high density lipoprotein (HDL) cholesterol measurementOrdered By: Orly Fontaine on 02-04-2023 Cholesterol in HDL [Mass/Vol] 42 mg/dL 23-92 [facility] Comment on above: HDL CHOL ATP-III CLA SSIFICATION Cardiovascular RiskHDL > or equal to 60 mg/dL LOWHDL < 40 mg/dL HIGH Serum or plasma total choles terol/high density lipoprotein (HDL) cholesterol mass ratOrdered By: Orly Fontaine on 02-04-2023 Cholesterol.total/Choles terol in HDL [Mass ratio] 4.0 {ratio} <5.0 [facility] Sodium [Moles/volume] in Ser um or PlasmaOrdered By: Orly Fontaine on 02-04-2023 Sodium [Moles/Vol] 142 mmol/L 136-145 [facility] Triglyceride [Mass/volume] i n Serum or PlasmaOrdered By: Orly Fontaine on 02-04-2023 Triglyceride [Mass/Vol] 345 mg/dL 0-149 F [facility] Comment on above: TRIG ATP III CLASSIF ICATIONTRIG less than 150 mg/dL NormalTRIG 150-199 mg/dL Borderline highTRIG 200-500 mg/dL High TRIG greater than 500 mg/dL Very highStandard traceable to the Center for Disease Conrtrol and Prevention (CDC) test method. Urea nitrogen [Mass/volume] in Serum or PlasmaOrdered By: Orly Fontaine on 02-04-2023 Urea nitrogen [Mass/Vol] 10 mg/dL 03-09 [facility] Urine microalbumin/creatinin e mass ratioOrdered By: Orly Fontaine on 02-04-2023 Albumin/Creatinine DL <= 20 mg/L (U) [Mass ratio] TNP [facility] Comment on above: Test not performed WBC Auto (Bld) [#/Vol]Ordere d By: Orly Fontaine on 02-04-2023 WBC (Bld) [#/Vol] 5.4 10*3/uL 3.8-11.6 [facility] Covid-19 PCR (CVDTBH)on SARS-CoV-2 (COVID-19) RNA [place]+probe Ql (Unsp spec) Not detected Normal NOT DETECTED [facility] Comment on above: Result Comment: When [...] for this test is supported by the [place] of Health and Human Service's declaration that [...] used). Performed By: #### C VDTB #### [facility] [address] [place] [address] Dr. Bebo Muniz INFLUENZA A AND B AGon 07-17 INFLUBNEG SEE BELOW Normal [facility] Comment on above: Result Comment: Nega tive for Flu B protein antigen. Infection due to Flu B cannot be ruled out. Flu B antigen in the sample may be below the detection limit of the test. Performed By: #### I NFLUAB #### [facility] [address] [place] [address] Dr. Bebo Muniz INFLUENZA A AG Positive Abnormal NEGATIVE SEE COMMENT [facility] Comment on above: Performed By: #### I NFLUAB #### [facility] [address] [place] [address] Dr. Bebo Muniz INFLUENZA B AG Negative Normal NEGATIVE SEE COMMENT [facility] Comment on above: Performed By: #### I NFLUAB #### [facility] [address] [place] [address] Dr. Bebo Muniz INFLUPOSH SEE BELOW Normal [facility] Comment on above: Result Comment: NOTE : Live attenuated influenzae vaccine viruses can cause a positive result for a rapid influenza diagnostic test if administered up to 7 days prior to rapid testing. Performed By: #### I NFLUAB #### [facility] [address] [place] [address] Dr. Bebo Muniz INTERNAL CONTROLS Within Normal Limits Normal Wi thin Normal Limits [facility] Comment on above: Performed By: #### I NFLUAB #### [facility] [address] [address] [address] Bebo Muniz SCREENING MAMMOGRAM W/PRATEEK, BILATERAL*on [...] VERY IMPORTANT TO YOUR HEALTH. THE CURRENT [employer] GUIDELINES RECOMMENDS ANNUAL MAMMOGRAPHY BEGINNING AT AGE 39 THIS FACILITY USES A REMINDER SYSTEM TO ENSURE ALL PATIENTS RECEIVE REMINDER NOTIFICATIONS AT THE APPROPRIATE TIME BASED ON THE RECOMMENDATIONS OF THIS EXAM. 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 Accredited by the ACR and FDA. Report reported and signed by Darryl Milner on 01/07/2022 0959 Normal [facility] [employer] Manager Vital Signs Date Time Vital Sign Value Performing Clinician Facility 03-06-2025 10:24-0400 Diastolic blood pressure 87 mm[Hg] Services [facility] Work Phone: [facility] 03-06-2025 10:24-0400 Heart rate 70 /min Services [facility] Work Phone: [facility] 03-06-2025 10:24-0400 Respiratory rate 16 /min Services [facility] Work Phone: [facility] 03-06-2025 10:24-0400 Systolic blood pressure 135 mm[Hg] Services [facility] Work Phone: [facility] 03-06-2025 10:09-0400 SaO2% (BldA) [Mass fraction] 95 % Services [facility] Work Phone: [facility] 03-06-2025 09:43-0400 Inhaled oxygen flow rate 3 L/min Services [facility] Work Phone: [facility] 03-06-2025 08:31-0400 Body height 157.48 cm Services [facility] Work Phone: [facility] 03-06-2025 08:31-0400 Body weight 86.18 kg [facility] Work Phone: [facility] 11-04-2024 18:28-0400 Body height 157.48 cm [facility] Work Phone: [facility] 11-04-2024 18:28-0400 Body temperature 99.5 [degF] Services [facility] Work Phone: [facility] 11-04-2024 18:28-0400 Body weight 83.45 kg Services [facility] Work Phone: [facility] 11-04-2024 18:28-0400 Diastolic blood pressure 70 mm[Hg] Services [facility] Work Phone: [facility] 11-04-2024 18:28-0400 Heart rate 62 /min Services [facility] Work Phone: [facility] 11-04-2024 18:28-0400 Respiratory rate 18 /min Services [facility] Work Phone: [facility] 11-04-2024 18:28-0400 SaO2% (BldA) [Mass fraction] 95 % Services [facility] Work Phone: [facility] 11-04-2024 18:28-0400 Systolic blood pressure 155 mm[Hg] Services [facility] Work Phone: [facility] 06-14-2024 13:45-0400 Body height 157.5 cm Ivan Edmonds [employer] Work Phone: [facility] 06-14-2024 13:45-0400 Body mass index (BMI) [Ratio] 35.12 kg/m2 Ivan Edmonds [employer] Work Phone: [facility] 06-14-2024 13:45-0400 Body weight 87.09 kg Ivan Murcek DO Work Phone: [facility] 06-09-2024 10:12-0400 Body height 157.48 cm [facility] Work Phone: [facility] 06-09-2024 10:12-0400 Body temperature 98.4 [degF] [facility] Work Phone: [facility] 06-09-2024 10:12-0400 Body weight 86.65 kg [facility] Work Phone: [facility] 06-09-2024 10:12-0400 Diastolic blood pressure 78 mm[Hg] [facility] Work Phone: [facility] 06-09-2024 10:12-0400 Heart rate 79 /min [facility] Work Phone: [facility] 06-09-2024 10:12-0400 Respiratory rate 20 /min [facility] Work Phone: [facility] 06-09-2024 10:12-0400 SaO2% (BldA) [Mass fraction] 95 % [facility] Work Phone: [facility] 06-09-2024 10:12-0400 Systolic blood pressure 149 mm[Hg] [facility] Work Phone: [facility] 06-06-2024 11:17-0400 Diastolic blood pressure 76 mm[Hg] [facility] Work Phone: [facility] 06-06-2024 11:17-0400 Heart rate 64 /min [facility] Work Phone: [facility] 06-06-2024 11:17-0400 Respiratory rate 16 /min [facility] Work Phone: [facility] 06-06-2024 11:17-0400 SaO2% (BldA) [Mass fraction] 97 % [facility] Work Phone: [facility] 06-06-2024 11:17-0400 Systolic blood pressure 126 mm[Hg] [facility] Work Phone: [facility] 06-06-2024 10:37-0400 Inhaled oxygen flow rate 3 L/min [facility] Work Phone: [facility] 06-06-2024 09:41-0400 Body height 157.48 cm [facility] Work Phone: [facility] 06-06-2024 09:41-0400 Body weight 86.18 kg Services [facility] Work Phone: [facility] 01-11-2024 18:36-0400 Heart rate 83 /min [facility] Work Phone: [facility] 01-11-2024 18:36-0400 Respiratory rate 18 /min [facility] Work Phone: [facility] 01-11-2024 18:36-0400 SaO2% (BldA) [Mass fraction] 97 % [facility] Work Phone: [facility] 01-11-2024 18:35-0400 Diastolic blood pressure 84 mm[Hg] [facility] Work Phone: [facility] 01-11-2024 18:35-0400 Systolic blood pressure 176 mm[Hg] Services [facility] Work Phone: [facility] 01-11-2024 16:36-0400 Body height 157.48 cm [facility] Work Phone: [facility] 01-11-2024 16:36-0400 Body temperature 98.3 [degF] [facility] Work Phone: [facility] 01-11-2024 16:36-0400 Body weight 88.35 kg Services [facility] Work Phone: [facility] 11-02-2023 09:25-0400 Diastolic blood pressure 91 mm[Hg] [facility] Work Phone: [facility] 11-02-2023 09:25-0400 Heart rate 74 /min [facility] Work Phone: [facility] 11-02-2023 09:25-0400 Respiratory rate 16 /min [facility] Work Phone: [facility] 11-02-2023 09:25-0400 SaO2% (BldA) [Mass fraction] 92 % [facility] Work Phone: [facility] 11-02-2023 09:25-0400 Systolic blood pressure 152 mm[Hg] [facility] Work Phone: [facility] 11-02-2023 08:38-0400 Inhaled oxygen flow rate 3 L/min [facility] Work Phone: [facility] 11-02-2023 07:40-0400 Body height 157.48 cm Services [facility] Work Phone: [facility] 11-02-2023 07:40-0400 Body temperature 98.3 [degF] [facility] Work Phone: [facility] 11-02-2023 07:40-0400 Body weight 86.18 kg Services [facility] Work Phone: [facility] 10-05-2023 09:17-0500 Diastolic blood pressure 80 mm[Hg] [facility] Work Phone: [facility] 10-05-2023 09:17-0500 Heart rate 72 /min [facility] Work Phone: [facility] 10-05-2023 09:17-0500 Respiratory rate 18 /min [facility] Work Phone: [facility] 10-05-2023 09:17-0500 SaO2% (BldA) [Mass fraction] 95 % [facility] Work Phone: [facility] 10-05-2023 09:17-0500 Systolic blood pressure 127 mm[Hg] [facility] Work Phone: [facility] 10-05-2023 08:37-0500 Inhaled oxygen flow rate 2 L/min [facility] Work Phone: [facility] 10-05-2023 07:54-0500 Body height 157.48 cm Services [facility] Work Phone: [facility] 10-05-2023 07:54-0500 Body weight 86.18 kg Services [facility] Work Phone: [facility] 09-14-2023 10:20-0500 Diastolic blood pressure 74 mm[Hg] [facility] Work Phone: [facility] 09-14-2023 10:20-0500 Heart rate 76 /min [facility] Work Phone: [facility] 09-14-2023 10:20-0500 Respiratory rate 16 /min [facility] Work Phone: [facility] 09-14-2023 10:20-0500 SaO2% (BldA) [Mass fraction] 98 % [facility] Work Phone: [facility] 09-14-2023 10:20-0500 Systolic blood pressure 134 mm[Hg] Services [facility] Work Phone: [facility] 09-14-2023 09:42-0500 Inhaled oxygen flow rate 3 L/min [facility] Work Phone: [facility] 09-14-2023 08:39-0500 Body height 157.48 cm Services [facility] Work Phone: [facility] 09-14-2023 08:39-0500 Body weight 86.18 kg Services [facility] Work Phone: [facility] 11-27-2021 16:30-0400 Body height 157.48 cm Joel Anand Other [employer] Other 11-27-2021 16:30-0400 Body mass index (BMI) [Ratio] 31.09 kg/m2 Joel Anand Other [employer] Other 11-27-2021 16:30-0400 Body weight 77.11 kg Joel Anand Other [facility] Other Encounters Encounter Date Encounter Type Care Provider Facility Start: 03-20-2025 End: 03-20-2025 ambulatory Services [facility] Work Phone: [facility] Work Phone: Start: 03-20-2025 End: 03-20-2025 [facility] Start: 03-06-2025 End: 03-06-2025 ambulatory Apolinar Zarate Facility:[facility] Start: 03-06-2025 Non-patient / [facility] Start: 02-19-2025 End: 02-19-2025 ambulatory Services [facility] Work Phone: [facility] Work Phone: Start: 02-19-2025 End: 02-19-2025 [facility] Start: 01-23-2025 End: 01-23-2025 Patient encounter procedure Services [facility] Work Phone: [facility] [place] Work Phone: Start: 01-23-2025 End: 01-23-2025 ambulatory [facility] Work Phone: [facility] Work Phone: Start: 01-03-2025 End: 01-03-2025 Patient encounter procedure Services [facility] Work Phone: [facility] Work Phone: Start: 11-10-2024 End: 11-10-2024 Patient encounter procedure Services [facility] Work Phone: [facility] [place] Work Phone: Start: 11-10-2024 End: 11-10-2024 ambulatory [facility] Work Phone: [facility] Work Phone: Start: 11-04-2024 End: 11-04-2024 Emergency department patient visit Services [facility] Work Phone: [facility] Work Phone: Start: 07-05-2024 End: 07-05-2024 ambulatory Services [facility] Work Phone: [facility] Work Phone: Start: 07-05-2024 End: 07-05-2024 Patient encounter procedure [facility] Work Phone: [facility] Work Phone: Start: 06-14-2024 End: 06-14-2024 Bamboo flowsheet Ivan Edmonds DO Work Phone: [facility] Start: 06-14-2024 End: 06-14-2024 Bamboo flowsheet Ivan Edmonds DO Work Phone: [facility] Start: 06-14-2024 End: 06-14-2024 Office outpatient visit 25 minutes Ivan Edmonds DO Work Phone: [facility] Comment on above: Thyroid nodule (CMS/ HCC) (Primary Dx) Start: 06-14-2024 End: 06-14-2024 ambulatory IVAN EDMONDS Not Available Start: 06-09-2024 End: 06-09-2024 Emergency department patient visit Services [facility] Work Phone: [facility] Work Phone: Start: 06-06-2024 Non-patient / Non-visit Services [facility] Work Phone: [facility] Work Phone: Start: 06-06-2024 End: 06-06-2024 Admission to same day surgery center Services [facility] Work Phone: [facility] Work Phone: Start: 06-06-2024 End: 06-06-2024 ambulatory [facility] Work Phone: [facility] Work Phone: Start: 05-24-2024 End: 05-24-2024 ambulatory [facility] Work Phone: [facility] Work Phone: Start: 05-24-2024 End: 05-24-2024 Patient encounter procedure [facility] Work Phone: [facility] Work Phone: Start: 04-06-2024 End: 04-06-2024 Patient encounter procedure [facility] Work Phone: [facility] Work Phone: Start: 04-06-2024 End: 04-06-2024 ambulatory [facility] Work Phone: [facility] Work Phone: Start: 04-03-2024 End: 04-03-2024 ambulatory DAVIDSON A VISCI Not Available Start: 02-08-2024 End: 02-08-2024 ambulatory [facility] Work Phone: [facility] Work Phone: Start: 02-08-2024 End: 02-08-2024 Patient encounter procedure Services [facility] Work Phone: [facility] [place] Work Phone: Start: 01-11-2024 End: 01-11-2024 Emergency department patient visit [facility] Work Phone: [facility] Work Phone: Start: 12-08-2023 End: 12-08-2023 ambulatory IVAN W ANGELA Not Available Start: 11-23-2023 End: 11-23-2023 ambulatory [facility] Work Phone: [facility] Work Phone: Start: 11-23-2023 End: 11-23-2023 Patient encounter procedure [facility] Work Phone: [facility] Work Phone: Start: 11-23-2023 End: 11-23-2023 Departed Referred Services [facility] Work Phone: [facility] [place] Work Phone: Start: 11-23-2023 Registered Referred Services [facility] Work Phone: [facility] [place] Work Phone: Start: 11-23-2023 End: 11-23-2023 ambulatory [facility] Work Phone: [facility] Work Phone: Start: 11-10-2023 End: 11-10-2023 ambulatory IVAN EDMONDS Not Available Start: 11-02-2023 Non-patient / Non-visit [facility] Work Phone: [facility] Work Phone: Start: 11-02-2023 End: 11-02-2023 Admission to same day surgery center Services [facility] Work Phone: [facility] Work Phone: Start: 11-02-2023 End: 11-02-2023 ambulatory [facility] Work Phone: [facility] Work Phone: Start: 10-22-2023 End: 10-22-2023 Patient encounter procedure [facility] Work Phone: [facility] [place] Work Phone: Start: 10-18-2023 End: 10-18-2023 Patient encounter procedure [facility] Work Phone: [facility] Work Phone: Start: 10-05-2023 (Procedure) Ro Zarate [facility] Start: 10-05-2023 Non-patient / Non-visit Services [facility] Work Phone: [facility] Work Phone: Start: 10-05-2023 End: 10-05-2023 Admission to same day surgery center Services [facility] Work Phone: [facility] Work Phone: Start: 10-05-2023 End: 10-05-2023 ambulatory [facility] Work Phone: [facility] Work Phone: Start: 09-14-2023 (Procedure) Ro Zarate [facility] Start: 09-14-2023 End: 09-14-2023 Admission to same day surgery center Services [facility] Work Phone: [facility] Work Phone: Start: 09-14-2023 End: 09-14-2023 ambulatory [facility] Work Phone: [facility] Work Phone: Start: 08-30-2023 End: 08-30-2023 ambulatory Apolinar Zarate Other [employer] Other Start: 08-30-2023 Office outpatient visit 25 minutes Apolinar Zarate [facility] [place] Start: 08-30-2023 End: 08-30-2023 Patient encounter procedure [facility] Work Phone: [facility] Work Phone: Start: 08-05-2023 End: 08-05-2023 ambulatory [facility] Work Phone: [facility] Work Phone: Start: 08-05-2023 End: 08-05-2023 Discharged Recurring Services [facility] Work Phone: [facility] [place] Work Phone: Start: 07-14-2023 End: 07-14-2023 ambulatory [facility] Work Phone: [facility] Work Phone: Start: 07-14-2023 End: 07-14-2023 Patient encounter procedure [facility] Work Phone: [facility] [place] Work Phone: Start: 07-02-2023 End: 07-02-2023 ambulatory Apolinar Zarate Other [employer] Other Start: 07-02-2023 Telephone encounter Apolinar JOHNSON [facility] [place] Start: 06-30-2023 End: 06-30-2023 ambulatory [facility] Work Phone: [facility] Work Phone: Start: 06-30-2023 End: 06-30-2023 Patient encounter procedure Services [facility] Work Phone: [facility] [place] Work Phone: Start: 04-08-2023 End: 04-08-2023 [facility]ulatory [facility] Work Phone: [facility] Work Phone: Start: 04-08-2023 End: 04-08-2023 Patient encounter procedure Services [facility] Work Phone: [facility] Work Phone: Start: 02-04-2023 End: 02-04-2023 ambulatory [facility] Work Phone: [facility] Work Phone: Start: 02-04-2023 End: 02-04-2023 Patient encounter procedure [facility] Work Phone: [facility] [place] Work Phone: Start: 10-21-2022 End: 10-21-2022 ambulatory Services [employer] Work Phone: [facility] Work Phone: Start: 10-21-2022 End: 10-21-2022 Patient encounter procedure Services [employer] Work Phone: [facility] [place] Work Phone: Start: 07-17-2022 End: 07-17-2022 ambulatory [facility] Facility: Start: 11-27-2021 End: 11-27-2021 ambulatory Joel Anand Other [facility] Other Start: 11-27-2021 Office outpatient visit 15 minutes Joel Anand [facility] Gastroenterology Procedures Date Procedure Procedure Detail Performing Clinician Start: 11-10-2024 X-ray of cervical spine Services [facility] Phone: Start: 06-06-2024 DH Nerve Radio Frequ ency (Bilateral) Services [facility] Phone: Start: 04-06-2024 Screening mammograph y of bilateral breasts Services [facility] Phone: Start: 01-11-2024 Plain chest X-ray Servi candy [facility] Phone: Start: 11-02-2023 DH Nerve Radio Frequ ency (Bilateral) Services [facility] Phone: Start: 10-05-2023 Local anesthetic lum bar facet joint nerve block Services [facility] Phone: Start: 09-14-2023 Local anesthetic lum bar facet joint nerve block Services [facility] Phone: Start: 07-14-2023 X-ray of lumbar spin e, four views Services [facility] Phone: Start: 06-30-2023 CT of soft tissues o f neck with contrast [facility] Work Phone: Start: 06-30-2023 US scan of thyroid Serv ices [facility] Work Phone: Start: 04-08-2023 Screening mammograph y of bilateral breasts Services [facility] Work Phone: Start: 10-21-2022 Plain chest X-ray Servi candy [facility] Work Phone: Plan of Treatment Date Care Activity Detail Author Start: 06-20-2025 End: 06-20-2025 Patient encounter procedure 06/20/2025 1:45 PM EST Office Visit [facility] [address] [place] [id number] Ivan Edmonds, [address] [place] [address] [facility] Start: 03-06-2025 [facility] Start: 06-14-2024 End: 06-14-2024 Patient encounter procedure 06/14/2024 1:45 PM EDT Office Visit [facility] [place] [address] [place] [phone] Ivan Edmonds, DO [address] [place] [address] Arrived [facility]AMAAL [facility] Comment on above: Arrived Start: 06-06-2024 [facility] Start: 01-11-2024 Plain chest X-ray XR chest 1V portab le [facility] Start: 01-11-2024 XR Chest Single view [facility] Start: 11-02-2023 [facility] Start: 10-05-2023 [facility] Start: 09-14-2023 [facility] Patient Education [facility] Work Phone: Patient referral [facility] Work Phone: Payers Date Payer Category Payer Medicaid [id number] 2024 Medicare [id number] 2024 Unknown [id number] 2024 Self-pay [id number] 2022 Medicare (Managed Care) [employer] M EDICARE ADVANTAGE [id number] 2022 Private Health Insurance [id number] 1959 Unknown [id number]. 593 1959 Unknown [id number]. 1258 1959 Unknown [id number] .840.1.517419.3.579.2. 9 1959 Unknown [id number] .[id number]. 1258 1959 Unknown [id number] 2.840.1.972504.3.579.2. 9 1959 Unknown [id number] 2.840.1.721653.3.579.2. 1259 1959 Medicare [id number] Medicare [id number] Medicare [id number] Medicare [place] [employer] Dual Adv 4da [id number] Unknown [id number] Unknown [id number] Unknown [id number] 2.16.840.1.524340.3.579.2. 531 Unknown [id number] 2.16.840.1.203755.3.579.2. 531 Unknown [id number] 2.16.840.1.553352.3.579.2. 531 Unknown [id number] 2.16.840.1.143384.3.579.2. 531 Unknown [id number] 2.16.840.1.891591.3.579.2. 531 Unknown [id number] 2.16.840.1.925341.3.579.2. 531 Unknown [id number] 2.16.840.1.286233.3.579.2. 531 Social History Date Type Detail Facility Unknown if ever smoked [facility] Other Start: 04-03-2024 Sex Assigned At N [facility] Other Start: 10-14-2021 End: 06-09-2024 Tobacco smoking status MOIS Ex-smoker (finding) [facility] Start: 1960 Sex Assigned At Female F [facility] Start: 08-30-2023 End: 03-06-2025 Tobacco smoking status MOIS Never smoked tobacco (finding) [facility] History of tobacco use Current smoker [facility] History of tobacco use Cigarette Smoker [facility] Start: 06-13-2024 End: 06-14-2024 Alcoholic beverage intake Lifetime non-drinker (finding) [facility] Start: 04-03-2024 History of Social function [facility] How often to you hav e a drink containing alcohol? Never [facility] How many standard drinks containing alcohol do you have on a typical day? Patient does not drink [facility] Start: 11-09-2023 Alcohol Comment caffeie intake : 2-3 ups per day ; coffee [facility] Start: 1960 Sex assigned at Not [facility] file [facility] Start: 07-05-2024 End: 01-24-2025 Sex Female (finding) [facility] Medical Equipment Procedure Code Equipment [...] Desired Activity /State Clinical Notes 12-13-2015 to 01-03-2025 Note Date & Type Note Facility 01-03-2025 Evaluation note Diagnosis Onset Date Resolution Lumbosacral spondylosis without myelopathy acute January 03 10:36am Other chronic pain acute January 032024 10:36am Other low back pain acute December 152024 10:36am [facility] Work Phone: 1(401) 566-457105-21-2025 Evaluation note* Diagnosis Onset Date Resolution Status Admit Date Lumbosacral spondylosis with out myelopathy acute January 03, 2025 1 0:36am Other chronic pain acute January 032024 10:36am Other low back pain acute December 152024 10:36am Lumbosacral spondylosis with out myelopathy acute February 19, 2025 9 :02am Other chronic pain acute February 192024 9:02am Other low back pain acute February 19, 2025 9:02am [facility] Work Phone: 1(620) 968-198205-21-2025 Evaluation note* Diagnosis Onset Date Resolution Status Admit Date Lumbosacral spondylosis with out myelopathy acute January 03, 2025 1 0:36am Other chronic pain acute January 032024 10:36am Other low back pain acute December 152024 10:36am Lumbosacral spondylosis with out myelopathy acute February 19, 2025 9 :02am Other chronic pain acute February 192024 9:02am Other low back pain acute February 19, 2025 9:02am Lumbosacral spondylosis with out myelopathy acute March 20, 2025 12:43pm Other chronic pain acute March 20, 2025 12:43pm Other low back pain acute 2024 12:43pm [facility] Work Phone: 1(329) 746-493110-30-2024 History of Present illness Narrative* Ivan Edmonds, - 06/14/2024 1:45 PM EDT Subjective Patient ID: HPI Patient presents today to reinspect a left-sided 1.8 cm benign thyroid nodule. She is doing fine. Review of Systems ROS The specialty specific review of systems is noncontributory except for that recorded in the intake questionnaire and /or described in the history of present illness. Objective ENT Physical Exam Physical Exam Constitutional: Appearance: Normal appearance. HENT: Head: Atraumatic. Ears: External ear shows no abnormality Bilateral ear canals are clear Tympanic membranes intact, no evidence of middle ear fluid or other pathology. Nose: External nose appears to be normal Nares patent. Septal deviation to the right No evidence of polyp, mass or pus bilaterally. Oral Cavity: No evidence of trismus Lips appear normal Dental good Tongue of normal size and configuration, floor of mouth mucosa clear. Buccal mucosa shows no evidence of ulceration, mass or other abnormality Hard palate soft palate mucosa intact with no evidence of mass, ulceration or other abnormality Uvula of normal size and configuration Oropharynx: Tonsils Posterior pharyngeal wall Neck: No evidence of palpable abnormality Thyroid without evidence of thyromegaly or mass. No cervical lymphadenopathy present. Cardiovascular: Rate and Rhythm: Normal rate and regular rhythm. . Skin: General: Skin is warm and dry. Neurological: General: No focal deficit present. Mental Status: alert and oriented to person, place, and time. THYROID ULTRASOUND EXAMINATION Indication: Thyroid nodule After informed consent was obtained the patient was placed supine on the examining table. Patient was asked to extend the neck. Topical ultrasound jelly was used. The right lobe of the thyroid gland measures _ 4.2 cm in greatest dimension. There are a fewhypoechoic nodules scattered throughout the parenchyma, none with untoward ultrasonic features measuring up to about 8 mm in greatest dimension. The isthmus is unremarkable. The left lobe of the thyroid gland measures ___ 4.4 ____ cm greatest dimension. Previously biopsiednodule in the inferior anterior portion of the lobe measures 1.86 cm in greatest dimension no internal vascularity microcalcification. There is no adenopathy in the central compartment. There is no appreciable adenopathy in either lateral neck. Assessment/Plan Aura was seen today for thyroid nodule. Diagnoses and all orders for this visit: Thyroid nodule (CMS/HCC) (Primary) Comments: There has been no growth of the nodule, I will see the patient back in 1 year with an ultrasound. documented [facility] [id number] Procedure [facility]10-09-2024 Evaluation note* Diagnosis Onset Date Resolution Status Admit Date Lumbosacral spondylosis without myelopathy acute May 24, 2024 10:59am Other chronic pain acute Octobe r 2023 10:59am Other low back pain acute Octob er 2023 10:59am [facility] Work Phone: 1(942) 366-619103-19-2024 Procedure [facility]01[facility]30[facility]* Encounter Date Diagnosis Assessment Notes Treatment Notes Treatment Clinical Notes Aug, Osteoarthritis of lumbosacral spine without [...] (ICD-10 - G89.29) Aug, Other Above note writ ten by Shane Ferguson MA, 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 Edited and approved by Dr. Apolinar Zarate MD. [facility] Other 11-17-2023 Evaluation note* Encounter Date Diagnosis Assessment Notes Treatment Notes Treatment Clinical Notes Jun, Other low back pain (ICD-10 - M54.59) [facility] Other 04-14-2022 Evaluation note* Encounter Date Diagnosis Assessment Notes Treatment Notes Treatment Clinical Notes Nov, History of colon polyps (ICD-10 - Z86.010) Nov, Inflammatory polyps of colon (ICD-10 - K51.40) PATIENT ADVISED WE WILL REPEAT THIS IN 10 YEARS Nov, Diverticulosis (ICD-10 - K57.90) Nov, Hemorrhoids (ICD-10 - K64.9) [facility] Other 04-29-2016 History general Narrative - Reported* Type Description Date Medical History 12/13/15 Colonsocopy- hyperplastic polyps sigmoid and rectum repeat in 5 years Medical History High Cholesterol Medical History arthritis in spine Surgical History gallbladder Surgical History appendix Surgical History tubes tied Surgical History hysterectomey 1999 Surgical History tonsil Surgical History RT SHOULDER ROTOR CUFF Surgical History BLADDER LIFT Hospitalization History see above [facility] Other Evaluation noteNo assessment information available [facility] Work Phone: Evaluation noteNo InformationNortEncompass [facility] Other Evaluation note* Diagnosis Onset Date Resolution Status Lumbosacral spondylosis without myelopathy acute Other chronic pain acute Other low back pain acute [facility] Work Phone: Evaluation note* Diagnosis Onset Date Resolution Status Lumbosacral spondylosis without myelopathy acute Other chronic pain acute Other low back pain acute Lumbosacral spondylosis without myelopathy acute Other chronic pain acute Other low back pain acute [facility] Work Phone: Evaluation note* Diagnosis Thyroid nodule (CMS/HCC)- Primary Nontoxic uninodular goiter documented in this encounter [facility] Discharge instructions Additional Instructions Continue current [facility] Work [facility] Hospital Discharge instructions Additional Instructions Return to emergency room for fever chills, chest pain, shortness of breath, worsening symptoms or other concerns May take Tylenol as needed for headache Take Augmentin twice a day for 7 days Use OTC cough medication as [facility] Work Phone: Hospital Discharge instructions Additional Instructions Ice for the next 24 hours and then rotate heat Zanaflex as needed for muscle spasms You cannot work or drive and take Zanaflex Tylenol or Relafen if needed for your discomfort Do not take your Relafen and your Celebrex together. Call Wednesday for appointment Return if any problems persist or worsen including chest pain, shortness of breath or any other concernsA[facility] Work Phone: Reason for referral (narrative)No reason for referral information availableThe [facility] Work Phone: Summary Purpose Family History Relationship Condition Age at Onset Recorded Date/T [...] brother Myocardial infarction Unknown Unknown mother Unknown Relationship Condition Age at Onset Recorded Date/T leno father Diabetes mellitus Unknown Heart disease Unknown Myocardial infarction Unknown Unknown mother Malignant neoplasm of ovary Unknown brother History of heart shilpi ve replacement with porcine valve Unknown Hypertension Unknown sister Diabetes mellitus Unknown Osteoporosis Unknown Arthritis Unknown sister Malignant neoplasm of skin Unknown brother Diabetes mellitus Unknown Coronary artery disease Unknown brother Myocardial infarction Unknown Advance Directives Advance Directive Response Recorded Date/ Time Advance [...] MBB E04.2 LUMBAR PAIN LUMBAR PAIN F/U JEEAVN LUMBAR FACET RFA Reason for Visit Lumbosacral [...] feet and leg swellin g e78.5 Screening Chief Complaint Screening 6 MONTHS Reason for Visit Lumbosacral spondylo sis without myelopathy Other chronic pain Other low back pain Chief Complaint Screening 6 MONTHS Back Pain Back Pain Reason for Visit Lumbosacral spondylo sis without myelopathy Other chronic pain Other low back pain Chief Complaint Screening 6 MONTHS Back Pain Back Pain headache Reason for Visit Lumbosacral spondylo sis without myelopathy Other chronic pain Other low back pain Chief Complaint Admit Date Screening April 06, 2024 10 :40am 6 MONTHS May 24, 2024 10 :59am Back Pain June 06, 2024 9 :05am Back Pain June 06, 2024 1 0:26am headache June 09, 2024 1 0:07am 1 MO F/U JEEVAN LUMBAR RFA July 05 11:16am Reason for Visit Admit Date Lumbosacral spondylosis without myelopat hy May 24, 2024 10:59am Other chronic pain May 24, 2024 10 :59am Other low back pain May 24, 2024 10 :59am Chief Complaint Admit Date neck pain November 04, 2024 6:2 2pm Chief Complaint Admit Date neck pain November 04, 2024 6:2 2pm S16.1XXA November 10, 2024 2:4 5pm Chief Complaint Admit Date neck pain November 04, 2024 6:2 2pm S16.1XXA November 10, 2024 2:4 5pm 6 month January 03, 2025 10:36 am E78.5 K21.9 I10 Z13.1 January 23, 2025 8: 12am Reason for Visit Admit Date Lumbosacral spondylosis without myelopat hy January 03, 2025 10:36am Other chronic pain January 03, 2025 10:36 am Other low back pain January 03, 2025 10:36 am Chief Complaint Admit Date January 03, 2025 10:36 am E78.5 K21.9 I10 Z13.1 January 23, 2025 8: 12am RECHECK BACK PAIN February 19, 2025 9:02a m Reason for Visit Admit Date Lumbosacral spondylosis without myelopat hy January 03, 2025 10:36am Other chronic pain January 03, 2025 10:36 am Other low back pain January 03, 2025 10:36 am Lumbosacral spondylosis without myelopat hy February 19, 2025 9:02am Other chronic pain February 19, 2025 9:02a m Other low back pain February 19, 2025 9:02a m Chief Complaint Admit Date January 03, 2025 10:36 am E78.5 K21.9 I10 Z13.1 January 23, 2025 8: 12am RECHECK BACK PAIN February 19, 2025 9:02a m Back Pain March 06, 2025 8:15 am Chief Complaint Admit Date January 03, 2025 10:36 am E78.5 K21.9 I10 Z13.1 January 23, 2025 8: 12am RECHECK BACK PAIN February 19, 2025 9:02a m Back Pain March 06, 2025 8:15 am F.U JEEVAN LUMBAR RFA March 20, 2025 12: 43pm Reason for Visit Admit Date Lumbosacral spondylosis without myelopat hy January 03, 2025 10:36am Other chronic pain January 03, 2025 10:36 am Other low back pain January 03, 2025 10:36 am Lumbosacral spondylosis without myelopat hy February 19, 2025 9:02am Other chronic pain February 19, 2025 9:02a m Other low back pain February 19, 2025 9:02a m Lumbosacral spondylosis without myelopat hy March 20, 2025 12:43pm Other chronic pain March 20, 2025 12: 43pm Other low back pain March 20, 2025 12: 43pm Additional Source Comments INFORMATION SOURCE (unrecogn ized section and content) DATE CREATED AUTHOR 01/08/2022 [facility] Special[facility] DATE CREATED AUTHOR AUTHOR'S ORGANIZ ATION 07/19/2022 [facility] DATE CREATED AUTHOR AUTHOR'S ORGANIZ ATION 06/16/2024 [facility] dical Specialists EPIC DATE CREATED AUTHOR AUTHOR'S ORGANIZ ATION 03/18/2025 [facility] ysician Group REASON FOR VISIT (unrecogniz ed section and content) Reason Comments Thyroid Nodule 6 month recheck thyr oid Care Teams (unrecognized sec tion and content) [...] Health Primary Care Provider Active Zachariah Crowley DO Attending Provider Active Orly Fontaine MD RES Other Provider Active Team Status: Inactive Member Role Status Dates Services [facility] Primary Care Provider Active Zachariah Crowley DO [...] August 05, 2023 End: August 05, 2023 Apoilnar Zarate MD Attending Provider Active Sta rt: [...] 23, 2023 End: November 23, 2023 Services [facility] Primary Care Provider Active Start: November 23, 2023 End: November 23, 2023 Team Status: Inactive Member Role Status Dates Ivan Edmonds DO Attending Provider Active S tart: November 23, 2023 End: November 23, 2023 Team Status: Inactive Member Role Status Dates [facility] Primary Care Provider Active Start: January 11, 2024 End: January 11, 2024 Dony Ferguson MD Emergency Provider Active Star t: January 11, 2024 End: January 11, 2024 Team Status: Inactive Member Role Status Dates [facility] Primary Care Provider Active Start: February 08, 2024 End: February 08, 2024 Nehal West MD Attending Provider Active St art: February 08, 2024 End: February 08, 2024 Rico Choi MD RES Other Provider Active Star t: February 08, 2024 End: February 08, 2024 Team Status: Inactive Member Role Status Dates [facility] Primary Care Provider Active Start: April 06, 2024 End: April 06, 2024 Referral Self Attending Provider Active Start: 2023 End: April 06, 2024 Davidson Krishnamurthy DO Referring Provider Active Sta rt: April 06, 2024 End: April 06, 2024 Team Status: Inactive Member Role Status Dates [facility] Primary Care Provider Active Start: May 24, 2024 End: May 24, 2024 Apolinar Zarate MD Attending Provider Active Sta rt: May 24, 2024 End: May 24, 2024 Team Status: Inactive Member Role Status Dates [facility] Primary Care Provider Active Start: June 06, 2024 End: June 06, 2024 Apolinar Zarate MD Attending Provider Active Sta rt: June 06, 2024 End: June 06, 2024 Team Status: Active Member Role Status Dates [facility] Primary Care Provider Active Start: June 06, 2024 Apolinar Zarate MD Attending Provider, Other Provider Active Start: June 06, 2024 Team Status: Inactive Member Role Status Dates [facility] Primary Care Provider Active Start: June 09, 2024 End: June 09, 2024 Marlys Lewis APRN Emergency Provider Active Start: June 09, 2024 End: June 09, 2024 Third Mate Relationship Specialty Start Date End Date Zachariah Crowley MD [address] [place] [address] PCP - General 03/24/23 Ivan Edmonds DO [address] [place] [address] Otolaryngology 06/14/24 Third Mate Relationship Specialty Start Date End Date Zachariah Crowley MD [address] [facility] [place] [address] PCP - General 03/24/23 Ivan Edmonds DO [address] [place] [address] Otolaryngology 06/14/24 Team Status: Inactive Member Role Status Dates Services [facility] Primary Care Provider Active Start: July 05, 2024 End: July 05, 2024 Apolinar Zarate MD Attending Provider Active Sta rt: July 05, 2024 End: July 05, 2024 Team Status: Inactive Member Role Status Dates Services [facility] Primary Care Provider Active Start: November 04, 2024 End: November 04, 2024 Tari Thomason APRN Emergency Provider Active Start: November 04, 2024 End: November 04, 2024 Team Status: Inactive Member Role Status Dates Services [facility] Primary Care Provider Active Start: November 10, 2024 End: November 10, 2024 Jayden Quevedo DO Attending Provider Active Start : November 10, 2024 End: November 10, 2024 Rico Choi MD RES Other Provider Active Star t: November 10, 2024 End: November 10, 2024 Team Status: Inactive Member Role Status Dates Services [facility] Primary Care Provider Active Start: January 03, 2025 End: January 03, 2025 Apolinar Zarate MD Attending Provider Active Sta rt: January 03, 2025 End: January 03, 2025 Team Status: Inactive Member Role Status Dates Services [facility] Primary Care Provider Active Start: January 23, 2025 End: January 23, 2025 Zachariah PULLIAM DO Attending Provider Active S tart: January 23, 2025 End: January 23, 2025 Rico Choi MD RES Other Provider Active Star t: January 23, 2025 End: January 23, 2025 Team Status: Inactive Member Role Status Dates [facility] Primary Care Provider Active Start: February 19, 2025 End: February 19, 2025 Apolinar Zarate MD Attending Provider Active Sta rt: February 19, 2025 End: February 19, 2025 Team Status: Active Member Role Status Dates [facility] Primary Care Provider Active Start: March 06, 2025 Apolinar Zarate MD Attending Provider Active Sta rt: March 06, 2025 Apolinar Zarate MD Other Provider Active Start: March 06, 2025 Team Status: Inactive Member Role Status Dates [facility] Primary Care Provider Active Start: March 20, 2025 End: March 20, 2025 Apolinar Zarate MD Attending Provider Active Sta rt: March 20, 2025 End: March 20, 2025 Goals (unrecognized section and content) Goals may [...] BE BASED ON THE PRIMARY CLINICAL RECORDS. [facility] [employer] provides no warranty or guarantee of the accuracy or completeness of information in this document.
--- NOTE | 2025-03-30 20:35 | ED.GENADUL1 ---
HPI HPI - General Adult General Chief complaint: Extremity Problem, Nontraumatic Stated complaint: rash on right forearm Time Seen by Provider: 03/30/25 20:21 Source: patient Mode of arrival: walk-in Limitations: no limitations History of Present Illness HPI narrative: patient states she was working in her yard and later developed a rash on her right forearm. Mild itch. not painful. No fever or swelling. No respiratory symptoms Related Data Home Medications ?Medication ?Instructions ?Recorded ?Confirmed atorvastatin 40 mg tablet 40 mg PO DAILY 10/28/23 03/30/25 celecoxib 200 mg capsule 200 mg PO Q24H 10/28/23 03/30/25 esomeprazole magnesium 40 mg 40 mg PO Q24H 10/28/23 03/30/25 capsule,delayed release fluticasone propionate 44 2 inh inhalation Q12H PRN wheeze 10/28/23 03/30/25 mcg/actuation HFA aerosol inhaler losartan 25 mg tablet 25 mg PO DAILY 10/28/23 03/30/25 Previous Rx's ?Medication ?Instructions ?Recorded ibuprofen 800 mg tablet 800 mg PO Q8H PRN pain #20 tabs 10/28/23 hydrocodone 5 mg-acetaminophen 325 1 tab PO Q6H PRN pain 2 days #6 02/03/24 mg tablet tabs methocarbamol 750 mg tablet 750 mg PO TID PRN pain #20 tabs 02/03/24 methylprednisolone 4 mg tablets in See Rx Instructions .Route 02/03/24 a dose pack (Medrol (Jonathan)) .COMPLEX #21 ea Allergies Allergy/AdvReac Type Severity Reaction Status Date / Time No Known Drug Allergies Allergy Verified 05/02/24 19:16 Opioid HPI Opioid Management Most Recent Opioid Data: Last Pain Scale 10 02/03/24, 21:59 Review of Systems ROS Status of ROS 10 or more systems reviewed and unremarkable except as noted in history and below PFSH PFSH Social History Smoking status: Former smoker Little interest or pleasure in doing things: not at all Feeling down, depressed, or hopeless: not at all Exam Constitutional Vital Signs, click to edit/add: Last Vital Signs Temp 98.6 F 03/30/25 20:20 Pulse 80 03/30/25 20:20 Resp 20 03/30/25 20:20 BP 140/60 03/30/25 20:20 Pulse Ox 94 L 03/30/25 20:20 O2 Del Method Room Air 03/30/25 20:20 Common normals: no apparent distress, average body habitus, oriented x3, no limitations, healthy appearing, alert and well nourished [facility] Common normals: normocephalic and head/scalp atraumatic Eye Common normals: EOMs intact bilaterally and conjunctivae normal Respiratory Common normals: normal respiratory effort, no retractions, no use of accessory muscles and clear to auscultation bilaterally Cardio Common normals: regular rate, regular rhythm, S1 normal heart sound and S2 normal heart sound Extremity Other: rash RUE on the FA . linear erythematous rash . no drainage Neuro Common normals: oriented x3, CN's II-XII intact bilaterally, moves all extremities and no focal motor deficits Psych Appearance: grossly normal Course Vital Signs Vital signs: Vital Signs Temperature 98.6 F 03/30/25 20:20 Pulse Rate 80 03/30/25 20:20 Respiratory Rate 20 03/30/25 20:20 Blood Pressure 140/60 03/30/25 20:20 Pulse Oximetry 94 L 03/30/25 20:20 Oxygen Delivery Method Room Air 03/30/25 20:20 Temperature 98.6 F 03/30/25 20:20 Pulse Rate 80 03/30/25 20:20 Respiratory Rate 20 03/30/25 20:20 Blood Pressure 140/60 03/30/25 20:20 Pulse Oximetry 94 L 03/30/25 20:20 Oxygen Delivery Method Room Air 03/30/25 20:20 Medical Decision Making [facility] Narrative Medical decision making narrative: presents with a rash on her right FA that has the appearance of contact dermatitis. will plan to treat with a course of medrol and triamcinolone cream. discussed treatment plan with the patient Discharge Plan Discharge Chief Complaint: Extremity Problem, Nontraumatic Clinical Impression: Contact dermatitis Patient Disposition: Home, Self-Care Prescriptions / Home Meds: No Action atorvastatin 40 mg tablet 40 mg PO DAILY esomeprazole magnesium 40 mg capsule,delayed release(DR/EC) 40 mg PO Q24H fluticasone propionate 44 mcg/actuation HFA aerosol inhaler 2 inh inhalation Q12H PRN (Reason: wheeze) Rx Instructions: administer with spacer losartan 25 mg tablet 25 mg PO DAILY celecoxib 200 mg capsule 200 mg PO Q24H ibuprofen 800 mg tablet 800 mg PO Q8H PRN (Reason: pain) Qty: 20 0RF hydrocodone-acetaminophen 5-325 mg tablet 1 tab PO Q6H PRN (Reason: pain) 2 Days Qty: 6 0RF Rx Instructions: DX: M54.2 methocarbamol 750 mg tablet 750 mg PO TID PRN (Reason: pain) Qty: 20 0RF methylprednisolone [Medrol (Jonathan)] 4 mg tablets,dose pack See Rx Instructions .ROUTE .COMPLEX Qty: 21 0RF Rx Instructions: Taper as directed Print Language: Thai Instructions: Contact Dermatitis (ED) Additional Instructions: follow up with your family doctor next week for recheck Referrals: [facility] [Primary Care Provider] - 1 week
[2025-03-30] MEDS: PREDNISONE 20 MG TABLET 40 MG PO (20:46)
--- NOTE | 2025-03-30 20:48 | PC.NURSE ---
Small red flat rash to [place]. upper arms, no seeping, no open areas.
== END 2025-03-30 20:51 | disposition home or self-care (01) ==
PROVIDERS: Emergency Provider Internal Medicine
DX: R21 Rash and other nonspecific skin eruption (principal); L25.9 Unspecified contact dermatitis, unspecified cause
CPT/HCPCS: 99283; J7512

== ENCOUNTER 2025-08-10 14:49 | Emergency (ER) | payer MEDICARE, MEDICAID, SELFPAY ==
--- OUTSIDE RECORDS SUMMARY | 2025-08-07 05:30 | XMS_ITS ---
Author Organization [facility] Servic es Address [address] [place] [address] Care Team Providers Care Inspector Rough Castings Name Role Phone Rico Choi Primary Care Provider Allergies Allergen (clinical drug ingredient) Drug/Non Drug Allergy documented on EMR Reaction Allergy Type Onset Date Status hayfever (uncoded)UnknownAllergyActive Results Component Value Reference Range Notes Urinalysis automated Reviewed date:08/07/2025 11:09:28 AM Interpretation: Performing Lab: Notes/Report: Urine-Color yellow AppearancecloudySpecific Gravity1.010pH6.0GlucosenegProtein+- 0.15 g/LOccult Blood3+ 200 Zach/uLBilirubinnegUrobilinogen,Semi-Qn5.5 umol/LNitrite, Urineneg KetonesnegWBC Esterase3+ 500 Bairon/uL REASON FOR VISIT Possible UTI Medications Medication SIG (Take, Route, Frequency, Duration) Notes Start Date End Date Status Lidocaine 5 % Patch 1 patch remove after 12 hours Externally Once a day; Duration: 90 days ActiveNitrofurantoin Monohyd Macro 100 MG Capsule1 capsule with food Orally every 12 hrs; Duration: 6 days/5ActiveCyclobenzaprine HCl 10 MG Tablet1 tablet at bedtime as needed Orally Once a day; Duration: 90 days ActiveEsomeprazole Magnesium 40 mg Capsule Delayed ReleaseTAKE ONE CAPSULE BY MOUTH TWICE DAILY @9AM&5PM FOR 90 DAYS; Duration: 90ActiveFluticasone Propionate 50 MCG/ACT SuspensionINSTILL ONE SPRAY EACH NOSTRIL TWICE DAILY FOR 30 DAYS Nasally Twice a day; Duration: 30 daysActiveTriamterene-HCTZ 37.5-25 MG Tablet TAKE ONE TABLET BY MOUTH ONCE DAILY AT 9AM (60 DAYS); Duration: 60Active Meloxicam 15 mg TabletTAKE ONE TABLET BY MOUTH DAILY AT 9AM; Duration: 30Active Losartan Potassium 25 mg TabletTAKE ONE TABLET BY MOUTH DAILY AT 9AM; Duration: 90ActiveCetirizine HCl 10 mg TabletTAKE ONE TABLET BY MOUTH DAILY AT 9AM; Duration: 30ActiveTriamcinolone Acetonide 0.1 % OintmentAPPLY TO THE AFFECTED AREA(S) SPARINGLY TWICE DAILY FOR 30 DAYS; Duration: 30ActivehydrOXYzine HCl 50 MG TabletTAKE 1 TABLET BY MOUTH EVERY 8 HOURS when NEEDED FOR 30 DAYS Orally When needed; Duration: 30 daysActiveMelatonin 10 MG Tablet Disintegrating1 tablet at bedtime as needed Orally Once a day; Duration: 90 day(s)Active Atorvastatin Calcium 40 MG TabletTAKE 1 TABLET ONE TIME DAILY; Duration: 90 Active Social History Tobacco Use: Social History Observation Description Date Details (start date - stop date) Never Smoker NA - NA Sex Assigned At : Social History Observation Description Sex Assigned At Female Social History GeneralSocial InfoQuestionAnswerNotesTransition of Care:ER/UC/hospital since last office visit?NoSpecialist seen since last office visit?NoSubstance abuse/mental health issues of patient/familyPatient -DeniesAbility to understand healthcare/treatmentPatient:GoodSocial/Support Concerns:Patient:NoBehaviors affecting healthPoor/Risky Behaviors:Denies-Communication Barrier:Language Barrier?:NoFood Insecurity ScreeningSocial InfoQuestionAnswerNotesFood Insecurity ScreeningWithin the last 12 months, have you been worried about your food running out before you received money to buy more?NoWithin the last 12 months, did the food you buy not last, and you didn't have money to buy more?No Within the last 12 months, have you had any difficulty affording to eat balanced meals including all food groups (fruits, vegetables, protein, and whole grains)? NoDrug/Alcohol:Social InfoQuestionAnswerNotesAUDIT-C (Standard)Did you have a drink containing alcohol in the past year?WaGorkzm7LfiyprvsvomdgdBvvnqgulHfiargo Use:Social InfoQuestionAnswerNotesTobacco Control (Standard)Tobacco use: Nonsmoker Vital Signs Blood pressure systolic 146 mm Hg 08/07/20 25 Blood pressure diastolic 79 mm Hg 025 Heart Rate 65 /min 08/07/2025 Respiratory Rate 18 /min 08/07/2025 Height 62 in 08/07/2025 Weight 182.6 lbs 08/07/2025 BMI 33.39 kg/m2 08/07/2025 Oximetry 96 % 08/07/2025 Encounters Encounter Location Date Provider Diagnosis [facility] [address] [place] [address] 08/07/2025 Rico Choi Osteoarthritis of fa cet joint at L5-S1 level of lumbosacral spine M47.817 ; Acute UTI (urinary tract infection) N39.0 and Urinary frequency R35.0 Assessments Encounter Date Diagnosis (ICD Code) Assessment Notes Treatment Notes Treatment Clinical Notes Section Notes 08/07/2025 Osteoarthritis of fa cet joint at L5-S1 level of lumbosacral spine (ICD-10 - M47.817) 08/07/2025ute UTI (urinary tract infection) (ICD-10 - N39.0)08/07/2025Urinary frequency (ICD-10 - R35.0)08/07/2025OtherDiscussed patient concerns regarding possible UTI. We performed a urine dip stick in the office which was highly suspicious for a UTI. I recommended starting Nitrofurantoin today. I will also refill her Lidocaine patches. Risks, benefits, and complications of these medications were discussed. I recommended that if her symptoms did not improve or worsened within the next week she should follow up for further examination. Patient is agreeable with this plan and denies any additional questions or c oncerns. Plan Of Treatment Medication Medication Name Sig Start Date Stop Date Notes Lidocaine 5 % Patch 1 patch remove after 12 hours Externally Once a day; Duration: 90 days Nitrofurantoin Monohyd Macro 100 MG Capsule1 capsule with food Orally every 12 hrs; Duration: 6 daysTreatment Notes Assessment Notes Other Discussed patient co ncerns regarding possible UTI. We performed a urine dip stick in the office which was highly suspicious for a UTI. I recommended starting Nitrofurantoin today. I will also refill her Lidocaine patches. Risks, benefits, and complications of these medications were discussed. I recommended that if her symptoms did not improve or worsened within the next week she should follow up for further examination. Patient is agreeable with this plan and denies any additional questions or concerns. Next Appt Details Follow Up: If symptoms do no t improve or worsen within 1 week, Reason: History and Physical Notes * HPI (History of Present Illness) CategorySub-CategoryDetailNotesCategory NotesDepression ScreeningPHQ-2 (2015 Edition)Little interest or pleasure in doing things?: Not at allFeeling down, depressed, or hopeless?: Not at allTotal Score: 0ConstitutionalShlauren Marr is a 64 y.o. female who visited the clinic for concerns regarding a possible UTI. Shecomplains of symptoms that started approximately 3-4 days ago. She describes frequent urination andburning with urination. She denies any hematuria, odor, or abnormal discharge. She has not tried any medications for her symptoms. She would also like a refill of her lidocaine patches today. Denies fever, chills, headache, chest pain, shortness of breath, abdominal pain, nausea, vomiting, diarrhea, constipation, numbness, and tingling. She is here for further evaluation. Examination CategorySub-CategoryDetailNotesCategory NotesGeneral ExaminationHEENT:Head: Symmetric face with no visible lesions. Eyes: EOM intact. Pupils equal in size. Ears: Hearinggrossly intact bilaterallyCARDIOVASCULAR:Regular rate and rhythm. Audible S1 and [id number]:Clear to auscultation bilaterally. No wheezes, rhonchi, or rales notedGASTROINTESTINAL:Abdomen is soft, non-tender, and non- distended. Audible bowel soundsGENERAL APPEARANCE:Awake, alert, and oriented. No acute distress. Well developed and well nourished. Appears stated ageSKIN:Warm, dry, and intact. No rashes or lesionsNEUROLOGIC EXAM:Sensation intact in extremitiesMUSCULOSKELETAL:Upper extremities: Atraumatic in appearance. No tenderness. ROM appropriate. Muscle strength intact. No edema. Lower extremities: Atraumatic in appearance. No tenderness. ROM appropriate. Muscle strength intact. No edemaPSYCHAlert and oriented. Appropriate mood and affect Progress Notes * AURA MARR LDOB:[birth year] (64 yo F)Acc No.[id number]:08/07/2025 Progress Notes Patient: AURA MIX Provider:?LOUIE MirOB:1960???Age:64 Y???Sex:FemaleSupervising Provider:HANSA Meierhone:[phone]: 08/07/2025ddress:[address], [id number] Subjective: * Chief Complaints: * P ossible UTI * HPI: ???Constitutional:?Aura Marr is a 64 y.o. female who visited the clinic for concerns regarding a possible UTI. Shecomplains of symptoms that started approximately 3- 4 days ago. She describes frequent urination andburning with urination. She denies any hematuria, odor, or abnormal discharge. She has not tried any medications for her symptoms. She would also like a refill of her lidocaine patches today.Denies fever, chills, headache, chest pain, shortness of breath, abdominal pain, nausea, vomiting, diarrhea, constipation, numbness, and tingling. She is here for further evaluation. ???Depression Screening:?PHQ-2 (2015 Edition)?Little interest or pleasure in doing things? Not at all ?Feeling down, depressed, or hopeless??Not at all ?Total Score?0 * ROS: ???ROS as noted in HPI. * Medical History: Hyperlipidemia HTN GERD Arthritis skin CA on neck removed Medical History Verified * Hemodialysis Lab Technician History: ??? control?bilateral tubal ligation.?Hysterectomy?yes 1999.?Last pap smear date?ASCUS neg 01/201809/13/2018.? * OB History: ???Total living children?3.? * Surgical History: T+A ? umbilical hernia repair ? cholecystectomy ? appendectomy ? COLONOSCOPY 2021? EGD 01/2013? partial hysterectomy ? Bladder repair 12/2018? Rt. rotator cuff 10/07/2020? Surgical History verified.? * Hospitalization/Major Diagno stic Procedure: see surgical ? Hospitalization Verified.? * Family History: F ather: , [place], DM, HTN, COPD, diagnosed with Heart Disease, Diabetes, Hypertension.?Mother: , ovarian CA, diagnosed with Cancer. S iblings: , diagnosed with Heart Disease in 1. 2 brother(s) - healthy. 1 son(s) , 2 daughter(s) . . F amily History Verified.. denies history of colon cancer, BROTHERS HAVE HEART PROBLEMS, CHOLESTEROL, HTN ONE SON HAS HIGH CHOLESTEROL No family history of colon, breast, or ovarian cancer. * Social History: ???Drug/Alcohol:?AUDIT-C (Standard)?Did you have a drink containing alcohol in the past year??No ?Points?0 ?Interpretation?Negative ???General:?Transition of Care?ER/UC/hospital since last office visit??No ?Specialist seen since last office visit??No ?Behaviors affecting health?Poor/Risky Behaviors:?Denies- ?Substance abuse/mental health issues of patient/family?Patient -?Denies ?Social/Support Concerns?Patient:?No ?Ability to understand healthcare/treatment?Patient:?Good ?Communication Barrier?Language Barrier?:?No ???Food Insecurity Screening:?Food Insecurity Screening?Within the last 12 months, have you been worried about your food running out before you received money to buy more??No ?Within the last 12 months, did the food you buy not last, and you didn't have money to buy more??No ?Within the last 12 months, have you had any difficulty affording to eat balanced meals including all food groups (fruits, vegetables, protein, and whole grains)??No ???Tobacco Use:?Tobacco Control (Standard)?Tobacco use:?Nonsmoker ???Social History Verified. * Medications: T akingMelatonin 10 MG Tablet Disintegrating 1 tablet at bedtime as needed Orally Once a day hydrOXYzine HCl 50 MG Tablet TAKE 1 TABLET BY MOUTH EVERY 8 HOURS when NEEDED FOR 30 DAYS Orally When needed Atorvastatin Calcium 40 MG Tablet TAKE 1 TABLET ONE TIME DAILY Triamcinolone Acetonide 0.1 % Ointment APPLY TO THE AFFECTED AREA(S) SPARINGLY TWICE DAILY FOR 30 DAYS Meloxicam 15 mg Tablet TAKE ONE TABLET BY MOUTH DAILY AT 9AM Triamterene-HCTZ 37.5-25 MG Tablet TAKE ONE TABLET BY MOUTH ONCE DAILY AT 9AM (60 DAYS) Cetirizine HCl 10 mg Tablet TAKE ONE TABLET BY MOUTH DAILY AT 9AM Losartan Potassium 25 mg Tablet TAKE ONE TABLET BY MOUTH DAILY AT 9AM Esomeprazole Magnesium 40 mg Capsule Delayed Release TAKE ONE CAPSULE BY MOUTH TWICE DAILY @9AM&5PM FOR 90 DAYS Cyclobenzaprine HCl 10 MG Tablet 1 tablet at bedtime as needed Orally Once a day Fluticasone Propionate 50 MCG/ACT Suspension INSTILL ONE SPRAY EACH NOSTRIL TWICE DAILY FOR 30 DAYS Nasally Twice a day Lidocaine 5 % Patch 1 patch remove after 12 hours Externally Once a day Medication List reviewed and reconciled with the patientTaking Melatonin 10 MG Tablet Disintegrating 1 tablet at bedtime as needed Orally Once a day Taking hydrOXYzine HCl 50 MG Tablet TAKE 1 TABLET BY MOUTH EVERY 8 HOURS when NEEDED FOR 30 DAYS Orally When needed Taking Atorvastatin Calcium 40 MG Tablet TAKE 1 TABLET ONE TIME DAILY Taking Triamcinolone Acetonide 0.1 % Ointment APPLY TO THE AFFECTED AREA(S) SPARINGLY TWICE DAILY FOR 30 DAYS Taking Meloxicam 15 mg Tablet TAKE ONE TABLET BY MOUTH DAILY AT 9AM Taking Triamterene- HCTZ 37.5-25 MG Tablet TAKE ONE TABLET BY MOUTH ONCE DAILY AT 9AM (60 DAYS) Taking Cetirizine HCl 10 mg Tablet TAKE ONE TABLET BY MOUTH DAILY AT 9AM Taking Losartan Potassium 25 mg Tablet TAKE ONE TABLET BY MOUTH DAILY AT 9AM Taking Esomeprazole Magnesium 40 mg Capsule Delayed Release TAKE ONE CAPSULE BY MOUTH TWICE DAILY @9AM&5PM FOR 90 DAYS Taking Cyclobenzaprine HCl 10 MG Tablet 1 tablet at bedtime as needed Orally Once a day Taking Fluticasone Propionate 50 MCG/ACT Suspension INSTILL ONE SPRAY EACH NOSTRIL TWICE DAILY FOR 30 DAYS Nasally Twice a day Taking Lidocaine 5 % Patch 1 patch remove after 12 hours Externally Once a day Medication List reviewed and reconciled with the patient * Allergies: h ayfeveryesAllergies Verified. Objective: * Vitals: H t: 62 in, Wt: 182.6 lbs, BMI:33.39Index, BP: 146/79 mm Hg, SaO2: 96 %, HR: 65 /min, RR: 18 /min. * Examination: ???General Examination: ?GENERAL APPEARANCE:?Awake, alert, and oriented. No acute distress. Well developed and well nourished. Appears stated age.?HEENT:?Head: Symmetric face with no visible lesions. ?Eyes: EOM intact. Pupils equal in size. ?Ears: Hearing grossly intact bilaterally.?CARDIOVASCULAR:?Regular rate and rhythm. Audible S1 and S2.?RESPIRATORY:?Clear to auscultation bilaterally. No wheezes, rhonchi, or rales noted ?.?GASTROINTESTINAL:?Abdomen is soft, non-tender, and non-distended. Audible bowel sounds ?.?NEUROLOGIC EXAM:?Sensation intact in extremities.?SKIN:?Warm, dry, and intact. No rashes or lesions.?MUSCULOSKELETAL:?Upper extremities: Atraumatic in appearance. No tenderness. ROM appropriate. Muscle strength intact. No edema. ?Lower extremities: Atraumatic in appearance. No tenderness. ROM appropriate. Muscle strength intact. No edema.?PSYCH?Alert and oriented. Appropriate mood and affect ?.? Assessment: * Assessment: 1.?Acute UTI (urinary tract infection) - N39.0 (Primary)???2.?Osteoarthritis of facet joint at L5-S1 level of lumbosacral spine - M47.817???3.?Urinary frequency - R35.0??? Plan: * Treatment: Start Nitrofurantoin Monohyd Macro Capsule, 100 MG, 1 capsule with food, Orally, every 12 hrs, 6 days, 12 Capsule, Refills 0.??2.?Osteoarthritis of facet joint at L5-S1 level of lumbosacral spine? Refill Lidocaine Patch, 5 %, 1 patch remove after 12 hours, Externally, Once a day, 90 days, 90 Patch, Refills 3.??3.?Urinary frequency?LAB: Urinalysis automated (Collection Date & Time - 08/07/2025)4.?Others? Notes: Discussed patient concerns regarding possible UTI. We performed a urine dip stick in the office which was highly suspicious for a UTI. I recommended starting Nitrofurantoin today. I will also refill her Lidocaine patches. Risks, benefits, and complications of these medications were discussed. I recommended that if her symptoms did not improve or worsened within the next week she should follow up for further examination. Patient is agreeable with this plan and denies any additional questions or concerns.?? * Labs: * L ab: Urinalysis automated (Collection Date & Time - 08/07/2025) ?ValueReference Range?Urine-Coloryellow * A ppearance cloudy * S pecific Sparks 1.010 * p H 6.0 * G lucose neg * P rotein +- 0.15 g/L * O ccult Blood 3+ 200 Zach/uL * B ilirubin neg * U robilinogen,Semi-Qn 5.5 umol/L * N itrite, Urine neg * K etones neg * W BC Esterase 3+ 500 Bairon/uL * Procedure Codes: 8 1003 URINALYSIS, AUTO, W/O SCOPE, Modifiers: QW 3078F DIAST BP < 80 MM [id number] RVW MEDS BY RX/DR IN [id number] SYST BP >= 140 MM HG * Follow Up: I f symptoms do not improve or worsen within 1 week Billing Information: * Procedure Codes: 92192 URINALYSIS, AUTO, W/O SCOPE. Modifiers: QW 3078F DIAST BP < 80 MM HG. 1160F RVW MEDS BY RX/DR IN RCRD. 3077F SYST BP >= 140 MM HG. * Electronic signature of Pablo Crowley DO on 08/10/2025 at 03:40 PM ESTSign off status: Pending * Appointment Provider: Nohemy Choi MD Date: 1 10/08/2024 Generated for Printing/Faxing/eTransmitting on:?08/10/2025 03:40 PM EST
[2025-08-10] VITALS (8 sets, daily range): BP systolic 145–198; BP diastolic 75–100; PULSE 76–89; TEMP 36.9; O2SAT 95–98; BMI 34.8
--- NOTE | 2025-08-10 15:21 | ECG_ITS ---
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 Measurements Intervals Stanton Rate: 84 P: 47 WY: 150 QRS: 8 QRSD: 90 T: 42 QT: 388 QTc: 429 Interpretive Statements 1100 Sinus rhythm 1575 with frequent ventricular premature complexes in a pattern of bigeminy 9140 abnormal rhythm ECG Compared to ECG 10/02/2020 08:38:44 Ventricular premature complex(es) now present Sinus bradycardia no longer present T-wave abnormality no longer present Electronically Signed On 08-10-2025 18:13:27 EST by GANESH BLANCO M.D.
[2025-08-10 15:35] LABS: Hematocrit 39.7 % (36.0-48.0); Hemoglobin 13.6 g/dL (12.0-16.0); Immature Granulocytes Abs Auto 0.01 10^3/uL (0.00-0.03); Immature Granulocytes Pct Auto 0.1 % (0.0-0.5); Lymphocytes Absolute Auto 2.3 10^3/uL (1.2-3.8); Mean Corpuscular HGB Conc 34.3 g/dL (29.9-35.2); Mean Corpuscular Hemoglobin 30.0 pg (26.7-34.0); Mean Corpuscular Volume 87.6 fL (81.0-99.0); Platelet Count 235 10^3/uL (150-450); Red Blood Count 4.53 10^6/uL (4.20-5.40); White Blood Count 6.7 10^3/uL (4.0-11.0)
--- OUTSIDE RECORDS SUMMARY | 2025-08-10 15:40 | XMS_ITS | Patient Health Record ---
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 Role Phone Rico Choi Primary Care Provider [phone] Allergies Allergen (clinical drug ingredient) Drug/Non Drug Allergy documented on EMR Reaction Allergy Type Onset Date Status hayfever (uncoded)UnknownAllergyActive Results Component Value Reference Range Flag Notes Hemoglobin A1c Reviewed date:09/25/2024 03:10:15 PM Interpretation: Performing Lab: Notes/Report: Hemoglobin A1c 6.2% 5 - 7.9 % XR hip RT min 2V(w/wo pelvis)* Reviewed date:07/10/2025 06:22:06 PM Interpretation: Performing Lab: Notes/Report: [facility] Main [address] [address] XRay Report Signed Patient: Aura Marr MR#: [id number] 883 : 1960 Acct:[id number] Age/Sex: 64 / F ADM Date: 07/06/25 Loc: XD Room: Type: [facility] Attending Dr: Jayden Quevedo DO Copies to: Rico Choi MD, RES Jayden Quevedo DO Ordering Provider: Rico Choi MD, RES Date of Service: 07/06/25 XR/XR hip RT min 2V(w/wo pelvis)*: Arthritis 2 views right hip HISTORY: Right hip pain. Arthritis. Adequate bony alignment without acute displaced fracture. Greater trochanter spurring. Adequate hip joint space. No articular collapse or AVN. XR/XR hip RT min 2V(w/wo pelvis)* IMPRESSION: Mild degenerative change. Impression dictated by: Rainer Sofia M.D. 07/06/2025 3:14 PM Dictation Location: RADIO--20 Transcribed By: [facility] 07/06/251513 Dictated By: Rainer Sofia DO 07/06/25 151 Signed By: <Electronically signed by Rainer Sofia DO in OV> 07/06/25 1514XR cervical spine 2V Reviewed date:11/13/2024 05:59:00 PM Interpretation: Performing Lab: Notes/Report: [facility] Main [place] [address] [place] [address] XRay Report Signed Patient: Aura Marr MR#: [id number] 883 : 1960 Acct:[id number] Age/Sex: 64 / F ADM Date: 11/10/24 Loc: XD Room: Type: [facility] Attending Dr: Jayden Quevedo DO Copies [...] Holt Jr., D.OJb11/10/2024 6:19 PM Dictation Location: [facility]-18 Transcribed By: SHAMAR 11/10/241818 Dictated By: Josiah Holt Jr, DO 11/10/241817 Signed By: <Electronically signed by Josiah Holt Jr, DO in OV> 11/10/249Urinalysis automated Reviewed date:08/07/2025 11:09:28 AM Interpretation: Performing Lab: Notes/Report: Urine-ColoryellowAppearancecloudySpecific Gravity1.010pH6.0GlucosenegProtein+- 0.15 g/LOccult Blood3+ 200 Zach/uLBilirubinnegUrobilinogen,Semi-Qn5.5 umol/L Nitrite, UrinenegKetonesnegWBC Esterase3+ 500 Bairon/uLA1C with Estimated Average Glu Reviewed date:01/23/2025 07:13:38 PM Interpretation: Performing Lab:, [facility], [address], [place] BLOOD Notes/Report: Reason for Exam Screening for diabetes mellitusHemoglobin A1C6.44.3-5.6 %H Increased risk for diabetes: 5.7 - 6.4 diabetes: >6.4 glycemic control for adults with diabetes: <7.0 Estimated Average Dvbtrhd118Ceyjnjxbhdqxf Metabolic Panel Reviewed date:01/23/2025 07:13:57 PM Interpretation: Performing Lab:, [facility], [address], [place] Notes/Report: Reason for Exam Essential hypertension;Hyperlipidemia, unspecified dffmxgcoiNlyszop44710-587 mg/dLH Random Glucose Reference Range is dependent on time and content of last meal. Glucose of more than 200 mg/dL in a nonstressed, ambulatory subject supports the diagnosis of Diabetes Mellitus. ADA recommended reference range Blood Urea Iokabhzp748-81 mg/dLNCreatinine0.940.60-1.20 mg/sDRUbyzzg283719-379 mmol/LNPotassium4.03.5-5.1 mmol/VWGfjatruc07844-153 mmol/LNCarbon Eajwdgc84.1 21.0-31.0 mmol/LNCalcium9.18.6-10.3 mg/dLNTotal Protein6.36.4-8.9 g/dLLAlbumin Level4.13.5-5.7 g/dLNGlobulin2.2Albumin/Globulin Ratio1.9Bilirubin,Total0.50.3- 1.0 mg/dLNAspartate Amino Cgjdkezdwet7850-89 U/LNAlanine Szkunpggxdzcqvmw479-77 U/LNAlkaline Fepedlbdmza3264-859 U/LNEstimated GFR>60.0Anion Gap10.96.0-15.0 meq/LNLipid Panel Reviewed date:01/23/2025 07:13:47 PM Interpretation: Performing Lab: Notes/Report: Reason for Exam Essential hypertension;Hyperlipidemia, unspecified ofqtiugnbTodydxazrfm425871-938 mg/dLN Chol less than 200 mg/dl low risk Chol 201-239 mg/dl borderline risk Chol 240 mg/dl and greater high risk HDL Mocuevcgtoj5184-65 mg/dLN HDL CHOL ATP-III CLASSIFICATION Cardiovascular Risk HDL > or equal to 60 mg/dL LOW HDL < 40 mg/dL HIGH Triglyceride w/Vcpdwt0609-856 mg/dLH TRIG ATP III CLASSIFICATION TRIG less than 150 mg/dL Normal TRIG 150-199 mg/dL Borderline high TRIG 200-500 mg/dL High TRIG greater than 500 mg/dL Very high Standard traceable to the Center for Disease Conrtrol and Prevention (CDC) test method. LDL Cholesterol,Gmqoickxeh009-503 mg/dLN LDL ATP III CLASSIFICATION LDL less than 100 mg/dL Optimal LDL 100-129 mg/dL Near or above optimal LDL 130-159 mg/dL Borderline high LDL 160-189 mg/dL High LDL greater than 189 mg/dL Very high VLDL ALKULRBTLRK18Xksm/HDL Ratio4.0<5.0Complete Blood Count Auto Diff Reviewed date:01/23/2025 07:14:04 PM Interpretation: Performing Lab:, [facility], [address] [place] Notes/Report: Reason for Exam Essential hypertension;Hyperlipidemia, unspecified hyperlipiWhite Blood Count5.83.8-11.6 10*3/uLNUncorrected WBC5.83.8- 11.6 10*3/uLNRed Blood Count4.533.60-5.00 10*6/tYMCoxcguxmyi63.611.8-15.4 g/dLN Butjhkwmpj53.934.0-46.4 %NMean Corpuscular Bihpaj50.880-100 fLNMean Corpuscular Ikflykpcrc74.124.7-34.3 pgNMean Corpuscular HGB Conc35.032.0-35.0 g/dLNRed Cell Distribution Width13.711.9-15.3 %NPlatelet Spjul081205-172 10*3/uLNMean Platelet Volume7.26.3-10.7 fLNNeutrophils % (Auto)51.9. %Lymphocytes % (Auto)37.4. % Monocytes % (Auto)7.2. %Eosinophils % (Auto)2.9. %Basophils % (Auto)0.6. %NRBC% 0.10-0.5 /100{WBC}NNeutrophils # (Auto)3.01.8-7.7 10*3/uLNLymphocytes # (Auto) 2.21.00-4.8 10*3/uLNMonocytes # (Auto)0.40.0-0.8 10*3/uLNEosinophils # (Auto)0.2 0.0-0.45 10*3/uLNBasophils # (Auto)0.00.0-0.2 10*3/uLN Reason For Referral Reason NOT DUE UNTIL 2026 Referral for screening colonoscopy Diagnosis 1 Colon cancer screeni (Z12.11) Referral Organization [facility] ices Referring Provider First Name Rico Referring Provider Last Name Jimbo Referring Provider [facility] Referred Provider [facility] , . Referred Provider Specialty Gastroentero logy Referral Priority Routine Medications Medication SIG (Take, Route, Frequency, Duration) Notes Start Date End Date Status Lidocaine 5 % Patch 1 patch remove after 12 hours Externally Once a day; Duration: 90 days ActiveNitrofurantoin Monohyd Macro 100 MG Capsule1 capsule with food Orally every 12 hrs; Duration: 6 days08/07/20240817/5ActiveCyclobenzaprine HCl 10 MG Tablet1 tablet at bedtime [...] TABLET BY MOUTH DAILY AT 9AM; Duration: 30ActivehydrOXYzine HCl 50 MG TabletTAKE 1 TABLET BY MOUTH EVERY 8 HOURS when NEEDED FOR 30 DAYS Orally When needed; Duration: 30 daysActive Melatonin 10 MG Tablet Disintegrating1 tablet at bedtime as needed Orally Once a day; Duration: 90 day(s)ActiveTriamcinolone Acetonide 0.1 % OintmentAPPLY TO THE AFFECTED AREA(S) SPARINGLY TWICE DAILY FOR 30 DAYS; Duration: 30Active Atorvastatin Calcium 40 MG TabletTAKE 1 TABLET ONE TIME DAILY; Duration: 90 Active Immunizations Vaccine Route Administration Date Status Comme nts zzz do not use FLUZONE 6M AND UP Unknown 09/16/2016 Ref used declined Social History Tobacco Use: Social History Observation Description Date Details (start date - stop date) Never Smoker NA - NA Sex Assigned At : Social History Observation Description Sex Assigned At Female Social History Social DeterminantsSocial InfoQuestionAnswerNotesPRAPAREDate Completed/Updated: 09/25/2024What is your current housing situation?I have housingAre you worried about losing your housing?NoWhat is the highest level of school that you have finished?High school diploma or GEDWhat is your current work situation?Otherwise unemployed but not seeking work (ex. 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 Check all that applyI do not have problems meeting my needsHas lack of transportation kept you from medical appointments, meetings, work or from getting things needed for daily living?NoHow often do you see or talk to people that you care about and feel close to? (For example: talkingto friends on the phone, visiting friends or family, going to amish or club meetings)More than 5 times a weekHow stressed are you? Stress is when someone feels tense, nervous, anxious, or cant sleep at night because their mind is troubledNot at allIn the past year have you spent more than 2 nights in a row in a correction, correction, jail center, orjuvenile correctional facility?NoAre you a refugee?NoWhat country are you from?[place]Do you feel physically and emotionally safe where you currently live?YesIn the past year, have you been afraid of your partner or ex-partner?NoPRAPARE Score:3GeneralSocial InfoQuestionAnswerNotesTransition of Care:ER/UC/hospital since last office visit?NoSpecialist [...] a drink containing alcohol in the past year?KxKidpel3AarptbehnpwvbwVfyxyujqMyyvqix Use:Social InfoQuestionAnswerNotesTobacco Control (Standard)Tobacco use: NonsmokerSection Notes: rare alcohol, denies illicit drug use no smoking, denies alcohol, denies illicit drug use 03-03-12: denies tobacco, denies ETOH, denies illegal drug use. 06/03/12: no alcohol, tobacco, drugs no smoking, denies alcohol, denies illicit drug use 03-03-12: denies tobacco, denies ETOH, denies illegal drug use. 06/03/12: no alcohol, tobacco, drugs no smoking, denies alcohol, denies illicit drug use 03-03-12: denies tobacco, denies ETOH, denies illegal drug use. 06/03/12: no alcohol, tobacco, drugs 04/19/15: no smoking, denies alcohol, denies illicit drug use 03-03-12: denies tobacco, denies ETOH, denies illegal drug use. 06/03/12: no alcohol, tobacco, drugs 04/19/15: no smoking, denies alcohol, denies illicit drug use 03-03-12: denies tobacco, denies ETOH, denies illegal drug use. 06/03/12: no alcohol, tobacco, drugs 04/19/15: no smoking, denies alcohol, denies illicit drug use 03-03-12: denies tobacco, denies ETOH, denies illegal drug use. 06/03/12: no alcohol, tobacco, drugs 04/19/15: no smoking, denies alcohol, denies illicit drug use 03-03-12: denies tobacco, denies ETOH, denies illegal drug use. 06/03/12: no alcohol, tobacco, drugs 04/19/15: no smoking, denies alcohol, denies illicit drug use 03-03-12: denies tobacco, denies ETOH, denies illegal drug use. 06/03/12: no alcohol, tobacco, drugs 04/19/15: no smoking, denies alcohol, denies illicit drug use 03-03-12: denies tobacco, denies ETOH, denies illegal drug use. 06/03/12: no alcohol, tobacco, drugs no smoking, denies alcohol, denies illicit drug use 03-03-12: denies tobacco, denies ETOH, denies illegal drug use. 06/03/12: no alcohol, tobacco, drugs no smoking, denies alcohol, denies illicit drug use 03-03-12: denies tobacco, denies ETOH, denies illegal drug use. 06/03/12: no alcohol, tobacco, drugs rare alcohol, denies illicit drug use rare alcohol, denies illicit drug use rare alcohol, denies illicit drug use rare alcohol, denies illicit drug use denies alcohol, denies illic it drug use no smoking, denies alcohol, denies illicit drug use no smoking, denies alcohol, denies illicit drug use 03-03-12: denies tobacco, denies ETOH, denies illegal drug use. no smoking, denies alcohol, denies illicit drug use 03-03-12: denies tobacco, denies ETOH, denies illegal drug use. 06/03/12: no alcohol, tobacco, drugs no smoking, denies alcohol, denies illicit drug use 03-03-12: denies tobacco, denies ETOH, denies illegal drug use. 06/03/12: no alcohol, tobacco, drugs no smoking, denies alcohol, denies illicit drug use 03-03-12: denies tobacco, denies ETOH, denies illegal drug use. 06/03/12: no alcohol, tobacco, drugs 04/19/15: no smoking, denies alcohol, denies illicit drug use 03-03-12: denies tobacco, denies ETOH, denies illegal drug use. 06/03/12: no alcohol, tobacco, drugs 04/19/15: no smoking, denies alcohol, denies illicit drug use 03-03-12: denies tobacco, denies ETOH, denies illegal drug use. 06/03/12: no alcohol, tobacco, drugs 04/19/15: no smoking, denies alcohol, denies illicit drug use 03-03-12: denies tobacco, denies ETOH, denies illegal drug use. 06/03/12: no alcohol, tobacco, drugs 04/19/15: no smoking, denies alcohol, denies illicit drug use 03-03-12: denies tobacco, denies ETOH, denies illegal drug use. 06/03/12: no alcohol, tobacco, drugs 04/19/15: no smoking, denies alcohol, denies illicit drug use 03-03-12: denies tobacco, denies ETOH, denies illegal drug use. 06/03/12: no alcohol, tobacco, drugs 04/19/15: no smoking, denies alcohol, denies illicit drug use 03-03-12: denies tobacco, denies ETOH, denies illegal drug use. 06/03/12: no alcohol, tobacco, drugs 04/19/15: no smoking, denies alcohol, denies illicit drug use 03-03-12: denies tobacco, denies ETOH, denies illegal drug use. 06/03/12: no alcohol, tobacco, drugs 04/19/15: no smoking, denies alcohol, denies illicit drug use 03-03-12: denies tobacco, denies ETOH, denies illegal drug use. 06/03/12: no alcohol, tobacco, drugs no smoking, denies alcohol, denies illicit drug use 03-03-12: denies tobacco, denies ETOH, denies illegal drug use. 06/03/12: no alcohol, tobacco, drugs no smoking, denies alcohol, denies illicit drug use 03-03-12: denies tobacco, denies ETOH, denies illegal drug use. 06/03/12: no alcohol, tobacco, drugs no smoking, denies alcohol, denies illicit drug use 03-03-12: denies tobacco, denies ETOH, denies illegal drug use. 06/03/12: no alcohol, tobacco, drugs no smoking, denies alcohol, denies illicit drug use 03-03-12: denies tobacco, denies ETOH, denies illegal drug use. 06/03/12: no alcohol, tobacco, drugs no smoking, denies alcohol, denies illicit drug use 03-03-12: denies tobacco, denies ETOH, denies illegal drug use. 06/03/12: no alcohol, tobacco, drugs no smoking, denies alcohol, denies illicit drug use 03-03-12: denies tobacco, denies ETOH, denies illegal drug use. 06/03/12: no alcohol, tobacco, drugs no smoking, denies alcohol, denies illicit drug use 03-03-12: denies tobacco, denies ETOH, denies illegal drug use. 06/03/12: no alcohol, tobacco, drugs no smoking, denies alcohol, denies illicit drug use 03-03-12: denies tobacco, denies ETOH, denies illegal drug use. 06/03/12: no alcohol, tobacco, drugs no smoking, denies alcohol, denies illicit drug use 03-03-12: denies tobacco, denies ETOH, denies illegal drug use. 06/03/12: no alcohol, tobacco, drugs no smoking, denies alcohol, denies illicit drug use 03-03-12: denies tobacco, denies ETOH, denies illegal drug use. 06/03/12: no alcohol, tobacco, drugs no smoking, denies alcohol, denies illicit drug use no smoking, denies alcohol, denies illicit drug use brare alcohol, denies illici t drug use rare alcohol, denies illicit drug use rare alcohol, denies illicit drug use rare alcohol, denies illicit drug use rare alcohol, denies illicit drug use rare alcohol, denies illicit drug use rare alcohol, denies illicit drug use Problems Problem Type SNOMED Code ICD Code Onset Dates Problem Status W/U Status Risk Notes Problem Chronic pain (34465923) Other chronic luli n (G89.29) ActiveconfirmedProblemAllergic rhinitis (62553024)Allergic rhinitis, unspecified (J30.9)ActiveconfirmedProblemSciatica (21876178)Lumbago with sciatica, right side (M54.41)ActiveconfirmedProblemSciatica (10206909)Lumbago with sciatica, left side (M54.42)ActiveconfirmedProblemHyperlipidemia (20991850)Hyperlipidemia (E78.5)ActiveconfirmedProblemHypertension (48285308)Hypertension (I10)Active confirmedProblemDiverticulitis (92920285)Diverticulitis (K57.92)Activeconfirmed ProblemEssential hypertension (81759431)Essential hypertension (I10)Active confirmedProblemArthritis (2840822)Arthritis (M19.90)ActiveconfirmedProblem Prescription renewal (318960068)Medication refill (Z76.0)ActiveconfirmedProblem Chronic pain (16200389)Other chronic pain (G89.29)ActiveconfirmedProblem Hyperlipidemia (79362182)Hyperlipidemia, unspecified (E78.5)Activeconfirmed ProblemSinus congestion (09853786)Sinus congestion (R09.81)Activeconfirmed ProblemGastroesophageal reflux disease (786319117)Gastroesophageal reflux disease, esophagitis presence not specified (K21.9)ActiveconfirmedProblem Hyperlipidaemia (92534675)Hyperlipidemia, unspecified hyperlipidemia type (E78.5)ActiveconfirmedProblemDiabetes mellitus screening (753718678)Screening for diabetes mellitus (Z13.1)ActiveconfirmedProblemInsomnia (089125271)Insomnia, unspecified type (G47.00)ActiveconfirmedProblemLocalized, primary osteoarthritis of the hand (508522097)Primary osteoarthritis of right hand (M19.041)Active confirmedProblemItching (539119353)Itching (L29.9)ActiveconfirmedProblemMultiple thyroid nodules (359738523)Multiple thyroid nodules (E04.2)Activeconfirmed ProblemOsteoarthritis of knee (203522145)Primary osteoarthritis of right knee (M17.11)ActiveconfirmedProblemEnvironmental tobacco smoke exposure (968195190) Second hand smoke exposure (Z77.22)ActiveconfirmedProblemMidline cystocele (689534706)Bladder prolapse, female, acquired (N81.10)ActiveconfirmedProblem Spasm (22002058)Neck muscle spasm (M62.838)ActiveconfirmedProblemArthritis of left acromioclavicular joint (4131252779519346)Arthritis of left acromioclavicular joint (M19.012)ActiveconfirmedProblemAt risk for falls (154340464)At risk for falls (Z91.81)ActiveconfirmedProblemDiverticular disease of colon (382373028)Diverticula of colon (K57.30)ActiveconfirmedProblem Lumbosacral spondylosis without myelopathy (68997507)Osteoarthritis of facet joint at L5-S1 level of lumbosacral spine (M47.817)Activeconfirmed Vital Signs Heart Rate 65 /min 08/07/2025 Nqoeeewtrtj71.1 degrees Nkphqmcdwr01/17/2025Respiratory Rate18 /min08/07/2025 Utokyjyb46 %08/07/2025lood pressure rjbpipvuw77 mm Hg08/07/20252507Zavqqw78 in 08/07/2025lood pressure nsyhmlyz118 mm Hg08/07/20258117Qcmwqe699.6 lbs110/08/2024MI 33.39 kg/m208/07/2025 Encounters Encounter Location Date Provider Diagnosis [facility] [address] [place] [address] 08/12/2024 Rico Choi Essential hypertensi on I10 [facility] [address] [place] [address] 08/30/2024 [facility] [place] [address]/03/[facility] [place] [address]/03/[facility] [place] [address] 09/25/2024[facility] [place] [address]/07/[address] [facility] HospitalHrnkgzy873 [facility] [place] [address]/Frank KickelEssential hypertension A90[facility] [address] [place] [address]/Frank KickelNeck muscle spasm M62.838 ; Essential hypertension I10 ; Allergic conjunctivitis of both eyes H10.13 and Medication refill Z76.0FHS Qtbflev220 [facility] [place] [address]/06/2025Frank KickelHyperlipidemia, unspecified hyperlipidemia type E78.5 ; Essential hypertension I10 and Gastroesophageal reflux disease, esophagitis presence not specified K21.9[facility] [address] [place] [address]/04/2025Frank KickelEssential hypertension I10 [facility] [address] [place] [address]/10/2024 Rico [facility] [address] [place] [address] 08Frank KickelAllergic conjunctivitis of both eyes H10.13[facility] [address] [place] [address]/05/2025Frank Kickel Essential hypertension D57Tkrkhb Health [address] [place] [address]/08/2024Frank KickelHyperlipidemia, unspecified hyperlipidemia type E78.5 and Essential hypertension C88Frmekb Health [address] [place] [address]/07/2025Frank KickelAllergic conjunctivitis of both eyes H10.13[facility] [address] [place] [address]/Frank [facility] [address] [place] [address]Frank KickelAllergic conjunctivitis of both eyes H10.13[facility] [address] 07/18/2025Frank KickelOsteoarthritis of facet joint at L5-S1 level of lumbosacral spine M47.817[facility] [place] [address]/05/2025Frank KickelOsteoarthritis of facet joint at L5-S1 level of lumbosacral spine M47.817[facility]19[facility] [address]/Frank KickelOsteoarthritis of facet joint at L5-S1 level of lumbosacral spine M47.817 ; Acute UTI (urinary tract infection) N39.0 and Urinary frequency R35.0[facility]19[facility] [address]/17/2025Frank KickelArthritis M19.90 and Neck muscle spasm M62.838 [facility] [place] [address] [place] [address]/09/2024 Rico KickelEssential hypertension I10 ; Hyperlipidemia, unspecified hyperlipidemia type E78.5 ; Gastroesophageal reflux disease, esophagitis presence not specified K21.9 and [facility] diabetes mellitus Z13.1[facility]19[facility] [address]/05/2025Frank KickelPrediabetes R73.03 ; Essential hypertension I10 and Colon cancer screening Z12.[address] [address] 11/10/2024Frank KickelAllergic conjunctivitis of both eyes H10.13 ; Strain of neck muscle, initial encounter S16.1XXA ; Insomnia, unspecified type G47.00 ; Essential hypertension I10 ; Neck muscle spasm M62.838 ; Medication refill Z76.0 ; Hyperlipidemia, unspecified hyperlipidemia type E78.5 and Gastroesophageal reflux disease, esophagitis presence not specified K21.9 Assessments Encounter Date Diagnosis (ICD Code) Assessment Notes Treatment Notes Treatment Clinical Notes Section Notes 08/12/2024 Essential hypertension (ICD-10 - I10) 09/25/2024Prediabetes (ICD-10 - R73.03)Discussed patient concerns regarding chronic care. She is following up regularly for her screening tests. We discussed getting an updated colonoscopy and patient would like to have this done at this time. We reviewed her blood sugar control and discussed how this can impact diabetes progression andoverall health. I recommended that she eat a healthy diet and try to avoid sugary or carbohydrate loaded foods and to maintain regular exercise. We discussed her blood pressure regimen and I recommended that she continue on Triamterene-HCTZ 37.5-25 mg and Losartan Potassium 25 mg at this time. We will continue to monitor her blood pressure and blood sugar at future appointments. Patient will follow up with our office in 3 months. She is agreeable with this plan and denies any additional questions or concerns.10/09/2024Essential hypertension (ICD-10 - I10)09/25/2024Essential hypertension (ICD-10 - I10)10/11/2024Neck muscle spasm (ICD-10 - M62.838) 10/24/2024Hyperlipidemia, unspecified hyperlipidemia type (ICD-10 - E78.5) 11/10/2024Strain of neck muscle, initial encounter (ICD-10 - S16.1XXA)Discussed patient concerns regarding neck pain. Her symptoms are likely due to a muscle strain or cervical arthritis. I recommended that we get an X Ray of the neck to evaluate these symptoms. I willalso start the patient on Meloxicam 15 mg once daily. Risks, benefits, and complications were explained. Patient understands and denies any additional questions or concerns. We reviewed her blood pressure today and discussed the risks associated with elevated blood pressure. I will refill her medications as indicated today. She will follow up with her next scheduled appointment. I advised her to contact our office sooner if there were any additional concerns.11/10/2024llergic conjunctivitis of both eyes (ICD-10 - H10.13)11/22/2024Essential hypertension (ICD-10 - I10)01/15/2025Essential hypertension (ICD-10 - I10)01/15/2025Hyperlipidemia, unspecified hyperlipidemia type (ICD-10 - E78.5)05/16/2025Hyperlipidemia, unspecified hyperlipidemia type (ICD-10 - E78.5)06/27/2025llergic conjunctivitis of both eyes (ICD-10 - H10.13) 07/02/2025rthritis (ICD-10 - M19.90)07/11/2025llergic conjunctivitis of both eyes (ICD-10 - H10.13)07/18/2025Osteoarthritis of facet joint at L5-S1 level of lumbosacral spine (ICD-10 - M47.817)07/25/2025Osteoarthritis of facet joint at L5-S1 level of lumbosacral spine (ICD-10 - M47.817)03/21/2025llergic conjunctivitis of both eyes (ICD-10 - H10.13)04/25/2025Essential hypertension (ICD-10 - I10)08/07/2025ute UTI (urinary tract infection) (ICD-10 - N39.0) 08/07/2025Osteoarthritis of facet joint at L5-S1 level of lumbosacral spine (ICD-10 - M47.817)05/16/2025Essential hypertension (ICD-10 - I10)08/07/2025 Urinary frequency (ICD-10 - R35.0)07/02/2025Neck muscle spasm (ICD-10 - M62.838) 11/10/2024Insomnia, unspecified type (ICD-10 - G47.00)01/15/2025Gastroesophageal reflux disease, esophagitis presence not specified (ICD-10 - K21.9)10/24/2024 Essential hypertension (ICD-10 - I10)09/25/2024olon cancer screening (ICD-10 - Z12.11)10/11/2024Essential hypertension (ICD-10 - I10)10/11/2024llergic conjunctivitis of both eyes (ICD-10 - H10.13)10/24/2024Gastroesophageal reflux disease, esophagitis presence not specified (ICD-10 - K21.9)11/10/2024Essential hypertension (ICD-10 - I10)01/15/2025Screening for diabetes mellitus (ICD-10 - Z13.1)11/10/2024Neck muscle spasm (ICD-10 - M62.838)10/11/2024Medication refill (ICD-10 - Z76.0)11/10/2024Medication refill (ICD-10 - Z76.0)11/10/2024 Hyperlipidemia, unspecified hyperlipidemia type (ICD-10 - E78.5)11/10/2024 Gastroesophageal reflux disease, esophagitis presence not specified (ICD-10 - K21.9)08/07/2025OtherDiscussed patient concerns regarding possible UTI. We performed [...] plan and denies any additional questions or concerns.01/15/2025Other Discussed patient concerns regarding chronic care. We reviewed her medical history and medications.Patient denies needing any refills at this time. We reviewed the risks associated with elevated blood pressure and patient feels her blood pressure is under good control with her current medications.I will order updated lab work for routine screening. I advised the patient to get this labs while fasting. Patient is agreeable with this plan and denies any additional questions or concerns. She will follow up in 6 months. Body Mass Index: Care Instructions material was published 07/02/2025Other Discussed patient concerns regarding right hip pain. We discussed her medical history and current medication regimen. I recommended she continue taking Meloxicam as it has been helping her symptoms. I will refill the patient's Cyclobenzaprine as she reported that this helped her neck muscle spasms and has improved the pain in her hip in the past. I will also order an X ray of the hip for further evaluation. We discussed treatment options, and patient would like to proceed with a corticosteroid injection into the greater trochanteric bursa today. Risks, benefits, and complications were explained. Verbal and written consent was obtained. The area was prepared in standard fashion and an alcohol swab was used for disinfection. 1 mL of Kenalog and 5 mL of Lidocaine were injected into the rightgreater trochanteric bursa and a bandage was applied to the wound. Patient denied any pain or complications after the procedure. She will follow up with our office if her symptoms do not improve or worsen. Patient is agreeable with this plan and denies any additional questions or concerns. Body Mass Index: Care Instructions material was published Plan Of Treatment No Information Insurance Providers Payer Name Payer Address Payer Phone Subscriber Number Group Number Insured Name Patient Relationship to Insured Coverage Start Date Coverage End Date [employer] MEDICARE ADVANTAGE [address] [place] MILLER [phone] [id number] Williams MARR - patient is the [id number] 2024MEDICAID SEC TO MCARE ADV[address] [place] [id number], SHERRYSelf - patient is the [id number] [address] [id number], SHERRYSelf - patient is the insured 2018[employer]HE[employer] MEDIBLUE DUAL-ELIGBLEPO [address] [place] [address] [id number], SHERRYSelf - patient is the insured /MEDICAID [address] [place] [phone] [id number], SHERRYSelf - patient is the [id number] HUMAN MDCR GOLD PLUS [address] [address] [place] [phone] [id number] MARR - patient is the vrgehkp87/10/2024 Medical (General) History Medical History History ICD Code Hyperlipidemia HTNGERDarthritisskin CA on neck removedSurgical History Surgery Date(Month/Year) T+A umbilical hernia pbflgudzbirxrsheugmzpxefchykqvovpUFZJCJXOKXB4197LJE9/2013 partial hysterectomyBladder repair12/2018Rt. rotator cuff10/07/2020Hospitalization History Reason Date(Month/Year) see surgical
--- OUTSIDE RECORDS SUMMARY | 2025-08-10 15:40 | XMS_ITS | Clinical Summary ---
Author Organization [facility] Address [address] [place] [address] Care Team Providers Care Border Guard Name Role Phone Pablo Crowley Primary Care Provider [phone] ZahraaIvan hollingsworth Unavailable [phone] Allergies No known active allergies Medications MedicationSigDispense QuantityRefillsLast FilledStart DateEnd DateStatus atorvastatin (Lipitor) 40 MG tablet Take 40 mg by mouth 1 (one) time each day at the same timeActive celecoxib (CeleBREX) 200 MG capsule Take 200 mg by mouth 1 (one) time each day at the same timeActive NexIUM [address] capsule Take 1 capsule by mouth every 12 (twelve) hoursActive losartan (Cozaar) 25 MG tablet Take 25 mg by mouth 1 (one) time each day at the same timeActive Melatonin 10 MG tablet dispersible Take 5 mg by mouth at bedtimeActive triamterene-hydrochlorothiazide (Maxzide-25) 37.5-25 MG tablet Take 1 tablet by mouth 1 (one) time each day at the same timeActive lidocaine (Lidoderm) 5 % patch Apply topically if fryvvj7302/08/2024ctive fluticasone (Flonase) 50 MCG/ACT nasal spray Administer 2 sprays into each nostril if thtkvb3801/11/2024ctive cetirizine (ZyrTEC) 10 MG tablet Take 10 mg by mouth Daily01/11/2024ctive cyclobenzaprine (Flexeril) 10 MG tablet Take 10 mg by mouth 3 (three) times a day as needed for muscle spasmsActive Active Problems ProblemNoted DateDiagnosed DateAcute nzbaxxysqyj55/23/2024cute UTI12/07/2023 Qbxffpbhx45/23/3938Mgkkjfym72/23/2024History of colon abzwpl2812/07/2023 Lumbosacral spondylosis without tfxtivboqy13/23/2024Other chronic pain12/07/2023 Other low back pain12/07/2023elvic organ prolapse quantification stage 4 /23/6307Xocnhagg01/23/7318Dkustcsrm98/26/3494Hjztdwjtud73/26/2024 Dyspareunia in ofmxmo2411/09/2023Loss of /26/2024Midline cystocele 11/09/2023ost-void qhovcgkkf99/26/2024Stress incontinence of urine11/09/2023 Vaginal atgcvly3911/09/2023Vaginal odor11/09/2023 Resolved Problems ProblemNoted DateDiagnosed DateResolved DateAllergic uzgfjskg75/05/2025 06/20/2025rthritis of left acromioclavicular jointt risk for fallsDiverticular disease of colon Nnnfksznxeoxvv49Essential agtgpevivumr69 Gastroesophageal reflux uhwatpo28Insomnia Ndvecuh46Localized, primary osteoarthritis of hand06/20/2025 06/20/2025Multiple thyroid mfjckwp01Medication refill Osteoarthritis of kneeSciatica06/20/2025 06/20/2025Screening for diabetes xppczxnd30Second hand smoke fmneojlc81Sinus zezyptqvfv03Spasm06/20/2025 06/20/20257743Vfysxaujmvw96EdemaSinusitis, acute Encounters DateTypeDepartmentCare CfleDihzsfiqkfg26/05/2025 1:45 PM ESTOffice Visit [facility] [address] [place] [address] Ivan Edmonds, DO Multiple thyroid nodules (Primary Dx)06/20/2025amboo flowsheet [facility] [address] [place] [place] [address] Ivan Edmonds, DO 06/20/2025Travelfrom Last 3 Months Family History Medical HistoryRelationNameCommentsHeart attackBrother 1DiabetesBrother 2Heart diseaseBrother 2HyperlipidemiaBrother 2HypertensionBrother 2DiabetesFatherHeart diseaseFatherOvarian cancerMotherArthritisSisterDiabetesSisterHypertensionSister RelationNameStatusCommentsBrother 1DeceasedBrother 2AliveFatherDeceasedMother DeceasedSister Social History Tobacco UseTypesPacks/DayYears UsedDateSmoking Tobacco: FormerCigarettes Tobacco Cessation:Counseling Given: Not Answered Alcohol UseStandard Drinks/WeekCommentsNever0 (1 standard drink = 0.6 oz pure alcohol)caffeie intake : 2-3 ups per day ; coffeeAUDIT-CAnswerDate RecordedQ1: How often do you have a drink containing alcohol?Never04/03/2024Q2: How many drinks containing alcohol do you have on a typical day when you are drinking? Patient does not drink04/03/2024Q3: How often do you have six or more drinks on one occasion?Never04/03/2024HQ-2AnswerDate RecordedPatient Health Questionnaire-2 Bzrpa889CommentsNoSex and Gender Information ValueDate RecordedSex Assigned at BirthNot on fileLegal IddYgflmy92/15/2023 9:28 PM EDTGender IdentityNot on fileSexual OrientationNot on file Last Filed Vital Signs Vital SignReadingTime TakenCommentsBlood Fpactfgs240/8408 2:04 PM EDT Pulse--Temperature--Respiratory Rate--Oxygen Saturation--Inhaled Oxygen Concentration--Pfxjox21.1 kg (192 lb)06/20/2025 1:46 PM FZEMxhitp635.5 cm (5' 2 )06/20/2025 1:46 PM ESTBody Mass Index35.12108/20/2024 1:46 PM EST Plan of Treatment Not on file Insurance Care Teams Team MemberRelationshipSpecialtyStart DateEnd Date Pablo Crowley DO [address] [place] [phone] PCP - General03/24/23 Ivan Edmonds, [address] [place] [address] Szxxwdvcluqjuo80/30/24
[2025-08-10 15:44] LABS: Alanine Aminotransferase 34 U/L (14-59); Albumin Globulin Ratio 1.0; Albumin Level 3.6 g/dL (3.4-5.0); Alkaline Phosphatase 93 U/L (46-116); Anion Gap 11.9; Aspartate Amino Transferase 19 U/L (15-37); Blood Urea Nitrogen 15.0 mg/dL (7.0-18.0); Calcium 9.2 mg/dL (8.5-10.1); Carbon Dioxide 27.5 mmol/L (21.0-32.0); Chloride 103 mmol/L (98-107); Estimated GFR (African America >60 (>=60 mL/min/1.73m^2); Estimated GFR (Non-African Ame 50 (>=60 mL/min/1.73m^2); Globulin 3.6 g/dL; Glucose 146 mg/dL (74-106); Potassium 3.4 mmol/L (3.5-5.1); Sodium 139 mmol/L (136-145); Total Protein 7.2 g/dL (6.4-8.2)
[2025-08-10 15:53] LABS: Magnesium 1.7 mg/dL (1.8-2.4); NT Pro B Type Natriuretic Pept 101.0 pg/mL (<=900.0); Thyroid Stimulating Hormone 1.485 uIU/mL (0.358-3.740)
[2025-08-10 16:03] LABS: Glucose Urine UA NEGATIVE (NEGATIVE)
[2025-08-10 16:13] LABS: Cannabinoid Screen Urine NEGATIVE (NEGATIVE); Methamphetamines Screen Urine NEGATIVE (NEGATIVE); Tricyclic Antidepressant Urine NEGATIVE (NEGATIVE)
[2025-08-10 16:15] LABS: Cast Seen? NONE SEEN #/LPF (NONE SEEN); Crystals Seen? None Seen #/HPF (None Seen)
--- NOTE | 2025-08-10 16:20 | ED.GENADUL1 ---
HPI HPI - General Adult General Chief complaint: Dizziness Stated complaint: dizziness, facial numbness Time Seen by Provider: 08/10/25 15:00 Source: patient Mode of arrival: Wheelchair Limitations: no limitations History of Present Illness HPI narrative: Patient is a 64-year-old female presenting to the emergency department for evaluation of acute onset lightheadedness/dizziness. Patient states she was making [place] gifts with her granddaughter when she started. Acute onset of generalized weakness. She states she feels high . She states her entire face and body feels numb. She denies chest pain or shortness of breath. No abdominal pain or vomiting. She denies any change in her vision. No headache or neck pain. There is no localized weakness to one side of her body. She denies history of stroke or cardiac disease. She has a history of hypertension hyperlipidemia. She denies drug or alcohol use. Her family members at the bedside who states she does this sometimes . Related Data Home Medications ?Medication ?Instructions ?Recorded ?Confirmed atorvastatin 40 mg tablet 40 mg PO DAILY 10/28/23 08/10/25 celecoxib 200 mg capsule 200 mg PO Q24H 10/28/23 03/30/25 esomeprazole magnesium 40 mg 40 mg PO Q24H 10/28/23 08/10/25 capsule,delayed release fluticasone propionate 44 2 inh inhalation Q12H PRN wheeze 10/28/23 08/10/25 mcg/actuation HFA aerosol inhaler losartan 25 mg tablet 25 mg PO DAILY 10/28/23 08/10/25 cetirizine 10 mg tablet mg 08/10/25 fluticasone propionate 50 intranasal 08/10/25 mcg/actuation nasal spray,suspension meloxicam 15 mg tablet mg 08/10/25 nitrofurantoin 08/10/25 monohydrate/macrocrystals 100 mg capsule triamterene 37.5 tab 08/10/25 mg-hydrochlorothiazide 25 mg tablet Previous Rx's ?Medication ?Instructions ?Recorded ibuprofen 800 mg tablet 800 mg PO Q8H PRN pain #20 tabs 10/28/23 hydrocodone 5 mg-acetaminophen 325 1 tab PO Q6H PRN pain 2 days #6 02/03/24 mg tablet tabs methocarbamol 750 mg tablet 750 mg PO TID PRN pain #20 tabs 02/03/24 methylprednisolone 4 mg tablets in See Rx Instructions .Route 02/03/24 a dose pack (Medrol (Jonathan)) .COMPLEX #21 ea Allergies Allergy/AdvReac Type Severity Reaction Status Date / Time No Known Drug Allergies Allergy Verified 05/02/24 19:16 Opioid HPI Opioid Management Most Recent Opioid Data: Last Pain Scale 10 02/03/24, 21:59 Ur Phencyclidine Scrn, (NEGATIVE) Negative Today, 15:49 Review of Systems ROS Status of ROS 10 or more systems reviewed and unremarkable except as noted in history and below PFSH PFS Social History Smoking status: Former smoker Little interest or pleasure in doing things: not at all Feeling down, depressed, or hopeless: not at all Exam Narrative Exam Narrative: CONSTITUTIONAL: Patient is somnolent and laying in the stretcher with her eyes closed. She is able to answer questions appropriately, but then starts to doze off. She is slow to follow commands, but does so appropriately. SKIN: Was warm and dry. EYES: No scleral icterus. No conjunctival pallor. EARS, NOSE, THROAT: No JVD. Neck supple. No nuchal rigidity. RESPIRATORY: Clear to auscultation bilaterally, no wheezes, crackles, or stridor, no use of accessory muscles CARDIOVASCULAR: Normal rate and regular rhythm. There is no S3, S4, murmur, rub. Radial and dorsalis pedis pulses are 2+ and symmetrical. GASTROINTESTINAL: Abdomen was soft, non-tender, and non-distended. There is no guarding or rebound tenderness MUSCULOSKELETAL: There was no lower extremity edema, erythema, or tenderness. NEUROLOGIC: Sensation: sensation to light touch is intact bilaterally in upper and lower extremities. Motor: Good muscle tone. Strength is 5/5 bilaterally in the upper and lower extremities. Cerebellar: Finger to nose intact. Cranial Nerves: Pupils are round, reactive to light and accommodation. Extraocular movements are intact without ptosis. No nystagmus. Facial sensation intact bilaterally to light touch in the V1, V2, V3 distribution. Facial muscle strength is normal and equal bilaterally. Hearing is normal bilaterally. Palate and uvula elevate symmetrically. Shoulder shrug strong and equal bilaterally. Tongue protrudes midline and moves symmetrically. Constitutional Vital Signs, click to edit/add: Last Vital Signs Temp 98.5 F 08/10/25 14:52 Pulse 83 08/10/25 15:30 Resp 20 08/10/25 15:30 BP 145/75 H 08/10/25 17:31 Pulse Ox 97 08/10/25 15:30 O2 Del Method Room Air 08/10/25 14:52 Course Vital Signs Vital signs: Vital Signs Temperature 98.5 F 08/10/25 14:52 Pulse Rate 89 08/10/25 14:52 Respiratory Rate 18 08/10/25 14:52 Pulse Oximetry 95 08/10/25 14:52 Oxygen Delivery Method Room Air 08/10/25 14:52 Temperature 98.5 F 08/10/25 14:52 Pulse Rate 83 08/10/25 15:30 Respiratory Rate 20 08/10/25 15:30 Blood Pressure 145/75 H 08/10/25 17:31 Pulse Oximetry 97 08/10/25 15:30 Oxygen Delivery Method Room Air 08/10/25 14:52 Medical Decision Making MDM Narrative Medical decision making narrative: Patient is a 64-year-old female, history significant for hypertension hyperlipidemia, presenting to the emergency department with acute onset generalized weakness. Her vital signs on arrival are significant for hypertension, otherwise were within normal limits. She is afebrile and hemodynamically stable. On examination, the patient is somnolent and slow to answer questions/follow commands. She has no focal neurologic deficits and no acute cardiopulmonary abnormalities on exam. She is otherwise asymptomatic without chest pain or shortness of breath. Triage 12 Lead EKG: Sinus rhythm at a normal rate of 84 bpm. Frequent PVCs in a bigeminy pattern. No ST segment depressions or elevations. QRS, CA, and QTc interval within normal limits. Final impression: Sinus rhythm with frequent PVCs in a pattern of bigeminy. Differential diagnosis includes ACS, hyperthyroidism, anemia, PE, or other electrolyte/metabolic derangement. IV was established and laboratory studies were obtained. CT angiogram of the chest was ordered. CT head was ordered. Laboratory studies were only remarkable for mild hypomagnesemia and mild hypokalemia. This was replaced with 2 g of IV magnesium sulfate and oral potassium chloride. Mild elevation in her creatinine of 1.1. Euglycemic. No anemia or leukocytosis. Troponin/2 hour repeat and BNP nonelevated. TSH within normal limits. No transaminitis. Urinalysis negative. UDS negative. CT angiogram demonstrated no evidence of acute PE or intrathoracic process. CT head independently reviewed/interpreted by myself demonstrated no acute intracranial pathology or hemorrhage. On reevaluation, patient states she feels significantly proved. She appears to be back to her baseline according to multiple family members at the bedside. She is ambulated around the emergency department and is requesting to be discharged home. Repeat EKG was obtained prior to electrolyte replacement. Her bigeminy has spontaneously resolved and she is now in normal sinus rhythm (see below). Although I am able to identify an exact etiology to explain the patient's symptoms, she seems to be back to her baseline. No acute, emergent process has been identified open to this point. I do believe she stable for outpatient follow-up with her PCP as soon as possible. Return precautions were given including any new or concerning symptoms. She understands and agrees to the plan. 12 Lead EKG: Normal sinus rhythm at a rate of 74. Normal axis. No ST segment elevations. QRS, CA, and QTc interval within normal limits. Compared to prior EKG from 1.5 hours ago, PVCs have completely resolved. Final impression: normal sinus rhythm without evidence of acute myocardial ischemia FINAL IMPRESSION: #Acute generalized weakness, resolved #Acute PVC bigeminy, resolved DISPOSITION: [ ] CONDITION: [ ] Lab Data Lab results reviewed: Yes I reviewed the patient's lab results Labs: Lab Results 08/10/25 08/10/25 08/10/25 Range/Units 15:25 15:49 16:03 WBC 6.7 (4.0-11.0) 10^3/uL RBC 4.53 (4.20-5.40) 10^6/uL Hgb 13.6 (12.0-16.0) g/dL Hct 39.7 (36.0-48.0) % MCV 87.6 (81.0-99.0) fL MCH 30.0 (26.7-34.0) pg MCHC 34.3 (29.9-35.2) g/dL RDW 12.6 (11.0-15.0) % Plt Count 235 (150-450) 10^3/uL MPV 9.5 (9.5-13.5) fL Neut % (Auto) 53.8 (43.0-75.0) % Lymph % (Auto) 33.8 (20.5-60.0) % [place] % (Auto) 8.5 (1.7-12.0) % Eos % (Auto) 3.4 (0.9-7.0) % Baso % (Auto) 0.4 (0.2-2.0) % Neut # (Auto) 3.6 (1.4-6.5) 10^3/uL Lymph # (Auto) 2.3 (1.2-3.8) 10^3/uL [place] # (Auto) 0.6 (0.3-0.8) 10^3/uL Eos # (Auto) 0.2 (0.0-0.7) 10^3/uL Baso # (Auto) 0.0 (0.0-0.1) 10^3/uL Abs Immat Gran (auto) 0.01 (0.00-0.03) 10^3/uL Imm/Tot Granulo (auto) 0.1 (0.0-0.5) % Sodium 139 (136-145) mmol/L Potassium 3.4 L (3.5-5.1) mmol/L Chloride 103 (98-107) mmol/L Carbon Dioxide 27.5 (21.0-32.0) mmol/L Anion Gap 11.9 BUN 15.0 (7.0-18.0) mg/dL Creatinine 1.10 H (0.55-1.02) mg/dL Est GFR ( Amer) >60 (>=60 mL/min/1.73m^2) Est GFR (Non-Af Amer) 50 L (>=60 mL/min/1.73m^2) BUN/Creatinine Ratio 13.6 Glucose 146 H (74-106) mg/dL Calcium 9.2 (8.5-10.1) mg/dL Magnesium 1.7 L (1.8-2.4) mg/dL Total Bilirubin 0.5 (0.2-1.0) mg/dL AST 19 (15-37) U/L ALT 34 (14-59) U/L Alkaline Phosphatase 93 (46-116) U/L Troponin I High Sens 7.7 9.8 (4.0-51.3) pg/mL NT-Pro-B Natriuret Pep 101.0 (<=900.0) pg/mL Total Protein 7.2 (6.4-8.2) g/dL Albumin 3.6 (3.4-5.0) g/dL Globulin 3.6 g/dL Albumin/Globulin Ratio 1.0 TSH 1.485 (0.358-3.740) uIU/mL Urine Color Lt. yellow (YELLOW) Urine Clarity Clear (CLEAR) Urine pH 6.5 (5.0-9.0) Ur Specific [place] 1.010 (1.005-1.025) Urine Protein Negative (NEG/TRACE) mg/dL Urine Glucose (UA) Negative (NEGATIVE) mg/dL Urine Ketones Negative (NEGATIVE) mg/dL Urine Occult Blood Negative (NEGATIVE) Urine Nitrite Negative (NEGATIVE) Urine Bilirubin Negative (NEGATIVE) Urine Urobilinogen 0.2 (0.2-1.0) EU/dL Ur Leukocyte Esterase Negative (NEGATIVE) Urine RBC None seen (0-2) #/HPF Urine WBC 0-2 A (NONE SEEN) #/HPF Ur Squamous Epith Cells Rare (NONE/RARE) #/LPF Urine Crystals None seen (None Seen) #/HPF Urine Bacteria Trace A (NONE SEEN) #/HPF Urine Casts None seen (NONE SEEN) #/LPF Urine Mucus None seen (NONE SEEN) Urine Opiates Screen Negative (NEGATIVE) Ur Buprenorphine Scrn Negative (NEGATIVE) Ur Oxycodone Screen Negative (NEGATIVE) Urine Methadone Screen Negative (NEGATIVE) Ur Barbiturates Screen Negative (NEGATIVE) U Tricyclic Antidepress Negative (NEGATIVE) Ur Phencyclidine Scrn Negative (NEGATIVE) Ur Amphetamines Screen Negative (NEGATIVE) U Methamphetamines Scrn Negative (NEGATIVE) U Benzodiazepines Scrn Negative (NEGATIVE) Urine Cocaine Screen Negative (NEGATIVE) U Cannabinoids Screen Negative (NEGATIVE) Imaging Data CT scan - chest: Attestation: I personally reviewed and interpreted this imaging study as follows: ECG Data Attestation: I personally reviewed and interpreted this ECG as follows: Discharge Plan Discharge Chief Complaint: Dizziness Clinical Impression: Generalized weakness Patient Disposition: Home, Self-Care Time of Disposition Decision: 17:32 Condition: Good Mode of Transportation: Private Vehicle Prescriptions / Home Meds: No Action atorvastatin 40 mg tablet 40 mg PO DAILY esomeprazole magnesium 40 mg capsule,delayed release(DR/EC) 40 mg PO Q24H fluticasone propionate 44 mcg/actuation HFA aerosol inhaler 2 inh inhalation Q12H PRN (Reason: wheeze) Rx Instructions: administer with spacer losartan 25 mg tablet 25 mg PO DAILY celecoxib 200 mg capsule 200 mg PO Q24H ibuprofen 800 mg tablet 800 mg PO Q8H PRN (Reason: pain) Qty: 20 0RF hydrocodone-acetaminophen 5-325 mg tablet 1 tab PO Q6H PRN (Reason: pain) 2 Days Qty: 6 0RF Rx Instructions: DX: M54.2 methocarbamol 750 mg tablet 750 mg PO TID PRN (Reason: pain) Qty: 20 0RF methylprednisolone [Medrol (Jonathan)] 4 mg tablets,dose pack See Rx Instructions .ROUTE .COMPLEX Qty: 21 0RF Rx Instructions: Taper as directed cetirizine 10 mg tablet meloxicam 15 mg tablet triamterene-hydrochlorothiazid 37.5-25 mg tablet fluticasone propionate 50 mcg/actuation spray,suspension INTRANASAL nitrofurantoin monohyd/m-cryst 100 mg capsule Print Language: Venezuelan Instructions: Weakness (ED) Referrals: [facility] [Primary Care Provider] - 1 week Discharge Date/Time: 08/10/25 17:45
--- NOTE | 2025-08-10 16:24 | ECG_ITS ---
[facility] Test Date: 2025-08-10 Pat Name: MARINE MARR Department: Room: - Gender: Female Records Tech: : 1960 Requested By: [id number] Order Number: [id number] Reading MD: GANESH BLANCO M.D. Measurements Intervals [place] Rate: 74 P: 51 ND: 154 QRS: 17 QRSD: 86 T: 22 QT: 386 QTc: 413 Interpretive Statements 1100 Sinus rhythm 9110 normal ECG Compared to ECG 08/10/2025 14:57:44 Ventricular premature complex(es) no longer present Electronically Signed On 08-10-2025 20:00:13 EST by GANESH BLANCO M.D.
--- OUTSIDE RECORDS SUMMARY | 2025-08-10 17:50 | XMS_ITS | CCD ---
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 Name Role Phone Joel Anand Unavailable [phone] [facility] Primary Care Unavaila DR AVERY Ellis Consulting Unavailable DR AVERY BONILLA Admitting Unavailable DR AVERY BONILLA Attending Unavailable [facility] Primary Care Provider DO Jayden Quevedo Attending Provider DO Joisah Farmer Referring Provider [facility] Primary Care Provider DO Pablo Crowley Attending Provider MD Orly Fontaine Other Provider [phone] MD Orly Fontaine Other Provider [phone] DO Jayden Quevedo Attending Provider DO Harrison Sánchez Referring Provider Apolinar Zarate Unavailable [facility] Primary Care Provider DO Jayden Quevedo Attending Provider DO Harrison Sánchez Referring Provider MD Apolinar Zarate Attending Provider [phone] [facility] Primary Care Provider [phone] [facility] Primary Care Provider MD Apolinar Zarate Attending Provider DO Harrison Sánchez Attending Provider DO Ivan Edmonds Attending Provider [facility] Services Primary Care Provider MD Apolinar Zarate Attending Provider MD Dony Ferguson Emergency Provider [phone] [facility] Primary Care Provider MD Nehal West Attending Provider MD Rico Choi Other Provider Self, Referral Attending Provider Unavailable DO Davidson Krishnamurthy Referring Provider [facility] Primary Care Provider MD Apolinar Zarate Attending Provider EVELIA Lewis Emergency Provider [phone] Pablo Crowley MD E Primary Care Provider Ivan Edmonds DO Unavailable [facility] Primary Care Provider Self, Referral Attending Provider Unavailable Davidson Krishnamurthy DO Referring Provider [phone] Apolinar Zarate MD Attending Provider [phone] Maryls Lewis APRN Emergency Provider [facility] Primary Care Provider Tari Thomason APRN Emergency Provider [phone] Jayden Quevedo DO Attending Provider Rico Choi MD [facility] Attending Provider [phone] [facility] Primary Care Provider [phone] Apolinar Zarate MD Attending Provider Rico Choi MD Other Provider Apolinar Zarate MD Other Provider [facility] Primary Care Provider Apolinar Zarate MD Attending Provider [facility] Referring Provider [phone] Self, Referral Attending Provider Unavailable Apolinar Zarate Admitting Unavailable Apolinar Zarate Attending Unavailable [facility] Primary Care Unavaila Apolinar Barron Admitting Unavailable Apolinar Zarate Attending Unavailable [facility] Primary Care Unavaila Marlys Michael Admitting Unavailable Marlys Lewis Attending Unavailable [facility] Primary Care Unavaila Tari Ramos N Admitting Unavailable Tari Thomason Attending Unavailable [facility] Primary Care Unavaila ble [facility] Primary Care Unavaila ble Self, Referral Admitting Unavailable Self, Referral Attending Unavailable [facility] Referring Unavaila ble Jayden Quevedo Attending Unavailable Rico Choi Consulting Unavailable [facility] Primary Care Unavaila ble Jayden Quevedo Admitting Unavailable Rico Choi Consulting Unavailable [facility] Pablo Admitting Unavailable [facility], Pablo Attending Unavailable [facility] Primary Care Unavaila ble Mast DO, Pablo E Primary Care Provider [phone] IVAN EDMONDS Attending Unavailable Medications Current Medications MedicationDrug Class(es)DatesSig (Normalized)Sig (Original)atorvastatin 40 mg oral tablet (20 sources)HMG-CoA Reductase InhibitorStart: 32-16-1457ssqb 1 tablet by mouth once daily in the morningcetirizine hydrochloride 10 mg oral tablet (20 sources)Histamine-1 Receptor AntagonistStart: 01-11-2024 End: 68-55-8227ztjz 1 tablet by mouth once dailycetirizine (ZyrTEC) 10 MG tablet Take 10 mg by mouth Daily 01/11/2024 Activecyclobenzaprine hydrochloride 10 mg oral tablet (6 sources)Muscle Relaxanttake 1 tablet by mouth three times daily as needed for muscle spasmscyclobenzaprine (Flexeril) 10 MG tablet Take 10 mg by mouth 3 (three) times a day as needed for muscle spasms Activeesomeprazole 40 mg delayed release oral capsule (20 sources)Proton Pump InhibitorStart: 12-53-4500vrcl 1 capsule by mouth twice dailytake 1 capsule by mouth every twelve hoursNexIUM [address] capsule Take 1 capsule by mouth every 12 (twelve) hours Activeestradiol 0.1 mg/ml vaginal cream (3 sources)EstrogenStart: 04-03-2024 End: 45-95-6835oldnqkamm (Estrace) 0.1 MG/GM vaginal cream Indications: Vulvovaginal Atrophy Insert 1 g into the vagina 2 (two) times a week 42.5 g 1 04/03/2024 04/03/2025 Activefluticasone propionate 0.05 mg/actuat metered dose nasal spray (20 sources)CorticosteroidStart: 87-65-8027vyzyyqzbinb (Flonase) 50 MCG/ACT nasal spray Administer 2 sprays into each nostril if needed 01/11/2024 Active Start: 74-48-8509Aolza: 07-16-2017 End: 07-60-7949Cgaxzdgoxil Propionate 50 spray,suspension Discontinued 2 SPRAY INTRANASAL Daily as needed for ColdSymptoms July 16, 2017 1:00am December 29, 2018 10:41amhydroCHLOROthiazide 25 mg / triamterene 37.5 mg oral capsule (20 sources)Potassium-sparing Diuretic, Thiazide DiureticStart: 07-16-2017 End: 01-92-9813vlzt 1 tablet by mouth once daily in the morningtake 1 tablet by mouth once dailytriamterene-hydrochlorothiazide (Maxzide-25) 37.5-25 MG tablet Take 1 tablet by mouth 1 (one) time each day at the same time Activelidocaine 0.05 mg/mg medicated patch (6 sources)Antiarrhythmic, Amide Local AnestheticStart: 20-28-4376zbcmemrwe (Lidoderm) 5 % patch Apply topically if needed 02/08/2024 ActiveLisinopril (3 sources)Angiotensin Converting Enzyme InhibitorLisinopril Activelosartan potassium 25 mg oral tablet (20 sources)Angiotensin 2 Receptor BlockerStart: 98-19-4681ljem 1 tablet by mouth once daily in the morningmelatonin 10 mg disintegrating oral tablet (6 sources)take 5 mg by mouth at bedtimeMelatonin 10 MG tablet dispersible Take 5 mg by mouth at bedtime Activemeloxicam 15 mg oral tablet (20 sources)Nonsteroidal Anti-inflammatory DrugStart: 60-37-5340azcq 1 tablet by mouth once dailyStart: 12-29-2018 End: 37-62-8438llwc 1 tablet by mouth once daily in the morningMeloxicam 7.5 mg tablet Discontinued 7.5 MG PO Every morning December 29, 2018 12:00am January 13, 2019 7:54amStart: 07-16-2017 End: 69-12-0136hycf 1 tablet by mouth once dailyMeloxicam 15 tablet Discontinued 15 MG PO Daily July 16, 2017 1:00am December 29, 2018 10:38am24 hr mirabegron 50 mg extended release oral tablet (3 sources)beta3-Adrenergic AgonistStart: 04-03-2024 End: 24-58-8723yxfd 1 tablet by mouth once dailymirabegron ER (Myrbetriq) 50 MG 24 hr tablet Indications: Urinary urgency Take 1 tablet (50 mg) by mouth Daily Do not crush, chew, or split. 90 tablet 3 04/03/2024 04/03/2025 Active Completed/Discontinued Medications MedicationDrug Class(es)DatesSig (Normalized)Sig (Original)acetaminophen 325 mg / HYDROcodone bitartrate 5 mg oral tablet (20 sources)Opioid AgonistStart: 01-13-2019 End: 79-32-2955yicc 1 tablet by mouth every six hours as needed for pain Hydrocodone-Acetaminophen ([place]) 5-325 mg tablet Discontinued 1 TAB PO Q6H as needed for pain 20 5May 2018August 24, 2019 7:25pmalbuterol 0.83 mg/ml inhalation solution (20 sources)beta2-Adrenergic AgonistStart: 10-30-2017 End: 70-89-2950ovkn 2.5 mg by inhalation every four hours as needed for wheezing Albuterol Sulfate 2.5 mg /3 mL (0.083 %) solution for nebulization Discontinued 2.5 MG INHALATION Q4H as needed for shortness of breath or wheezing 90 October 30, 2017 12:00am November 02, 2017 12:04pmStart: 07-16-2017 End: 66-41-3670rpcl 1 puff(s) by inhalation every four hoursAlbuterol Sulfate (Ventolin Hfa) 108 HFA aerosol inhaler Discontinued 2 PUFF INHALATION Q4H July 16, 2017 1:00am October 30, 2017 12:28pmStart: 07-16-2017 End: 77-26-9244Npeptjgwx Sulfate 90 mcg/actuation HFA aerosol inhaler Discontinued 2 INH INHALATION Every 4 hours as needed for shortness of breath or wheezing 18 July 16, 2017 1:00am October 30, 2017 12:29pm administer with spaceramoxicillin 875 mg / clavulanate 125 mg oral tablet (9 sources)Penicillin-class AntibacterialStart: 06-09-2024 End: 53-32-0556qawt 1 tablet by mouth twice dailyAmoxicillin-Pot Clavulanate 875-125 mg tablet Discontinued 1 TAB PO Twice daily 13 June 09, 2024 12:00am February 19, 2025 9:05amazithromycin 250 mg oral tablet (20 sources)Macrolide AntimicrobialStart: 07-16-2017 End: 74-41-6568ohye 1 tablet by mouth once dailyAzithromycin (Zithromax) 250 mg tablet Discontinued 250 MG PO Daily July 16, 2017 1:00am October 30, 2017 12:28pm Take 500mg on day one, 250mg daily for four more days.celecoxib 200 mg oral capsule (20 sources)Nonsteroidal Anti-inflammatory DrugStart: 10-05-2023 End: 34-98-6121rohu 1 capsule by mouth once daily at mealtimeCelecoxib 200 mg capsule Discontinued 200 MG PO Daily October 05, 2023 1:00am November 04, 2024 6:46pm FreeTextSi capsule with food Orally Once a day; Note: Source Status: Taking; Provider: Tessa Jiang ( )cephalexin 500 mg oral capsule (20 sources)Cephalosporin AntibacterialStart: 08-24-2019 End: 03-84-2873jqcb 1 capsule by mouth three times dailyCephalexin (Keflex) 500 mg Capsule Discontinued 500 MG PO Three times daily August 24, 2019 1:00am October 14, 2021 8:28amcodeine phosphate 2 mg/ml / promethazine hydrochloride 1.25 mg/ml oral solution (20 sources)Opioid Agonist, PhenothiazineStart: 07-16-2017 End: 43-91-8636uzqq 1 mL by mouth every six hours as needed for cough Promethazine-Codeine 6.25-10 mg/5 mL syrup Discontinued 5 ML PO Q6H as needed for cough 60 2016 1:00am November 02, 2017 12:06pmfluconazole 100 mg oral tablet (9 sources)Azole AntifungalStart: 06-09-2024 End: 23-91-6833pocv 1 tablet by mouth once dailyFluconazole (Diflucan) 100 mg tablet Discontinued 100 MG PO Daily June 09, 2024 12:00am 2024 8:29amibuprofen 600 mg oral tablet (20 sources)Nonsteroidal Anti-inflammatory DrugStart: 01-13-2019 End: 31-87-6018blri 4 tablets by mouth every twenty-four hours for painIbuprofen 600 mg tablet Discontinued 600 MG PO Every 6 hours as needed for pain January 13, 2019 12:00am August 24, 2019 7:25pm do not exceed 4 doses in a 24 hour periodipratropium bromide 0.2 mg/ml inhalation solution (20 sources)AnticholinergicStart: 10-30-2017 End: 92-69-6753ulhw 0.5 mg by inhalation every eight hoursIpratropium Perry 0.02 % solution Discontinued 0.5 MG INHALATION Q8H October 30, 2017 12:00am 2018 10:42amStart: 10-30-2017 End: 54-66-6637tjdd 0.5 mg by inhalation every eight hoursIpratropium Perry Discontinued 0.5 MG INHALATION Q8H October 30, 2017 12:00am December 29, 2018 10 :42amlevoFLOXacin 750 mg oral tablet (20 sources)Quinolone AntimicrobialStart: 10-30-2017 End: 72-22-5130sivg 1 tablet by mouth every twenty-four hoursLevofloxacin (Levaquin) 750 mg tablet Discontinued 750 MG PO Q24H 10 October 30, 2017 12:00am November 08, 2017 12:00am November 09, 2017 12:03ammetroNIDAZOLE 500 mg oral tablet (20 sources)Nitroimidazole AntimicrobialStart: 04-04-2018 End: 94-47-4652pawp 1 tablet by mouth twice dailyMetronidazole (Flagyl) 500 mg tablet Discontinued 500 MG PO Twice daily 14 April 04, 2018 12:00am December 29, 2018 10:42amnabumetone 750 mg oral tablet (7 sources)Nonsteroidal Anti-inflammatory DrugStart: 11-04-2024 End: 16-78-7644kgmj 1 tablet by mouth twice dailyNabumetone 750 mg tablet Discontinued 750 MG PO Twice daily November 04, 2024 12:00am March 06, 2025 8:29amnitrofurantoin, macrocrystals 25 mg / nitrofurantoin, monohydrate 75 mg oral capsule (20 sources)Nitrofuran AntibacterialStart: 12-29-2018 End: 01-87-3862ctxg 1 capsule by mouth once daily at mealtimeNitrofurantoin Monohyd/M-Cryst (Macrobid) 100 mg capsule Discontinued 1 CAP PO Daily 5 January 13, 2019 12:00am August 24, 2019 7:25pm administer with a meal/food; swallow whole; do not open, crush, dissolve , or chewpotassium chloride 20 meq powder for oral solution (20 sources)Start: 08-24-2019 End: 51-93-9076wfyt 20 mEq by mouth once dailyPotassium Chloride 20 mEq packet Discontinued 20 MEQ PO Daily August 24, 2019 1:00am October 8:44am predniSONE 20 mg oral tablet (20 sources)Start: 10-30-2017 End: 23-03-1168pfiw 2 tablets by mouth once daily at mealtimePrednisone 20 mg tablet Discontinued 40 MG PO Daily 10 October 30, 2017 12:00am November 03, 2017 12:00am November 04, 2017 12:04am administer with food or milkStart: 10-30-2017 End: 86-16-1048olvo 40 mg by mouth once daily at mealtimePrednisone Discontinued 40 MG PO Daily 10 October 30, 2017 12:00am November 04, 2017 12:04am administer with food or milkStart: 07-16-2017 End: 73-15-5513hmmj 1 tablet by mouth once daily at mealtimePrednisone 20 mg tablet Discontinued 20 MG PO Daily July 16, 2017 1:00am October 30, 2017 12:29pm administer with food or milkpromethazine hydrochloride 25 mg oral tablet (20 sources)PhenothiazineStart: 08-24-2019 End: 60-52-9503vgff 1 tablet by mouth every six hours as needed for nausea Promethazine 25 mg Tablet Discontinued 25 MG PO Q6H as needed for Nausea August 24, 2019 1:00am October 14, 2021 8:45amsulfamethoxazole 800 mg / trimethoprim 160 mg oral tablet (20 sources)Dihydrofolate Reductase Inhibitor Antibacterial, Sulfonamide AntimicrobialStart: 08-24-2019 End: 77-18-9319tndi 1 tablet by mouth twice dailySulfamethoxazole-Trimethoprim 800-160 mg tablet Discontinued 1 TAB PO Twice daily August 24, 20191:00am October 14, 2021 8:45amtiZANidine 4 mg oral tablet (7 sources)Central alpha-2 Adrenergic AgonistStart: 11-04-2024 End: 26-68-9238ccqs 1 tablet by mouth three times daily as neededTizanidine (Zanaflex) 4 mg tablet Discontinued 4 MG PO Three times daily as needed for muscle spasticity November 04, 2024 12:00am March 06, 2025 8:30am Problems Active Problems Problem ClassificationProblemDateDocumented DateEpisodic/ChronicAcute bronchitis (20 sources)Acute bronchitis; Translations: [Acute bronchitis, unspecified] 70-77-5211OlxxiipxGarz and rectal conditions (5 sources)Anal and rectal polyp; Translations: [Rectal polyp]EpisodicChronic obstructive pulmonary disease and bronchiectasis (20 sources)Bronchitis; Translations: [Bronchitis, not specified as acute or chronic]79-59-9354FueasozaEtutn of unknown origin (1 source)Fever, unspecified; Translations: [FEVER UNSPECIFIED]Onset: 07-19-2022 EpisodicGenitourinary symptoms and ill-defined conditions (20 sources)Incontinence; Translations: [Stress incontinence (female) (male)] Onset: 529583-50-0749GyraembCsgjjskv; including migraine (1 source)Headache; including migraine; Translations: [Headache, unspecified] Onset: 76-20-8769Zqsbwdlfojv (6 sources)Hemorrhoids; Translations: [Unspecified hemorrhoids]Onset: 11-27-2021 Resolved: 21-64-1696LjzowalnWyjymtqfl (1 source)Influenza due to other identified influenza virus with other respiratory manifestations; Translations: [FLU D/T OTH ID FLU VIR OTH RSP MANF] Onset: 11-60-1189ZfwomyyyLflhqfztvj disorders (6 sources)Atrophy of vagina; Translations: [Postmenopausal atrophic vaginitis] Onset: 777301-16-3095IhlqmgePfhp disorders (6 sources)Depressive disorder; Translations: [Depression]Onset: 11-09-2023 02-27-1567OflabybTqtrxbppppmtsb (12 sources)Arthritis; Translations: [Unspecified osteoarthritis, unspecified site]Onset: 11-09-2023 Resolved: 600008-39-3382AventubLdnxy aftercare (1 source)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; Translations: [OTH ACCOUNT SERVICE ASSOCIATE CURRENT DRUG THERAPY]Onset: 08-72-5934KvflqvlzKonhl and unspecified benign neoplasm (5 sources)Benign neoplasm of sigmoid colon; Translations: [Benign neoplasm of sigmoid colon]EpisodicOther female genital disorders (6 sources)Pain in female genitalia on intercourse; Translations: [Unspecified dyspareunia]Onset: 064034-51-1433SxtizuyUqafi nervous system disorders (20 sources)Chronic pain; Translations: [Other chronic pain]Onset: 12-07-2023 18-35-9351BiwdgyrLrmda nervous system disorders (15 sources)Other chronic pain; Translations: [Other chronic pain]Onset: 17-74-9497CeaxwemKkwqahbb of female genital organs (20 sources)Cystocele and rectocele co-occurrent with complete uterovaginal prolapse; Translations: [Complete uterovaginal prolapse]Onset: 11-09-2023 15-01-6207MgkluxgThjtrlxa enteritis and ulcerative colitis (6 sources)Pseudopolyposis of colon; Translations: [Inflammatory polyps of colon without complications]Onset: 11-27-2021 Resolved: 69-84-9816DbjfubfSqsuukhcn and history of mental health and substance abuse codes (1 source)Personal history of nicotine dependence; Translations: [PERSONAL HISTORY OF NICOTINE DEPEND]Onset: 01-70-4429ZsqqhhlrRpflcflmbfk; intervertebral disc disorders; other back problems (20 sources)Lumbosacral spondylosis without myelopathy; Translations: [Spondylosis without myelopathy or radiculopathy, lumbosacral region]Onset: 89-99-3401MivjmnxUisbadc disorders (6 sources)Thyroid nodule; Translations: [Nontoxic single thyroid nodule]Onset: 06-20-2025 Resolved: 602765-06-3634GrzecsbYeqicqmngjkr (3 sources)COUGH, UNSPECIFIED; Translations: [COUGH, UNSPECIFIED]Onset: 28-23-7325Mliuaqxtihkl (1 source)CONTACT W/AND (SUSP) EXPOS COVID-19; Translations: [CONTACT W/AND (SUSP) EXPOS COVID-19]Onset: 28-56-0297Avpfjosbeuxt (3 sources)Call Dr. De La Rosa office to schedule a follow up appointment if you do not already have one scheduledUnclassified (1 source)Cough, unspecified; Translations: [Cough, unspecified]Onset: 95-50-2414Afbdq infection (1 source)Viral infection, unspecified; Translations: [VIRAL INFECTION UNSPECIFIED]Onset: 59-64-0120Flmapqtw Past or Other Problems Problem ClassificationProblemDateDocumented DateEpisodic/Chronic Administrative/social admission (2 sources)Repeated prescription; Translations: [Encounter for issue of repeat prescription]Onset: 06-20-2025 Resolved: 715839-00-2256NacqbjzlZyiszormnkomsz and diverticulitis (10 sources)Diverticular disease; Translations: [Diverticulosis of intestine, part unspecified, without perforation or abscess without bleeding]Onset: 11-27-2021 Resolved: 32-04-9719AklxidkIfczircgmk disorders (7 sources)Gastroesophageal reflux disease; Translations: [Gastro-esophageal reflux disease without esophagitis]Onset: 06-20-2025 Resolved: 994241-72-1598MbigtjzYfcahzccl hypertension (3 sources)Essential (primary) hypertension; Translations: [Essential hypertension]Onset: 01-23-2025 Resolved: 171763-50-6354ImsirrcYdwha and electrolyte disorders (20 sources)Acute hypokalemia; Translations: [Hypokalemia]Onset: 12-07-2023 72-51-8348GsvdcckaPpmojesp; including migraine (20 sources)Headache; Translations: [Headache]Onset: EpisodicNausea and vomiting (20 sources)Vomiting; Translations: [Vomiting, unspecified]Onset: 12-07-2023 38-54-8229NvshigsxVwoyj and unspecified benign neoplasm (20 sources)History of polyp of colon; Translations: [Personal history of colonic polyps]Onset: 582319-97-5343XlkcdbjyOwymw and unspecified benign neoplasm (1 source)Personal history of colonic polypsOnset: 11-27-2021 Resolved: 84-53-7868PlrneyzlFtbtb connective tissue disease (2 sources)Spasm; Translations: [Cramp and spasm]Onset: 06-20-2025 Resolved: 659183-01-1841PseykymjUuvhm female genital disorders (6 sources)Vaginal odor; Translations: [Other specified noninflammatory disorders of vagina]Onset: 367747-70-6545QmgwhernOtomz inflammatory condition of skin (2 sources)Itching ; Translations: [Pruritus, unspecified]Onset: 06-20-2025 Resolved: 003430-85-6029HfwwzsfhJeasq injuries and conditions due to external causes (2 sources)At risk for falls ; Translations: [History of falling]Onset: 06-20-2025 Resolved: 634367-94-3362UdpmbygqBkqgi nutritional; endocrine; and metabolic disorders (6 sources)Loss of appetite; Translations: [Anorexia]Onset: EpisodicOther screening for suspected conditions (not mental disorders or infectious disease) (3 sources)Encounter for screening mammogram for malignant neoplasm of breast; Translations: [Patient encounter status]Onset: 05-01-2025 Resolved: 722923-02-0497EkxduqcuFocdx upper respiratory disease (2 sources)Allergic rhinitis; Translations: [Allergic rhinitis, unspecified] Onset: 06-20-2025 Resolved: 954636-88-1001HrwdkzhUyvzq upper respiratory disease (20 sources)Bleeding from nose; Translations: [Epistaxis]Onset: 12-07-2023 49-28-3041DwyzozbyPcosr upper respiratory disease (2 sources)Congestion of nasal sinus; Translations: [Nasal congestion]Onset: 06-20-2025 Resolved: 795088-62-5865QfcieazkZajzs upper respiratory infections (15 sources)Acute sinusitis; Translations: [Acute sinusitis, unspecified]Onset: 06-13-2024 Resolved: 581196-60-3363SvpwmhkoDwtsliew codes; unclassified (20 sources)Edema; Translations: [Edema, unspecified]Onset: 06-13-2024 Resolved: 969782-64-3980CqebsyihWegkzoxw codes; unclassified (2 sources)Insomnia; Translations: [Insomnia, unspecified]Onset: 06-20-2025 Resolved: 757003-77-8127IcqvvvoyEpajsokd codes; unclassified (2 sources)Passive smoker; Translations: [Contact with and (suspected) exposure to environmental tobacco smoke(acute) (chronic)]Onset: 06-20-2025 Resolved: 589893-15-9847VwhlcyqqJmcrivlxdal; intervertebral disc disorders; other back problems (20 sources)Low back pain; Translations: [Other low back pain]Onset: 12-07-2023 Resolved: 564789-19-4521MjfmldqpBgfvngy and strains (1 source)Strain of muscle, fascia and tendon at neck level, initial encounter; Translations: [Strain of muscle, fascia and tendon at neck level, initial encounter]Onset: 22-00-7497NgmlmtfhXkscueesrcfg (1 source)COUGH, UNSPECIFIED; Translations: [COUGH, UNSPECIFIED]Onset: 53-95-1626Bokdknjxmlfw (2 sources)Other low back pain M54.59Urinary tract infections (20 sources)Acute urinary tract infection; Translations: [Urinary tract infection, site not specified]Onset: 926776-69-8965Uxwkaohg Results Test NameValueInterpretationReference RangeFacilityMM screening mammo BI w/[facility] 70-02-0344PT screening mammo BI [facility] [address] [place] [address] Mammography Report Signed Patient: Aura Hassan MR#: [id number] : 1960 Acct:[id number] Age/Sex: 64 / F Adm Date: 05/01/25 Loc: IN Room: Type: [facility] Attending Dr: Referral Self Ordering Provider: SELF,REFERRAL Date of Service: 05/01/25 Procedure(s): MM screening mammo BI w/CAD Accession Number(s): ([id number]) MM/MM screening mammo BI w/CAD: SCREENING Copies to: [facility] SELF,REFERRAL CLINICAL DATA: Screening for malignancy. SCREENING MAMMOGRAM - FULL FIELD DIGITAL WITH TOMOSYNTHESIS AND CAD COMPARISON:Priors dating back to 2020 Tomosynthesis craniocaudal and mediolateral oblique views of [...] Negative DENSITY CODE: 2 (approximately 25-50% glandular) There are scattered areas of fibroglandular density. FOLLOW UP: 1YR The false-negative rate of mammography is approximately 10-percent. Management of a palpable abnormality must be based on clinical grounds. Patient was entered into a reminder system with a target due date for the next mammogram. Impression dictated by: Sulaiman Bangura M.D. 05/01/2025 12:29 PM Dictation Location: [facility] Dictated By: Sulaiman Bangura MD 05/01/25 1221 Signed By: 05/01/[address] [place] [address] Physician GroupMammography reportOrdered By: Sulaiman Bangura on 17-92-6483Gowtxdhyyp imaging [facility] [address] [place] [address] Mammography Report Signed Patient: Aura Hassan MR#: [id number] : 1960 Acct:[id number] Age/Sex: 64 / F Adm Date: 5 Loc: IN Room: Type: [facility] Attending Dr: Referral Self Ordering Provider: SELF,REFERRAL Date of Service: 05/01/25 Procedure(s): MM screening mammo BI w/CAD Accession Number(s): ([id number]) MM/MM screening mammo BI w/CAD: SCREENING Copies to: [facility] SELF,REFERRAL ~ CLINICAL DATA: Screening for malignancy. SCREENING MAMMOGRAM - FULL FIELD DIGITAL WITH TOMOSYNTHESIS AND CAD COMPARISON:Priors dating back to 2020 Tomosynthesis craniocaudal and mediolateral oblique views of both breasts were obtained using low-dose digital technique. This examination was reviewed with [...] Negative DENSITY CODE: 2 (approximately 25-50% glandular) There are scattered areas of fibroglandular density. FOLLOW UP: 1YR The false-negative rate of mammography is approximately 10-percent. Management of a palpable abnormality must be based on clinical grounds. Patient was entered into a reminder system with a target due date for the next mammogram. Impression dictated by: Sulaiman Bangura M.D. 05/01/2025 12:29 PM Dictation Location: [facility] Dictated By: Sulaiman Bangura MD 05/01/25 122 Signed By: 05/01/25 1229 [facility] Work Phone: a1c with Estimated Average Gluon 93-61-2939Bkynaez [Mass/Vol]137 mg/dLNoWakeMed North Hospital Physician GroupComment on above:Order Comment: Reason for Exam Screening for diabetes mellitusResult Comment: PERFORMED BY: [place] [address] PATHOLOGIST LOAN EXAMINER PACO BLAIR M.D.Performed By: #### A1C WTH eA, CBC, CMP, LIPID #### [facility] [address] [place] [address] USAAlanine aminotransferase [Enzymatic activity/volume] in Serum or PlasmaOrdered By: Rico Choi on 53-77-7282XOU [Catalytic activity/Vol]Alanine aminotransferase [Enzymatic activity/volume] in Serum or Plasma[address] [place], [place] [address]ALT [Catalytic activity/Vol]24 U/L Normal[address] [place], [place] [address]Comment on above:Order Comment: Reason for Exam Essential hypertension;Hyperlipidemia, unspecified hyperlipiPerformed By: #### A1C WTH eA, CBC, CMP, LIPID #### [facility] [address] [place] [address] USAAlbumin [Mass/volume] in Serum or Plasma by Bromocresol green (BCG) dye binding methoOrdered By: Rico Choi on 64-78-9441Rudnkgb BCG dye [Mass/Vol]Albumin [Mass/volume] in Serum or Plasma by Bromocresol green (BCG) dye binding metho3.5-5.7FLake County Memorial Hospital - WestAlbumin BCG dye [Mass/Vol]4.1 g/dL3.5-5.7FLake County Memorial Hospital - WestAlkaline phosphatase [Enzymatic activity/volume] in Serum or PlasmaOrdered By: Rico Choi on 33-35-6241NFN [Catalytic activity/Vol]Alkaline phosphatase [Enzymatic activity/volume] in Serum or Kesdcz38-153AjdmsrltkKettering Health – Soin Medical CenterALP [Catalytic activity/Vol]95 U/OQdkgei74-117Jtunlbp[address] Comment on above:Order Comment: Reason for Exam Essential hypertension;Hyperlipidemia, unspecified hyperlipiPerformed By: #### A1C WTH eA, CBC, CMP, LIPID #### [facility] [address] [place] [address] USAAspartate aminotransferase [Enzymatic activity/volume] in Serum or PlasmaOrdered By: Rico Choi on 24-32-9364ZLR [Catalytic activity/Vol]Aspartate aminotransferase [Enzymatic activity/volume] in Serum or Kmboeo10-30Brqmrlfim72 Brown StreetAST [Catalytic activity/Vol]17 U/L Msxbox94-28Yrvymxowx[address] [place], [place] [address]Comment on above:Order Comment: Reason for Exam Essential hypertension;Hyperlipidemia, unspecified hyperlipiPerformed By: #### A1C WTH eA, CBC, CMP, LIPID #### [facility] [address] [place] [address] USABasophils Auto (Bld) [#/Vol]Ordered By: Rico Choi on 49-90-5481Cilxtbqrg (Bld) [#/Vol]Automated basophil count0.0-0.2FLake County Memorial Hospital - WestBasophils [#/volume] in Blood by Automated countOrdered By: Rico Choi on 41-09-4441Xlktrlpog (Bld) [#/Vol]0.0 10*3/uLNormal0.0-0.2 [facility] CenterComment on above:Order Comment: Reason for Exam Essential hypertension;Hyperlipidemia, unspecified hyperlipiResult Comment: PERFORMED BY: [place] [id number] PATHOLOGIST LOAN EXAMINER PACO BLAIR M.D.Performed By: #### A1C WTH eA, CBC, CMP, LIPID #### [place] [id number] USABasophils/100 WBC Auto (Bld)Ordered By: Rico Choi on 38-43-6177Owwhrltkg/100 WBC (Bld)Automated basophil %.[facility] Medical CenterBasophils/100 leukocytes in Blood by Automated countOrdered By: Rico Choi on 16-37-1477Piamfhkks/100 WBC (Bld)0.6 %Normal.[facility] Medical CenterComment on above:Order Comment: Reason for Exam Essential hypertension;Hyperlipidemia, unspecified hyperlipiPerformed By: #### A1C WTH eA, CBC, CMP, LIPID #### [place] [address] USABilirubin.total [Mass/volume] in Serum or PlasmaOrdered By: Rico Choi on 74-71-7853Vdbrbgomo [Mass/Vol]Bilirubin.total [Mass/volume] in Serum or Plasma0.3-1.0[facility] So[facility] Medical CenterBilirubin [Mass/Vol] 0.5 mg/dLNormal0.3-1.0[facility] Medical CenterComment on above:Order Comment: Reason for Exam Essential hypertension;Hyperlipidemia, unspecified hyperlipiPerformed By: #### A1C WTH eA, CBC, CMP, LIPID #### [place] [id number] USABlood estimated average glucose determination by estimation from glycated hemoglobinOrdered By: Rico Choi on 36-37-6902Fesnukl glucose Estimated from glycated hemoglobin (Bld) [Mass/Vol]Glucose mean value [Mass/volume] in Blood Estimated from glycated hemoglobinKettering Health – Soin Medical CenterAverage glucose Estimated from glycated hemoglobin (Bld) [Mass/Vol]137 mg/dLKettering Health – Soin Medical CenterCalcium [Mass/volume] in Serum or PlasmaOrdered By: Rico Choi on 85-28-0206Bmbonrl [Mass/Vol]Calcium [Mass/volume] in Serum or Plasma8.6-10.3FLake County Memorial Hospital - WestCalcium [Mass/Vol]9.1 mg/dLNormal8.6-10.3FLake County Memorial Hospital - WestComment on above:Order Comment: Reason for Exam Essential hypertension;Hyperlipidemia, unspecified hyperlipiPerformed By: #### A1C WTH eA, CBC, CMP, LIPID #### [facility] [address] [place] [address] USACarbon dioxide, total [Moles/volume] in Serum or Plasma Ordered By: Rico Choi on 03-00-6084FD8 [Moles/Vol]Carbon dioxide, total [Moles/volume] in Serum or Vplouy26.0-31.0[facility] Medical CenterCO2 [Moles/Vol]30.1 mmol/XZkkqid08.0-31.0[facility] Medical CenterComment on above:Order Comment: Reason for Exam Essential hypertension;Hyperlipidemia, unspecified hyperlipiPerformed By: #### A1C WTH eA, CBC, CMP, LIPID #### [facility] [address] [place] [address] USAChloride [Moles/volume] in Serum or PlasmaOrdered By: Rico Choi on 15-97-9755Esmyjlvb [Moles/Vol]Chloride [Moles/volume] in Serum or Tweiib27-107XsjrsvleeKettering Health – Soin Medical CenterChloride [Moles/Vol]105 mmol/L Ufjxqk44-396PzbtdjqrgKettering Health – Soin Medical CenterComment on above:Order Comment: Reason for Exam Essential hypertension;Hyperlipidemia, unspecified hyperlipiPerformed By: #### A1C WTH eA, CBC, CMP, LIPID #### [facility] [address] [place] [address] USACholesterol [Mass/volume] in Serum or PlasmaOrdered By: Rico Choi on 27-36-0199Wtoewgloyza [Mass/Vol]Cholesterol [Mass/volume] in Serum or Ancwqy735-200YebkachqrKettering Health – Soin Medical CenterComment on above:Chol less than 200 mg/dl low riskChol 201-239 mg/dl borderline riskChol 240 mg/dl and greater high riskCholesterol [Mass/Vol]170 mg/gMYwbogw798-059SlxrfhgrbKettering Health – Soin Medical CenterComment on above:Chol less than 200 mg/dl low riskChol 201-239 mg/dl borderline riskChol 240 mg/dl and greater high riskOrder Comment: Reason for Exam Essential hypertension;Hyperlipidemia, unspecified hyperlipiResult Comment: Chol less than 200 mg/dl low risk Chol 201-239 mg/dl borderline risk Chol 240 mg/dl and greater high riskPerformed By: #### A1C WTH eA, CBC, CMP, LIPID #### [facility] [address] [place] [address] USACholesterol in HDL [Mass/volume] in Serum or PlasmaOrdered By: Rico Choi on 87-03-9459Erpmivyokcz in HDL [Mass/Vol]Serum or plasma high density lipoprotein (HDL) cholesterol ssesuygcbzq24-77HjbketvwvKettering Health – Soin Medical CenterComment on above:HDL CHOL ATP-III CLASSIFICATION Cardiovascular RiskHDL > or equal to 60 mg/dL LOWHDL < 40 mg/dL HIGHCholesterol in HDL [Mass/Vol]42 mg/uUGxqulr25-17SomrgrrqgKettering Health – Soin Medical CenterComment on above: HDL CHOL ATP-III CLASSIFICATION Cardiovascular RiskHDL > or equal to 60 mg/dL LOWHDL < 40 mg/dL HIGHOrder Comment: Reason for Exam Essential hypertension;Hyperlipidemia, unspecified hyperlipiResult Comment: HDL CHOL ATP-III CLASSIFICATION Cardiovascular Risk HDL > or equal to 60 mg/dL LOW HDL < 40 mg/dL HIGHPerformed By: #### A1C WTH eA, CBC, CMP, LIPID #### [facility] [address] [place] [address] USACholesterol in LDL Calc [Mass/Vol]Ordered By: Rico Choi on 42-60-4799Zykmzeaitsc in LDL [Mass/Vol]Cholesterol in LDL [Mass/volume] in Serum or Plasma by calculationKettering Health – Soin Medical CenterComment on above:LDL ATP III CLASSIFICATIONLDL less than 100 mg/dL OptimalLDL 100-129 mg/dL Near or above ntyvaehCSF429-245 mg/dL Borderline highLDL 160-189 mg/dL HighLDL greater than 189 mg/dL Very highCholesterol in LDL [Mass/Vol]77 mg/dL0 [facility] Medical CenterComment on above:LDL ATP III CLASSIFICATIONLDL less than 100 mg/dL OptimalLDL 100-129 mg/dL Near or above dpvadgjHVR111-853 mg/dL Borderline highLDL 160-189 mg/dL HighLDL greater than 189 mg/dL Very high Cholesterol in VLDL Calc [Mass/Vol]Ordered By: Rico Choi on 01-23-2025 Cholesterol in VLDL [Mass/Vol]Cholesterol in VLDL [Mass/volume] in Serum or Plasma by calculationKettering Health – Soin Medical CenterCholesterol in VLDL [Mass/Vol]51 mg/dLKettering Health – Soin Medical CenterComplete Blood Count Auto Diffon 76-29-6701Ytcp Corpuscular HGB Conc35.0 g/ySAkffjx27.0-35.0The Pending Sale To [facility] Physician GroupComment on above:Order Comment: Reason for Exam Essential hypertension;Hyperlipidemia, unspecified hyperlipiPerformed By: #### A1C WTH eA, CBC, CMP, LIPID #### [facility] [address] [place] [address] USANRBC%0.1 /100{WBC}Normal0-0.5The Pending Sale To [facility] Comment on above:Order Comment: Reason for Exam Essential hypertension;Hyperlipidemia, unspecified hyperlipiPerformed By: #### A1C WTH eA, CBC, CMP, LIPID #### [facility] [address] [place] [address] USAComprehensive Metabolic Panelon 01-44-3937Sszautf [Mass/Vol]4.1 g/dLNormal3.5-5.7The Pending Sale To [facility] Physician GroupComment on above: Order Comment: Reason for Exam Essential hypertension;Hyperlipidemia, unspecified hyperlipiPerformed By: #### A1C WTH eA, CBC, CMP, LIPID #### [facility] [address] [place] [address] USAGFR/1.73 sq M.predicted MDRD (S/P/Bld) [Vol rate/Area] mL/min/{1.73_m2}NormalThe Pending Sale To [facility] Physician GroupComment on above:Order Comment: Reason for Exam Essential hypertension;Hyperlipidemia, unspecified hyperlipiPerformed By: #### A1C WTH eA, CBC, CMP, LIPID #### [facility] [address] [place] [address] USACreatinine [Mass/volume] in Serum or PlasmaOrdered By: Rico Choi on 06-03-8551Ijxmitwizm [Mass/Vol]Creatinine [Mass/volume] in Serum or Plasma0.60-1.20[facility] Medical CenterCreatinine [Mass/Vol]0.94 mg/dLNormal0.60-1.20[facility] Medical CenterComment on above:Order Comment: Reason for Exam Essential hypertension;Hyperlipidemia, unspecified hyperlipiPerformed By: #### A1C WTH eA, CBC, CMP, LIPID #### [facility] [address] [place] [address] USAEosinophils Auto (Bld) [#/Vol]Ordered By: Rico Choi on 22-47-6896Stxkgnwupvy (Bld) [#/Vol]Automated eosinophil count0.0-0.45[facility] Medical CenterEosinophils [#/volume] in Blood by Automated countOrdered By: Rico Choi on 01-65-9495Ncdyrxxecdu (Bld) [#/Vol]0.2 10*3/uLNormal 0.0-0.45[facility] Medical CenterComment on above:Order Comment: Reason for Exam Essential hypertension;Hyperlipidemia, unspecified hyperlipiPerformed By: #### A1C WTH eA, CBC, CMP, LIPID #### [facility] [address] [place] [address] USAEosinophils/100 WBC Auto (Bld)Ordered By: Rico Choi on 72-22-4659Facujkwbthn/100 WBC (Bld)Automated eosinophil %.[facility] Medical CenterEosinophils/100 leukocytes in Blood by Automated countOrdered By: Rico Choi on 70-33-4219Pyxuwwsxwpe/100 WBC (Bld)2.9 %Normal.[facility] Medical CenterComment on above:Order Comment: Reason for Exam Essential hypertension;Hyperlipidemia, unspecified hyperlipiPerformed By: #### A1C WTH eA, CBC, CMP, LIPID #### [facility] [address] [place] [address] USAErythrocyte distribution width Auto (RBC) [Ratio]Ordered By: Rico Choi on 47-03-1090Sgbqgybmxmd distribution width (RBC) [Ratio] Erythrocyte distribution width [Ratio] by Automated count11.9-15.3FLake County Memorial Hospital - WestErythrocyte distribution width [Ratio] by Automated count Ordered By: Rico Choi on 32-26-9044Ofhukbfdfxq distribution width (RBC) [Ratio]13.7 %Cqselq50.9-15.3FLake County Memorial Hospital - WestComment on above: Order Comment: Reason for Exam Essential hypertension;Hyperlipidemia, unspecified hyperlipiPerformed By: #### A1C WTH eA, CBC, CMP, LIPID #### [facility] [address] [place] [id number] USAErythrocytes [#/volume] in Blood by Automated countOrdered By: Rico Choi on 55-81-7272VJT (Bld) [#/Vol]4.53 10*6/uLNormal3.60-5.00 [facility] CenterComment on above:Order Comment: Reason for Exam Essential hypertension;Hyperlipidemia, unspecified hyperlipiPerformed By: #### A1C WTH eA, CBC, CMP, LIPID #### [facility] [address] [place] [id number] USAGlobulin Calc (S) [Mass/Vol]Ordered By: Rico Choi on 35-10-3338Tcudlzph (S) [Mass/Vol]Serum globulin measurement by calculation (mass/volume)[facility] Medical CenterGlucose [Mass/volume] in Serum or PlasmaOrdered By: Rico Choi on 70-46-9454Lwlktot [Mass/Vol]Glucose [Mass/volume] in Serum or CkyrqcHztu87-039Ygzruhmup[address] Comment on above:ADA recommended reference rangeRandom Glucose Reference Range is dependent on time and content of last meal. Glucose of more than 200 mg/dL in a nonstressed, ambulatory subject supports the diagnosisof Diabetes Mellitus. Glucose [Mass/Vol]113 mg/qYPevx66-605Fbdjnfzzt31 Johnson StreetComment on above:ADA recommended reference rangeRandom Glucose Reference Range is dependent on time and content of last meal. Glucose of more than 200 mg/dL in a nonstressed, ambulatory subject supports the diagnosisof Diabetes Mellitus.Order Comment: Reason for Exam Essential hypertension;Hyperlipidemia, unspecified hyperlipiResult Comment: Random Glucose Reference Range is dependent on time and content of last meal. Glucose of more than 200 mg/dL in a nonstressed, ambulatory subject supports the diagnosis of Diabetes Mellitus. ADA recommended reference rangePerformed By: #### A1C WTH eA, CBC, CMP, LIPID #### [facility] [address] [place] [address] USAHematocrit Auto (Bld) [Volume fraction]Ordered By: Rico Choi on 92-67-0009Ffooibnkah (Bld) [Volume fraction]Hematocrit [Volume Fraction] of Blood by Automated count34.0-46.4FLake County Memorial Hospital - West Hematocrit [Volume Fraction] of Blood by Automated countOrdered By: Rico Choi on 14-91-6457Gfybnvvolz (Bld) [Volume fraction]38.9 %Aaverc20.0-46.4FLake County Memorial Hospital - WestComment on above:Order Comment: Reason for Exam Essential hypertension;Hyperlipidemia, unspecified hyperlipiPerformed By: #### A1C WTH eA, CBC, CMP, LIPID #### [facility] [address] [place] [address] USAHemoglobin A1c/Hemoglobin.total in BloodOrdered By: Rico Choi on 33-03-7021GtX5j (Bld) [Mass fraction]Hemoglobin A1c percentageHigh 4.3-5.6FLake County Memorial Hospital - WestComment on above:Increased risk for diabetes: 5.7 - 6.4diabetes: >6.4glycemic control for adults with diabetes: &l t;7.0HbA1c (Bld) [Mass fraction]6.4 %High4.3-5.6FLake County Memorial Hospital - WestComment on above:Increased risk for diabetes: 5.7 - 6.4diabetes: >6.4glycemic control for adults with diabetes: <7.0Order Comment: Reason for Exam Screening for diabetes mellitusResult Comment: Increased risk for diabetes: 5.7 - 6.4 diabetes: >6.4 glycemic control for adults with diabetes: <7.0Performed By: #### A1C WTH eA, CBC, CMP, LIPID #### [facility] [address] [place] [address] USAHemoglobin [Mass/volume] in BloodOrdered By: Rico Choi on 03-54-8561Lyyswloexs (Bld) [Mass/Vol]Hemoglobin [Mass/volume] in Blood 11.8-15.4FLake County Memorial Hospital - WestHemoglobin (Bld) [Mass/Vol]13.6 g/dL Jwsmgr04.8-15.4FLake County Memorial Hospital - WestComment on above:Order Comment: Reason for Exam Essential hypertension;Hyperlipidemia, unspecified hyperlipiPerformed By: #### A1C WTH eA, CBC, CMP, LIPID #### [facility] [address] [place] [address] USALeukocytes [#/volume] corrected for nucleated erythrocytes in Blood by Automated counOrdered By: Rico Choi on 72-47-2126FRR corrected for nucl RBC Auto (Bld) [#/Vol]Leukocytes [#/volume] corrected for nucleated erythrocytes in Blood by Automated coun3.8-11.6FLake County Memorial Hospital [facility] West WBC corrected for nucl RBC Auto (Bld) [#/Vol]5.8 10*3/uL3.8-11.6FLake County Memorial Hospital - WestLeukocytes [#/volume] in Blood by Automated countOrdered By: Rico Choi on 07-36-9634JSQ (Bld) [#/Vol]5.8 10*3/uLNormal3.8-11.6 [facility] CenterComment on above:Order Comment: Reason for Exam Essential hypertension;Hyperlipidemia, unspecified hyperlipiPerformed By: #### A1C WTH eA, CBC, CMP, LIPID #### [facility] [address] [place] [address] USALipid Panelon 69-82-0441TMC Cholesterol,Iuvwndzaxv54 mg/dL Normal0-100The Pending Sale To [facility] Physician GroupComment on above:Order Comment: Reason for Exam Essential hypertension;Hyperlipidemia, unspecified hyperlipiResult Comment: LDL ATP III CLASSIFICATION LDL less than 100 mg/dL Optimal LDL 100-129 mg/dL Near or above optimal LDL 130-159 mg/dL Borderline high LDL 160-189 mg/dL High LDL greater than 189 mg/dL Very highPerformed By: #### A1C WTH eA, CBC, CMP, LIPID #### [facility] [address] [place] [address] USATriglyceride w/Gzevtf727 mg/dLHigh0-149[facility] Physician GroupComment on above:Order Comment: Reason for Exam Essential hypertension;Hyperlipidemia, unspecified hyperlipiResult Comment: TRIG ATP III CLASSIFICATION TRIG less than 150 mg/dL Normal TRIG 150-199 mg/dL Borderline high TRIG 200-500 mg/dL High TRIG greater than 500 mg/dL Very high Standard traceable to the Center for Disease Conrtrol and Prevention (CDC) test method.Performed By: #### A1C WTH eA, CBC, CMP, LIPID #### [facility] [address] [place] [id number] USAVLDL JPXHGGPUJRZ76 mg/dLNoWakeMed North Hospital Physician GroupComment on above:Order Comment: Reason for Exam Essential hypertension;Hyperlipidemia, unspecified hyperlipiPerformed By: #### A1C WTH eA, CBC, CMP, LIPID #### [facility] [address] [place] [id number] USALymphocytes Auto (Bld) [#/Vol]Ordered By: Rico Choi on 38-86-0903Bxgkwedrkxh (Bld) [#/Vol]Lymphocytes [#/volume] in Blood by Automated count1.00-4.8[facility] Medical CenterLymphocytes [#/volume] in Blood by Automated countOrdered By: Rico Choi on 39-02-3899Zkcinuggxfm (Bld) [#/Vol] 2.2 10*3/uLNormal1.00-4.8[facility] CenterComment on above:Order Comment: Reason for Exam Essential hypertension;Hyperlipidemia, unspecified hyperlipiPerformed By: #### A1C WTH eA, CBC, CMP, LIPID #### [facility] [address] [place] [id number] USALymphocytes/100 WBC Auto (Bld)Ordered By: Rico Choi on 46-15-6016Glxtzqlhhfc/100 WBC (Bld)Lymphocytes/100 leukocytes in Blood by Automated count.[facility] So[facility] Medical CenterLymphocytes/100 leukocytes in Blood by Automated countOrdered By: Rico Choi on 83-28-1799Ntcrdswpwok/100 WBC (Bld)37.4 %Normal.[facility] CenterComment on above:Order Comment: Reason for Exam Essential hypertension;Hyperlipidemia, unspecified hyperlipiPerformed By: #### A1C WTH eA, CBC, CMP, LIPID #### [facility] [address] Auto (RBC) [Entitic mass]Ordered By: Rico Choi on 91-58-7316EBN (RBC) [Entitic mass]MCH [Entitic mass] by Automated count24.7-34.3 [facility] [Entitic mass] by Automated countOrdered By: Rico Choi on 09-33-8901QOI (RBC) [Entitic mass]30.1 tyQuprol71.7-34.3 [facility] CenterComment on above:Order Comment: Reason for Exam Essential hypertension;Hyperlipidemia, unspecified hyperlipiPerformed By: #### A1C WTH eA, CBC, CMP, LIPID #### [facility] [address] Auto (RBC) [Mass/Vol]Ordered By: Rico Choi on 25-03-2823HUAZ (RBC) [Mass/Vol]MCHC [Mass/volume] by Automated count32.0-35.[address] [facility] (RBC) [Mass/Vol]35.0 g/dL32.0-35.0 [facility] Auto (RBC) [Entitic vol]Ordered By: Rico Choi on 15-34-4710NHG (RBC) [Entitic vol]MCV [Entitic volume] by Automated ncedq52-687PjwaglyufTriHealth Bethesda Butler HospitalV [Entitic volume] by Automated countOrdered By: Rico Choi on 41-91-4272DVF (RBC) [Entitic vol]85.8 fLNormal 80-100[facility] CenterComment on above:Order Comment: Reason for Exam Essential hypertension;Hyperlipidemia, unspecified hyperlipiPerformed By: #### A1C WTH eA, CBC, CMP, LIPID #### [facility] [address] [place] [address] USASaint Luke'S Hospitalocytes Auto (Bld) [#/Vol]Ordered By: Rico Choi on 64-78-9039Nblggjqkv (Bld) [#/Vol]Automated blood monocyte count0.0-0.8[facility] Medical CenterMonocytes [#/volume] in Blood by Automated countOrdered By: Rico Choi on 68-73-5781Mgydvoskw (Bld) [#/Vol]0.4 10*3/uLNormal0.0-0.8 [facility] CenterComment on above:Order Comment: Reason for Exam Essential hypertension;Hyperlipidemia, unspecified hyperlipiPerformed By: #### A1C WTH eA, CBC, CMP, LIPID #### [facility] [address] [place] [address] USAMonocytes/100 WBC Auto (Bld)Ordered By: Rico Choi on 89-96-4462Leapyfoze/100 WBC (Bld)Automated monocyte %.[facility] Medical CenterMonocytes/100 leukocytes in Blood by Automated countOrdered By: Rico Choi on 36-20-0932Vwltowzju/100 WBC (Bld)7.2 %Normal.[facility] CenterComment on above:Order Comment: Reason for Exam Essential hypertension;Hyperlipidemia, unspecified hyperlipiPerformed By: #### A1C WTH eA, CBC, CMP, LIPID #### [facility] [address] [place] [id number] USANeutrophils Auto (Bld) [#/Vol]Ordered By: Rico Choi on 51-53-1520Zoicfqcbaxk (Bld) [#/Vol]Neutrophils [#/volume] in Blood by Automated count1.8-7.7FLake County Memorial Hospital - WestNeutrophils [#/volume] in Blood by Automated countOrdered By: Rico Choi on 22-06-2709Xphzlncbufl (Bld) [#/Vol] 3.0 10*3/uLNormal1.8-7.7FLake County Memorial Hospital - WestComment on above:Order Comment: Reason for Exam Essential hypertension;Hyperlipidemia, unspecified hyperlipiPerformed By: #### A1C WTH eA, CBC, CMP, LIPID #### [facility] [address] [place] [id number] USANeutrophils/100 WBC Auto (Bld)Ordered By: Rico Choi on 03-38-7968Cfzqpaxasxc/100 WBC (Bld)Automated neutrophil %.[facility] Medical CenterNeutrophils/100 leukocytes in Blood by Automated countOrdered By: Rico Choi on 12-91-5629Enrmdezdsjx/100 WBC (Bld)51.9 %Normal.[facility] Medical CenterComment on above:Order Comment: Reason for Exam Essential hypertension;Hyperlipidemia, unspecified hyperlipiPerformed By: #### A1C WTH eA, CBC, CMP, LIPID #### [facility] [address] [place] [id number] USANo Panel InformationOrdered By: Rico Choi on 01-23-2025 Estimated GFR (CKD-EPI)> 60.0 mL/MinKettering Health – Soin Medical CenterPhaacy Creatinine Clearance (ChemN/Trinity Health SystemNucleated erythrocytes [Presence] in Blood by Automated countOrdered By: Rico Choi on 51-02-1059Grgvkiwnr RBC Auto Ql (Bld)Nucleated erythrocytes [Presence] in Blood by Automated count0-0.5FLake County Memorial Hospital - WestNucleated RBC Auto Ql (Bld)0.1 /100{WBC}0-0.5FLake County Memorial Hospital - WestPlatelet mean volume Auto (Bld) [Entitic vol]Ordered By: Rico Choi on 28-19-1758Nltuktca mean volume (Bld) [Entitic vol]Platelet mean volume [Entitic volume] in Blood by Automated count6.3-10.7FLake County Memorial Hospital - WestPlatelet mean volume [Entitic volume] in Blood by Automated countOrdered By: Rico Choi on 12-06-7168Hssygwvk mean volume (Bld) [Entitic vol]7.2 fLNormal6.3-10.7FLake County Memorial Hospital - WestComment on above:Order Comment: Reason for Exam Essential hypertension;Hyperlipidemia, unspecified hyperlipiPerformed By: #### A1C WTH eA, CBC, CMP, LIPID #### [facility] [address] [place] [id number] USAPlatelets Auto (Bld) [#/Vol]Ordered By: Rico Choi on 09-11-6983Iffeweikt (Bld) [#/Vol]Platelets [#/volume] in Blood by Automated ghaar501-518ZvbzetcivKettering Health – Soin Medical CenterPlatelets [#/volume] in Blood by Automated countOrdered By: Rico Choi on 69-55-6478Jkquahlsp (Bld) [#/Vol]230 10*3/aDHtyxpz534-594HzkqebozuKettering Health – Soin Medical CenterComment on above:Order Comment: Reason for Exam Essential hypertension;Hyperlipidemia, unspecified hyperlipiPerformed By: #### A1C WTH eA, CBC, CMP, LIPID #### [facility] [address] [place] [address] USAPotassium [Moles/volume] in Serum or PlasmaOrdered By: Rico Choi on 71-27-8193Psrgxyehi [Moles/Vol]Potassium [Moles/volume] in Serum or Plasma3.5-5.1FLake County Memorial Hospital - WestPotassium [Moles/Vol]4.0 mmol/LNormal3.5-5.1FLake County Memorial Hospital - WestComment on above:Order Comment: Reason for Exam Essential hypertension;Hyperlipidemia, unspecified hyperlipiPerformed By: #### A1C WTH eA, CBC, CMP, LIPID #### [facility] [address] [place] [address] USAProtein [Mass/volume] in Serum or PlasmaOrdered By: Rico Choi on 40-43-6784Jiwwxrx [Mass/Vol]Protein [Mass/volume] in Serum or Plasma Low6.4-8.9[facility] So[facility] Medical CenterProtein [Mass/Vol]6.3 g/dLLow6.4-8.9 [facility] Medical CenterComment on above:Order Comment: Reason for Exam Essential hypertension;Hyperlipidemia, unspecified hyperlipiPerformed By: #### A1C WTH eA, CBC, CMP, LIPID #### [facility] [address] [place] [address] USARBC Auto (Bld) [#/Vol]Ordered By: Rico Choi on 37-48-6863RJG (Bld) [#/Vol]Erythrocytes [#/volume] in Blood by Automated count 3.60-5.00[facility] TriPoint Medical Centererum globulin measurement by calculation (mass/volume)Ordered By: Rico Choi on 90-56-8042Nleekgcd (S) [Mass/Vol]2.2 g/dLNormalKettering Health – Soin Medical CenterComment on above:Order Comment: Reason for Exam Essential hypertension;Hyperlipidemia, unspecified hyperlipiPerformed By: #### A1C WTH eA, CBC, CMP, LIPID #### [facility] [address] [place] [address] USASerum or plasma albumin/globulin mass ratioOrdered By: Rico Choi on 21-85-9427Gqdqhuz/Globulin [Mass ratio]Serum or plasma albumin/globulin mass ratioKettering Health – Soin Medical CenterAlbumin/Globulin [Mass ratio]1.9 {ratio}NormalKettering Health – Soin Medical CenterComment on above: Order Comment: Reason for Exam Essential hypertension;Hyperlipidemia, unspecified hyperlipiPerformed By: #### A1C WTH eA, CBC, CMP, LIPID #### [facility] [address] [place] [address] USASerum or plasma anion gap determinationOrdered By: Rico Choi on 97-34-1313Icobz gap [Moles/Vol]Serum or plasma anion gap determination 6.0-15.0[facility] Medical CenterAnion gap [Moles/Vol]10.9 mmol/LNormal 6.0-15.0[facility] Medical CenterComment on above:Order Comment: Reason for Exam Essential hypertension;Hyperlipidemia, unspecified hyperlipiPerformed By: #### A1C WTH eA, CBC, CMP, LIPID #### [facility] [address] [place] [address] USASerum or plasma total cholesterol/high density lipoprotein (HDL) cholesterol mass ratOrdered By: Rico Choi on 01-23-2025 Cholesterol.total/Cholesterol in HDL [Mass ratio]Serum or plasma total cholesterol/high density lipoprotein (HDL) cholesterol mass rat<5.0[facility] Medical CenterCholesterol.total/Cholesterol in HDL [Mass ratio]4.0 {ratio}Normal<5.0[facility] Soin Medical CenterComment on above:Order Comment: Reason for Exam Essential hypertension;Hyperlipidemia, unspecified hyperlipiResult Comment: PERFORMED BY: [place] [id number] PATHOLOGIST LOAN EXAMINER PACO BLAIR M.D.Performed By: #### A1C WTH eA, CBC, CMP, LIPID #### [facility] [address] [place] [address] USASodium [Moles/volume] in Serum or PlasmaOrdered By: Rico Choi on 54-33-4221Ynjqrp [Moles/Vol]Sodium [Moles/volume] in Serum or Plasma 136-145[facility] Medical Centerodium [Moles/Vol]142 mmol/LNormal 136-145K[facility] So[facility] Medical CenterComment on above:Order Comment: Reason for Exam Essential hypertension;Hyperlipidemia, unspecified hyperlipiPerformed By: #### A1C WTH eA, CBC, CMP, LIPID #### [facility] [address] [place] [address] USATriglyceride [Mass/volume] in Serum or PlasmaOrdered By: Rico Choi on 59-62-3242Zqbaosakruhu [Mass/Vol]Triglyceride [Mass/volume] in Serum or PlasmaSummers County Appalachian Regional Hospital[address] [place], [place] [address]Comment on above:TRIG ATP III CLASSIFICATIONTRIG less than 150 mg/dL NormalTRIG 150-199 mg/dL Borderline highTRIG 200-500 mg/dL High TRIG greater than 500 mg/dL Very highStandard traceable to the Center for Disease Conrtrol and Prevention (CDC) test method.Triglyceride [Mass/Vol]255 mg/dLSummers County Appalachian Regional Hospital0149K[facility] So[facility] Medical CenterComment on above:TRIG ATP III CLASSIFICATIONTRIG less than 150 mg/dL NormalTRIG 150-199 mg/dL Borderline highTRIG 200-500 mg/dL High TRIG greater than 500 mg/dL Very highStandard traceable to the Center for Disease Conrtrol and Prevention (CDC) test method.Urea nitrogen [Mass/volume] in Serum or Plasma Ordered By: Rico Choi on 79-56-0650Disc nitrogen [Mass/Vol]Urea nitrogen [Mass/volume] in Serum or Plasma03-09[facility] Medical CenterUrea nitrogen [Mass/Vol]14 mg/dLNormal03-09[facility] Medical CenterComment on above:Order Comment: Reason for Exam Essential hypertension;Hyperlipidemia, unspecified hyperlipiPerformed By: #### A1C WTH eA, CBC, CMP, LIPID #### [facility] [address] [place] [id number] USAWBC Auto (Bld) [#/Vol]Ordered By: Rico Choi on 36-30-2032YTC (Bld) [#/Vol]Leukocytes [#/volume] in Blood by Automated count 3.8-11.6FLake County Memorial Hospital - WestX-ray reportOrdered By: Josiah Holt on 95-78-7473Eaeom reportUNIVERSITY H[facility]ALS [facility] [place] [address] XRay Report Signed Patient: Aura Hassan MR#: [id number] : 1960 Acct:[id number] Age/Sex: 64 / F ADM Date: 5 Loc: XD Room: Type: [facility] Attending Dr: Jayden Quevedo DO Copies to: [...] Holt Jr., D.OJb11/10/2024 6:19 PM Dictation Location: [facility] Transcribed By: [facility] 11/10/241818 Dictated By: Josiah Holt Jr, DO 11/10/241817 Signed By: 11/10/241818 [facility] Medical CenterXR cervical spine 2Von 88-02-3613BA cervical spine 2VUNIVERSITY H[facility] [address] [place] [id number] XRay Report Signed Patient: Aura Hassan MR#: [id number] : 1960 Acct:[id number] Age/Sex: 64 / F ADM Date: 11/10/24 Loc: XD Room: Type: [facility] Attending Dr: Jayden Quevedo DO Copies to: [...] Holt Jr., D.OJb11/10/2024 6:19 PM Dictation Location: [place] [address] Transcribed By: [facility] 11/10/241818 Dictated By: Josiah Holt Jr, DO 11/10/241817 Signed By: 11/10/241818[facility] Physician GroupAlanine aminotransferase [Enzymatic activity/volume] in Serum or PlasmaOrdered By: Rico Choi on 44-08-0735ZUS [Catalytic activity/Vol]22 U/L7-52[facility] Medical CenterAlbumin [Mass/volume] in Serum or Plasma by Bromocresol green (BCG) dye binding methoOrdered By: Rioc Choi on 14-61-9483Leabcbw BCG dye [Mass/Vol]3.8 g/dL3.5-5.7FLake County Memorial Hospital - WestAlkaline phosphatase [Enzymatic activity/volume] in Serum or PlasmaOrdered By: Rico Choi on 20-67-9257ACN [Catalytic activity/Vol]81 U/R61-817NvwyachfbKettering Health – Soin Medical CenterAspartate aminotransferase [Enzymatic activity/volume] in Serum or PlasmaOrdered By: Rico Choi on 88-25-0730HIP [Catalytic activity/Vol]13 U/N96-56QdjsympaeKettering Health – Soin Medical CenterBasophils Auto (Bld) [#/Vol]Ordered By: Rico Choi on 02-08-2024 Basophils (Bld) [#/Vol]0.1 10*3/uL0.0-0.2FLake County Memorial Hospital - West Basophils/100 WBC Auto (Bld)Ordered By: Rico Choi on 08-81-3721Rmjeeyvxs/100 WBC (Bld)1.0 %.[facility] Medical CenterBilirubin.total [Mass/volume] in Serum or PlasmaOrdered By: Rico Choi on 50-82-9302Bzuzdysfd [Mass/Vol]0.5 mg/dL0.3-1.0[facility] Medical CenterCalcium [Mass/volume] in Serum or PlasmaOrdered By: Rico Choi on 70-11-1013Cqckcfw [Mass/Vol]8.8 mg/dL8.6-10.3 [facility] Medical CenterCarbon dioxide, total [Moles/volume] in Serum or PlasmaOrdered By: Rico Choi on 26-62-3289MF1 [Moles/Vol]26.2 mmol/L 21.0-31.0[facility] Medical CenterChloride [Moles/volume] in Serum or PlasmaOrdered By: Rico Choi on 72-26-7825Pmxwxxor [Moles/Vol]108 mmol/LHigh 98-107[facility] CenterCholesterol [Mass/volume] in Serum or PlasmaOrdered By: Rico Choi on 78-54-5221Ipdmbtfynci [Mass/Vol]171 mg/dL 140-200K[facility] Medical CenterComment on above:Chol less than 200 mg/dl low riskChol 201-239 mg/dl borderline riskChol 240 mg/dl and greater high riskCholesterol in LDL Calc [Mass/Vol]Ordered By: Rico Choi on 02-08-2024 Cholesterol in LDL [Mass/Vol]59 mg/dL0-100[facility] Comment on above:LDL ATP III CLASSIFICATIONLDL less than 100 mg/dL OptimalLDL 100-129 mg/dL Near or above znwilbkGTM520-038 mg/dL Borderline highLDL 160-189 mg/dL HighLDL greater than 189 mg/dL Very highCholesterol in VLDL Calc [Mass/Vol]Ordered By: Rico Choi on 49-31-9050Awipzkhccig in VLDL [Mass/Vol]57 mg/dLKettering Health – Soin Medical CenterCreatinine [Mass/volume] in Serum or PlasmaOrdered By: Rico Choi on 00-87-3110Jobeujqfbu [Mass/Vol]0.89 mg/dL 0.60-1.20[facility] Medical CenterEosinophils Auto (Bld) [#/Vol]Ordered By: Rico Choi on 60-87-2088Qvgracumwig (Bld) [#/Vol]0.1 10*3/uL0.0-0.45 [facility] CenterEosinophils/100 WBC Auto (Bld)Ordered By: Rico Choi on 70-01-6180Vhnhokiezcb/100 WBC (Bld)1.2 %.[facility] Medical CenterErythrocyte distribution width Auto (RBC) [Ratio]Ordered By: Rico Choi on 17-55-5126Ldnivzhwwne distribution width (RBC) [Ratio]13.7 %11.9-15.3 [facility] Medical CenterGlobulin Calc (S) [Mass/Vol]Ordered By: Rico Choi on 91-06-4552Xurbjydy (S) [Mass/Vol]2.4 g/dLKettering Health – Soin Medical CenterGlucose [Mass/volume] in Serum or PlasmaOrdered By: Rico Choi on 99-26-2109Zogqehf [Mass/Vol]100 mg/iC19-075YsfoqhkofKettering Health – Soin Medical Center Comment on above:ADA recommended reference rangeRandom Glucose Reference Range is dependent on time and content of last meal. Glucose of more than 200 mg/dL in a nonstressed, ambulatory subject supports the diagnosisof Diabetes Mellitus. Glucose mean value [Mass/volume] in Blood Estimated from glycated hemoglobin Ordered By: Rico Choi on 62-98-8520Pfidzqn glucose Estimated from glycated hemoglobin (Bld) [Mass/Vol]140 mg/dLKettering Health – Soin Medical CenterHematocrit Auto (Bld) [Volume fraction]Ordered By: Rico Choi on 59-31-8658Vnhbxwdlac (Bld) [Volume fraction]38.9 %34.0-46.4FLake County [facility] Hospital [facility] West Hemoglobin A1c percentageOrdered By: Rico Choi on 89-61-6802ZsD8i (Bld) [Mass fraction]6.5 %High4.3-5.6FLake County Memorial Hospital - WestComment on above: Increased risk for diabetes: 5.7 - 6.4diabetes: >6.4glycemic control for adults with diabetes: <7.0Hemoglobin [Mass/volume] in BloodOrdered By: Rico Choi on 23-36-3193Ztfzzasxzf (Bld) [Mass/Vol]13.2 g/dL11.8-15.4FLake County Memorial Hospital - WestLeukocytes [#/volume] corrected for nucleated erythrocytes in Blood by Automated counOrdered By: Rico Choi on 80-79-6264FRR corrected for nucl RBC Auto (Bld) [#/Vol]9.5 10*3/uL3.8-11.6FLake County [facility] Hospital [facility] West Lymphocytes Auto (Bld) [#/Vol]Ordered By: Rico Choi on 60-50-0513Rvsluxqmsog (Bld) [#/Vol]3.8 10*3/uL1.00-4.8[facility] Medical CenterLymphocytes/100 WBC Auto (Bld)Ordered By: Rico Choi on 90-95-6014Mmugqivrofo/100 WBC (Bld) 39.8 %.[facility] Auto (RBC) [Entitic mass]Ordered By: Rico Choi on 46-97-8261YTN (RBC) [Entitic mass]29.9 pg24.7-34.3FLake County Memorial Hospital - WestMCHC Auto (RBC) [Mass/Vol]Ordered By: Rico Choi on 91-86-4278WJBU (RBC) [Mass/Vol]34.0 g/dL32.0-35.0[facility] Medical CenterMCV Auto (RBC) [Entitic vol]Ordered By: Rico Choi on 86-90-2873QJT (RBC) [Entitic vol]87.8 hG31-736OkrshtifiKettering Health – Soin Medical CenterMonocytes Auto (Bld) [#/Vol]Ordered By: Rico Choi on 67-18-0284Otoyvmtnd (Bld) [#/Vol]0.5 10*3/uL0.0-0.8[facility] CenterMonocytes/100 WBC Auto (Bld) Ordered By: Rico Choi on 59-80-5748Xtlythqjw/100 WBC (Bld)5.2 %.[facility] Medical CenterNeutrophils Auto (Bld) [#/Vol]Ordered By: Rico Choi on 18-00-7982Rmhcnekajju (Bld) [#/Vol]5.0 10*3/uL1.8-7.7FLake County Memorial Hospital - WestNeutrophils/100 WBC Auto (Bld)Ordered By: Rico Choi on 02-08-2024 Neutrophils/100 WBC (Bld)52.8 %.[facility] CenterNo Panel InformationOrdered By: Rico Choi on 27-97-9652Quzwnejkz GFR (CKD-EPI)> 60.0 mL/MinKettering Health – Soin Medical CenterPharmacy Creatinine Clearance (ChemN/A [facility] Medical CenterNucleated erythrocytes [Presence] in Blood by Automated countOrdered By: Rico Choi on 30-83-7688Gwqgirwkm RBC Auto Ql (Bld) 0.1 /100{WBC}0-0.5FLake County Memorial Hospital - WestPlatelet mean volume Auto (Bld) [Entitic vol]Ordered By: Rico Choi on 86-37-2529Szxkvwkr mean volume (Bld) [Entitic vol]7.6 fL6.3-10.7FLake County Memorial Hospital - WestPlatelets Auto (Bld) [#/Vol]Ordered By: Rico Choi on 10-41-3718Dbuvcelry (Bld) [#/Vol]277 10*3/tZ634-163EduljnhebKettering Health – Soin Medical CenterPotassium [Moles/volume] in Serum or PlasmaOrdered By: Rico Choi on 92-45-4513Ftizxryyq [Moles/Vol]4.1 mmol/L 3.5-5.1FLake County Memorial Hospital - WestProtein [Mass/volume] in Serum or Plasma Ordered By: Rico Choi on 47-07-4818Lfecoid [Mass/Vol]6.2 g/dLLow6.4-8.9 [facility] Medical CenterRBC Auto (Bld) [#/Vol]Ordered By: Rico Choi on 27-15-2617VNY (Bld) [#/Vol]4.43 10*6/uL3.60-5.00[facility] Centererum or plasma albumin/globulin mass ratioOrdered By: Rico Choi on 94-14-3674Flixrhe/Globulin [Mass ratio]1.6 {ratio}[facility] Centererum or plasma anion gap determinationOrdered By: Rico Choi on 13-95-9754Kbbng gap [Moles/Vol]11.9 mmol/L6.0-15.0[facility] Centererum or plasma high density lipoprotein (HDL) cholesterol measurement Ordered By: Rico Choi on 99-77-1680Ezlqghaoxcv in HDL [Mass/Vol]55 mg/dL23-92 [facility] CenterComment on above:HDL CHOL ATP-III CLASSIFICATION Cardiovascular RiskHDL > or equal to 60 mg/dL LOWHDL < 40 mg/dL HIGHSerum or plasma total cholesterol/high density lipoprotein (HDL) cholesterol mass ratOrdered By: Rico Choi on 35-91-7288Hkbjcapaglz.total/Cholesterol in HDL [Mass ratio]3.1 {ratio}<5.0[facility] Medical Centerodium [Moles/volume] in Serum or PlasmaOrdered By: Rico Choi on 65-77-3334Pklqlg [Moles/Vol]142 mmol/R069-494ExbiivuvtKettering Health – Soin Medical CenterTriglyceride [Mass/volume] in Serum or PlasmaOrdered By: Rico Choi on 02-08-2024 Triglyceride [Mass/Vol]287 mg/dLHigh0-149[facility] Comment on above:TRIG ATP III CLASSIFICATIONTRIG less than 150 mg/dL NormalTRIG 150-199 mg/dL Borderline highTRIG 200-500 mg/dL High TRIG greater than 500 mg/dL Very highStandard traceable to the Center for Disease Conrtrol and Prevention (CDC) test method.Urea nitrogen [Mass/volume] in Serum or PlasmaOrdered By: Rico Choi on 18-89-0391Orcj nitrogen [Mass/Vol]20 mg/dL7-[facility] Medical CenterWBC Auto (Bld) [#/Vol]Ordered By: Rico Choi on 03-46-2478NXI (Bld) [#/Vol]9.5 10*3/uL3.8-11.6FLake County Memorial Hospital - WestAlanine aminotransferase [Enzymatic activity/volume] in Serum or PlasmaOrdered By: Dony Ferguson on 83-75-8215RHJ [Catalytic activity/Vol]29 U/L7-52[facility] Medical CenterAlbumin [Mass/volume] in Serum or Plasma by Bromocresol green (BCG) dye binding methoOrdered By: Dony Ferguson on 69-64-5365Ziavjqi BCG dye [Mass/Vol]4.1 g/dL3.5-5.7FLake County Memorial Hospital - WestAlkaline phosphatase [Enzymatic activity/volume] in Serum or PlasmaOrdered By: Dony Ferguson on 20-15-1423WDT [Catalytic activity/Vol]82 U/S08-320VxjhbpnarKettering Health – Soin Medical CenterAspartate aminotransferase [Enzymatic activity/volume] in Serum or Plasma Ordered By: Dony Ferguson on 54-79-6277NSH [Catalytic activity/Vol]23 U/L13-39 [facility] CenterBasophils Auto (Bld) [#/Vol]Ordered By: Dony Ferguson on 52-33-1060Urbjzblmk (Bld) [#/Vol]0.1 10*3/uL0.0-0.2FLake County Memorial Hospital - WestBasophils/100 WBC Auto (Bld)Ordered By: Dony Ferguson on 01-11-2024 Basophils/100 WBC (Bld)0.8 %.[facility] Medical CenterBilirubin.total [Mass/volume] in Serum or PlasmaOrdered By: Dony Ferguson on 08-94-3729Pbkjlsprq [Mass/Vol]0.6 mg/dL0.3-1.0[facility] CenterCalcium [Mass/volume] in Serum or PlasmaOrdered By: Dony Ferguson on 56-32-6442Njhgybl [Mass/Vol]9.2 mg/dL8.6-10.3FLake County Memorial Hospital - WestCarbon dioxide, total [Moles/volume] in Serum or PlasmaOrdered By: Dony Ferguson on 65-71-8390AC1 [Moles/Vol]26.6 mmol/L21.0-31.0[facility] CenterChloride [Moles/volume] in Serum or PlasmaOrdered By: Dony Ferguson on 19-51-2780Nwfojedr [Moles/Vol]107 mmol/Y71-534VhrzvurqoKettering Health – Soin Medical CenterCreatine kinase [Enzymatic activity/volume] in Serum or PlasmaOrdered By: Dony Ferguson on 16-25-9065MY [Catalytic activity/Vol]227 U/BYogp05-183YuqyavybhKettering Health – Soin Medical CenterCreatinine [Mass/volume] in Serum or PlasmaOrdered By: Dony Ferguson on 85-79-2434Zmclkybrjv [Mass/Vol]0.90 mg/dL0.60-1.20[facility] CenterEosinophils Auto (Bld) [#/Vol]Ordered By: Dony Ferguson on 01-11-2024 Eosinophils (Bld) [#/Vol]0.1 10*3/uL0.0-0.45[facility] Eosinophils/100 WBC Auto (Bld)Ordered By: Dony Ferguson on 01-11-2024 Eosinophils/100 WBC (Bld)2.0 %.[facility] Medical CenterErythrocyte distribution width Auto (RBC) [Ratio]Ordered By: Dony Ferguson on 01-11-2024 Erythrocyte distribution width (RBC) [Ratio]13.9 %11.9-15.3FLake County Memorial Hospital - WestGlobulin Calc (S) [Mass/Vol]Ordered By: Dony Ferguson on 01-11-2024 Globulin (S) [Mass/Vol]2.6 g/dLKettering Health – Soin Medical CenterGlucose [Mass/volume] in Serum or PlasmaOrdered By: Dony Ferguson on 38-11-4620Hsbvrwk [Mass/Vol]95 mg/dM44-068MhprmwuxcKettering Health – Soin Medical CenterComment on above:ADA recommended reference rangeRandom Glucose Reference Range is dependent on time and content of last meal. Glucose of more than 200 mg/dL in a nonstressed, ambulatory subject supports the diagnosisof Diabetes Mellitus.Hematocrit Auto (Bld) [Volume fraction]Ordered By: Dony Ferguson on 34-42-8580Gnudwqwety (Bld) [Volume fraction]39.3 %34.0-46.4FLake County Memorial Hospital - WestHemoglobin [Mass/volume] in BloodOrdered By: Dony Ferguson on 49-05-7784Jidabfcnuw (Bld) [Mass/Vol]13.2 g/dL11.8-15.4FLake County Memorial Hospital - WestLeukocytes [#/volume] corrected for nucleated erythrocytes in Blood by Automated coun Ordered By: Dony Ferguson on 30-59-6004KEO corrected for nucl RBC Auto (Bld) [#/Vol]6.9 10*3/uL3.8-11.6FLake County Memorial Hospital - WestLymphocytes Auto (Bld) [#/Vol]Ordered By: Dony Ferguson on 90-23-4669Njkxogvespr (Bld) [#/Vol]2.3 10*3/uL1.00-4.8[facility] Medical CenterLymphocytes/100 WBC Auto (Bld) Ordered By: Dony Ferguson on 92-33-4461Pbvitezpfnl/100 WBC (Bld)33.7 %.[facility] HospitalH Auto (RBC) [Entitic mass]Ordered By: Dony Ferguson on 55-28-3015VPR (RBC) [Entitic mass]29.6 pg24.7-34.3FLake County Memorial Hospital - WestMCHC Auto (RBC) [Mass/Vol]Ordered By: Dony Ferguson on 89-78-7359RUZP (RBC) [Mass/Vol]33.6 g/dL32.0-35.0[facility] CenterMCV Auto (RBC) [Entitic vol]Ordered By: Dony Ferguson on 86-29-3728JXF (RBC) [Entitic vol]88.1 fL 80-100[facility] CenterMonocyte distribution width [Entitic volume] in Blood by AutomatedOrdered By: Dony Ferguson on 81-29-7117Kmseemfs distribution width Auto (Bld) [Entitic vol]18.28 %0.00-20.00[facility] CenterMonocytes Auto (Bld) [#/Vol]Ordered By: Dony Ferguson on 01-11-2024 Monocytes (Bld) [#/Vol]0.4 10*3/uL0.0-0.8[facility] Monocytes/100 WBC Auto (Bld)Ordered By: Dony Ferguson on 64-57-3273Exwibjvzi/100 WBC (Bld)6.3 %.[facility] CenterNatriuretic peptide B [Mass/Vol] Ordered By: Dony Ferguson on 67-67-1288Zpvzbixaoet peptide B (Bld) [Mass/Vol]43.0 pg/mL5-100[facility] CenterNeutrophils Auto (Bld) [#/Vol]Ordered By: Dony Ferguson on 08-82-7000Jnoepdcrsnr (Bld) [#/Vol]3.9 10*3/uL1.8-7.7 [facility] CenterNeutrophils/100 WBC Auto (Bld)Ordered By: Dony Ferguson on 28-58-1755Npubszpecqe/100 WBC (Bld)57.2 %.[facility] CenterNo Panel InformationOrdered By: Dony Ferguson on 10-36-1114Uluzvuoix GFR (CKD-EPI)> 60.0 mL/MinKettering Health – Soin Medical CenterPharmacy Creatinine Clearance (Chem65.20[facility] CenterNucleated erythrocytes [Presence] in Blood by Automated countOrdered By: Dony Ferguson on 01-11-2024 Nucleated RBC Auto Ql (Bld)0.0 /100{WBC}0-0.5FLake [facility] West Platelet mean volume Auto (Bld) [Entitic vol]Ordered By: Dony Ferguson on 98-60-4963Fupmfovi mean volume (Bld) [Entitic vol]7.3 fL6.3-10.7FLake County Memorial Hospital - WestPlatelets Auto (Bld) [#/Vol]Ordered By: Dony Ferguson on 59-02-4851Zmqevmmha (Bld) [#/Vol]234 10*3/oM309-531PrgqlgeztKettering Health – Soin Medical CenterPotassium [Moles/volume] in Serum or PlasmaOrdered By: Dony Ferguson on 57-15-2310Yxozxyuhr [Moles/Vol]3.3 mmol/LLow3.5-5.1FLake County [facility] Hospital - WestProtein [Mass/volume] in Serum or PlasmaOrdered By: Dony Ferguson on 39-76-7830Ivsiwvm [Mass/Vol]6.7 g/dL6.4-8.9[facility] Medical CenterRBC Auto (Bld) [#/Vol]Ordered By: Dony Ferguson on 34-89-5060SRW (Bld) [#/Vol]4.46 10*6/uL3.60-5.00[facility] Centererum or plasma albumin/globulin mass ratioOrdered By: Dony Ferguson on 67-00-0457Mdhotxk/Globulin [Mass ratio]1.6 {ratio}[facility] Centererum or plasma anion gap determinationOrdered By: Dony Ferguson on 41-84-1444Bjyko gap [Moles/Vol]11.7 mmol/L6.0-15.0[facility] Centerodium [Moles/volume] in Serum or PlasmaOrdered By: Dony Ferguson on 66-84-6132Egvjcx [Moles/Vol]142 mmol/M934-395 [facility] CenterTroponin I.cardiac [Mass/volume] in Serum or Plasma by Detection limit <= 0.01 ng/Ordered By: Dony Ferguson on 01-11-2024 Troponin I.cardiac DL <= 0.01 ng/mL [Mass/Vol]6.4 pg/mL0.0-15.0[facility] Medical CenterUrea nitrogen [Mass/volume] in Serum or PlasmaOrdered By: Dony Ferguson on 36-07-0768Qutm nitrogen [Mass/Vol]9 mg/dL7[facility] CenterWBC Auto (Bld) [#/Vol]Ordered By: Dony Ferguson on 52-88-5154CLP (Bld) [#/Vol]6.9 10*3/uL3.8-11.6FLake County Memorial Hospital - WestThyrotropin [Units/volume] in Serum or PlasmaOrdered By: Harrison Sánchez on [id number] Qn 1.77 m[IU]/L0.45-5.33[facility] CenterAlanine aminotransferase [Enzymatic activity/volume] in Serum or PlasmaOrdered By: Orly Appleton on [id number] [Catalytic activity/Vol]22 U/L7-52[facility] CenterAlbumin [Mass/volume] in Serum or Plasma by Bromocresol green (BCG) dye binding methoOrdered By: Orly Appleton on [id number] BCG dye [Mass/Vol]4.3 g/dL3.5-5.7FLake [facility] - WestAlkaline phosphatase [Enzymatic activity/volume] in Serum or PlasmaOrdered By: Orly Minal on 46-98-2838QLX [Catalytic activity/Vol]79 U/C13-479KiaezmjszKettering Health – Soin Medical CenterAspartate aminotransferase [Enzymatic activity/volume] in Serum or Plasma Ordered By: Orly Minal on 28-94-4343OJU [Catalytic activity/Vol]18 U/L 13-39[facility] Medical CenterBasophils Auto (Bld) [#/Vol]Ordered By: Orly Minal on 06-45-2355Abzseipkm (Bld) [#/Vol]0.0 10*3/uL0.0-0.2 [facility] CenterBasophils/100 WBC Auto (Bld)Ordered By: Orly Minal on 54-97-6088Zsaomjshn/100 WBC (Bld)0.4 %.[facility] Medical CenterBilirubin.total [Mass/volume] in Serum or PlasmaOrdered By: Orly Appleton on 55-23-3499Wgwsbsihu [Mass/Vol]0.7 mg/dL0.3-1.0[facility] CenterCalcium [Mass/volume] in Serum or PlasmaOrdered By: Orly Minal on 39-12-7964Mppzouk [Mass/Vol]9.2 mg/dL8.6-10.3FLake County Memorial Hospital - WestCarbon dioxide, total [Moles/volume] in Serum or Plasma Ordered By: Orly Appleton on 68-54-1488RO2 [Moles/Vol]27.2 mmol/L21.0-31.0 [facility] CenterChloride [Moles/volume] in Serum or Plasma Ordered By: Orly Appleton on 44-82-9306Fgcsogtk [Moles/Vol]107 mmol/L98-107 [facility] CenterCholesterol [Mass/volume] in Serum or Plasma Ordered By: Orly Appleton on 24-87-5659Rweetldrgce [Mass/Vol]166 mg/dL 140-200[facility] CenterComment on above:Chol less than 200 mg/dl low riskChol 201-239 mg/dl borderline riskChol 240 mg/dl and greater high riskCholesterol in LDL Calc [Mass/Vol]Ordered By: Orly Minal on 98-31-0610Prajctwssja in LDL [Mass/Vol]55 mg/dL0-100[facility] Medical CenterComment on above:LDL ATP III CLASSIFICATIONLDL less than 100 mg/dL OptimalLDL 100-129 mg/dL Near or above jnarpbcBZW266-007 mg/dL Borderline highLDL 160-189 mg/dL HighLDL greater than 189 mg/dL Very highCholesterol in VLDL Calc [Mass/Vol]Ordered By: Orly Appleton on 82-69-3428Idppnhpjyvh in VLDL [Mass/Vol]69 mg/dLKettering Health – Soin Medical CenterCreatinine [Mass/volume] in Serum or PlasmaOrdered By: Orly Appleton on 53-70-8521Sbvxxtfval [Mass/Vol]0.86 mg/dL0.60-1.20[facility] CenterCreatinine [Mass/volume] in UrineOrdered By: Orly Minal on 48-54-2204Wikpoyjbax (U) [Mass/Vol]87.0 mg/dL11.0-20.0[facility] CenterEosinophils Auto (Bld) [#/Vol]Ordered By: Orly Minal on 98-81-8630Yyhtinojvlk (Bld) [#/Vol]0.1 10*3/uL0.0-0.45[facility] CenterEosinophils/100 WBC Auto (Bld)Ordered By: Orly Minal on 92-12-8162Vwiyixfgmvf/100 WBC (Bld) 2.4 %.[facility] Medical CenterErythrocyte distribution width Auto (RBC) [Ratio]Ordered By: Orly Appleton on 83-66-4746Gsmmbusrwwj distribution width (RBC) [Ratio]13.7 %11.9-15.3FLake County Memorial Hospital - WestGlobulin Calc (S) [Mass/Vol]Ordered By: Orly Minal on 12-64-2872Mgcxrwra (S) [Mass/Vol]1.9 g/dLKettering Health – Soin Medical CenterGlucose [Mass/volume] in Serum or PlasmaOrdered By: Orly Appleton on 90-65-6589Cnpxfia [Mass/Vol]111 mg/tX64-756EavsnpsypKettering Health – Soin Medical CenterComment on above:ADA recommended reference rangeRandom Glucose Reference Range is dependent on time and content of last meal. Glucose of more than 200 mg/dL in a nonstressed, ambulatory subject supports the diagnosisof Diabetes Mellitus.Hematocrit Auto (Bld) [Volume fraction]Ordered By: Orly Fontaine on 04-34-6320Fotzutnbwj (Bld) [Volume fraction]38.9 %34.0-46.4FLake County Memorial Hospital - WestHemoglobin [Mass/volume] in BloodOrdered By: Orly Fontaine on 56-48-0452Ezkeodenoy (Bld) [Mass/Vol]13.6 g/dL11.8-15.4FLake County Memorial Hospital - WestLeukocytes [#/volume] corrected for nucleated erythrocytes in Blood by Automated coun Ordered By: Orly Fontaine on 14-38-8580EMN corrected for nucl RBC Auto (Bld) [#/Vol]5.4 10*3/uL3.8-11.6FLake County Memorial Hospital - WestLymphocytes Auto (Bld) [#/Vol]Ordered By: Orly Fontaine on 85-96-8999Ajxclzqzpoi (Bld) [#/Vol]1.9 10*3/uL1.00-4.8[facility] So[facility] Medical CenterLymphocytes/100 WBC Auto (Bld)Ordered By: Orly Fontaine on 22-56-2627Zbadvlfwmsb/100 WBC (Bld) 35.1 %.[facility] Auto (RBC) [Entitic mass]Ordered By: Orly Fontaine on 39-59-3975EUE (RBC) [Entitic mass]30.0 pg24.7-34.3FLake County Memorial Hospital - WestMCHC Auto (RBC) [Mass/Vol]Ordered By: Orly Fontaine on 16-41-1398WBND (RBC) [Mass/Vol]35.0 g/dL32.0-35.0[facility] Medical CenterMCV Auto (RBC) [Entitic vol]Ordered By: Orly Fotnaine on 42-33-3590IXZ (RBC) [Entitic vol]85.9 dA11-266AxouzpvqjKettering Health – Soin Medical CenterMicroalbumin [Mass/volume] in UrineOrdered By: Orly Fontaine on 69-67-8254Zruxzjk DL <= 20 mg/L (U) [Mass/Vol]mg/dL0.0-1.8[facility] Medical CenterMonocytes Auto (Bld) [#/Vol]Ordered By: Orly Fontaine on 27-56-5934Pottvfvyp (Bld) [#/Vol]0.3 10*3/uL0.0-0.8[facility] Medical CenterMonocytes/100 WBC Auto (Bld)Ordered By: Orly Fontaine on 15-83-5602Ydkkszphn/100 WBC (Bld)6.3 %. [facility] Medical CenterNeutrophils Auto (Bld) [#/Vol]Ordered By: Orly Fontaine on 98-29-4132Ozggycrnkqj (Bld) [#/Vol]3.0 10*3/uL1.8-7.7 [facility] Medical CenterNeutrophils/100 WBC Auto (Bld)Ordered By: Orly Fontaine on 11-37-7722Ntelghaigop/100 WBC (Bld)55.8 %.[facility] CenterNo Panel InformationOrdered By: Orly Fnotaine on 88-00-5163Anyfukuza GFR (CKD-EPI)> 60.0 mL/MinKettering Health – Soin Medical Center Pharmacy Creatinine Clearance (ChemN/AFLake County Memorial Hospital - WestNucleated erythrocytes [Presence] in Blood by Automated countOrdered By: Orly Fontaine on 91-87-5435Joplnguej RBC Auto Ql (Bld)0.1 /100{WBC}0-0.5FLake County Memorial Hospital - WestPlatelet mean volume Auto (Bld) [Entitic vol]Ordered By: Orly Fontaine on 91-23-1516Ogmqafvk mean volume (Bld) [Entitic vol]7.4 fL 6.3-10.7FLake County Memorial Hospital - WestPlatelets Auto (Bld) [#/Vol]Ordered By: Orly Fontaine on 18-46-6818Zctsaxoyb (Bld) [#/Vol]208 10*3/dI991-950 [facility] CenterPotassium [Moles/volume] in Serum or Plasma Ordered By: Orly Fontaine on 28-38-8547Tcdgehwld [Moles/Vol]4.2 mmol/L 3.5-5.1FLake County Memorial Hospital - WestProtein [Mass/volume] in Serum or Plasma Ordered By: Orly Fontaine on 56-61-0394Hdfaeay [Mass/Vol]6.2 g/dL6.4-8.9 [facility] Medical CenterRBC Auto (Bld) [#/Vol]Ordered By: Orly Fontaine on 75-40-7208EXR (Bld) [#/Vol]4.54 10*6/uL3.60-5.00[facility] Centererum or plasma albumin/globulin mass ratioOrdered By: Orly Fontaine on 40-67-2866Jqkdcyg/Globulin [Mass ratio]2.3 {ratio}[facility] Centererum or plasma anion gap determinationOrdered By: Orly Fontaine on 13-84-1536Dawdr gap [Moles/Vol]12.0 mmol/L6.0-15.0[facility] Medical Centererum or plasma high density lipoprotein (HDL) cholesterol measurementOrdered By: Orly Fontaine on 13-04-3549Crkmokzhibk in HDL [Mass/Vol]42 mg/dF75-95ToqgdgdecKettering Health – Soin Medical CenterComment on above:HDL CHOL ATP-III CLASSIFICATION Cardiovascular RiskHDL > or equal to 60 mg/dL LOWHDL < 40 mg/dL HIGHSerum or plasma total cholesterol/high density lipoprotein (HDL) cholesterol mass ratOrdered By: Orly Fontaine on 02-04-2023 Cholesterol.total/Cholesterol in HDL [Mass ratio]4.0 {ratio}<5.0[facility] Medical Centerodium [Moles/volume] in Serum or PlasmaOrdered By: Orly Fontaine on 65-38-3808Anmylo [Moles/Vol]142 mmol/F251-234YowklkypjKettering Health – Soin Medical CenterTriglyceride [Mass/volume] in Serum or PlasmaOrdered By: Orly Fontaine on 25-13-0880Ypujjwpwilcz [Mass/Vol]345 mg/dL0-149[facility] CenterComment on above:TRIG ATP III CLASSIFICATIONTRIG less than 150 mg/dL NormalTRIG 150-199 mg/dL Borderline highTRIG 200-500 mg/dL High TRIG greater than 500 mg/dL Very highStandard traceable to the Center for Disease Conrtrol and Prevention (CDC) test method.Urea nitrogen [Mass/volume] in Serum or PlasmaOrdered By: Orly Fontaine on 36-79-1660Nbmc nitrogen [Mass/Vol]10 mg/dL7-25[facility] Medical CenterUrine microalbumin/creatinine mass ratioOrdered By: Orly Fontaine on 02-04-2023 Albumin/Creatinine DL <= 20 mg/L (U) [Mass ratio]TNPKettering Health – Soin Medical CenterComment on above:Test not performedWBC Auto (Bld) [#/Vol]Ordered By: Orly Fontaine on 08-35-1708MDD (Bld) [#/Vol]5.4 10*3/uL3.8-11.6FLake County Memorial Hospital - WestCovid-19 PCR (CVDTBH)on 16-06-0617NKOP-CoV-2 (COVID-19) RNA DAYTON+probe Ql (Unsp spec)Not detectedNormalNOT DETECTEDThe [facility] Comment on above:Result Comment: When diagnostic testing is negative, the [...] for this test is supported by the Public Transit Bus Driver of Health and Human Service's declaration that circumstances exist to justify the emergency use of in vitro diagnostics for the detection and/or diagnosis of the virus that causes COVID-19. This EUA will remain in effect for the duration of the COVID-19 declaration justifying emergency of IVDs, unless it is terminated or revoked by the FDA (after which the test may no longer be used).Performed By: #### CVDTBH #### [facility] [address] [place] [address] Dr. Bebo Thorpe 78-74-7178WQTYHQAUXTZPB [facility] on above:Result Comment: Negative for Flu B protein antigen. Infection due to Flu B cannot be ruled out. FluB antigen in the sample may be below the detection limit of the test.Performed By: #### INFLUAB #### [facility] [address] [place] [address] Dr. Bebo Akins AGPositiveAbnormalNEGATIVE SEE COMMENTThe [facility] HospitalComment on above:Performed By: #### INFLUAB #### [facility] [address] [place] [address] Dr. Bebo Woodall AGNegativeNormalNEGATIVE SEE COMMENTThe [facility] on above:Performed By: #### INFLUAB #### [facility] [address] [place] [address] Dr. Bebo MunizINFLUPOSHSHARIFA [facility] on above: Result Comment: NOTE: Live attenuated influenzae vaccine viruses can cause a positive result for a rapid influenza diagnostic test if administered up to 7 days prior to rapid testing.Performed By: #### INFLUAB #### [facility] [address] [place] [address] Dr. Bebo MunizINTERNAL CONTROLSWithin Normal LimitsNormalWithin Normal Limits The [facility] on above:Performed By: #### INFLUAB #### [facility] [address] [place] [address] Dr. Bebo MunizSCREENING MAMMOGRAM W/PRATEEK, BILATERAL*on 72-02-4783SDOCUTTHV MAMMOGRAM W/PRATEEK, BILATERAL*CLINICAL HISTORY: Screening Mammogram COMPARISON: Priors from 2020, [...] VERY IMPORTANT TO YOUR HEALTH. THE CURRENT [place] [employer] AND [employer] NETWORK GUIDELINES RECOMMENDS ANNUAL MAMMOGRAPHY BEGINNING AT AGE 40 THIS FACILITY USES A REMINDER SYSTEM TO ENSURE ALL PATIENTS RECEIVE REMINDER NOTIFICATIONS AT THE APPROPRIATE TIME BASED ON THE RECOMMENDATIONS OF THIS EXAM. 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 Accredited by the ACR and FDA. Report reported and signed by Darryl Milner on 01/07/2022 0959NormalNorthern [facility] Vital Signs Date TimeVital SignValuePerforming XkshqsowaPaafcria11-73-2502 13:46-0500Body itivhf940.5 cmBenCareers360 Work Phone: [facility] HealthcareMybwefhjxh35-72-9524 13:46-0500Body mass index (BMI) [Ratio]35.12 kg/b5HukbutyvCareers360 Work Phone: [facility] HealthcareVjzmeorhjl68-20-4623 13:46-0500Body latntw31.09 kgBeFatTail Work Phone: [facility] HealthcareCqnhzmhnzr95-11-8641 10:24-0400Diastolic blood emyddofy83 mm[Hg]Services [employer] Phone: [facility]07-22-2025 10:24-0400 Heart rate70 /[employer] Phone: [facility]07-22-2025 10:24-0400 Respiratory rate16 /[employer] Phone: [facility]07-22-2025 10:24-0400 Systolic blood uiarkwhv599 mm[Hg]Services [employer] Phone: [facility]07-22-2025 10:09-0400 SaO2% (BldA) [Mass fraction]95 %Services [employer] Phone: [facility]07-22-2025 09:43-0400 Inhaled oxygen flow rate3 L/[employer] Phone: [facility]07-22-2025 08:31-0400 Body zyyxck678.48 cmSTradeUp Labs Phone: [phone])[address]07-22-2025 08:31-0400 Body qtjatq94.18 kgSeramerican academic health system [employer] Work Phone: [phone])[address] [place], [place] 1421903-22-2025 18:28-0400 Body gcruzi491.48 cmSseaview hospital [employer] Work Phone: [phone])[address] [place], [place] 1421903-22-2025 18:28-0400 Body coimarwwith91.5 [degF]Services [employer] Work Phone: [phone])[address] [place], [place] 1421903-22-2025 18:28-0400 Body ldgupp79.45 kgSeramerican academic health system [employer] Work Phone: [phone])[address] [place], [place] 1421903-22-2025 18:28-0400 Diastolic blood ywqqiiyi63 mm[Hg]Services [employer] Work Phone: [phone])[address] [place], [place] 1421903-22-2025 18:28-0400 Heart rate62 /Medminderwilson [facility] hospitalBNY Mellon Work Phone: [phone])[address] [place], [place] 1421903-22-2025 18:28-0400 Respiratory rate18 /[facility] HospitalBN[facility] Work Phone: [phone])[address] [place], [place] 1421903-22-2025 18:28-0400 SaO2% (BldA) [Mass fraction]95 %Services [employer] Work Phone: [phone] [place], [place] 1421903-22-2025 18:28-0400 Systolic blood brwgypmh313 mm[Hg]Services [employer] Work Phone: [phone])[address] [place], [place] 1421910-30-2024 13:45-0400 Body dycwnj408.5 cmBenjamin Murcek DO Work Phone: Safety HoundJohn J. Pershing VA Medical CenterLguvavngok68-00-7055 13:45-0400Body mass index (BMI) [Ratio]35.12 kg/n0Ophqicuf Murcek DO Work Phone: Safety HoundJohn [facility]. Pershing [facility] Medical CenterCxakmxrqze84-23-6755 13:45-0400Body jbfxda75.09 kgBenjamin Murcek DO Work Phone: [facility] HealthcareRjnbilapeq28-24-3581 10:12-0400Body .48 cmServices [employer] Work Phone: [address] [place], [place] 1421910-25-2024 10:12-0400 Body emuviddeqdk78.4 [degF]Services [employer] Work Phone: [phone])[address] [place], [place] 1421910-25-2024 10:12-0400 Body aiojjq11.65 kgServices [employer] Work Phone: [phone])[address] [place], [place] 1421910-25-2024 10:12-0400 Diastolic blood hfyeylgw40 mm[Hg]Services [employer] Phone: [phone])[address] [place], [place] 1421910-25-2024 10:12-0400 Heart rate79 /[employer] Phone: [phone])[address] [place], [place] 1421910-25-2024 10:12-0400 Respiratory rate20 /[employer] Work Phone: [phone])[address] [place], [place] 1421910-25-2024 10:12-0400 SaO2% (BldA) [Mass fraction]95 %Services [employer] Phone: [phone])[address] [place], [place] 1421910-25-2024 10:12-0400 Systolic blood oymviffr276 mm[Hg]Services [employer] Work Phone: [phone])[address] [place], [place] 1421910-22-2024 11:17-0400 Diastolic blood rnofetoe03 mm[Hg]Services [employer] Work Phone: [phone])[address] [place], [place] 1421910-22-2024 11:17-0400 Heart rate64 /[employer] Work Phone: [phone])[address] [place], [place] 1421910-22-2024 11:17-0400 Respiratory rate16 /[employer] Work Phone: [phone])[address] [place], [place] 1421910-22-2024 11:17-0400 SaO2% (BldA) [Mass fraction]97 %Services [employer] Phone: [phone])[address] [place], [place] 1421910-22-2024 11:17-0400 Systolic blood oizipuxt560 mm[Hg]Services [employer] Work Phone: 1(838)[address]10-22-2024 10:37-0400 Inhaled oxygen flow rate3 L/[employer] Work Phone: [phone])[address] [place], [place] 1421910-22-2024 09:41-0400 Body zkazym665.48 [facility] [employer] Work Phone: [phone])[address] [place], [place] 1421910-22-2024 09:41-0400 Body .18 kgSeramerican academic health system [employer] Work Phone: 1([phone])[address]05-28-2024 18:36-0400 Heart rate83 /Medminderseaview hospital [employer] Work Phone: [phone] [place], [place] 1421905-28-2024 18:36-0400 Respiratory rate18 /[facility] HospitalRepeatitmadison hospital [employer] Work Phone: [phone])[address] [place], [place] 1421905-28-2024 18:36-0400 SaO2% (BldA) [Mass fraction]97 %Services [employer] Work Phone: [phone])[address] [place], [place] 1421905-28-2024 18:35-0400 Diastolic blood psmrsurk18 mm[Hg]Services [employer] Work Phone: 1(832)[address] [place], [place] 1421905-28-2024 18:35-0400 Systolic blood twjfonhx757 mm[Hg]Services [employer] Work Phone: 1([phone])[address]05-28-2024 16:36-0400 Body uxpduc865.48 [facility] HospitalL[facility] Work Phone: [phone])[address]05-28-2024 16:36-0400 Body osdubniniup96.3 [degF]Services [employer] Work Phone: 1(614)[address]05-28-2024 16:36-0400 Body agbrxl06.35 kgSeramerican academic health system [employer] Work Phone: [phone])[address]169 [address]03-19-2024 09:25-0400 Diastolic blood ugiynjgu50 mm[Hg]Services [employer] Work Phone: 1(554)554-[address] [place], [place] 3914503-19-2024 09:25-0400 Heart rate74 /[employer] Work Phone: 1(833)[address] [place], [place] 1421903-19-2024 09:25-0400 Respiratory rate16 /[employer] Work Phone: 1(304)[address] [place], [place] 1421903-19-2024 09:25-0400 SaO2% (BldA) [Mass fraction]92 %Services [employer] Work Phone: [phone] [place], [place] 1421903-19-2024 09:25-0400 Systolic blood ocpinaam506 mm[Hg]Services [employer] Work Phone: 1(906)[address] [place], [place] 1421903-19-2024 08:38-0400 Inhaled oxygen flow rate3 L/[employer] Work Phone: 1(195)[address] [place], [place] 1421903-19-2024 07:40-0400 Body .48 cmSRepeatitmadison hospital [employer] Work Phone: 1([phone] [place], [place] 1421903-19-2024 07:40-0400 Body nmjltfzmezk08.3 [degF]Services [employer] Work Phone: [phone])[address] [place], [place] 1421903-19-2024 07:40-0400 Body .18 kgSeramerican academic health system [employer] Work Phone: [phone])[address] [place], [place] 1421902-20-2024 09:17-0500 Diastolic blood arzcjcns53 mm[Hg]Services [employer] Work Phone: 1(896)[address]02-20-2024 09:17-0500 Heart rate72 /[employer] Work Phone: 1(443)[address] [place], [place] 1421902-20-2024 09:17-0500 Respiratory rate18 /[employer] Work Phone: 1(034)[address] [place], [place] 1421902-20-2024 09:17-0500 SaO2% (BldA) [Mass fraction]95 %Services [employer] Work Phone: 1(571)[address]69 [address]02-20-2024 09:17-0500 Systolic blood zbtcrtti158 mm[Hg]Services [employer] Work Phone: 1(020)[address] [place], [place] 1421902-20-2024 08:37-0500 Inhaled oxygen flow rate2 L/[employer] Work Phone: 1(809)[address] [place], [place] 1421902-20-2024 07:54-0500 Body vqzout789.48 [employer] Work Phone: 1(989)[address] [place], [place] 1421902-20-2024 07:54-0500 Body uhnrkt30.18 kgSerFluoroPharma Work Phone: 1(450)[address] [place], [place] 1421901-30-2024 10:20-0500 Diastolic blood mm[Hg]Services [employer] Work Phone: 1(388)[address] [place], [place] 1421901-30-2024 10:20-0500 Heart rate76 /[employer] Work Phone: 1(437)[address] [place], [place] 1421901-30-2024 10:20-0500 Respiratory rate16 /[employer] Work Phone: 1(361)[address] [place], [place] 1421901-30-2024 10:20-0500 SaO2% (BldA) [Mass fraction]98 %Services [employer] Work Phone: 1(658)[address] [place], [place] 1421901-30-2024 10:20-0500 Systolic blood qyfijqkk299 mm[Hg]Services [employer] Work Phone: 1(178)[address] [place], [place] 1421901-30-2024 09:42-0500 Inhaled oxygen flow rate3 L/[employer] Work Phone: 1(856)[address] [place], [place] 1421901-30-2024 08:39-0500 Body .48 [employer] Work Phone: 1(882)[address] [place], [place] 1421901-30-2024 08:39-0500 Body vrozhk08.18 kgSerKadmus Pharmaceuticals Phone: 1(015)[address] [place], [place] 1421904-14-2022 16:30-0400 Body yetzzw213.48 Jurgen Anand Other [employer] Other 04-14-2022 16:30-0400Body mass index (BMI) [Ratio] 31.09 kg/o9Kizlkjvmkelle Anand Other [employer] Other 04-14-2022 16:30-0400Body anyxqy07.11 kgLawrkelle Anand Other [facility] [employer] Other Encounters Encounter DateEncounter TypeCare ProviderFacilityStart: 06-20-2025 End: 61-21-1684Qvsvra flowsheetIvan Edmonds DO Work Phone: [facility]olaryngologyStart: 06-20-2025 End: 39-04-4166Bnnxzk flowsheetBeesau Edmonds DO Work Phone: [facility] OtolaryngologyStart: 06-20-2025 End: 73-31-3919Iaukre outpatient visit 25 minutesBenchico Edmonds DO Work Phone: [facility] OtolaryngologyComment on above:Multiple thyroid nodules (Primary Dx)Start: 06-20-2025 End: 67-12-6016wclhmuhrfeINJWUPTP Abdi Thompson AvailableStart: 05-01-2025 End: 97-72-3875Hijkzrb encounter procedureREFERRAL [facility] Work Phone: Start: 05-01-2025 End: 67-01-5209uozpfnvhfbMacznlubOzarks Community Hospital Work Phone: [facility] Work Phone: Start: 03-20-2025 End: 50-08-9809vwdnsjyqfsMzwczctuOzarks Community Hospital Work Phone: [facility] Work Phone: Start: 03-20-2025 End: 42-27-3826Syjwgfw encounter procedureThomas Felter P COMPAMartin General Hospital [facility] Work Phone: Start: 03-06-2025 End: 56-09-5999tgkjkgrdevHqpmjh FelterFacility:[facility] Start: 07-41-1682Ujz-patient / Non-visitThomas Feltronit [facility]Martin [facility] Work Phone: Start: 02-19-2025 End: 86-38-8511imbbukxqpnXlivvjmd [facility] Work Phone: [facility] Work Phone: Start: 02-19-2025 End: 97-71-0400Nmwppgd encounter procedureThomas Feltronit P COMPAMartin [facility] Work Phone: Start: 01-23-2025 End: 08-65-1737Frrrgoa encounter procedureServices [facility] Work Phone: [facility] [place] Work Phone: Start: 01-23-2025 End: 32-60-3708qcytdrtfyvFrckxocf Family Health Work Phone: [facility] Work Phone: Start: 01-03-2025 End: 54-08-3507Towrifs encounter procedureServices [facility] Work Phone: Pending Sale To [facility] Work Phone: Start: 11-10-2024 End: 25-73-4509Lyhadba encounter procedureServices [facility] Work Phone: [facility] [place] Work Phone: Start: 11-10-2024 End: 79-72-9742zfqeqihvrjTkqfgzuj Family [facility] Work Phone: [facility] Work Phone: Start: 11-04-2024 End: 22-42-1052Vdkxnmuyn department patient visitServices [facility] Work Phone: [facility] Work Phone: Start: 07-05-2024 End: 77-74-1015hgchlgrxjhBytpqyvr Family [facility] Work Phone: [facility] Work Phone: Start: 07-05-2024 End: 87-36-1360Erufffo encounter procedureServices [facility] Work Phone: Pending [facility] To [facility] Work Phone: Start: 06-14-2024 End: 67-93-2744Yzacva flowsheetBenjamin W Murcek DO Work Phone: [facility] SANDUSKYStart: 06-14-2024 End: 29-96-9891Dyrzks flowsheetBenjamin W Murcek DO Work Phone: [facility] SANDUSKYStart: 06-14-2024 End: 95-94-4222Qpmpas outpatient visit 25 minutesBenjamin W Murcek DO Work Phone: [facility] SANDUSKYComment on above:Thyroid nodule (CMS/HCC) (Primary Dx)Start: 06-09-2024 End: 08-74-2542Cakmpztse department patient visitServices [facility] Work Phone: [facility] Work Phone: Start: 82-39-0564Vjh-patient / Non-visitServices [facility] [employer] [facility] Work Phone: Pending [facility] To [facility] Work Phone: Start: 06-06-2024 End: 02-50-6175Xekwgbvdp to same day surgery centerServices [facility] Work Phone: [facility]-Digestive [facility] Work Phone: Start: 06-06-2024 End: 79-90-6824scyooagvpvXdtaplah Family Health Work Phone: [facility] Work Phone: Start: 05-24-2024 End: 82-65-8969aqagwpwvamCdlsexeb Family Health Work Phone: [facility] Work Phone: Start: 05-24-2024 End: 92-36-9378Todmyba encounter procedureServices [facility] Work Phone: Pending Sale To [facility] Work Phone: Start: 04-06-2024 End: 19-32-1894pccsgptilbNpkypspf Family Health Work Phone: [facility] Work Phone: Start: 04-06-2024 End: 35-76-1802Kesjmxh encounter procedureServices [facility] Work Phone: [facility] Work Phone: Start: 02-08-2024 End: 74-82-0149sjylcgjhlkUsjizwxo Family [facility] Work Phone: [facility] Work Phone: Start: 02-08-2024 End: 22-96-7723Tewsldt encounter procedureServices [facility] Work Phone: [facility] [place] Work Phone: Start: 01-11-2024 End: 80-50-3052Rxnsrcrey department patient visitServices [facility] Work Phone: [facility] Work Phone: Start: 11-23-2023 End: 31-08-5344whtnrjqlvhPhumksok Family [facility] Work Phone: [facility] Work Phone: Start: 11-23-2023 End: 38-67-0940Jqkhjom encounter procedureServices [facility] Work Phone: Pending Sale To [facility] Work Phone: Start: 11-23-2023 End: 33-17-8610nhgzexrqnzDabvtaip [facility] Work Phone: [facility] Work Phone: Start: 11-23-2023 End: 90-96-0211Wreqepos ReferredSerBon [facility] Work Phone: [facility] [place] Work Phone: Start: 47-87-6695Eapbgvzzqe ReferredSerBon [facility] Work Phone: [facility] [place] Work Phone: Start: 64-03-6540Sad-patient / Non-visitServices [facility] Work Phone: Pending Sale To [facility] Work Phone: Start: 11-02-2023 End: 27-26-4331Zlshwvxqy to same day surgery centerServices Family [facility] Work Phone: [facility] Work Phone: Start: 11-02-2023 End: 65-75-3357vrptsvolnaZschmfmj Family Health Work Phone: [facility] Work Phone: Start: 10-22-2023 End: 26-97-9739Ztdyfea encounter procedureServices [facility] Work Phone: [facility] [place] Work Phone: Start: 10-18-2023 End: 90-54-5221Nvsplbw encounter procedureServices [facility] Work Phone: Pending Sale To [facility] Work Phone: Start: 10-05-2023(Procedure) ShortThomas Felter [facility] OutPtStart: 21-26-2037Dgf-patient / Non-visitServices [employer] Work Phone: Pending Sale To [facility] Work Phone: Start: 10-05-2023 End: 73-30-4768Cutagjhlr to same day surgery centerServmadison hospital [employer] Work Phone: [facility] Work Phone: Start: 10-05-2023 End: 12-85-9491uyshajpubbSrfeppzm Family Health Work Phone: [facility] Work Phone: Start: 09-14-2023(Procedure) ShortThomas Felter [facility] OutPtStart: 09-14-2023 End: 98-80-9627Txjioxors to same day surgery centerServmadison hospital CNS Response [facility] Work Phone: [facility] Work Phone: Start: 09-14-2023 End: 19-39-7776ujpnldyqaiJrgivcdn [facility] Work Phone: [facility] Work Phone: Start: 08-30-2023 End: 97-45-1913soeexzpeioNripmd Felter Other [place] [employer] Other Start: 16-09-7653Ncvwmu outpatient visit 25 minutes Apolinar Carballo [facility] [place]Start: 08-30-2023 End: 45-68-2691Xuwtfvv encounter procedureServmadison hospital [employer] Work Phone: Pending Sale To [facility] Work Phone: Start: 08-05-2023 End: 28-41-6519pciboltkigZlkssuwh [facility] Work Phone: [facility] Work Phone: Start: 08-05-2023 End: 75-07-0785Hlavtcchqq RecurringSersutter amador hospitales Family [facility] Work Phone: [facility] [place] Work Phone: start: 07-14-2023 End: 09-69-1339jmopzhtycsTlhtfkjp [facility] Work Phone: [facility] Work Phone: Start: 07-14-2023 End: 72-42-0018Voljutl encounter procedureServices [facility] Work Phone: [facility] [place] Work Phone: Start: 07-02-2023 End: 00-49-3105mrvvpmvstwNqwqkj Felter Other [place] [employer] Other Start: 69-72-4386Bihcjlicd encounterThomas FelterFPG Pain Management [place] CreekStart: 06-30-2023 End: 89-66-2651qdveyimvhzXzsygrwk Family Health Work Phone: [facility] Work Phone: Start: 06-30-2023 End: 07-01-2206Rwjqxrp encounter procedureServices [facility] Work Phone: [facility] [place] Work Phone: Start: 04-08-2023 End: 71-77-2305qugvemjjlzXsfcycob Family Health Work Phone: [facility] Work Phone: Start: 04-08-2023 End: 20-21-5006Hmuhwsv encounter procedureServices [facility] Work Phone: [facility] Work Phone: Start: 02-04-2023 End: 37-20-2373ytkltapibpIswzzgvn Family Health Work Phone: [facility] Work Phone: Start: 02-04-2023 End: 27-84-7423Awybqtf encounter procedureServices [facility] Work Phone: [facility] [place] Work Phone: Start: 10-21-2022 End: 12-06-7300wgjjtxvzjhOvowdtgi [facility] Work Phone: [facility] Work Phone: Start: 10-21-2022 End: 97-11-2681Eyefnal encounter procedureServices [facility] Work Phone: [facility] [place] Work Phone: Start: 07-17-2022 End: 49-55-5575fyxuejxxkyVFORVF SERVICES FAMILYFacility:H8Xccwv: 11-27-2021 End: 21-65-4411kikzcqecekLustmisz McCormack Other [place] [employer] Other Start: 41-54-9564Ovogbj outpatient visit 15 minutes Joel Dawn [facility] Procedures DateProcedureProcedure DetailPerforming ClinicianStart: 44-84-9010Dezyjaizz mammography of bilateral breastsServices [employer] Phone: Start: 87-28-5142I-ray of cervical spineServices [employer] Work Phone: Start: 03-62-9294GW Nerve Radio Frequency (Bilateral) Services [employer] Work Phone: Start: 43-40-1458Ckkwhcthv mammography of bilateral breastsServices [employer] Work Phone: Start: 60-21-1958Azqrv chest X-rayServices [employer] Phone: Start: 78-10-2376JI Nerve Radio Frequency (Bilateral) Services [employer] Phone: Start: 03-72-5295Szddf anesthetic lumbar facet joint nerve blockServices [employer] Phone: Start: 84-60-6871Mlqua anesthetic lumbar facet joint nerve blockServices [employer] Phone: Start: 27-53-0162Z-ray of lumbar spine, four views Services [employer] Phone: Start: 67-82-5914GV of soft tissues of neck with contrastServices [employer] Work Phone: Start: 67-51-1153AF scan of thyroidServices [employer] Phone: Start: 80-46-4588Ixzdiducj mammography of bilateral breastsSseaview hospital [employer] Phone: Start: 21-48-5258Egsrq chest X-raySseaview hospital [employer] Phone: Plan of Treatment DateCare ActivityDetailAuthorStart: 06-20-2025 End: 91-12-1084Ccqijuf encounter procedureNOMS ENT SANDUSKYComment on above: ArrivedStart: 27-29-3234MuoslgmapLakeHealth TriPoint Medical Centertart: 06-14-2024 End: 31-25-0648Rsjqpef encounter poienyvfo09/30/2024 1:45 PM EDT Office Visit [facility] [address] [place] [phone] Ivan Edmonds, DO [address] [place] [address] ArrivedNOMS ENT SANDUSKYComment on above:ArrivedStart: 95-17-3135OldrokvknLakeHealth TriPoint Medical Centertart: 32-53-2689Xknfo chest X-rayXR chest 1V portableLakeHealth TriPoint Medical Centertart: 28-00-9280UJ Chest Single viewLakeHealth TriPoint Medical Centertart: 54-73-9766BvaywxrrmLakeHealth TriPoint Medical Centertart: 94-86-4604FeubkjpnbLakeHealth TriPoint Medical Centertart: 37-73-8229WichfxdqdKettering Health – Soin Medical CenterPatient EducationUniversity Hospitals [facility] Work Phone: [facility] referralPark[facility] Work Phone: Payers DatePayer CategoryPayerPolicy [id number] [id number] 2025Medicaid [id number] [id number] Health [id number] (Managed Care)[employer] MEDICARE ADVANTAGE Member Subscriber Plan / Payer (Effective 2022-Present) Name: Aura Hassan Relation to Subscriber: Self Name: Sanjay Hassanry Payer ID: [id number] (NAIC) Type: Not on file Address: [place] [id number] [id number] MediBlue Dual Adv [id number] [id number] [id number] [id number] 2.16.840.1.777623.3.579.2.531 [id number] 2.16.840.1.2[id number] 2.16.840.1.9[id number] 2.16.840.1.333360.3.579.2.531 [id number] 2.16.840.1.316377.3.579.2.531 Social History DateTypeDetailFacilityUnknown if ever smokedGrant [place] [facility] Other Start: 04-03-2024 End: 78-75-6526Wep Assigned At [facility] [employer] Other Start: 10-14-2021 End: 86-89-4440Uzqrofh smoking status NHISEx-smoker (finding)[facility] Centertart: 42-53-3902Klz Assigned At [facility] Centertart: 08-30-2023 End: 27-51-8119Mzblzef smoking status NHISNever smoked tobacco (finding) [facility] Medical CenterHistory of tobacco useCurrent smokerNOMS HealthcareHistory of tobacco useCigarette SmokerNOMS HealthcareStart: 06-13-2024 End: 94-90-6608Vinvifjtt beverage intakeLifetime non-drinker (finding)[facility] HealthcareStart: 04-03-2024 End: 81-48-9310Aebajyd of Social functionST. GEORGE REGIONAL HOSPITAL HealthcareHow often to you have a drink containing alcohol?NeverST. GEORGE REG[facility]AL [facility]OSPITAL HealthcareStart: 12-76-7573Acu many standard drinks containing alcohol do you have on a typical day?Patient does not drink [facility] HealthcareStart: 05-63-0348Iibaqna Commentcaffeie intake : 2-3 ups per day ; coffeeST. GEORGE REGIONAL HOSPITAL HealthcareStart: 15-56-9177Qzk assigned at birthNot on fileST. GEORGE REGIONAL [facility]OSPITAL HealthcareStart: 07-05-2024 End: 14-23-9249VqjHqcxxt (finding)[facility] Medical Equipment Procedure CodeEquipment CodeEquipment Original TextEquipment IdentifierDates Colporrhaphy, anteroposterior, for repair of cystocele, rectocele or enterocele ADVANTAGE FIT TRANSVAGINALFDAStart: 91-29-6281Bwqpvfihoeql, anteroposterior, for repair of cystocele, rectocele or enteroceleADVANTAGE FIT TRANSVAGINALFDAStart: 90-33-8683Jxlmdeyxuqfo, anteroposterior, for repair of cystocele, rectocele or enteroceleADVANTAGE FIT TRANSVAGINALFDAStart: 02-84-8084Pgocglksefqt, anteroposterior, for repair of cystocele, rectocele or enteroceleADVANTAGE FIT TRANSVAGINALFDAStart: 36-95-8422Qcyiqgdupznj, anteroposterior, for repair of cystocele, rectocele or enteroceleADVANTAGE FIT TRANSVAGINALFDAStart: 01-12-2019 Colporrhaphy, anteroposterior, for repair of cystocele, rectocele or enterocele ADVANTAGE FIT TRANSVAGINALFDAStart: 67-27-4979Kufmxranwgnu, anteroposterior, for repair of cystocele, rectocele or enteroceleADVANTAGE FIT TRANSVAGINALFDAStart: 54-88-1716Jzmifyixqwvd, anteroposterior, for repair of cystocele, rectocele or enteroceleADVANTAGE FIT TRANSVAGINALFDAStart: 46-43-4752Zrgsgtkiajth, anteroposterior, for repair of cystocele, rectocele or enteroceleADVANTAGE FIT TRANSVAGINALFDAStart: 08-40-1324Zysryqgcnacz, anteroposterior, for repair of cystocele, rectocele or enteroceleADVANTAGE FIT TRANSVAGINALFDAStart: 01-12-2019 Colporrhaphy, anteroposterior, for repair of cystocele, rectocele or enterocele ADVANTAGE FIT TRANSVAGINALFDAStart: 34-92-2435Bxntcqpztlwq, anteroposterior, for repair of cystocele, rectocele or enteroceleADVANTAGE FIT TRANSVAGINALFDAStart: 83-45-5968Aogcbiivblnb, anteroposterior, for repair of cystocele, rectocele or enteroceleADVANTAGE FIT TRANSVAGINALFDAStart: 01-55-1447Ihqwgcxrwnee, anteroposterior, for repair of cystocele, rectocele or enteroceleADVANTAGE FIT TRANSVAGINALFDAStart: 01-24-2886Poeiehdvjwzs, anteroposterior, for repair of cystocele, rectocele or enteroceleADVANTAGE FIT TRANSVAGINALFDAStart: 01-12-2019 Colporrhaphy, anteroposterior, for repair of cystocele, rectocele or enterocele ADVANTAGE FIT TRANSVAGINALFDAStart: 68-43-9922Hnvroupgwavw, anteroposterior, for repair of cystocele, rectocele or enteroceleADVANTAGE FIT TRANSVAGINALFDAStart: 19-72-3449Ctyexeqyngmj, anteroposterior, for repair of cystocele, rectocele or enteroceleADVANTAGE FIT TRANSVAGINALFDAStart: 99-00-5671Ognnxhqdkbqv, anteroposterior, for repair of cystocele, rectocele or enteroceleADVANTAGE FIT TRANSVAGINALFDAStart: 04-80-4901Dggygsrtvatk, anteroposterior, for repair of cystocele, rectocele or enteroceleADVANTAGE FIT TRANSVAGINALFDAStart: 01-12-2019 Colporrhaphy, anteroposterior, for repair of cystocele, rectocele or enterocele ADVANTAGE FIT TRANSVAGINALFDAStart: 22-24-6653Nvgnxgplgaye, anteroposterior, for repair of cystocele, rectocele or enteroceleADVANTAGE FIT TRANSVAGINALFDAStart: 14-50-6197Mqdoaintqmsx, anteroposterior, for repair of cystocele, rectocele or enteroceleADVANTAGE FIT TRANSVAGINALFDAStart: 60-14-9204Apcaedfyecwd, anteroposterior, for repair of cystocele, rectocele or enteroceleADVANTAGE FIT TRANSVAGINALFDAStart: 51-46-0786Kstlbegxmhee, anteroposterior, for repair of cystocele, rectocele or enteroceleADVANTAGE FIT TRANSVAGINALFDAStart: 01-12-2019 Goals DatePatient GoalDesired Activity/State Clinical Notes 12-13-2015 to 06-20-2025 Note Date & KqjbYzqvAaqdcuwt20-02-7843 History of Present illness Narrative* Ivan Edmonds, DO - 06/20/2025 1:45 PM EST Subjective Patient ID: HPI Patient presents today to reinspect her left thyroid nodule. Previously 1.8 cm, [place] II. I havebeen following her enough for a couple of years. This is yearly visit. Review of Systems ROS The specialty specific [...] normal Nares patent. Septal deviation to the No evidence of polyp, mass or pus bilaterally. Oral Cavity: No evidence of trismus Lips appear normal Dental edentulous Tongue of normal size and configuration, floor [...] right lobe of the thyroid gland measures __ 4.1 cm in greatest dimension. There are a couple of subcentimeter hypoechoic nodules scattered throughout the parenchyma largest measuring about 7.5 mm, no internal vascularity microcalcification. The isthmus is unremarkable. The left lobe of the thyroid gland measures ___ 4.1 ____ cm greatest dimension. Previously described hypoechoic inferior anterior nodule now measures 1.77 cm in greatest dimension with no internal vascular microcalcification. There is no adenopathy in the central compartment. There is no appreciable adenopathy in either lateral neck. Assessment/Plan Aura was seen today for thyroid nodule. Diagnoses and all orders for this visit: Multiple thyroid nodules (Primary) Comments: No further surveillance is necessary. I will see her back as needed documented in this encounterCitizens Memorial HealthcareCetupnxtvs34-03-0786 Evaluation note* Diagnosis Onset Date Resolution Status Admit Date Lumbosacral spondylosis without myelopat hy acuteJuly 2024 9:02amOther chronic painacuteJuly 2024 9:02amOther low back painacuteJuly 2024 9:02amLumbosacral spondylosis without myelopathy acuteAugust 2024 12:43pmOther chronic painacuteAugust 2024 12:43pm Other low back painacuteAugust 2024 12:43pm [facility] Work Phone: 1(131) 460-469605-21-2025 Evaluation note* Diagnosis Onset Date Resolution Status Admit Date Lumbosacral spondylosis without myelopat hy acuteMay 2024 10:36amOther chronic painacuteMay 2024 10:36amOther low back painacuteMay 2024 10:36am [facility] Work Phone: 1(802) 474-107005-21-2025 Evaluation note* Diagnosis Onset Date Resolution Status Admit Date Lumbosacral spondylosis without myelopat hy acuteMay 2024 10:36amOther chronic painacuteMay 2024 10:36amOther low back painacuteMay 2024 10:36amLumbosacral spondylosis without myelopathyacuteJuly 2024 9:02amOther chronic painacuteJuly 2024 9:02am Other low back painacuteJuly 2024 9:02am [facility] Work Phone: 1(564) 523-312805-21-2025 Evaluation note* Diagnosis Onset Date Resolution Status Admit Date Lumbosacral spondylosis without myelopat hy acuteMay 2024 10:36amOther chronic painacuteMay 2024 10:36amOther low back painacuteMay 2024 10:36amLumbosacral spondylosis without myelopathyacuteJuly 2024 9:02amOther chronic painacuteJuly 2024 9:02am Other low back painacuteJuly 2024 9:02amLumbosacral spondylosis without myelopathyacuteAugust 2024 12:43pmOther chronic painacuteAugust 2024 12:43pmOther low back painacuteAugust 2024 12:43pm [facility] Work Phone: 1(513) 256-291610-30-2024 History of Present illness Narrative* Ivan Abdi Kendal, DO - 06/14/2024 1:45 PM EDT Subjective Patient [...] year with an ultrasound. documented in this encounterCitizens Memorial HealthcareMnqoaekslg05-27-8355 Procedure [facility]10-09-2024 Evaluation note* Diagnosis Onset Date Resolution Status Admit Date Lumbosacral spondylosis without myelopat hy acuteOctober 2023 10:59amOther chronic painacuteOctober 2023 10:59am Other low back painacuteOctober 2023 10:59am [facility] Work Phone: 1(592) 301-479303-19-2024 [facility]01-30[facility]01-15-2024 Evaluation note* Encounter Date Diagnosis Assessment Notes Treatment Notes Treatment Clinical Notes Aug, 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 She shows notable painconsistent with degenerative changes of the lumbar spine. We discussed the possible benefit of treatment of the facet region for axial back pain. Based on location of pain and exam findings, patient is a candidate for bilateral lumbar facet medial branch blocks which we will proceed with. Risks andbenefits of procedure explained to patient; patient verbalizes understanding. It was further explained should this provide significant short term relief we will proceed with a repeat block and radiofrequency ablation. Anatomy of spine discussed in detail with patient in regards to patients condition. Aug,Other low back pain (ICD-10 - M54.59) Aug,Other chronic pain (ICD-10 - G89.29) Aug,OtherAbove note written by Shane Ferguson MA, Bridge Saw Operator. Edited and approved by Dr. Apolinar Zarate MD. [facility] Other 11-17-2023 Evaluation note* Encounter Date Diagnosis Assessment Notes Treatment Notes Treatment Clinical Notes Jun, Other low back pain (ICD-10 - M5 4.59) [facility] Other 04-14-2022 Evaluation note* Encounter Date Diagnosis Assessment Notes Treatment Notes Treatment Clinical Notes Nov, History of colon polyps (ICD-10 - Z86.010) Nov,Inflammatory polyps of colon (ICD-10 - K51.40)PATIENT ADVISED WE WILL REPEAT THIS IN 10 YEARS Nov,iverticulosis (ICD-10 - K57.90) Nov,Hemorrhoids (ICD-10 - K64.9) [facility] Other 04-29-2016 History general Narrative - Reported* Type Description Date Medical History 12/13/15 Colonsocopy- hyperplastic polyps sigmoid and rectum repeat in 5 years Medical HistoryHigh CholesterolMedical Historyarthritis in spineSurgical History gallbladderSurgical HistoryappendixSurgical Historytubes tiedSurgical History wazbjpdyqlywf6900Noshpyyt HistorytonsilSurgical HistoryRT SHOULDER ROTOR CUFF Surgical HistoryBLADDER LIFTHospitalization Historysee above [facility] Other Evaluation noteNo assessment information available [facility] Work Phone: Evaluation noteNo InformationNort [employer] Other Evaluation note* Diagnosis Onset Date Resolution Status Lumbosacral spondylosis without myelopat hy acuteOther chronic painacuteOther low back painacute [facility] Work Phone: Evaluation note* Diagnosis Onset Date Resolution Status Lumbosacral spondylosis without myelopat hy acuteOther chronic painacuteOther low back painacuteLumbosacral spondylosis without myelopathyacuteOther chronic painacuteOther low back painacute [facility] Work Phone: Evaluation note* Diagnosis Thyroid nodule (CMS/HCC)- Primary Nontoxic uninodular goiter documented in this encounter [facility] HealthcareEvaluation note* Diagnosis Multiple thyroid nodules- Primary Nontoxic multinodular goiter documented in this encounter [facility] HealthcareHospital Discharge instructions Additional Instructions [facility] Work Phone: Hospital Discharge instructions Additional Instructions Return to emergency room for fever chills, chest pain, shortness of breath, worsening symptoms or other concerns May take Tylenol as needed for headache Take Augmentin twice a day for 7 days Use OTC cough medication as neededUniversity Hospitals [facility] Work Phone: Hospital Discharge instructions [...] pain, shortness of breath or any other concernsUniversity Hospitals Ahu[facility] Medical Center Work Phone: Reason for referral (narrative)No reason for referral information availableOhio State Health System Work Phone: Summary Purpose Family History No Family History Records Found Relationship Condition Age at Onset Recorded Date/T leno father Diabetes mellitus Unknown Myocardial infarctionUnknownNot SpecifiedMalignant neoplasm of ovaryUnknown brotherHypertensionUnknownsisterHypertensionUnknownDiabetes mellitusUnknown ArthritisUnknownOsteoporosisUnknownsisterMalignant neoplasm of skinUnknown HypertensionUnknownbrotherDiabetes mellitusUnknownCoronary artery diseaseUnknown History of heart valve replacement with porcine valveUnknownbrotherMyocardial infarctionUnknown Relationship Condition Age at Onset Recorded Date/T leno father Diabetes mellitus Unknown Myocardial infarctionUnknownNot SpecifiedMalignant neoplasm of ovaryUnknown brotherHypertensionUnknownsisterHypertensionUnknownDiabetes mellitusUnknown ArthritisUnknownOsteoporosisUnknownsisterMalignant neoplasm of skinUnknown HypertensionUnknownbrotherDiabetes mellitusUnknownCoronary artery diseaseUnknown History of heart valve replacement with porcine valveUnknownbrotherMyocardial infarctionUnknownHeart diseaseUnknownDeceasedUnknownNot SpecifiedDeceasedUnknown Malignant neoplasmUnknownsisterDiabetes mellitusUnknown Relationship Condition Age at Onset Recorded Date/T leno father Diabetes mellitus Unknown Myocardial infarctionUnknownHeart diseaseUnknownNot SpecifiedMalignant neoplasm of ovaryUnknownbrotherHypertensionUnknownHistory of heart valve replacement with porcine valveUnknownsisterDiabetes mellitusUnknownOsteoporosisUnknownArthritis UnknownHypertensionUnknownsisterMalignant neoplasm of skinUnknownbrotherDiabetes mellitusUnknownCoronary artery diseaseUnknownbrotherMyocardial infarction UnknownDeceasedUnknownNot SpecifiedDeceasedUnknown Relationship Condition Age at Onset Recorded Date/T leno father Diabetes mellitus Unknown Myocardial infarctionUnknownHeart diseaseUnknownmotherMalignant neoplasm of ovaryUnknownbrotherHypertensionUnknownHistory of heart valve replacement with porcine valveUnknownsisterDiabetes mellitusUnknownOsteoporosisUnknownArthritis UnknownHypertensionUnknownsisterMalignant neoplasm of skinUnknownbrotherDiabetes mellitusUnknownCoronary artery diseaseUnknownbrotherMyocardial infarction UnknownDeceasedUnknownmotherDeceasedUnknown Relationship Condition Age at Onset Recorded Date/T leno father Diabetes mellitus Unknown Heart diseaseUnknownMyocardial infarctionUnknownDeceasedUnknownmotherMalignant neoplasm of ovaryUnknownbrotherHistory of heart valve replacement with porcine valveUnknownHypertensionUnknownsisterDiabetes mellitusUnknownOsteoporosisUnknown ArthritisUnknownsisterMalignant neoplasm of skinUnknownbrotherDiabetes mellitus UnknownCoronary artery diseaseUnknownbrotherMyocardial infarctionUnknown Advance Directives No Advanced Directives Records Found [...] AFTER 2ND MBB E04.2 LUMBAR PAIN LUMBAR PAINReason for VisitLumbosacral spondylosis without myelopathy Other chronic pain Other low back pain Chief Complaint 6 Weeks Back Pain Back Pain Back Pain FOLLOW UP AFTER 2ND MBB E04.2 LUMBAR PAIN LUMBAR PAIN F/U JEEVAN LUMBAR FACET RFAReason for VisitLumbosacral spondylosis without myelopathy Other chronic pain Other low back pain Lumbosacral spondylosis without myelopathy Other chronic pain Other low back pain Chief Complaint 6 Weeks Back Pain Back Pain Back Pain FOLLOW UP AFTER 2ND MBB E04.2 LUMBAR PAIN LUMBAR PAIN e04.1 F/U JEEVAN LUMBAR FACET RFAReason for VisitLumbosacral spondylosis without myelopathy Other chronic pain Other low back pain Lumbosacral spondylosis without myelopathy Other chronic pain Other low back pain Chief Complaint FOLLOW UP AFTER 2ND MBB E04.2 LUMBAR PAIN LUMBAR PAIN e04.1 F/U JEEVAN LUMBAR FACET RFA feet and leg swellingReason for VisitLumbosacral spondylosis without myelopathy Other chronic pain Other low back pain Lumbosacral spondylosis without myelopathy Other chronic pain Other low back pain Chief Complaint e04.1 F/U JEEVAN LUMBAR FACET RFA feet and leg swelling e78.5Reason for VisitLumbosacral spondylosis without myelopathy Other chronic pain Other low back pain Chief Complaint feet and leg swellin g e78.5 Screening Chief Complaint Screening 6 MONTHSReason for VisitLumbosacral spondylosis without myelopathy Other chronic pain Other low back pain Chief Complaint Screening 6 MONTHS Back Pain Back PainReason for VisitLumbosacral spondylosis without myelopathy Other chronic pain Other low back pain Chief Complaint Screening 6 MONTHS Back Pain Back Pain headacheReason for VisitLumbosacral spondylosis without myelopathy Other chronic pain Other low back pain Chief Complaint Admit Date Screening April 06, 2024 10 :40am 6 MONTHS May 24, 2024 10 :59am Back Pain June 06, 2024 9 :05am Back Pain June 06, 2024 1 0:26am headache June 09, 2024 1 0:07am 1 MO F/U JEEVAN LUMBAR RFA July 05, 2 024 11:16am Reason for Visit Admit Date Lumbosacral [...] 2025 10:36 am Chief Complaint Admit Date 6 month January 03, 2025 10:36 am E78.5 K21.9 I10 Z13.1 January 23, 2025 8: 12am RECHECK BACK PAIN February 19, 2025 9:02a m Reason for Visit Admit Date Lumbosacral spondylosis without myelopat January 03, 2025 10:36am Other chronic pain January 03, 2025 10:36 am Other low back pain January 03, 2025 10:36 am Lumbosacral spondylosis without myelopat February 19, 2025 9:02am Other chronic pain [...] Visit Admit Date Lumbosacral spondylosis without myelopat January 03, 2025 10:36am Other chronic pain January 03, 2025 10:36 am Other low back pain January 03, 2025 10:36 am Lumbosacral spondylosis without myelopat February 19, 2025 9:02am Other chronic pain February 19, 2025 9:02a m Other low back pain February 19, 2025 9:02a m Lumbosacral spondylosis without myelopat March 20, 2025 12:43pm Other chronic pain March 20, 2025 12: 43pm Other low back pain March 20, 2025 12: 43pm Chief Complaint Admit Date RECHECK BACK PAIN February 19, 2025 9:02a m Back Pain March 06, 2025 8:15 am F.U JEEVAN LUMBAR RFA March 20, 2025 12: 43pm Screening May 01, 2025 10:06am Reason for Visit Admit Date Lumbosacral spondylosis without myelopat hy February 19, [...] section and content) DATE CREATED AUTHOR 01/08/2022 [facility] Supervisor [employer] DATE CREATED AUTHOR AUTHOR'S ORGANIZ ATION 07/19/2022 [facility] DATE CREATED AUTHOR AUTHOR'S ORGANIZ ATION 05/07/2025 [facility] DATE CREATED AUTHOR AUTHOR'S ORGANIZ ATION 06/22/2025 [facility] EPIC REASON FOR VISIT (unrecogniz ed section and content) ReasonCommentsThyroid Nodule6 month recheck thyroidReasonCommentsThyroid Nodule Yearly [place] Care Teams (unrecognized sec tion and content) Team Status: Active Member Role Status [facility] Primary Care Provider Active Team Status: Inactive Member Role Status [facility] Primary Care Provider Active Kobe Anthony ProviderActiveJosedennys Farmer DO RESReferring ProviderActive Team Status: Inactive Member Role Status [facility] Primary Care Provider Active Kobe Meier ProviderRickey Fontaine MD RESOther Provider Active Team Status: Inactive Member Role Status [facility] Primary Care Provider Active Pablo Mast DOAttstar ProviderRickey Fontaine MDOther ProviderActive Team Status: Inactive Member Role Status [facility] Primary Care Provider Active Kobe Anthony ProviderActiveHarrison Sánchez DO RESReferring Provider Active Team Status: Inactive Member Role Status [facility] Primary Care Provider Active Vicki Ruelas ProviderActive Team Status: Inactive Member Role Status [facility] Primary Care Provider Active Start: June 30, 2023 End: June 30Kobe Mcintosh ProviderActiveStart: June 30, 2023 End: June 30rober Sánchez DO RESReferring ProviderActiveStart: June 30, 2023 End: June 30, 2023 Team Status: Inactive Member Role Status [facility] Primary Care Provider Active Start: July 14, 2023 End: July 14omas Hector Zarateending ProviderActiveStart: July 14, 2023 End: July 14, 2023 Team Status: Inactive Member Role Status [facility] Primary Care Provider Active Start: August 05, 2023 End: August 05omas Hector Zarateending ProviderActiveStart: August 05, 2023 End: August 05, 2023 Team Status: Inactive Member Role Status Dates Apolinar Zarate MD Attending Provider Active Sta rt: August 30, 2023 End: August 30, 2023 Team Status: Inactive Member Role Status [facility] Primary Care Provider Active Start: September 14, 2023 End: September 14omas Vicki Zarate ProviderActiveStart: September 14, 2023 End: September 14, 2023 Team Status: Inactive Member Role Status [facility] Primary Care Provider Active Start: October 05, 2023 End: October 05omas Hector Zarateending ProviderActiveStart: October 05, 2023 End: October 05, 2023 Team Status: Active Member Role Status [facility] Primary Care Provider Active Start: October 05, 2023 Vicki Ruelas Provider, Other ProviderActiveStart: October 05, 2023 Team Status: Inactive Member Role Status [facility] Primary Care Provider Active Start: October 18, 2023 End: October 17Vicki Buchanan ProviderActiveStart: October 18, 2023 End: October 18, 2023 Team Status: Inactive Member Role Status [facility] Primary Care Provider Active Start: October 22, 2023 End: October 21DO Debora Banks ProviderActiveStart: October 22, 2023 End: October 22, 2023 Team Status: Inactive Member Role Status [facility] Primary Care Provider Active Start: November 02, 2023 End: November 01Vicki Buchanan ProviderActiveStart: November 02, 2023 End: November 02, 2023 Team Status: Active Member Role Status [facility] Primary Care Provider Active Start: November 02, 2023 Vicki Ruelas Provider, Other ProviderActiveStart: November 02, 2023 Team Status: Active Member Role Status Dates Ivan Edmonds DO Attending Provider Active S tart: November 23, 2023 Team Status: Inactive Member Role Status Dates Apolinar Zarate MD Attending Provider Active Sta rt: November 23, 2023 End: November 23, 2023[facility] ProviderActiveStart: November 23, 2023 End: November 23, 2023 Team Status: Inactive Member Role Status Dates Ivan Edmonds DO Attending Provider Active S tart: November 23, 2023 End: November 23, 2023 Team Status: Inactive Member Role Status [facility] Primary Care Provider Active Start: January 11, 2024 End: January 11, 2024Dony Ferguson MDEmergency ProviderActiveStart: January 11, 2024 End: January 11, 2024 Team Status: Inactive Member Role Status [facility] Primary Care Provider Active Start: February 08, 2024 End: February 08, 2024Nehal West MDAttending ProviderActiveStart: February 08, 2024 End: February 08, 2024Freulogio Choi MD RESOther ProviderActiveStart: February 08, 2024 End: February 08, 2024 Team Status: Inactive Member Role Status [facility] Primary Care Provider Active Start: April 06, 2024 End: April 06eferral SelfAttending ProviderActiveStart: April 06, 2024 End: April 06ichard Visci , DOReferring ProviderActiveStart: April 06, 2024 End: April 06, 2024 Team Status: Inactive Member Role Status [facility] Primary Care Provider Active Start: May 24, 2024 End: May 24, 2024Thomas Hector Zarateending ProviderActiveStart: May 24, 2024 End: May 24, 2024 Team Status: Inactive Member Role Status [facility] Primary Care Provider Active Start: June 06, 2024 End: June 06, 2024Thomas BARBER Zaratettending ProviderActiveStart: June 06, 2024 End: June 06, 2024 Team Status: Active Member Role Status [facility] Primary Care Provider Active Start: June 06, 2024 Vicki Ruelas Provider, Other ProviderActiveStart: June 06, 2024 Team Status: Inactive Member Role Status [facility] Primary Care Provider Active Start: June 09, 2024 End: June 09Johanny Cuevas ProviderActiveStart: June 09, 2024 End: June 09, 2024Team MemberRelationshipSpecialtyStart DateEnd Date Pablo Crowley MD [address] [place] [address] PCP - General03/24/23 Ivan Edmonds, [address] [place] [address] Kadixmbatpubdv46/30/24Team MemberRelationshipSpecialtyStart DateEnd Date Pablo Crowley MD [address] [place] [address] PCP - General03/24/23 Ivan Edmonds DO [address] [place] [address] Pbetlvurbfomev76/30/24 Team Status: Inactive Member Role Status [facility] Primary Care Provider Active Start: July 05, 2024 End: July 05, 2024ThVicki Buchanan ProviderActiveStart: July 05, 2024 End: July 05, 2024 Team Status: Inactive Member Role Status [facility] Primary Care Provider Active Start: November 04, 2024 End: November 04Johanny Mccabe ProviderActiveStart: November 04, 2024 End: November 04, 2024 Team Status: Inactive Member Role Status [facility] Primary Care Provider Active Start: November 10, 2024 End: November 10, 2024Paul Emy , DOAttending ProviderActiveStart: November 10, 2024 End: November 10, 2024Rico Choi MD RESOther ProviderActiveStart: November 10, 2024 End: November 10, 2024 Team Status: Inactive Member Role Status [facility] Primary Care Provider Active Start: January 03, 2025 End: January 03, 2025Thomas Tessa MDAttending ProviderActiveStart: January 03, 2025 End: January 03, 2025 Team Status: Inactive Member Role Status [facility] Primary Care Provider Active Start: January 23, 2025 End: January 23, 2025Eric Mast - FHS , DOAttending ProviderActiveStart: January 23, 2025 End: January 23, 2025Freulogio Choi MD RESOther ProviderActiveStart: January 23, 2025 End: January 23, 2025 Team Status: Inactive Member Role Status [facility] Primary Care Provider Active Start: February 19, 2025 End: February 19, 2025Thomas Tessa MDAttending ProviderActiveStart: February 19, 2025 End: February 19, 2025 Team Status: Active Member Role Status [facility] Primary Care Provider Active Start: March 06, 2025 Vicki Ruelas ProviderActiveStart: March 06, 2025 Smith Ruelas ProviderActiveStart: March 06, 2025 Team Status: Inactive Member Role Status [facility] Primary Care Provider Active Start: March 20, 2025 End: March 20, 2025Thomas Tessa MDAttending ProviderActiveStart: March 20, 2025 End: March 20, 2025 Team Status: Inactive Member Role Status [facility] Primary Care Provider Active Start: May 01, 2025 End: May 01, 2025Services Family HealthReferring ProviderActiveStart: May 01, 2025 End: May 01, 2025Referral SelfAttending ProviderActiveStart: May 01, 2025 End: May 01, 2025Team MemberRelationshipSpecialtyStart DateEnd Date Pablo Crowley DO [address] [place] [id number] PCP - General03/24/23 Ivan Edmonds, DO [address] [place] [address] Irdwjtukarebqe44/30/24Team MemberRelationshipSpecialtyStart DateEnd Date Pablo Crowley, DO [address] [place] [id number] PCP - General03/24/23 Ivan Edmonds, DO [address] [place] [address] Lsabqjkbriikis73/30/24 Goals (unrecognized section and content) Goals may [...] BE BASED ON THE PRIMARY CLINICAL RECORDS. [facility] [facility]. provides no warranty or guarantee of the accuracy or completeness of information in this document.
== END 2025-08-10 17:45 | disposition home or self-care (01) ==
PROVIDERS: Emergency Provider Student in an Organized Health Care Education/Training Program
DX: R53.1 Weakness (principal); R42 Dizziness and giddiness
CPT/HCPCS: 36415; 70450; 71275; 80053; 80307; 81001; 82330; 82948; 83735; 83880; 84443; 84484; 85025; 93005; 96365; 99285; Q9967